=== PATIENT | male | born 1945 | race Caucasian/White ===

== ENCOUNTER 2020-06-29 12:19 | Outpatient (CLI) | payer MEDICARE, SELFPAY ==
--- NOTE | ~2020-06-29 | CT_ITS ---
EXAMINATION: CT abdomen pelvis w con DATE: 06/29/2020 14:04 INDICATION: Acute abdominal pain. TECHNIQUE: Computed tomography (CT) of the abdomen and pelvis was performed with 100 mL Omnipaque 350 intravenous contrast. Automated exposure control and iterative reconstruction technique were employe d. The dose-length product was 1526.87 mGy-cm. COMPARISON: CT abdomen and pelvis 09/14/2017 FINDINGS: The visualized portions of the lung bases demonstrate mild atelectasis. A calcified right l omar nodule and calcified right hilar lymph nodes are consistent with old granulomatous disease. No pl eural effusion. The heart size is normal. There are coronary artery calcifications. No pericardial ef fusion. There is a 7.9 cm mass in right hepatic lobe. The gallbladder is distended. There is a gallst one in the gallbladder neck. Gallbladder wall thickening and pericholecystic fat stranding are seen. These findings are consistent with acute cholecystitis. Calcifications in the spleen are consistent w ith old granulomatous disease. The pancreas, adrenal glands, and kidneys are normal. There is diverti culosis of the colon without evidence of diverticulitis. The appendix is normal. There are no patholo gically enlarged lymph nodes. There is trace ascites. There is a left inguinal hernia containing fat. There are chronic bilateral L5 pars defects. There is interbody fusion at L5-S1. There is severe lum bar spondylosis and moderate thoracic spondylosis. IMPRESSION: 1. Acute cholecystitis. 2. 7.9 cm liver mass suspicious for malignancy. Ultrasound guided core needle biopsy is recommended. Reviewed, dictated and finalized at location A. IMPRESSION: 1. Acute cholecystitis. 2. 7.9 cm liver mass suspicious for malignancy. Ultrasound guided core needle b iopsy is recommended.
[2020-06-29 13:57] LABS: Estimated Glomerular Filt Rate 54
== END 2020-06-29 12:20 | disposition home or self-care (01) ==
PROVIDERS: PCP Family Medicine Adolescent Medicine; Visit Provider Family Medicine Adolescent Medicine
DX: R10.84 Generalized abdominal pain (principal); K81.0 Acute cholecystitis; R16.0 Hepatomegaly, not elsewhere classified
CPT/HCPCS: 74177; Q9967

== ENCOUNTER 2020-07-15 01:24 | Outpatient (CLI) | payer MEDICARE, SELFPAY ==
[2020-07-15 18:17] LABS: SARS-CoV-2 RNA PCR Negative
== END 2020-07-15 01:25 | disposition home or self-care (01) ==
LOC: ANHCOVIDDT 01:25
PROVIDERS: PCP Family Medicine Adolescent Medicine; Visit Provider Surgery
DX: Z01.812 Encounter for preprocedural laboratory examination (principal); Z20.828 Contact with and (suspected) exposure to other viral communicable diseases
CPT/HCPCS: 87635; C9803; U0003

== ENCOUNTER 2020-07-16 18:10 | Emergency (ER) | payer MEDICARE, SELFPAY ==
[2020-07-16 19:08] VITALS: BP 155/74; PULSE 100; RESP 18; TEMP 37.4; O2SAT 96
--- NOTE | 2020-07-16 20:41 | PC.NURSE ---
Patient alert oriented here with c/o syncopal episodes at home and having gallbladder surgery at 0500 . Patient reports that he called prior to coming around 1800 and was told to come right in , upset about length of time that he has been here and has not been seen-other than to be triaged/taken to room. Triage policy explained several times. Patient given cab numbers at his request
--- NOTE | 2020-07-16 21:15 | PC.NURSE ---
Patient called cab and went home
== END 2020-07-16 21:15 | disposition left against medical advice (07) ==
LOC: ANHED 21:24
PROVIDERS: PCP Family Medicine Adolescent Medicine
DX: R55 Syncope and collapse (principal)
CPT/HCPCS: 99199

== ENCOUNTER → 2020-07-17 01:32 | Day surgery (SDC) | payer MEDICARE, SELFPAY ==
[2020-07-09 14:04] VITALS: BMI 39.6
--- NOTE | 2020-07-16 08:49 | WPDANESEPPF ---
Anes - Initial Pre Proc Eval Procedure: Operation Date: 07/17/20 07:30 Proposed Procedures p Laparoscopic Cholecystectomy, Biopsy Liver Mass - Aristides Mccarthy MD Date/Time: 07/16/20 08:49 Surgeon: Aristides Mccarthy MD Pre Op Diagnosis: Acute Cholicystitis With Stone/ Liver Mass Patient Data Age: 74 Gender: M Height: 1.73 m Weight: 118.18 kg Allergies Allergy/AdvReac Type Severity Reaction Status Date / Time No Known Allergies Allergy Verified 07/17/20 06:49 Home Medications Medication Instructions Recorded Confirmed Type allopurinol 300 mg tablet 300 mg PO DAILY 08/27/19 07/17/20 History amlodipine 5 mg-benazepril 20 mg 1 cap PO DAILY 08/27/19 07/17/20 History capsule apixaban 5 mg tablet 5 mg PO BID 08/27/19 07/17/20 History aspirin 81 mg tablet,delayed 81 mg PO DAILY 08/27/19 07/17/20 History release celecoxib 200 mg capsule 200 mg PO DAILY 08/27/19 07/17/20 History finasteride 5 mg tablet 5 mg PO DAILY 08/27/19 07/17/20 History omeprazole 20 mg capsule,delayed 20 mg PO DAILY 08/27/19 07/17/20 History release umeclidinium 62.5 mcg-vilanterol 1 inhalation INHALATION DAILY 08/27/19 07/17/20 History 25 mcg/actuation powdr for inhalation fenofibrate nanocrystallized 145 145 mg PO DAILY 02/27/20 07/17/20 History mg tablet fexofenadine 180 mg tablet 180 mg PO BID tablet 02/27/20 07/17/20 History furosemide 40 mg tablet 40 mg PO QAM tablet 02/27/20 07/17/20 History levothyroxine 25 mcg tablet 25 mcg PO QAM tablet 02/27/20 07/17/20 History metolazone 5 mg tablet 5 mg PO DAILY PRN 02/27/20 07/09/20 History metoprolol succinate 50 mg 100 mg PO DAILY tablet 02/27/20 07/17/20 History tablet,extended release 24 hr oxybutynin chloride 5 mg tablet 5 mg PO BID tablet 02/27/20 07/17/20 History simvastatin 20 mg tablet 20 mg PO QPM tablet 02/27/20 07/17/20 History bexarotene 75 mg capsule 150 mg PO DAILY cap 02/28/20 07/17/20 History blood sugar diagnostic #200 each 05/12/20 07/06/20 Rx blood-glucose meter #1 ea 07/06/20 07/06/20 Rx insulin lispro protamine-lispro 25 unit SUBCUT BID ml 07/06/20 07/09/20 History 100 unit/mL (75-25) subcutaneous pen metformin 1,000 mg tablet 1,000 mg PO BID 90 Days #180 tablet 07/06/20 07/17/20 Rx pen needle, diabetic 32 gauge x #10 each 07/06/20 07/06/20 History hydrocodone-acetaminophen 1 - 2 tablet PO Q6H PRN #12 tablet 07/17/20 Rx Patient hx anesthesia problems: none Family hx anesthesia problems: none PMFSH Past Medical History Medical History (Updated 07/16/20 @ 08:49 by Ortega Lomeli DO) CAD (coronary artery disease) DVT (deep venous thrombosis) Essential hypertension History of blood clots History of COPD asbestosis Hx of myocardial infarction Liver mass Lymphoma Pure hypercholesterolemia, unspecified Type 2 diabetes mellitus with hyperglycemia, with long-term current use of insulin Surgical History Surgical History (Updated 07/16/20 @ 08:49 by Ortega Lomeli DO) History of bilateral knee arthroplasty History of left knee replacement Stented coronary artery 1998 Family History Family History Father Family history of arthritis Family history of congestive heart failure Family history of heart disease in male family member before age 55 Family history of hearing loss Mother , age 46 Blood clot in vein Other Family history of glaucoma Social History Social History Smoking status: Never smoker Second hand tobacco smoke exposure: No Alcohol intake: current Alcohol use details: STATES VERY RARELY Substance use: never Living arrangements: alone Additional occupation/education comments: [employer] Gender identity (if verbalized by the patient): Male Spiritual care concerns: No Anes - Eval Final PreProcedure Day of Procedure 07/16/20 08:
--- NOTE | 2020-07-17 05:46 | ECG_ITS ---
Measurements Intervals [place] Rate: 87 P: 57 MS: 160 QRS: 7 QRSD: 90 T: -2 QT: 337 QTc: 407 Interpretive Statements SINUS RHYTHM ATRIAL PREMATURE COMPLEX INFERIOR INFARCT, AGE INDETERMINATE BASELINE WANDER- AVF ABNORMAL ECG Electronically Signed On 07-17-2020 7:22:59 CDT by Angel Gonzáles D.O.
[2020-07-17] MEDS: LACTATED RINGERS 1,000 ML 30 ML IV CONT (06:45)
[2020-07-17] MEDS: ACETAMINOPHEN 500 MG TABLET 1000 MG PO (06:48)
[2020-07-17] MEDS: KETOROLAC 15 MG/ML VIAL (*BKC) IV PUSH (06:48)
--- NOTE | 2020-07-17 06:53 | WPDHPUPDATE1 ---
History and Physical Update Update Date/Time: 07/17/20 06:53 History and Physical has been reviewed, including an updated exam of the patient. There are NO changes in the patient's condition. Risks, benefits, and alternatives have been discussed and questions answered. Patient agrees to proceed with procedure.
[2020-07-17 07:01] LABS: Glucose Point of Care 212 (65-105)
[2020-07-17 07:13] VITALS: BP 128/63; PULSE 93; RESP 16; TEMP 37.6; O2SAT 96
[2020-07-17 07:19] LABS: INR 1.3; Prothrombin Time 15.5 Seconds (11.1-14.7)
[2020-07-17 07:20] LABS: Partial Thromboplastin Time 33.7 SECONDS (22.3-36.8)
[2020-07-17 07:22] LABS: Alanine Aminotransferase 102 U/L (4-50); Albumin Level 4.1 g/dL (3.5-5.1); Alkaline Phosphatase 105 U/L (38-126); Amylase 39 U/L (30-110); Aspartate Amino Transferase 206 U/L (17-59); Bilirubin Direct 2.9 mg/dL (0-0.3); Bilirubin,Total 6.2 mg/dL (0.2-1.3); Lipase 43 U/L (23-300)
[2020-07-17 08:52] VITALS: BMI 38.7
--- NOTE | 2020-07-17 09:22 | SUR.PREOP ---
0715: DR. MOODY HERE TO SEE PT. PT RELATED HE HAS HAD NAUSEA AND VOMITING AND SYNCOPAL EPISODES 07/16/20 AND WENT TO THE ER BUT LEFT BEFORE BEING EVALUATED. ARRIVED THIS AM WITH N/V AND SYNCOPE AND SEVERE ABD TENDERNESS. DR. MOODY MADE AWARE AND DR. HENNING MADE AWARE. DUE TO PT'S CARDIAC HX AND RECENT STATUS CHANGES, DECISION MADE BY AND JESU TO CANCEL SURGERY AND SEND PT TO ER FOR EVALUATION. D/W PT. 0800: REPORT CALLED TO [facility] AND PT DC'D TO ER DEPT.
== END | disposition home or self-care (01) ==
PROVIDERS: Anesthesiology; PCP Family Medicine Adolescent Medicine; Visit Provider Surgery
PROC: 0FT44ZZ Resection of Gallbladder, Percutaneous Endoscopic Approach (ICD-10-PCS; CPT 47562; principal; 2020-07-17 07:30)
DX: K82.9 Disease of gallbladder, unspecified (principal); R11.2 Nausea with vomiting, unspecified; R55 Syncope and collapse; R10.9 Unspecified abdominal pain; Z53.09 Procedure and treatment not carried out because of other contraindication; I10 Essential (primary) hypertension; I25.10 Atherosclerotic heart disease of native coronary artery without angina pectoris; J44.9 Chronic obstructive pulmonary disease, unspecified; E78.00 Pure hypercholesterolemia, unspecified; E11.9 Type 2 diabetes mellitus without complications; Z79.4 Long term (current) use of insulin; Z86.718 Personal history of other venous thrombosis and embolism; Z79.01 Long term (current) use of anticoagulants; Z95.5 Presence of coronary angioplasty implant and graft; E66.9 Obesity, unspecified; Z68.38 Body mass index [BMI] 38.0-38.9, adult
CPT/HCPCS: 36415; 80076; 82150; 83690; 85610; 85730; 86850; 86900; 86901; 93005; 99215; A9270; G0463; J1170; J1885; J3010; J7030; J7120

== ENCOUNTER 2020-07-17 08:22 | Inpatient (IN) | payer MEDICARE, SELFPAY ==
[2020-07-17] VITALS (14 sets, daily range): BP systolic 131–154; BP diastolic 66–85; PULSE 71–105; RESP 16–20; TEMP 36.3–37.1; O2SAT 95–100; BMI 39.2
--- NOTE | ~2020-07-17 | NM_ITS ---
EXAMINATION: NM hepatobiliary wo pharm DATE: 07/23/2020 10:30 INDICATION: Rule out bile leak COMPARISON: CT dated 07/19/2020 TECHNIQUE: 5.5 mCi Tc-99m mebrofenin (Choletec) was administered intravenously. Scintigraphic images of the abdomen were obtained for one hour. FINDINGS: There is normal clearance of radiotracer from the blood pool. There is homogeneous tracer u ptake by the liver on the early images. On the later images there is increased uptake along the cauda l half of the left hepatic lobe suggesting decreased clearance. Excreted activity is first visualized within the common bile duct and duodenum at 20 minutes. At approximately 35 minutes a small amount o f activity can be seen in a linear pattern extending caudally from the right hepatic lobe likely rajani g a surgical drain and consistent with a small bile leak. A larger proportion of the activity appears to remain within the common bile duct and duodenum. IMPRESSION: 1. Bile leak which extends along a surgical drain. Dr. Sharma discussed these findings with Dr. Salmeron at 10:45 AM. 2. Retention of activity at the caudal aspect of the left hepatic lobe. This appears more likely pare nchymal activity rather than related to the bile leak and could be related to either hyperperfusion r esulting from inflammation or increased retention raising concern for a biliary obstruction. On revie w of the prior CT images there appears to be some localized biliary ductal dilation the left hepatic lobe and would recommend attention to this region on the planned ERCP study. Could also consider furt her evaluation with contrast-enhanced MRI/MRCP. Reviewed, dictated and finalized at location A. AGE LINER IMPRESSION: 1. Bile leak which extends along a surgical drain. Dr. Sharma discussed thes e findings with Dr. Mccarthy at 10:45 AM. 2. Retention of activity at the caudal aspect of the left hepatic lobe. This ap pears more likely parenchymal activity rather than related to the bile leak and could be related to either hyperperfusion resulting from inflammation or incre ased retention raising concern for a biliary obstruction. On review of the prio r CT images there appears to be some localized biliary ductal dilation the left hepatic lobe and would recommend attention to this region on the planned ERCP study. Could also consider further evaluation with contrast-enhanced MRI/MRCP.
--- NOTE | ~2020-07-17 | XR_ITS ---
EXAMINATION: XR ERCP DATE: 07/23/2020 13:34 INDICATION: All stones. TECHNIQUE: Multiple spot fluoroscopic images of the right upper quadrant were obtained during endosco pic retrograde cholangiopancreatography (ERCP) performed by Irwin. Radiologist was not pres ent for the imaging or procedure. The amount of fluoroscopy time used during this procedure was 12.1 minutes. COMPARISON: None. FINDINGS: Cholecystectomy clips in the surgical drain project over the region of the gallbladder fossa. Initial image demonstrates cannulation of the main pancreatic duct with small amount of contrast within the normal caliber duct. Subsequent images demonstrate cannulation of the common bile duct with contrast opacification demonstrating a stone at the distal aspect of the dome of caliber common bile duct. The re is extravasation of contrast at the gallbladder fossa which appears to arise from the cystic duct. The contrast opacified intrahepatic biliary tree appears unremarkable. Final images demonstrate plac ement of a biliary stent with proximal tip in the left hepatic duct and distal loop coiled in the duo denum. The final image demonstrates a likely balloon sweeping the common bile duct with no residual f illing defects suggesting interval extraction of the suspected stone. IMPRESSION: 1. Placement of a biliary stent spanning the region of a post cholecystectomy bile leak which appears to originate along from the cystic duct. Please refer to the ERCP procedure note for additional deta ils. 2. Likely gallstone in the distal common bile duct on the initial images which is no longer visualize d on the final images and has likely been extracted. Again correlate with procedure note for further detail. Reviewed, dictated and finalized at location A. ULATOR IMPRESSION: 1. Placement of a biliary stent spanning the region of a post cholecystectomy b ile leak which appears to originate along from the cystic duct. Please refer to the ERCP procedure note for additional details. 2. Likely gallstone in the distal common bile duct on the initial images which is no longer visualized on the final images and has likely been extracted. Agai n correlate with procedure note for further detail.
--- NOTE | ~2020-07-17 | CT_ITS ---
EXAMINATION: CT brain wo con DATE: 07/17/2020 09:34 INDICATION: Syncope. TECHNIQUE: Computed tomography (CT) of the head was performed without intravenous contrast. The mA wa s adjusted according to patient size. Iterative reconstruction technique was employed. The dose-lengt h product was 605.33 mGy-cm. COMPARISON: None FINDINGS: There is no intracranial hemorrhage, acute infarction, or abnormal intracranial mass lesion . The ventricles are normal in size. There are likely changes of ocular lens replacement surgeries. T here is mild mucosal thickening in the ethmoid sinuses. The mastoid air cells are normal. IMPRESSION: 1. Normal brain. Reviewed, dictated and finalized at location A. IMPRESSION: 1. Normal brain.
--- NOTE | ~2020-07-17 | US_ITS ---
EXAMINATION: US venous doppler [facility] DATE: 07/24/2020 13:04 INDICATION: Lower limb swelling and tenderness TECHNIQUE: [place] scale images without and with compression and Doppler images of the bilateral lower e xtremity veins were obtained. COMPARISON: 06/03/2019 FINDINGS: The right common femoral vein, profunda femoral vein, femoral vein, popliteal vein, peroneal trunk, p osterior tibial veins, and greater saphenous vein are patent. The left common femoral vein, profunda femoral vein, femoral vein, popliteal vein, peroneal trunk, po sterior tibial veins, and greater saphenous vein are patent. IMPRESSION: 1. Patent bilateral lower extremity veins. No evidence of deep venous thrombosis. Reviewed, dictated and finalized at location A. ING OFFICER IMPRESSION: 1. Patent bilateral lower extremity veins. No evidence of deep venous thrombosi s.
--- NOTE | ~2020-07-17 | CT_ITS ---
EXAMINATION: CTA chest PE abdomen pel DATE: 07/19/2020 14:48 FOOD TRADES ASSISTANTS INDICATION: Sudden increased oxygen requirements. TECHNIQUE: Computed tomographic angiography (CTA) of the chest, abdomen and pelvis was performed with 100 mL Omnipaque-350 intravenous contrast. The dose-length product was 2374.94 mGy-cm. Maximum inten sity projection 3D-reconstructions of the aorta and other arteries were constructed by the [employer] st on a separate workstation. COMPARISON: CT dated 06/29/2020. FINDINGS: Study is limited for evaluation of pulmonary embolism due to contrast bolus timing. No larg e central pulmonary embolism. No pulmonary nodules or masses. No pneumothorax. No thoracic lymphadenopathy. There is atherosclerosis of the aorta and coronary arteries. No signific ant pleural or pericardial effusion. There is bilateral lower lobe atelectasis. No endobronchial lesi ons. There is a large 8 cm hypovascular lesion of the right hepatic lobe, suspicious for malignancy until proven otherwise. There are new hypodensities of the left hepatic lobe, suspicious for metastases. Th ere are calcified granulomas of the spleen. There is gallbladder wall thickening with surrounding per icholecystic infiltration, consistent with acute cholecystitis. There there is a stone in the distal common duct at the sphincter of Oddi. Nonobstructive bowel gas pattern. Normal appendix. IMPRESSION: 1. No large central pulmonary embolism. Limited study due to contrast bolus timing. 2: Large 8 cm right hepatic lobe mass. New masses of the left hepatic lobe. Findings compatible with metastatic disease. 3: Choledocholithiasis with acute cholecystitis. Reviewed, dictated and finalized at location A. TRADES ASSISTANTS IMPRESSION: 1. No large central pulmonary embolism. Limited study due to contrast bolus [place] ing. 2: Large 8 cm right hepatic lobe mass. New masses of the left hepatic lobe. Fin dings compatible with metastatic disease. 3: Choledocholithiasis with acute cholecystitis.
--- NOTE | ~2020-07-17 | US_ITS ---
EXAMINATION: US biopsy liver DATE: 07/21/2020 12:23 INDICATION: Liver mass TECHNIQUE: The procedure including the risks and benefits was discussed with the patient. Risks discu ssed included bleeding and infection. The patient understood the risks and agreed to proceed. The sk in overlying the right hepatic lobe was prepped and draped in usual sterile fashion. Anesthetic was administered with 1% lidocaine subcutaneously. An 18 gauge core biopsy needle was advanced under con tinuous ultrasound observation to the lesion of interest. 4 core biopsy specimens were obtained. The needle was removed and the entry site was cleaned and dressed. Post procedure ultrasound demonstra cal no hemorrhage. FINDINGS: Ultrasound images demonstrate approximately 8.5 cm hyperechoic mass. Subsequent images demo nstrate biopsy needle advanced into the mass. IMPRESSION: 1. Successful Ultrasound-guided biopsy of an approximately 8.5 cm solid hyperechoic mass in the right hepatic lobe. Reviewed, dictated and finalized at location A. PLANNING ENGINEER IMPRESSION: 1. Successful Ultrasound-guided biopsy of an approximately 8.5 cm solid hyperec hoic mass in the right hepatic lobe.
--- NOTE | ~2020-07-17 | XR_ITS ---
EXAMINATION: XR chest 1V portable DATE: 07/17/2020 09:25 INDICATION: Syncope. TECHNIQUE: A single frontal view of the chest was obtained. COMPARISON: Chest 2 views 03/29/2018, CT abdomen and pelvis 06/29/2020 FINDINGS: Sensitivity is decreased by obesity. The chest demonstrates clear lungs without pneumonia, pleural effusion, or pneumothorax. The heart size is normal. IMPRESSION: 1. No acute cardiopulmonary disease. Reviewed, dictated and finalized at location A.
--- NOTE | 2020-07-17 08:44 | ECG_ITS ---
Measurements Intervals [place] Rate: 82 P: 46 HI: 157 QRS: -3 QRSD: 93 T: -7 QT: 355 QTc: 417 Interpretive Statements SINUS RHYTHM ATRIAL PREMATURE COMPLEX INFERIOR INFARCT, AGE INDETERMINATE BASELINE ARTIFACT- I, III, AVR, AVL, AVF ABNORMAL ECG Electronically Signed On 07-17-2020 8:55:01 CDT by Angel Gonzáles D.O.
--- NOTE | 2020-07-17 08:54 | ED.GENADULT ---
HPI - General Adult General Chief complaint: Unspecified Stated complaint: WEAKNESS Time Seen by Provider: 07/17/20 08:44 Source: patient Mode of arrival: ambulatory Limitations: no limitations History of Present Illness HPI narrative: 74 years old white male referred to the emergency room from the OR because of loss of balance and fall twice yesterday. Patient was a scheduled for liver biopsy and probably cholecystectomy this morning. Patient told the anesthesiologist that he lost his balance and fell twice yesterday, came to the emergency room, waited for 1 hour into triage pain got tired and left the home. Patient started stool softener yesterday for the surgery this morning, got up of the couch real quick to go to the bathroom and lost his balance and fell, did not blackout. Denies any injuries. Later on patient got off the toilet real quick and felt dizzy and lost his balance and fell on the floor. He denies any loss of consciousness or any injuries. Patient lives alone. Patient did not eat since last night, currently feeling hungry, and his main complaint is abdominal pain across which been going for a while that is why his getting the procedure done today. Related Data Home Medications Medication Instructions Recorded Confirmed allopurinol 300 mg tablet 300 mg PO DAILY 08/27/19 07/17/20 amlodipine 5 mg-benazepril 20 mg 1 cap PO DAILY 08/27/19 07/17/20 capsule apixaban 5 mg tablet 5 mg PO BID 08/27/19 07/17/20 aspirin 81 mg tablet,delayed 81 mg PO DAILY 08/27/19 07/17/20 release celecoxib 200 mg capsule 200 mg PO DAILY 08/27/19 07/17/20 finasteride 5 mg tablet 5 mg PO DAILY 08/27/19 07/17/20 omeprazole 20 mg capsule,delayed 20 mg PO DAILY 08/27/19 07/17/20 release umeclidinium 62.5 mcg-vilanterol 1 inhalation INHALATION DAILY 08/27/19 07/17/20 25 mcg/actuation powdr for inhalation fenofibrate nanocrystallized 145 145 mg PO DAILY 02/27/20 07/17/20 mg tablet fexofenadine 180 mg tablet 180 mg PO BID tablet 02/27/20 07/17/20 furosemide 40 mg tablet 40 mg PO QAM tablet 02/27/20 07/17/20 levothyroxine 25 mcg tablet 25 mcg PO QAM tablet 02/27/20 07/17/20 metolazone 5 mg tablet 5 mg PO DAILY PRN 02/27/20 07/09/20 metoprolol succinate 50 mg 100 mg PO DAILY tablet 02/27/20 07/17/20 tablet,extended release 24 hr oxybutynin chloride 5 mg tablet 5 mg PO BID tablet 02/27/20 07/17/20 simvastatin 20 mg tablet 20 mg PO QPM tablet 02/27/20 07/17/20 bexarotene 75 mg capsule 150 mg PO DAILY cap 02/28/20 07/17/20 insulin lispro protamine-lispro 25 unit SUBCUT BID ml 07/06/20 07/09/20 100 unit/mL (75-25) subcutaneous pen pen needle, diabetic 32 gauge x #10 each 07/06/20 07/06/20 Allergies Allergy/AdvReac Type Severity Reaction Status Date / Time No Known Allergies Allergy Verified 07/17/20 10:08 Review of Systems Review of Systems: Narrative: CONSTITUTIONAL: Denies fever, chills, or sweats. EYES: Denies visual changes, redness, or discharge. ENT: Denies rhinorrhea, congestion, sore throat, or otalgia. CARDIOVASCULAR: Denies chest pain, palpitations, or edema. RESPIRATORY: Denies cough or dyspnea. GASTROINTESTINAL: Denies abdominal pain, nausea, vomiting, or diarrhea. GENITOURINARY: Denies dysuria or hematuria. SKIN: Denies rash or itching. MUSCULOSKELETAL: Denies back pain, joint pain, or myalgia. NEUROLOGIC: Denies headache, numbness, or weakness. PSYCHIATRIC: Denies anxiety or depression. [facility] Past Medical History Medical History CAD (coronary artery disease) DVT (deep venous thrombosis) Essential hypertension History of blood clots History of COPD asbestosis Hx of myocardial infarction Liver mass Lymphoma Pure hypercholesterolemia, unspecified Type 2 diabetes mellitus with hyperglycemia, with long-term current use of insulin Surgical History Surgical History History of bilateral kne
--- NOTE | 2020-07-17 09:05 | PC.NURSE ---
Pt asking for something to eat, [facility] has been npo since midnight for surgery this am. Call to OR, [facility] will check if Dr. Mccarthy wants to do surgery after pt cleared. [facility] will check and call back.
[2020-07-17 09:11] LABS: Alveolar/Arterial O2 Gradient 33.6 mmHg; Base Excess ABG -2.8 mEq/l (+/-2.0); Fractional Inspired Oxygen 21 %; HCO3 ABG 20.4 mEq/l (22.0-26.0); Oxygen Saturation ABG 96.4 % (95.0-100.0); PCO2 ABG 30.3 mmHg (35.0-45.0); PO2 ABG 79.8 mmHg (80.0-100.0); Total Hemoglobin 11.9 g/dL (12.0-18.0); pH ABG 7.445 (7.350-7.450)
[2020-07-17 09:12] LABS: Device ROOM AIR; Modified Allen's Test Pass; Site Drawn LEFT RADIAL
[2020-07-17] MEDS: SODIUM CHLORIDE 0.9% IV 1,000 ML 999 ML IV CONT (09:15)
[2020-07-17 10:09] LABS: Basophils Percent Auto 0.2 % (0.2-1.2); Hematocrit 34.7 % (42.0-52.0); Hemoglobin 11.1 g/dL (14.0-18.0); Immature Granulocyte Absolute 0.05 K/mm3 (0.00-0.031); Immature Granulocyte Percent A 0.5 % (0-0.5); Lymphocytes Absolute Auto 0.58 K/mm3 (0.9-3.2); Lymphocytes Percent Auto 5.4 % (18.3-44.2); Mean Corpuscular Hemoglobin 24.6 pg (26-34); Mean Corpuscular Volume 76.9 fl (80-100); Monocytes Absolute Auto 0.9 K/mm3 (0.1-0.6); Monocytes Percent Auto 8.1 % (2.6-8.5); Neutrophils Absolute Auto 9.1 K/mm3 (1.3-6.7); Neutrophils Percent Auto 85.8 % (45.5-73.1); Platelet Count Result 277 k/mm3 (150-375); Red Blood Count 4.51 M/mm3 (4.6-6.20); Red Cell Distribution Width 15.7 % (11.5-14.5); White Blood Count 10.7 K/mm3 (4.5-10.0)
[2020-07-17 10:18] LABS: INR 1.4
[2020-07-17 10:19] LABS: Partial Thromboplastin Time 36.4 SECONDS (22.3-36.8)
[2020-07-17 10:21] LABS: Alanine Aminotransferase 86 U/L (4-50); Albumin Level 3.5 g/dL (3.5-5.1); Alkaline Phosphatase 83 U/L (38-126); Anion Gap 8 mmol/L (8-16); Aspartate Amino Transferase 187 U/L (17-59); Bilirubin,Total 5.7 mg/dL (0.2-1.3); Blood Urea Nitrogen 16 mg/dL (9-20); Calcium 9.1 mg/dL (8.4-10.2); Carbon Dioxide 23 mmol/L (22-30); Chloride 102 mmol/L (98-107); Estimated CRCL calculation 65 ml/min; Estimated Glomerular Filt Rate > 60; Glucose 206 mg/dL (75-110); Potassium 4.4 mmol/L (3.4-5.0); Sodium 133 mmol/L (137-145)
[2020-07-17 10:30] LABS: NT Pro B Type Natriuretic Pept 377 PG/ML (5-100)
[2020-07-17 10:33] LABS: Troponin I < 0.012 ng/mL (0.000-0.034)
[2020-07-17 13:19] LABS: Glucose Point of Care 201 (65-105)
--- NOTE | 2020-07-17 13:45 | PM.IMHP ---
H&P: HPI History of Present Illness Date/Time: 07/17/20 13:45. The patient was seen and evaluated in the emergency department. Chief complaint: Near syncope. Narrative: Bo Barragan is a 74-year-old male with multiple medical problems including coronary artery disease, history of DVT and pulmonary embolism on anticoagulation, type 2 diabetes mellitus, hypertension, dyslipidemia, and T-cell lymphoma who presented to the emergency department earlier today from preop for evaluation after near-syncope x2 yesterday. He was scheduled to have a cholecystectomy today with a 2 week history of right upper quadrant abdominal pain and bloating; is also noted that he has a 7.9 cm liver mass that is going to be biopsied at that time as well. Since that time he has not been eating and drinking as usual given continued abdominal pain. Over the past couple of days he has had episodes of lightheadedness/dizziness which he attributes to possible dehydration due to decreased oral intake in addition to passing a large amount of stool after taking laxatives. Yesterday he had 2 episodes where he felt as though he was close to passing out, to the point where he fell on 2 occasions not long after standing up and becoming extremely lightheaded. He denies loss of consciousness to me, reports no injuries, and denies head trauma. He spoke with his doctor regarding these episodes and was directed to the emergency department. He waited in the waiting room for approximately 2 hours but decided to go home as he did not wish to continue waiting. He has not had any recent change in medication. No vomiting. No chest pain or pleuritic pain. No palpitations or racing heart. No significant change in occasional lower extremity edema. Review of Systems Review of Systems: Narrative: Twelve systems were reviewed with pertinent positives and negatives as per HPI. He denies fever, chills, and sweats. He believes his diabetes is fairly well controlled but does not recall his last hemoglobin A1c level. Glucose seems to range between 110 and 140s and he does have occasional lows. He has chronic intermittent lower extremity edema which is unchanged. No calf pain or tenderness. He denies recent travel. Anticoagulation has been on hold since Monday in anticipation of surgery today. He is currently on oral chemotherapy for T-cell lymphoma and received phototherapy as well. Except as documented, all other systems were reviewed and are negative. [facility] Past Medical History Medical History (Updated 07/17/20 @ 21:15 by Marybeth Morgan PA-C) Asbestosis Chronic anticoagulation Chronic back pain Chronic obstructive pulmonary disease Coronary artery disease With history of IA and stent. Patient of Dr. Abisai Patton. Deep venous thrombosis Eczema Essential hypertension Gastroesophageal reflux disease History of peptic ulcer Hyperlipidemia Hypothyroidism Insulin dependent type 2 diabetes mellitus Kidney stones Liver mass Pulmonary embolism T-cell lymphoma Receiving oral chemotherapy as well as phototherapy. Surgical History Surgical History (Updated 07/17/20 @ 21:13 by Marybeth Morgan PA-C) History of bilateral inguinal hernia repair History of bilateral knee arthroplasty History of cystoscopy With stone extraction. History of facial surgery Repair of left orbital fracture. History of left knee replacement History of shoulder surgery Left shoulder ORIF. History of tonsillectomy History of umbilical hernia repair Stented coronary artery (~1998) Family History Family History Father Family history of arthritis Family history of congestive heart failure Family history of heart disease in male family member before age 55 Family history of hearing loss Mother , age 46 Blood clot in vein Other Family history of glaucoma Social History Social History (Updated 07/17/20 @ 21:11 by Marybeth
--- NOTE | 2020-07-17 15:35 | ADMGEN ---
Addendum entered by Lynn Macias RN 07/17/20 15:55: admitted at 1535 Original Note: This patient, Bo Barragan, was admitted to 2 Medical Room 252-01. Patient/family oriented to hospital policies and general routines including ID bracelet, bed and alarms, visiting hours, pain management, procedures, bathroom and other care routines, personal items, smoking policy, room service/diet, and visiting hours. Information on how to activate the Rapid Response Team has been discussed. Patient/Family are encouraged to report perceived risks to care and to ask questions if they do not understand what they are told or what they should do.
[2020-07-17] MEDS: MORPHINE SULFATE (*CRX) 2 MG/ML INJ IV PUSH ×2 (16:17→22:11)
[2020-07-17 17:56] LABS: Glucose Point of Care 198 (65-105)
[2020-07-17] MEDS: OXYBUTYNIN CHLORIDE 5 MG TABLET PO (22:32)
[2020-07-17 23:29] LABS: Glucose Point of Care 183 (65-105)
[2020-07-18] VITALS (15 sets, daily range): BP systolic 113–175; BP diastolic 48–83; PULSE 60–100; RESP 20–22; TEMP 36.8–38.3; O2SAT 94–100
--- NOTE | 2020-07-18 | ECHO_ITS ---
Patient Info Name: Bo Barragan Age: 74 years : 1945 Gender: Male Ht: 68 in Wt: 261 lbs BSA: 2.44 m2 HR: 86 bpm BP: 175 / 71 mmHg Heart Rhythm: Sinus Rhythm Technical Quality: Poor Exam Date: 07/18/2020 11:26 AM Exam Location: [facility] Patient Status: Inpatient Admit Date: 07/17/2020 Staff Ordering Physician: Phoenix Krishnamurthy MD Tattooer: Venecia Heredia RDCS Attending Provider: Slime Oquendo PA-C Referring Physician: Yessy DOZIER; Exam Type: CA echo dop color flow w con Study Info Complete two-dimensional, color flow and Doppler transthoracic echocardiogram is performed with contrast to opacify the left ventricle and to improve the deliniation of the left ventricle endocardial borders. Contrast/Agitated Saline Contrast/Ag. Saline: Definity Amount: 4.00 ml Summary 1. Left ventricular chamber dimension is normal. 2. Left ventricular systolic function is normal, estimated at 65-70%. 3. There is mildly increased left ventricular wall thickness. 4. Left ventricular septal wall motion is normal. 5. The left ventricular diastolic function is grade I diastolic dysfunction. 6. Left atrial chamber dimension is mildly enlarged. 7. There is mild mitral valve regurgitation. 8. There is mild tricuspid valve regurgitation. 9. There is mild pulmonic regurgitation. Left Ventricle Left ventricular chamber dimension is normal. Left ventricular systolic function is normal, estimated at 65-70%. There is mildly increased left ventricular wall thickness. Left ventricular septal wall motion is normal. The left ventricular diastolic function is grade I diastolic dysfunction. Right Ventricle Right ventricular chamber dimension is normal. Right ventricular systolic function is normal. Left Atria Left atrial chamber dimension is mildly enlarged. Right Atria Right atrial chamber dimension is normal. Atrial Septum Intact interatrial septum visualized by color flow imaging. Aortic Valve The aortic valve is trileaflet. There is mild aortic valve sclerosis. There is no aortic valve stenosis. There is trace aortic valve regurgitation. Pulmonic Valve The pulmonic valve is normal. There is no pulmonic valve stenosis. There is mild pulmonic regurgitation. Mitral Valve The mitral valve has thickened leaflets. There is no mitral valve stenosis. There is mild mitral valve regurgitation. Tricuspid Valve The tricuspid valve leaflets are normal. There is no significant tricuspid valve stenosis. There is mild tricuspid valve regurgitation. No pulmonary hypertension, estimated pulmonary arterial systolic pressure is 24 mmHg. Pericardium/Pleural The pericardium appears normal. There is trivial pericardial effusion. Inferior Vena Cava Normal inferior vena cava with >50% collapse upon inspiration consistent with normal right atrial pressure, 5 mmHg. Aorta The aortic root size at the sinus of Valsalva is normal. Left Ventricular Outflow Tract Name Value Normal LVOT 2D LVOT Diameter 2.40 cm LVOT Doppler LVOT Peak Gradient
--- NOTE | 2020-07-18 01:57 | PHAR ---
PHARMACY VERIFIED HOME MED Umeclidinium/Vilanterol 62.5-25 mcg/actuation blister with device INHALE 1 PUFF ONCE DAILY
[2020-07-18] MEDS: LEVOTHYROXINE SODIUM 50 MCG TABLET PO (05:39)
[2020-07-18] MEDS: MORPHINE SULFATE (*CRX) 2 MG/ML INJ IV PUSH (06:07)
[2020-07-18 07:02] LABS: Hematocrit 33.3 % (42.0-52.0); Hemoglobin 10.8 g/dL (14.0-18.0); Mean Corpuscular HGB Conc 32.4 g/dl (32-36); Mean Corpuscular Hemoglobin 24.6 pg (26-34); Mean Corpuscular Volume 75.9 fl (80-100); Mean Platelet Volume 11.1 fl (7.4-10.4); Platelet Count Result 244 k/mm3 (150-375); Red Blood Count 4.39 M/mm3 (4.6-6.20); Red Cell Distribution Width 15.4 % (11.5-14.5); White Blood Count 10.3 K/mm3 (4.5-10.0)
[2020-07-18 07:23] LABS: Alanine Aminotransferase 122 U/L (4-50); Albumin Level 3.5 g/dL (3.5-5.1); Alkaline Phosphatase 104 U/L (38-126); Anion Gap 10 mmol/L (8-16); Aspartate Amino Transferase 225 U/L (17-59); Bilirubin,Total 6.9 mg/dL (0.2-1.3); Blood Urea Nitrogen 15 mg/dL (9-20); Calcium 9.3 mg/dL (8.4-10.2); Carbon Dioxide 24 mmol/L (22-30); Chloride 99 mmol/L (98-107); Estimated CRCL calculation 65 ml/min; Estimated Glomerular Filt Rate > 60; Glucose 223 mg/dL (75-110); Hemoglobin A1C 6.3 % (<5.7); Magnesium 1.3 mg/dL (1.6-2.3); Potassium 4.6 mmol/L (3.4-5.0); Sodium 133 mmol/L (137-145)
[2020-07-18 07:33] LABS: Lactate Dehydrogenase 652 U/L (313-618)
[2020-07-18 07:45] LABS: Iron < 10 ug/dL (49-181)
[2020-07-18 08:04] LABS: Glucose Point of Care 202 (65-105)
[2020-07-18] MEDS: INSULIN ASPART (*BKC) 100 UNITS/ML SUB-Q ×2 (08:07→18:33)
[2020-07-18 08:08] LABS: Percent Iron Saturation < 3 % (20-50)
[2020-07-18] MEDS: allopurinoL 300 MG TABLET PO (08:15)
[2020-07-18] MEDS: LORATADINE 10 MG TABLET PO (08:15)
[2020-07-18] MEDS: PANTOPRAZOLE 40 MG TABLET PO (08:15)
[2020-07-18] MEDS: FINASTERIDE 5 MG TABLET PO (08:15)
[2020-07-18] MEDS: FENOFIBRATE NANOCRYSTALLIZED 145 MG TABLET PO (08:15)
[2020-07-18] MEDS: amLODIPine BESYLATE 5 MG TABLET PO (08:16)
[2020-07-18] MEDS: lisinopriL 20 MG TABLET PO (08:16)
[2020-07-18] MEDS: METOPROLOL SUCCINATE EXT REL 100 MG TABCR PO (08:16)
[2020-07-18] MEDS: OXYBUTYNIN CHLORIDE 5 MG TABLET PO ×2 (08:16→20:07)
[2020-07-18] MEDS: FUROSEMIDE 40 MG TABLET PO (08:16)
[2020-07-18 08:27] LABS: Folic Acid 10.2 ng/mL (2.76->20)
[2020-07-18] MEDS: MAGNESIUM SULFATE 3GM/D5W100ML 3 GM/100 ML BAG IVPB (09:40)
--- NOTE | 2020-07-18 10:50 | PM.IMPN ---
Progress Note: A&P Assessment and Plan (1) Near syncope: Code(s): R55 - Syncope and collapse Status: Acute Assessment and Plan: ----- could be due to hypovolemia/ dehydration/ diarrhea from abdominal pain. Patient states he has not been eating very much lately. He is not orthostatic but feels a little lightheaded when he stands up. It is much better today. he has had Bienvenido hose in the past, we will reorder these. No cardiac symptoms present, EKG reviewed (2) Cholecystitis: Code(s): K81.9 - Cholecystitis, unspecified Status: Acute Assessment and Plan: ----- distressing to the patient and likely causing some dehydration. I have changed him to a low-fat diet. consider cholecystectomy soon as his previous appointment I believe was canceled (3) Liver mass: Code(s): R16.0 - Hepatomegaly, not elsewhere classified Status: Acute Assessment and Plan: ----- plan to biopsy it during the procedure above. He has scleral icterus, worrisome for liver cancer. AST and ALT elevated today (4) Microcytic anemia: Code(s): D50.9 - Iron deficiency anemia, unspecified Status: Acute Assessment and Plan: ----- hemoglobin remained stable, monitor (5) Jaundice: Code(s): R17 - Unspecified jaundice Status: Acute Assessment and Plan: ----- likely due to gallbladder and liver issues as stated above. Bilirubin 6.9. Yesterday his direct bilirubin was 2.9. 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 Eliquis has been on hold. (8) IDDM (insulin dependent diabetes mellitus): Status: Acute Assessment and Plan: -----last glucose 202, A1c 6.3. He takes 60u of 75/25 humalog at home as well as metformin. Will continued decreased dose of humalog at this time and may increase it as needed but since pt isn't eating much and may have sx, will continued decreased dose at this time. Diabetic diet added. (9) Hypothyroidism: Code(s): E03.9 - Hypothyroidism, unspecified Status: Inactive Assessment and Plan: -----TSH WNL. continue levothyroxine. (10) Insulin dependent type 2 diabetes mellitus: Code(s): E11.9 - Type 2 diabetes mellitus without complications; Z79.4 - retirement (current) use of insulin Status: Inactive (11) Essential hypertension: Code(s): I10 - Essential (primary) hypertension Status: Acute Assessment and Plan: -----Last bp 175/71 before his home medications. Will monitor it throughout the day. Continue lisinopril, lasix, metoprolol, and amlodipine. Time Spent With Patient Time with patient: 25 - 35 minutes Subjective Date/time seen: 07/18/20 10:50 Interval history: Pt is a 74-year-old male here for lightheadedness, presyncope and abdominal pain. Patient was seen today and states he is still lightheaded when he stands up but it is much better. He states his been going on for at least a month and it was worse yesterday but better today. He has in the past wore compression hose but quit doing so. He states that on Monday he was feeling little constipated and took laxative and has had diarrhea since but overall feeling better. He denies chest pain or numbness and tingling anywhere. He states that he can't take big breaths because of his abdominal pain which makes him feel short of breath at times but this is only when he takes in deep breaths. He also was unable to eat much of his breakfast as he was feeling very nauseated and had significant abdominal pain with that. Review of Systems Review of Systems: All systems rev
--- NOTE | 2020-07-18 10:55 | PM.CNCAR ---
Assessment and Plan Assessment and plan (1) Preop cardiovascular exam: Code(s): Z01.810 - Encounter for preprocedural cardiovascular examination Status: Acute Assessment and Plan: patient does not need stress testing prior to his laparoscopic cholecystectomy. He is at low to moderate risk of perioperative cardiovascular complications. At home he is able to perform greater than 4 mets of activity without any anginal symptoms. (2) Near syncope: Code(s): R55 - Syncope and collapse Status: Acute Assessment and Plan: Likely secondary to dehydration. I will check a 2D echocardiogram with Doppler. Continue IV fluids x1 more L then discontinue. (3) CAD (coronary artery disease): Code(s): I25.10 - Atherosclerotic heart disease of [place] coronary artery without angina pectoris Status: Acute Assessment and Plan: Continue Metoprolol perioperatively. Resume anti-platelet agents and anticoagulant therapy as soon as possible after surgery (4) Hx of myocardial infarction: Code(s): I25.2 - Old myocardial infarction Status: Acute (5) Acute cholecystitis: Code(s): K81.0 - Acute cholecystitis Status: Acute (6) Hypertension associated with diabetes: Code(s): E11.59 - Type 2 diabetes mellitus with other circulatory complications; I10 - Essential (primary) hypertension Status: Acute Assessment and Plan: at reasonable goal . Continue amlodipine, benazepril, metoprolol. (7) Hypomagnesemia: Code(s): E83.42 - Hypomagnesemia Status: Acute Assessment and Plan: 4 g IV magnesium x1 History of Present Illness History of Present Illness Consult date/time: 07/18/20 10:55 Requesting physician: Marybeth Morgan PA-C Consult reason: pre-op evaluation and Other (Presyncope) Reason For Visit: Near syncope. Narrative: date of service 07/18/2020 Reason for consultation: Preop evaluation presyncope History: Patient is a 74-year-old male with history of coronary disease, history DVT, pulmonary embolism. On anticoagulation. Hypertension with diabetes hyperlipidemia with diabetes and T-cell lymphoma. He was scheduled to have a cholecystectomy yesterday as well as a liver biopsy but this was canceled because of some episodes of presyncope. Patient states over the past couple weeks he has been eating and drinking very little because of significant abdominal pain and bloating every time he eats. Recently got up from the couch to answer the telephone and shortly thereafter became dizzy. He then went to the bathroom and upon getting up he also became dizzy and it was significant enough that he called a friend to have him come to the hospital for further evaluation. He has only been drinking a couple of bottles of water per day and not eating very much. This is significantly less than he usually does. He denies any exertional chest pain. Prior to his abdominal issues, he was able to walk around his house without any significant chest pain or shortness of breath. He denies any exertional chest pain. He has been having significant abdominal discomfort and bloating. No syncope, unusual edema, palpitations, paroxysmal nocturnal dyspnea or orthopnea. Review of Systems Review of Systems: All systems reviewed & are unremarkable except as noted in HPI and below Constitutional: Constitutional: Reports weakness Eyes: Eyes: Denies blurry vision ENT: Reports Normal hearing present Cardiovascular: Cardiovascular: Denies chest pain and Reports pedal edema Respiratory: Respiratory: Reports dyspnea on exertion Gastrointestinal: Gastrointestinal: Reports abdominal pain and Reports bloating Genitourinary: Genitourinary: Denies urinary urgency Musculoskeletal: Musculoskeletal: Denies neck pain Integumentary/Breasts: Skin/Breast: Denies pruritus Neurologic: Denies headache(s) and Denies numbness Psychiatric: Psychiatric: Denies anx
[2020-07-18 12:32] LABS: Glucose Point of Care 200 (65-105)
[2020-07-18] MEDS: ACETAMINOPHEN 325 MG TABLET 650 MG PO ×2 (15:15→20:21)
[2020-07-18 17:19] LABS: Glucose Point of Care 186 (65-105)
[2020-07-18] MEDS: PERFLUTREN LIPID MICROSPHERES 1.5 ML VIAL DILUTED TO 10 ML TOTAL VOLUME (17:56)
--- NOTE | 2020-07-18 18:36 | PC.NURSE ---
The patient was originally declining dinner and his blood sugar was 186 so no sliding scale Novolog was administered. After discussing this with the patient he decided he wanted to eat dinner. After the dinner tray was delivered the patient's blood sugar was 202, so the patient received 2 units of sliding scale insulin and 25 units of 75/25 Lispro.
[2020-07-18 18:41] LABS: Glucose Point of Care 202 (65-105)
[2020-07-18 22:00] LABS: Glucose Point of Care 198 (65-105)
[2020-07-19] VITALS (26 sets, daily range): BP systolic 102–165; BP diastolic 50–102; PULSE 74–143; RESP 16–32; TEMP 36.1–37.8; O2SAT 79–100
[2020-07-19 00:30] LABS: Base Excess ABG -5.7 mEq/l (+/-2.0); Carboxyhemoglobin 0.6 % THb (0-2.0); Fractional Inspired Oxygen 90 %; HCO3 ABG 17.6 mEq/l (22.0-26.0); Methemoglobin ABG 0.2 %THb (0-1.5); Oxygen Content ABG 17.1 %vol (16.0-22.0); Oxygen Saturation ABG 98.7 % (95.0-100.0); Oxyhemoglobin 97.4 % THb (90.0-100.0); PCO2 ABG 28.4 mmHg (35.0-45.0); PO2 ABG 129.6 mmHg (80.0-100.0); PO2 FiO2 Ratio Arterial Blood 1.44 %; Reduced Hemoglobin 1.8 %THb (0-5.0); Site Drawn RIGHT RADIAL; Total Hemoglobin 12.3 g/dL (12.0-18.0); pH ABG 7.411 (7.350-7.450)
[2020-07-19 00:31] LABS: Device NON-REBREATHER MASK; Modified Allen's Test Pass
[2020-07-19] MEDS: MORPHINE SULFATE (*CRX) 2 MG/ML INJ IV PUSH (00:31)
--- NOTE | 2020-07-19 00:53 | PC.NURSE ---
Rapid response called at [phone]. Pt was shaking and having a hard time catching his breath. Dr. Pereira came to room.
--- NOTE | 2020-07-19 00:56 | P.RRN_ITS ---
Critical Care Event Note Summary Code activated: No Narrative: 07/19/2020 just after midnight nursing staff called a rapid response when the patient suddenly began having difficulty breathing. He reported severe increased epigastric abdominal pain accompanied by shortness of breath. Initially staff was having difficulty obtaining pulse oximetry. The patient's heart rate was also elevated to 140. The patient had peripheral cyanosis. A non-rebreather was placed. One on the non-rebreather 10 L patient's oxygen saturations increased to 100%. a stat ABG was performed which demonstrated mild hyperventilation and PO2 of 120. A stat EKG was performed which demonstrated normal sinus rhythm. Stat CBC CMP and lactic acid were obtained. The patient is having severe upper abdominal pain that did improve but had not resolved. He received his p.r.n. morphine dose with improvement in his pain. The patient was weaned down to 4 L nasal cannula with oxygen saturations remaining 96%. on physical exam the patient had a fever of a temperature of 100? was having active rigors. His upper abdomen was diffusely tender and distended but soft. He was quite anxious. At the time of my evaluation he had resolution cyanosis. Mucous membranes are tacky, patient is alert and oriented, speech is clear Assessment: 1. Hypoxia: Possibly due to peripheral vaso constriction the patient's hyperventilation however given the patient's history of prior pulmonary embolism and his anticoagulants are currently on hold A stat CTA of the chest was performed to rule out PE. The CTA was nondiagnostic due to an adequate contrast timing. 2.sepsis: Based on criteria fever, tachycardia stat CBC, CMP and lactic acid as well as blood cultures were obtained. A stat CT of the abdomen pelvis demonstrated acute cholecystitis with 5 mm stone at the neck of the bile duct and known liver mass. The patient had new leukopenia and left shift noted on CBC with diff. He also had elevated lactic acid level and with new hypoxia symptoms were consistent with severe sepsis. A 1 L normal saline bolus was ordered. Blood cultures are pending. Will initiate antibiotic therapy with Levaquin and Flagyl. given the presence of the possible obstructing stone, incre asing bilirubin and worsening the patient's symptoms will make the patient NPO. Will defer whether consult gastroenterology to surgical service. 3. Lactic acidosis: Could be due to liver mass however given the patient's leukopenia, left shift fever and acute cholecystitis severe sepsis more likely. Management as discussed above. 45 minutes spent in critical care activities This case had a high probability of a clinically significant, sudden, or life threatening deterioration of this patient's condition which required my full and direct attention, intervention and personal management. Critical care time: 30 - 74 mins
[2020-07-19 01:01] LABS: Basophils Percent Auto 0.4 % (0.2-1.2); Hematocrit 32.5 % (42.0-52.0); Hemoglobin 10.6 g/dL (14.0-18.0); Immature Granulocyte Absolute 0.01 K/mm3 (0.00-0.031); Immature Granulocyte Percent A 0.4 % (0-0.5); Lymphocytes Absolute Auto 0.25 K/mm3 (0.9-3.2); Lymphocytes Percent Auto 8.8 % (18.3-44.2); Mean Corpuscular HGB Conc 32.6 g/dl (32-36); Mean Corpuscular Hemoglobin 24.3 pg (26-34); Mean Corpuscular Volume 74.5 fl (80-100); Mean Platelet Volume 10.7 fl (7.4-10.4); Monocytes Absolute Auto 0.1 K/mm3 (0.1-0.6); Monocytes Percent Auto 1.8 % (2.6-8.5); Neutrophils Absolute Auto 2.5 K/mm3 (1.3-6.7); Neutrophils Percent Auto 88.6 % (45.5-73.1); Platelet Count Result 197 k/mm3 (150-375); Red Blood Count 4.36 M/mm3 (4.6-6.20); Red Cell Distribution Width 15.3 % (11.5-14.5); White Blood Count 2.8 K/mm3 (4.5-10.0)
[2020-07-19 01:08] LABS: Glucose Point of Care 152 (65-105)
[2020-07-19 01:14] LABS: Alanine Aminotransferase 119 U/L (4-50); Albumin Level 3.5 g/dL (3.5-5.1); Alkaline Phosphatase 132 U/L (38-126); Anion Gap 13 mmol/L (8-16); Aspartate Amino Transferase 244 U/L (17-59); Blood Urea Nitrogen 20 mg/dL (9-20); Carbon Dioxide 21 mmol/L (22-30); Chloride 100 mmol/L (98-107); Estimated CRCL calculation 60 ml/min; Estimated Glomerular Filt Rate 59; Glucose 164 mg/dL (75-110); Lactic Acid Reflex 3.7 mmol/L (0.7-2.1); Potassium 4.1 mmol/L (3.4-5.0); Sodium 134 mmol/L (137-145)
[2020-07-19] MEDS: metroNIDAZOLE 500 MG/ISO 100ML 500 MG/100 ML BAG 100 MG IVPB ×2 (01:26→06:27)
[2020-07-19] MEDS: SODIUM CHLORIDE 0.9% IV 1,000 ML 999 ML IV CONT (01:27)
--- NOTE | 2020-07-19 02:00 | PC.NURSE ---
Daylight Savings Time For Daylight Savings Time Ending in the Fall - Clocks are moved back. For Daylight Savings Time Beginning in the Spring - Clocks are moved ahead. For [facility], the time of change occurs at 0200 hrs. Time is taken from the granulator operator. This entry on the patient's chart recognizes the change in time reflected during documentation. Example: 2 entries for vital signs may be charted for 0200 hrs.
[2020-07-19 03:59] LABS: Reflex Lactic Acid Yes or No Add Lactic
[2020-07-19 04:21] LABS: Hematocrit 29.9 % (42.0-52.0); Hemoglobin 10.1 g/dL (14.0-18.0); Mean Corpuscular HGB Conc 33.8 g/dl (32-36); Mean Corpuscular Hemoglobin 24.8 pg (26-34); Mean Corpuscular Volume 73.3 fl (80-100); Mean Platelet Volume 11.2 fl (7.4-10.4); Platelet Count Result 193 k/mm3 (150-375); Red Blood Count 4.08 M/mm3 (4.6-6.20)
[2020-07-19 04:37] LABS: Lactic Acid 2.1 mmol/L (0.7-2.1)
[2020-07-19 04:39] LABS: Alanine Aminotransferase 117 U/L (4-50); Albumin Level 3.2 g/dL (3.5-5.1); Alkaline Phosphatase 129 U/L (38-126); Anion Gap 10 mmol/L (8-16); Aspartate Amino Transferase 223 U/L (17-59); Bilirubin Direct 3.9 mg/dL (0-0.3); Bilirubin,Total 7.7 mg/dL (0.2-1.3); Blood Urea Nitrogen 23 mg/dL (9-20); Calcium 8.7 mg/dL (8.4-10.2); Carbon Dioxide 22 mmol/L (22-30); Chloride 101 mmol/L (98-107); Estimated CRCL calculation 52 ml/min; Estimated Glomerular Filt Rate 50; Glucose 163 mg/dL (75-110); Magnesium 1.6 mg/dL (1.6-2.3); Potassium 3.6 mmol/L (3.4-5.0); Sodium 133 mmol/L (137-145)
[2020-07-19] MEDS: LEVOTHYROXINE SODIUM 50 MCG TABLET PO (06:20)
[2020-07-19] MEDS: CHLORHEXIDINE GLUCONATE 4% SOL 120 ML BTL 1 APPLIC TOPICAL (07:30)
[2020-07-19 08:06] LABS: Glucose Point of Care 177 (65-105)
--- NOTE | 2020-07-19 08:12 | PC.NURSE ---
Report called to OR. Pt being down to or.
--- NOTE | 2020-07-19 08:15 | PC.NURSE ---
To OR per bed, IV saline locked. Report given to OR nurse by Jacqueline Quintana RN.
--- NOTE | 2020-07-19 08:19 | PC.NURSE ---
Rapid response called at 0008. Pt diaphoretic, rapid pulse of 140. Stat labs, ekg, abg and Cat Scans were ordered. All results were called to Dr. Pereira. Consult called to Dr. Mccarthy. Ordered fluids, antibiotics, NPO were all initiated. Stat orders from Fabio were initiated and pt sent down to OR.
--- NOTE | 2020-07-19 08:23 | PM.PNCARD ---
Progress Note: A&P Assessment and Plan (1) Preop cardiovascular exam: Code(s): Z01.810 - Encounter for preprocedural cardiovascular examination Status: Acute Assessment and Plan: patient does not need stress testing prior to his laparoscopic cholecystectomy. He is at low to moderate risk of perioperative cardiovascular complications. At home he is able to perform greater than 4 mets of activity without any anginal symptoms. (2) Near syncope: Code(s): R55 - Syncope and collapse Status: Acute Assessment and Plan: Likely secondary to dehydration. Echocardiogram was Generally unremarkable. (3) CAD (coronary artery disease): Code(s): I25.10 - Atherosclerotic heart disease of [place] coronary artery without angina pectoris Status: Acute Assessment and Plan: Continue Metoprolol perioperatively. Resume anti-platelet agents and anticoagulant therapy as soon as possible after surgery (4) Hx of myocardial infarction: Code(s): I25.2 - Old myocardial infarction Status: Acute (5) Acute cholecystitis: Code(s): K81.0 - Acute cholecystitis Status: Acute Assessment and Plan: going for surgery today (6) Hypertension associated with diabetes: Code(s): E11.59 - Type 2 diabetes mellitus with other circulatory complications; I10 - Essential (primary) hypertension Status: Acute Assessment and Plan: at reasonable goal . Continue amlodipine, benazepril, metoprolol. (7) Hypomagnesemia: Code(s): E83.42 - Hypomagnesemia Status: Acute Assessment and Plan: replaced Subjective Date/time seen: 07/19/20 08:23 Interval history: 74-year-old with known CAD Admitted for acute cholecystitis and preoperative clearance Date of service 07/19/2020 Events of last night noted. Patient became very short of breath, chilled and shaky. Also became tachycardic but sinus rhythm. He did rule out for PE. Non-rebreather with started and the plan is for surgery this morning. Review of Systems Review of Systems: All systems reviewed & are unremarkable except as noted in HPI and below Constitutional: Constitutional: Denies excessive sweating, Denies headache(s) and Reports weakness Eyes: Eyes: Denies blurry vision ENT: Reports Normal hearing present, Denies headache(s), Denies lip swelling and Denies neck pain Cardiovascular: Cardiovascular: Denies chest pain, Reports pedal edema and Reports dyspnea on exertion Respiratory: Respiratory: Reports dyspnea on exertion Gastrointestinal: Gastrointestinal: Reports abdominal pain and Reports bloating Genitourinary: Genitourinary: Denies urinary urgency Musculoskeletal: Musculoskeletal: Denies neck pain and Denies numbness Integumentary/Breasts: Skin/Breast: Denies pruritus Neurologic: Reports Normal hearing present, Denies confusion, Denies headache(s), Denies numbness and Reports weakness Psychiatric: Psychiatric: Denies anxiety and Denies confusion Endocrine: Endocrine: Denies excessive sweating Hematologic/Lymphatic: Hematologic/Lymphatic: Denies easy bleeding and Denies easy bruising Allergic/Immunologic: Allergic/Immunologic: Denies lip swelling Exam Narrative: Exam Narrative: Patient is awake alert and oriented and appears to be in no acute distress Const: General: no acute distress; No confusion Orientation/consciousness: No confusion HENMT: General nose exam: Normal nares present Eyes: Sclera: scleral abnormality ( jaundiced, icteric) Neck: Neck: no JVD Chest: Other: no reproducible chest wall pain to palpation Resp: Auscultation: clear to auscultation bilaterally Cardio: Rate: regular rate Rhythm: regular rhythm Skin: General skin exam: no rashes or lesions noted Neuro: General: No confusion Cranial nerves: Yes Normal hearing present Cognition (Neuro): normal cognition Speech: normal speech Extrem: General: pedal edema ( trivial lowe
--- NOTE | 2020-07-19 08:32 | WPDANESEFPP ---
Anes - Eval Final PreProcedure Day of Procedure 07/19/20 08:32 Patient weight: obese Heart: regular rate and rhythm Lungs: clear to auscultation and normal air movement Airway: Mallampati scale class III Neurological: alert and oriented Last oral intake: >/= 8 hours ASA classification: IV Emergent: yes Anesthetic plan: proceed Anesthesia type and monitoring: general ETT and standard monitoring Informed Consent: The patient's anesthetic plan and its attendant risks and benefits were discussed with the patient/family/POA. Questions were solicited and answers provided to the satisfaction of the patient/family/POA.
--- NOTE | 2020-07-19 08:48 | PC.NURSE ---
The patient was down in the preop area when Dr. Mccarthy changed the orders for the consent to a laproscopic cholecystectomy with intraoperative cholangiogram. The preop nurse obtained the new consent while the patient was in the preop area.
--- NOTE | 2020-07-19 08:56 | PM.CNGS ---
Assessment and Plan Assessment and plan (1) Choledocholithiasis with acute cholecystitis with obstruction: Code(s): K80.43 - Calculus of bile duct with acute cholecystitis with obstruction Status: Acute Assessment and Plan: Patient has had worsening of his cholecystitis and may now have stone in the distal common bile duct. Will proceed today with laparoscopic cholecystectomy and intraoperative cholangiogram. The procedure the risks the benefits have been discussed. He agrees to go ahead. His bilirubin is up to 7.7 and he does have jaundiced appearance so I suspect he does have an obstructing distal bile duct stone as well as acute cholecystitis. (2) Severe sepsis with acute organ dysfunction: Code(s): A41.9 - Sepsis, unspecified organism; R65.20 - Severe sepsis without septic shock Status: Acute Assessment and Plan: Rigors chills neutropenia lactic acidosis all consistent with sepsis and source is either cholecystitis or acute cholangitis. Proceed with surgery as outlined above. (3) Jaundice: Code(s): R17 - Unspecified jaundice Status: Acute Assessment and Plan: Bilirubin 7.7 no acute pancreatitis on CT (4) Liver mass: Code(s): R16.0 - Hepatomegaly, not elsewhere classified Status: Chronic Assessment and Plan: Will try to do a needle biopsy at surgery if feasible. (5) Microcytic anemia: Code(s): D50.9 - Iron deficiency anemia, unspecified Status: Acute (6) Chronic anticoagulation: Code(s): Z79.01 - nursing home (current) use of anticoagulants Status: Chronic Assessment and Plan: Remains on hold (7) IDDM (insulin dependent diabetes mellitus): Status: Chronic Assessment and Plan: Good control while in the hospital (8) Type 2 diabetes mellitus with hyperglycemia, with long-term current use of insulin: Code(s): E11.65 - Type 2 diabetes mellitus with hyperglycemia; Z79.4 - nursing home (current) use of insulin Status: Chronic (9) Morbid obesity: Code(s): E66.01 - Morbid (severe) obesity due to excess calories Status: Chronic History of Present Illness Consult details Consult date: 07/19/20 Reason for consult: other (Sepsis, acute cholecystitis with common bile duct stone) Narrative: Patient is a 74-year-old gentleman who was scheduled for laparoscopic cholecystectomy on Friday July 17, 2020. The patient had had a couple of syncopal episodes the day before as well as concerns regarding his cardiac status. His surgery was canceled and he went to the emergency room. Initial evaluation there showed some orthostatic blood pressure changes. He was admitted for observation. He had a cardiac echo and cardiac evaluation. They felt he was satisfactory for surgery. Early this morning he developed severe epigastric pain, tachycardia and respiratory distress. A rapid response was called. The patient improved with treatment but CT of the abdomen and pelvis now showed cholecystitis and possibly a stone in the distal common bile duct. The patient also has been known to have an 8 cm mass in the right lobe of the liver. This was planned to be biopsied at the time of the cholecystectomy. I was asked to see the patient in consultation as he has sepsis and it appears the source is either cholecystitis or cholangitis. He is seen now for that purpose. Review of Systems Review of Systems: All systems reviewed & are unremarkable except as noted in HPI and below Constitutional: Constitutional: Reports as per HPI, Reports chills (Rigors) and Reports fever(s) Gastrointestinal: Gastrointestinal: Reports as per HPI, Reports abdominal pain (Feels better now than it did last night), Reports bloating, Denies nausea and Denies vomiting PMFSH Past Medical History Medical History Asbestosis Chronic anticoagulation Chronic back pain Chronic obstructive pulmonary dis
--- NOTE | 2020-07-19 09:13 | WPDHPUPDATE1 ---
History and Physical Update Update Date/Time: 07/19/20 09:13 History and Physical has been reviewed, including an updated exam of the patient. There are NO changes in the patient's condition. Risks, benefits, and alternatives have been discussed and questions answered. Patient agrees to proceed with procedure.
[2020-07-19] MEDS: BUPIVACAINE/EPINEPHRINE 0.5% 10 ML VIAL 20 ML INFILTRATE (10:02)
[2020-07-19] MEDS: HEMOSTATIC MATRIX (SURGIFLO with THROMBIN) KIT 1 KIT XX (11:12)
[2020-07-19] MEDS: LACTATED RINGERS 1,000 ML 30 ML IV CONT ×2 (11:43)
[2020-07-19] MEDS: fentaNYL CITRATE INJ (*CRX) 100 MCG/2 ML VIAL 25 MCG IV PUSH ×7 (11:53→12:40)
[2020-07-19] MEDS: HYDROmorphone HCL INJ (*CRX) 1 MG/ML SYR 0.25 MG IV PUSH (12:50)
[2020-07-19 12:57] LABS: Glucose Point of Care 182 (65-105)
--- NOTE | 2020-07-19 13:45 | PC.NURSE ---
Returned from OR per bed. Report received from NÉSTOR Cuadra.
[2020-07-19] MEDS: LACTATED RINGERS 1,000 ML 100 ML IV CONT (14:12)
[2020-07-19] MEDS: LORATADINE 10 MG TABLET PO (14:39)
[2020-07-19] MEDS: OXYBUTYNIN CHLORIDE 5 MG TABLET PO ×2 (14:39→21:35)
[2020-07-19] MEDS: FENOFIBRATE NANOCRYSTALLIZED 145 MG TABLET PO (14:39)
[2020-07-19] MEDS: PANTOPRAZOLE 40 MG TABLET PO (14:39)
[2020-07-19] MEDS: FINASTERIDE 5 MG TABLET PO (14:39)
[2020-07-19] MEDS: allopurinoL 300 MG TABLET PO (14:39)
--- NOTE | 2020-07-19 14:53 | PM.PROC ---
Procedure Note - Detailed Date of procedure: 07/19/20 Pre-op diagnosis: Choledocholithiasis with acute cholecystitis choledocholithiasis with acute cholecystitis and obstruction, sepsis; right hepatic mass Post-op diagnosis: other ( gangrenous acute cholecystitis with purulent bile, sepsis; no right hepatic mass seen) Procedure performed: laparoscopic cholecystectomy Description of procedure: the patient was taken to surgery and induced into general anesthesia. The abdomen was prepped and draped. Trocars were placed in the usual fashion using 0.5% Marcaine with epinephrine and applied Medical optical trocars. After the trocars were placed insufflation was adequate, it was immediately obvious that we were dealing with severe cholecystitis. There were dense adhesions to the gallbladder primarily of omentum. These were difficult to take down even though they were inflammatory in nature. The gallbladder had a lot of tissue associated with it consistent with gangrenous cholecystitis. After taking down the adhesions to the fundus of the gallbladder, I proceeded with a laparoscopic aspirated ir to decompress the gallbladder. Purulent bile was noted. The gallbladder partially decompressed. This helped to grasp the gallbladder and elevated. The patient had significant fatty liver and retraction of the gallbladder towards the shoulder was not able to be performed adequately. This made the procedure more difficult due to lack of exposure and the dense, intense inflammation. A 5th trocar had to be placed in the left mid abdomen to assist in retracting both liver and duodenum at various points in the dissection. We continued dissection of the adhesions off the gallbladder but when we approached the infundibular area, the adhesions became even more dense and tenacious. Retracting the gallbladder resulted in some holes. Purulent bile came forth. This was suctioned away quickly. No real stones came out of the gallbladder. Slow meticulous and difficult dissection in the area of the cholecysto hepatic triangle was carried out. This was primarily done with suction or fine tipped laparoscopic dissecting instruments. There was thickened peritoneum around the gallbladder which was yellow and fibrotic. Dividing through this we were able to see a more compliant, soft gallbladder wall. Dissection in the area of the cystic duct was particularly difficult. I dissected higher up on the gallbladder on both the medial and lateral sides trying to get as much exposure to this area before actually delineating the biliary anatomy. Eventually, a very diminutive cystic duct was found. It was short and, even though a cholangiogram was planned, too small to pass a cholangiogram catheter. Cholangiogram was therefore not done. Extensive dissection of the gallbladder off the liver was performed. The cystic artery may have already been thrombosed as it was really never seen. I dissected about half the gallbladder off the liver before deciding that the structure dissected earlier was in fact the cystic duct. I securely clipped the cystic duct and divided it. From there we dissected the gallbladder off the liver. Some gangrenous tissue allowed us to separate the gallbladder from the liver with very little bleeding and no entry into the liver substance. There had been entry into the liver substance in the area of the cystic duct. This had some venous oozing but not severe. Eventually, I completely removed the gallbladder from the liver. It was placed in an Endo-Catch bag and retrieved through the 10 11 epigastric trocar. I then replaced the epigastric trocar and began suctioning and irrigating the right upper quadrant. While no stones were noted having escape the gallbladder, there had been abundant purulent fluid and blood in the right upper quadrant. I used nearly a complete 3 L bag of irrigation. Irrigation and suctioning were carried out cleaning the area thoroughly. Surgiflo
--- NOTE | 2020-07-19 14:53 | PM.IMPN ---
Progress Note: A&P Assessment and Plan (1) Choledocholithiasis with acute cholecystitis with obstruction: Code(s): K80.43 - Calculus of bile duct with acute cholecystitis with obstruction Status: Acute Assessment and Plan: ----- Op note pending at this time but patient states they found a stone in his common bile duct. Will await recommendations from Dr. pena, continue Zosyn at this time. White blood cell count normal today but patient had rigors and acute respiratory distress overnight likely due to sepsis. Blood cultures were drawn and are pending at this time. Lactic acid has returned to normal (2) Near syncope: Code(s): R55 - Syncope and collapse Status: Acute Assessment and Plan: ----- could be due to hypovolemia/ dehydration/ diarrhea from abdominal pain. Patient states he has not been eating very much lately. He is not orthostatic but feels a little lightheaded when he stands up. continue Bienvenido hose. No cardiac symptoms present, EKG reviewed (3) Cholecystitis: Code(s): K81.9 - Cholecystitis, unspecified Status: Acute Assessment and Plan: ----- distressing to the patient and likely causing some dehydration. see above (4) Liver mass: Code(s): R16.0 - Hepatomegaly, not elsewhere classified Status: Chronic Assessment and Plan: ----- plan was to biopsy this but I am unsure if this was done as the op note is pending. he definitely needs a biopsy at some point if not already done because it is concerning for primary cancer.. He has scleral icterus, worrisome for liver cancer. AST and ALT elevated today (5) Microcytic anemia: Code(s): D50.9 - Iron deficiency anemia, unspecified Status: Acute Assessment and Plan: ----- hemoglobin remained stable, monitor (6) Jaundice: Code(s): R17 - Unspecified jaundice Status: Acute Assessment and Plan: ----- likely due to gallbladder and liver issues as stated above. 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 (8) Chronic anticoagulation: Code(s): Z79.01 - [facility] (current) use of anticoagulants Status: Chronic Assessment and Plan: -----d/t hx of PE and DVT. Eliquis has been on hold. will continue to hold this until surgery has additional recommendations. We may see if we can get IR to biopsy the liver while he is off anticoagulation here. (9) IDDM (insulin dependent diabetes mellitus): Status: Chronic Assessment and Plan: -----last glucose 182, A1c 6.3. He takes 60u of 75/25 humalog at home as well as metformin. Will continued decreased dose of humalog at this time and may increase it as needed but since pt isn't eating much. continue diabetic diet (10) Hypothyroidism: Code(s): E03.9 - Hypothyroidism, unspecified Status: Inactive Assessment and Plan: -----TSH WNL. continue levothyroxine. (11) Insulin dependent type 2 diabetes mellitus: Code(s): E11.9 - Type 2 diabetes mellitus without complications; Z79.4 - retirement (current) use of insulin Status: Inactive (12) Essential hypertension: Code(s): I10 - Essential (primary) hypertension Status: Acute Assessment and Plan: -----Last bp 175/71 118/78. I have held his blood pressure medications after surgery but plan to continue lisinopril, lasix, metoprolol, and amlodipine in the morning. Subjective Date/time seen: 07/19/20 14:53 Interval history: Pt is a 74-year-old male here for lightheadedness, presyncope and acute cholecystitis. Patient was seen today after surgery and states he has abdominal pain that he thinks is an 8/10 but has been receiving pain medications and thinks it is getting better. He is unable to alicia
[2020-07-19] MEDS: IBUPROFEN IV 800 MG/200 ML 800 MG/200 ML BAG 400 MG IVPB ×2 (15:57→22:50)
[2020-07-19] MEDS: HYDROcodone/acetaminophen (*CRX) 10-325 MG TABLET 1 TAB PO (16:13)
[2020-07-19 16:45] LABS: Glucose Point of Care 143 (65-105)
--- NOTE | 2020-07-19 16:48 | PC.NURSE ---
I left a message for LAWANDA Nguyen at 1640. I was informed that [facility] was gone for the day so I notified Dr. Webb of these results. He stated that Zosyn covers Gram negative bacili.
[2020-07-19] MEDS: ENOXAPARIN 30 MG/0.3 ML SYRINGE SUB-Q (21:35)
[2020-07-20] VITALS (15 sets, daily range): BP systolic 99–139; BP diastolic 57–98; PULSE 76–102; RESP 18–22; TEMP 36.4–36.9; O2SAT 90–98
[2020-07-20 01:14] LABS: Glucose Point of Care 220 (65-105)
[2020-07-20] MEDS: LACTATED RINGERS 1,000 ML 100 ML IV CONT (02:59)
[2020-07-20] MEDS: IBUPROFEN IV 800 MG/200 ML 800 MG/200 ML BAG 300 MG IVPB (03:44)
[2020-07-20] MEDS: LEVOTHYROXINE SODIUM 50 MCG TABLET PO (05:35)
[2020-07-20 05:46] LABS: Hemoglobin 9.4 g/dL (14.0-18.0); Mean Corpuscular HGB Conc 33.6 g/dl (32-36); Mean Corpuscular Hemoglobin 24.2 pg (26-34); Mean Platelet Volume 11.4 fl (7.4-10.4); Platelet Count Result 188 k/mm3 (150-375); Red Blood Count 3.89 M/mm3 (4.6-6.20); Red Cell Distribution Width 15.1 % (11.5-14.5); White Blood Count 7.3 K/mm3 (4.5-10.0)
[2020-07-20 05:54] LABS: INR 1.6; Prothrombin Time 18.9 Seconds (11.1-14.7)
[2020-07-20 05:55] LABS: Partial Thromboplastin Time 41.1 SECONDS (22.3-36.8)
[2020-07-20 06:08] LABS: Alanine Aminotransferase 176 U/L (4-50); Alkaline Phosphatase 101 U/L (38-126); Anion Gap 10 mmol/L (8-16); Aspartate Amino Transferase 415 U/L (17-59); Bilirubin,Total 4.5 mg/dL (0.2-1.3); Blood Urea Nitrogen 41 mg/dL (9-20); Calcium 8.5 mg/dL (8.4-10.2); Carbon Dioxide 22 mmol/L (22-30); Chloride 101 mmol/L (98-107); Estimated CRCL calculation 37 ml/min; Estimated Glomerular Filt Rate 33; Glucose 169 mg/dL (75-110); Magnesium 1.7 mg/dL (1.6-2.3); Potassium 3.9 mmol/L (3.4-5.0); Sodium 133 mmol/L (137-145)
--- NOTE | 2020-07-20 08:02 | PM.PNGS ---
Progress Note: A&P Assessment and Plan (1) Acute suppurative cholecystitis: Code(s): K81.0 - Acute cholecystitis Status: Acute Assessment and Plan: continue IV antibiotics. Advance diet. Much improved from yesterday. Watch ASHU drain output for signs of bile leak. Monitor LFTs and clinical course for possible common bile duct stone as noted on CT 2 days ago. Looks very good this morning. (2) Severe sepsis with acute organ dysfunction: Code(s): A41.9 - Sepsis, unspecified organism; R65.20 - Severe sepsis without septic shock Status: Acute Assessment and Plan: Nearly resolved as septic source removed yesterday. (3) Liver mass: Code(s): R16.0 - Hepatomegaly, not elsewhere classified Status: Chronic Assessment and Plan: Will need image guided biopsy before discharge (4) Type 2 diabetes mellitus with hyperglycemia, with long-term current use of insulin: Code(s): E11.65 - Type 2 diabetes mellitus with hyperglycemia; Z79.4 - [facility] (current) use of insulin Status: Chronic (5) Essential hypertension: Code(s): I10 - Essential (primary) hypertension Status: Acute (6) Chronic anticoagulation: Code(s): Z79.01 - [facility] (current) use of anticoagulants Status: Chronic Assessment and Plan: continue to hold for now. (7) Morbid obesity: Code(s): E66.01 - Morbid (severe) obesity due to excess calories Status: Chronic Subjective Subjective Date/Time Seen: 07/20/20 08:02 Post Op day: 1 Patient reports: no new complaints, feels better and pain is less Review of Systems Review of Systems: All systems reviewed & are unremarkable except as noted in HPI and below Constitutional: Constitutional: Denies chills, Reports fatigue, Denies fever(s) and Denies headache(s) Cardiovascular: Cardiovascular: Denies chest pain and Denies dyspnea Respiratory: Respiratory: Denies cough and Denies dyspnea Gastrointestinal: Gastrointestinal: Reports as per HPI, Denies nausea and Denies vomiting Neurologic: Denies confusion and Denies headache(s) Exam Const: General: comfortable and no acute distress; No confusion Orientation/consciousness: patient oriented x3 and No confusion GI: Inspection: incision (All incisions healing well, serous fluid in ASHU drains), obesity and other ( slight yellow tinge to ASHU output.) GI Palp: Yes Soft to palpation, Yes Tenderness to palpation present (GI), No Guarding due to palpation present (GI) and No Rebound tenderness present Auscultation: Hypoactive bowel sounds present Neuro: General: patient oriented x3, no focal motor deficits and No confusion Extrem: General: no calf tenderness and no edema Psych: Affect: normal affect Insight: Good insight present (Psych) Judgement: Good judgement present (Psych) Objective Data Vital Signs Vital Signs: Vital Signs - 24 hr 07/19/20 08:13 07/19/20 11:43 07/19/20 11:55 Temperature 36.7 C 36.1 C L Pulse Rate 84 90 82 Respiratory Rate 20 26 H 23 H Blood Pressure 123/59 L 150/71 H 140/62 Pulse Oximetry 99 96 99 07/19/20 12:10 07/19/20 12:25 07/19/20 12:40 Temperature Pulse Rate 80 83 84 Respiratory Rate 26 H 23 H 17 Blood Pressure 127/70 124/65 120/71 Pulse Oximetry 100 100 100 07/19/20 12:55 07/19/20 13:10 07/19/20 13:25 Temperature Pulse Rate 81 79 83 Respiratory Rate 23 H 16 21 H Blood Pressure 109/60 103/59 L 118/78 Pulse Oximetry 99 95 96 07/19/20 13:50 07/19/20 14:05 07/19/20 14:30 Temperature 36.2 C L 36.7 C 36.8 C Pulse Rate 81 84 74 Respiratory Rate 20 20 20 Blood Pressure 112/58 L 106/50 L 102/56 L Pulse Oximetry 100 100 95 07/19/20 14:50 07/19/20 14:53 07/19/20 14:59 Temperature 36.7 C Pulse Rate 84 Respiratory Rate 18 Blood Pressure 107/68 Pulse Oximetry 96 94 94 07/19/20 15:05 07/19/20 15:25 07/19/20 16:00 Temperature Pulse Rate 91 Respiratory Rate Blood Pressure Pu
--- NOTE | 2020-07-20 08:10 | WPDANESPN ---
Anes - Prog Note Post-Op Date/Time: 07/20/20 08:10 Cardiovascular status: normal Respiratory status: normal Airway patency: baseline Mental status: baseline Post-Op hydration status: normal Vital Signs: Last Vital Signs Temp 36.9 C 07/20/20 02:00 Pulse 76 07/20/20 04:00 Resp 18 07/20/20 02:00 BP 133/93 H 07/20/20 02:54 Pulse Ox 98 07/20/20 02:54 Pain Score (VAS): 09/27 I/O: Intake & Output 07/19/20 07/20/20 07/20/20 23:59 07:59 15:59 Intake Total 1210 1465 Output Total 250 115 Balance 960 1350 Laboratory Tests 07/20/20 05:16 07/20/20 05:16 07/19/20 07/19/20 07/20/20 11:57 16:42 01:11 WBC RBC Hgb Hct MCV MCH MCHC RDW Plt Count MPV PT INR APTT Sodium Potassium Chloride Carbon Dioxide Anion Gap BUN Creatinine Estim Creat Clear Calc Estimated GFR Glucose POC Capillary Glucose 182 H 143 H 220 H Calcium Magnesium Total Bilirubin AST ALT Alkaline Phosphatase Total Protein Albumin 07/20/20 07/20/20 07/20/20 05:16 05:16 05:16 WBC 7.3 RBC 3.89 L Hgb 9.4 L Hct 28.0 L MCV 72.0 L MCH 24.2 L MCHC 33.6 RDW 15.1 H Plt Count 188 MPV 11.4 H PT 18.9 H INR 1.6 APTT 41.1 H Sodium 133 L Potassium 3.9 Chloride 101 Carbon Dioxide 22 Anion Gap 10 BUN 41 H D Creatinine 2.00 H Estim Creat Clear Calc 37 Estimated GFR 33 L Glucose 169 H POC Capillary Glucose Calcium 8.5 Magnesium 1.7 Total Bilirubin 4.5 H AST 415 H ALT 176 H Alkaline Phosphatase 101 Total Protein 6.0 L Albumin 3.0 L Microbiology 07/19/20 00:52 Blood Blood Culture - Preliminary 07/19/20 00:52 Blood Blood Culture - Preliminary Post-procedural complaints: none Patient Feedback: Patient satisfied with anesthetic care.
[2020-07-20 08:22] LABS: Glucose Point of Care 139 (65-105)
--- NOTE | 2020-07-20 08:31 | PM.IMPN ---
Progress Note: A&P Assessment and Plan (1) Choledocholithiasis with acute cholecystitis with obstruction: Code(s): K80.43 - Calculus of bile duct with acute cholecystitis with obstruction Status: Acute Assessment and Plan: -----S/P cholecystectomy 07/19/20. No intraoperative cholangiogram due to small duct. Liver enzymes are elevated today could be due to manipulation/ surgery but bilirubin is a lot better today. Will redraw labs tomorrow morning. Patient has a drain intact and will continue Zosyn. He now has positive blood cultures and we will wait for those to be identified. he was septic earlier in the stay and his lactic acid has normalized (2) Bacteremia: Code(s): R78.81 - Bacteremia Status: Acute Assessment and Plan: ----- secondary to above, continue Zosyn and await identification and sensitivities. Adjust medications as needed (3) ÁNGEL (acute kidney injury): Code(s): N17.9 - Acute kidney failure, unspecified Status: Acute Assessment and Plan: ----- creatinine elevated today 2.2, continue IV fluids and antibiotics. Monitor (4) Near syncope: Code(s): R55 - Syncope and collapse Status: Acute Assessment and Plan: ----- could be due to hypovolemia/ dehydration/ diarrhea from abdominal pain. Patient states he had not been eating very much prior to surgery. continue Bienvenido hose. No cardiac symptoms present, EKG reviewed (5) Cholecystitis: Code(s): K81.9 - Cholecystitis, unspecified Status: Acute Assessment and Plan: ----- see above (6) Liver mass: Code(s): R16.0 - Hepatomegaly, not elsewhere classified Status: Chronic Assessment and Plan: ----- unable to biopsy during surgery, spoke to Radiology and surgery who are okay with ultrasound-guided biopsy tomorrow. Will place NPO and hold Lovenox. He has scleral icterus, worrisome for liver cancer. AST and ALT elevated today (7) Microcytic anemia: Code(s): D50.9 - Iron deficiency anemia, unspecified Status: Acute Assessment and Plan: ----- hemoglobin remained stable, monitor (8) Jaundice: Code(s): R17 - Unspecified jaundice Status: Acute Assessment and Plan: ----- Improved, bilirubin down to 4.5 today. 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 (10) Chronic anticoagulation: Code(s): Z79.01 - [facility] (current) use of anticoagulants Status: Chronic Assessment and Plan: -----d/t hx of PE and DVT. Eliquis has been on hold. will continue to hold this until surgery has additional recommendations. (11) IDDM (insulin dependent diabetes mellitus): Status: Chronic Assessment and Plan: -----last glucose 139 A1c 6.3. He takes 60u of 75/25 humalog at home as well as metformin. Will continued decreased dose of humalog at this time and may increase it as needed if the patient's appetite increases and his glucose starts to increase. continue diabetic diet (12) Hypothyroidism: Code(s): E03.9 - Hypothyroidism, unspecified Status: Inactive Assessment and Plan: -----TSH WNL. continue levothyroxine. (13) Insulin dependent type 2 diabetes mellitus: Code(s): E11.9 - Type 2 diabetes mellitus without complications; Z79.4 - [facility] (current) use of insulin Status: Inactive (14) Essential hypertension: Code(s): I10 - Essential (primary) hypertension Status: Acute Assessment and Plan: -----Last bp 133/93. continue lisinopril, lasix, metoprolol, and amlodipine Subjective Date/time seen: 07/20/20 08:32 Interval history: Pt is a 74-year-old male here for lightheadedness, presyncope and acute cholecystitis. Patient was see
[2020-07-20] MEDS: polyethylene glycoL 3350 17 GM POWD.PACK PO (08:32)
[2020-07-20] MEDS: OXYBUTYNIN CHLORIDE 5 MG TABLET PO ×2 (08:33→20:03)
[2020-07-20] MEDS: PANTOPRAZOLE 40 MG TABLET PO (08:33)
[2020-07-20] MEDS: lisinopriL 20 MG TABLET PO (08:34)
[2020-07-20] MEDS: LORATADINE 10 MG TABLET PO (08:34)
[2020-07-20] MEDS: allopurinoL 300 MG TABLET PO (08:34)
[2020-07-20] MEDS: amLODIPine BESYLATE 5 MG TABLET PO (08:34)
[2020-07-20] MEDS: FENOFIBRATE NANOCRYSTALLIZED 145 MG TABLET PO (08:34)
[2020-07-20] MEDS: FINASTERIDE 5 MG TABLET PO (08:34)
[2020-07-20] MEDS: METOPROLOL SUCCINATE EXT REL 100 MG TABCR PO (08:35)
[2020-07-20] MEDS: ENOXAPARIN 40 MG/0.4 ML SYRINGE SUB-Q (08:42)
[2020-07-20] MEDS: BISACODYL 5 MG TABLET EC PO (08:49)
[2020-07-20] MEDS: FUROSEMIDE 40 MG TABLET PO (11:31)
[2020-07-20 11:39] LABS: Glucose Point of Care 162 (65-105)
--- NOTE | 2020-07-20 16:08 | PM.PNCARD ---
Progress Note: A&P Additional Plan cardiovascular status stable no apparent cardiovascular events on postop day 1. Following cholecystectomy for gangrenous cholecystitis. Abisai Patton MD [facility] Subjective Date/time seen: 07/20/20 16:08 Interval history: Follow-up visit in this 74-year-old gentleman with coronary disease and acute gangrenous cholecystitis. Postop day 1. Following cholecystectomy yesterday. Patient sitting in his room feels remarkably well considering the events of yesterday offers no cardiovascular complaints Exam Const: Other: morbidly obese white male seated in the chair comfortable offers no complaints Eyes: Sclera: sclerae normal Pupils: Equal, round and reactive pupils present Neck: Neck: normal visual inspection and no JVD Resp: Effort & Inspection: normal respiratory effort Auscultation: clear to auscultation bilaterally Cardio: Heart sounds: S1 normal heart sound present and S2 normal heart sound present Other: PMI not palpable no cardiac murmur GI: GI Palp: Yes Soft to palpation Auscultation: Hypoactive bowel sounds present Objective Data Vital Signs Vital Signs: Vital Signs - 24 hr 07/19/20 20:00 07/19/20 22:00 07/20/20 00:00 Temperature 36.4 C L Pulse Rate 93 91 81 Respiratory Rate 21 H Blood Pressure 108/90 Pulse Oximetry 100 07/20/20 02:00 07/20/20 02:54 07/20/20 04:00 Temperature 36.9 C Pulse Rate 81 80 76 Respiratory Rate 18 Blood Pressure 120/57 L 133/93 H Pulse Oximetry 96 98 07/20/20 08:00 07/20/20 08:35 07/20/20 08:37 Temperature Pulse Rate 86 91 Respiratory Rate 20 Blood Pressure Pulse Oximetry 94 90 07/20/20 09:15 07/20/20 12:00 07/20/20 13:30 Temperature 36.4 C L 36.6 C Pulse Rate 102 H 85 87 Respiratory Rate 22 H 20 Blood Pressure 99/79 L 122/67 Pulse Oximetry 95 94 Intake/Output Intake/Output: Intake & Output 07/18/20 07/19/20 07/19/20 07/20/20 00:59 00:59 23:59 23:59 Intake Total 3045 Output Total 815 Balance 2230 Meds/Results Medications: Active Medications Generic Name Dose Route Start Last Admin Trade Name Freq PRN Reason Stop Dose Admin Acetaminophen 500 mg 07/19/20 13:53 Acetaminophen 500 Mg Tablet PO Q6H PRN Mild Pain (1-3) or Fever Hydrocodone Bitart/Acetaminophen 1 tab 07/19/20 13:53 Hydrocodone/Acetaminophen (*Crx) 5-325 Mg Tablet PO Q4H PRN Pain Rated 4-6 Hydrocodone Bitart/Acetaminophen 1 tab 07/19/20 13:53 07/19/20 16:13 Hydrocodone/Acetaminophen (*Crx) 10-325 Mg Tablet PO 1 tab Q6H PRN Administration Pain Rated 7-10 Allopurinol 300 mg 07/18/20 09:00 07/20/20 08:34 Allopurinol 300 Mg Tablet PO 300 mg DAILY DANIKA Administration Amlodipine Besylate 5 mg 07/18/20 09:00 07/20/20 08:34 Amlodipine Besylate 5 Mg Tablet PO 08/17/20 09:01 5 mg DAILY DANIKA Administration Artificial Tears 1 drop 07/19/20 15:04 Artificial Tears Op Soln 15 Ml Bottle EACH EYE QID PRN Dry Eye(s) Bisacodyl 5 mg 07/20/20 09:00 07/20/20 08:49 Bisacodyl 5 Mg Tablet Ec PO 5 mg QAM DANIKA Administration Dextrose 12.5 gm 07/17/20 19:37 Dextrose 50% 25 Gm/50 Ml Syringe IV PUSH PRN PRN Hypoglycemia Protocol Diphenhydramine HCl 25 mg 07/19/20 13:53 Diphenhydramine Hcl Inj 50 Mg/Ml Vial IV PUSH Q6H PRN Itching Enoxaparin Sodium 40 mg 07/20/20 09:00 07/20/20 08:42 Enoxaparin 40 Mg/0.4 Ml Syringe SUB-Q 40 mg DAILY DANIKA Administration Fenofibrate 145 mg 07/18/20 09:00 07/20/20 08:34 Fenofibrate Nanocrystallized 145 Mg Tablet PO 145 mg DAILY DANIKA Administration Finasteride 5 mg 07/18/20 09:00 07/20/20 08:34 Finasteride 5 Mg Tablet PO 5 mg DAILY DANIKA Administration Furosemide 40 mg 07/18/20 09:00 07/20/20 11:31 Furosemide 40 Mg Tablet PO 40 mg QAM DANIKA Administration Glucagon 1 mg 07/17/20 19:37 Glucagon For Inj 1 Mg Vial
[2020-07-20 16:45] LABS: Glucose Point of Care 131 (65-105)
[2020-07-20] MEDS: LACTATED RINGERS 1,000 ML 60 ML IV CONT (17:12)
[2020-07-20 17:21] LABS: Glucose Point of Care 159 (65-105)
[2020-07-20] MEDS: ACETAMINOPHEN 500 MG TABLET PO (19:44)
[2020-07-20] MEDS: diphenhydrAMINE HCl INJ 50 MG/ML VIAL 25 MG IV PUSH (23:50)
[2020-07-21] VITALS (18 sets, daily range): BP systolic 102–150; BP diastolic 62–85; PULSE 66–85; RESP 16–26; TEMP 36.7–38.3; O2SAT 90–100
[2020-07-21 01:22] LABS: Glucose Point of Care 154 (65-105)
[2020-07-21 05:52] LABS: Hematocrit 29.1 % (42.0-52.0); Hemoglobin 9.8 g/dL (14.0-18.0); Mean Corpuscular HGB Conc 33.7 g/dl (32-36); Mean Corpuscular Hemoglobin 24.5 pg (26-34); Mean Corpuscular Volume 72.8 fl (80-100); Mean Platelet Volume 11.2 fl (7.4-10.4); Platelet Count Result 208 k/mm3 (150-375); Red Cell Distribution Width 15.4 % (11.5-14.5); White Blood Count 6.9 K/mm3 (4.5-10.0)
[2020-07-21 06:06] LABS: INR 1.4; Prothrombin Time 17.8 Seconds (11.1-14.7)
[2020-07-21 06:17] LABS: Alanine Aminotransferase 215 U/L (4-50); Alkaline Phosphatase 99 U/L (38-126); Anion Gap 6 mmol/L (8-16); Aspartate Amino Transferase 436 U/L (17-59); Bilirubin,Total 3.3 mg/dL (0.2-1.3); Blood Urea Nitrogen 29 mg/dL (9-20); CRP 25.6 mg/dL (<1.0); Carbon Dioxide 29 mmol/L (22-30); Chloride 102 mmol/L (98-107); Estimated CRCL calculation 50 ml/min; Estimated Glomerular Filt Rate 46; Glucose 110 mg/dL (75-110); Magnesium 1.8 mg/dL (1.6-2.3); Potassium 3.9 mmol/L (3.4-5.0); Sodium 137 mmol/L (137-145)
[2020-07-21] MEDS: LEVOTHYROXINE SODIUM 50 MCG TABLET PO (06:33)
[2020-07-21 06:34] LABS: Glucose Point of Care 108 (65-105)
--- NOTE | 2020-07-21 07:01 | PM.PNGS ---
Progress Note: A&P Assessment and Plan (1) Acute suppurative cholecystitis: Code(s): K81.0 - Acute cholecystitis Status: Acute Assessment and Plan: continues to improve. No evidence of bile leak to this point. Patient will likely need to go home with at least 1 if not both of his ASHU drains. Continue IV antibiotics. He will have image guided biopsy of liver mass today. Resume diabetic diet after. Doing well so far. (2) Bacteremia: Code(s): R78.81 - Bacteremia Status: Acute Assessment and Plan: Continue IV antibiotics. (3) Severe sepsis with acute organ dysfunction: Code(s): A41.9 - Sepsis, unspecified organism; R65.20 - Severe sepsis without septic shock Status: Acute Assessment and Plan: Patient reports he has been confused up till today. Probably some aspect of delirium associated with his sepsis that is now clearing as well. (4) Type 2 diabetes mellitus with hyperglycemia, with long-term current use of insulin: Code(s): E11.65 - Type 2 diabetes mellitus with hyperglycemia; Z79.4 - snf (current) use of insulin Status: Chronic (5) Essential hypertension: Code(s): I10 - Essential (primary) hypertension Status: Acute Subjective Subjective Date/Time Seen: 07/21/20 07:01 Post Op day: 2 Patient reports: no new complaints, feels better, tolerating liquids well and afebrile Review of Systems Review of Systems: All systems reviewed & are unremarkable except as noted in HPI and below Constitutional: Constitutional: Denies headache(s) Cardiovascular: Cardiovascular: Denies chest pain and Denies dyspnea Respiratory: Respiratory: Denies cough and Denies dyspnea Gastrointestinal: Gastrointestinal: Reports as per HPI, Denies nausea and Denies vomiting Neurologic: Denies confusion and Denies headache(s) Exam Const: General: comfortable and no acute distress; No confusion Orientation/consciousness: patient oriented x3 and No confusion GI: Inspection: incision (Incisions healing well, no bile in ASHU drains) and obesity GI Palp: Yes Soft to palpation, Yes Tenderness to palpation present (GI), No Guarding due to palpation present (GI) and No Rebound tenderness present Neuro: General: patient oriented x3, no focal motor deficits and No confusion Extrem: General: no calf tenderness and no edema Psych: Affect: normal affect Insight: Good insight present (Psych) Judgement: Good judgement present (Psych) Objective Data Vital Signs Vital Signs: Vital Signs - 24 hr 07/20/20 08:00 07/20/20 08:35 07/20/20 08:37 Temperature Pulse Rate 86 91 Respiratory Rate 20 Blood Pressure Pulse Oximetry 94 90 07/20/20 09:15 07/20/20 12:00 07/20/20 13:30 Temperature 36.4 C L 36.6 C Pulse Rate 102 H 85 87 Respiratory Rate 22 H 20 Blood Pressure 99/79 L 122/67 Pulse Oximetry 95 94 07/20/20 16:00 07/20/20 17:35 07/20/20 20:00 Temperature 36.9 C 36.6 C Pulse Rate 86 83 86 Respiratory Rate 20 22 H Blood Pressure 132/70 139/98 H Pulse Oximetry 94 95 07/20/20 20:12 07/20/20 20:13 07/21/20 00:00 Temperature 36.6 C 37.0 C Pulse Rate 85 78 Respiratory Rate 22 H 24 H Blood Pressure 139/98 H 143/82 H Pulse Oximetry 95 92 95 07/21/20 04:00 Temperature 36.7 C Pulse Rate 79 Respiratory Rate 26 H Blood Pressure 115/73 Pulse Oximetry 91 Intake/Output Intake/Output: Intake & Output 07/19/20 07/19/20 07/20/20 07/21/20 00:59 23:59 23:59 23:59 Intake Total 4600 50 Output Total 2165 1010 Balance 2435 -960 Meds/Results Medications: Active Medications Generic Name Dose Route Start Last Admin Trade Name Freq PRN Reason Stop Dose Admin Acetaminophen 500 mg 07/19/20 13:53 07/20/20 19:44 Acetaminophen 500 Mg Tablet PO 500 mg Q6H PRN Administration Mild Pain (1-3) or Fever Hydrocodone Bitart/Acetaminophen 1 tab 07/19/20 13:53 Hydrocodone/Acetaminophen (*Crx) 5-325 Mg
[2020-07-21 08:23] LABS: Glucose Point of Care 112 (65-105)
[2020-07-21] MEDS: HYDROcodone/acetaminophen (*CRX) 5-325 MG TABLET 1 TAB PO (08:58)
[2020-07-21] MEDS: amLODIPine BESYLATE 5 MG TABLET PO (08:59)
[2020-07-21] MEDS: allopurinoL 300 MG TABLET PO (08:59)
[2020-07-21] MEDS: FENOFIBRATE NANOCRYSTALLIZED 145 MG TABLET PO (09:00)
[2020-07-21] MEDS: FINASTERIDE 5 MG TABLET PO (09:00)
[2020-07-21] MEDS: METOPROLOL SUCCINATE EXT REL 100 MG TABCR PO (09:01)
[2020-07-21] MEDS: lisinopriL 20 MG TABLET PO (09:01)
[2020-07-21] MEDS: OXYBUTYNIN CHLORIDE 5 MG TABLET PO ×2 (09:01→20:46)
[2020-07-21] MEDS: LACTATED RINGERS 1,000 ML 60 ML IV CONT (10:34)
--- NOTE | 2020-07-21 11:06 | PM.IMPN ---
Progress Note: A&P Assessment and Plan (1) Choledocholithiasis with acute cholecystitis with obstruction: Code(s): K80.43 - Calculus of bile duct with acute cholecystitis with obstruction Status: Acute Assessment and Plan: POD#2 s/p cholecystectomy 07/[address] Mccarthy. Improving. 2 ASHU drains intact today. Continue IV Zosyn and appreciate ID recommendations. (2) Septicemia: Code(s): A41.9 - Sepsis, unspecified organism Status: Acute Assessment and Plan: Sepsis on arrival evident by leukocytosis, tachycardia which are now resolved. Suspected source above. 2/2 blood cultures growing Citrobacter. Appreciate Dr Donato's recommendations. For now he remains on IV Zosyn (day 3). (3) Liver mass: Code(s): R16.0 - Hepatomegaly, not elsewhere classified Status: Acute Assessment and Plan: CT 07/19 demonstrated a large 8cm right hepatic lobe mass. Undergoing ultrasound-guided liver biopsy today. History of lymphoma. Transaminitis and hyperbilirubinemia noted. Bili is trending down, AST and ALT persistent elevated could be related to this mass or in part due to stress reaction after surgery. Monitor CMP and follow pathology results. (4) ÁGNEL (acute kidney injury): Code(s): N17.9 - Acute kidney failure, unspecified Status: Acute Assessment and Plan: Cr improved today. May have been related to CT contrast vs. poor oral intake. Continue light IV hydration and monitor renal function. (5) Near syncope: Code(s): R55 - Syncope and collapse Status: Resolved Assessment and Plan: No further issues. May have been related to hypovolemia/dehydration with poor oral intake. Continue SAJAN long. (6) Microcytic anemia: Code(s): D50.9 - Iron deficiency anemia, unspecified Status: Acute Assessment and Plan: Of unknown chronicity. H&H low but stable. Labs consistent with iron deficiency anemia. Plan to start oral iron supplementation at discharge once tolerating a diet better. Monitor CBC. (7) Jaundice: Code(s): R17 - Unspecified jaundice Status: Acute Assessment and Plan: Improved. Bili improved to 3.3 today from 8.0. 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 Liver mass is concerning for metastatic disease - biopsy today. Follows with oncology at [facility]. (9) IDDM (insulin dependent diabetes mellitus): Status: Chronic Assessment and Plan: A1c 6.3. Insulin held this morning being NPO for biopsy. Continue a decreased dose of his humalog and SSI coverage. Monitor with accu-cheks and adjust treatment as needed. (10) Essential hypertension: Code(s): I10 - Essential (primary) hypertension Status: Chronic Assessment and Plan: Stable, last BP 114/65. Maintained on home regimen lisinopril, lasix, metoprolol, and amlodipine. (11) Hypothyroidism: Qualifiers: Hypothyroidism type: unspecified Qualified Code(s): E03.9 - Hypothyroidism, unspecified Code(s): E03.9 - Hypothyroidism, unspecified Status: Inactive Assessment and Plan: Maintained on home levothyroxine. (12) Chronic anticoagulation: Code(s): Z79.01 - detention (current) use of anticoagulants Status: Chronic Assessment and Plan: On Eliquis for history of PE and DVT. Eliquis held for surgery. Nav
[2020-07-21] MEDS: POTASSIUM CHLORIDE 20 MEQ TABLET.ER PO ×2 (11:27→17:43)
[2020-07-21 11:48] LABS: Glucose Point of Care 117 (65-105)
--- NOTE | 2020-07-21 13:09 | WPDINFPN2 ---
Progress Note: A&P Assessment and Plan (1) Bacteremia: Code(s): R78.81 - Bacteremia Status: Acute Assessment and Plan: Citrobacter bacteremia with infection, biliary/hepatic source REC PipTazo # 3. POD # 2. Subjective Date/time seen: 07/21/20 13:09 Objective Data Vital Signs Vital Signs: Vital Signs - 24 hr 07/20/20 13:30 07/20/20 16:00 07/20/20 17:35 Temperature 36.6 C 36.9 C Pulse Rate 87 86 83 Respiratory Rate 20 20 Blood Pressure 122/67 132/70 Pulse Oximetry 94 94 07/20/20 20:00 07/20/20 20:12 07/20/20 20:13 Temperature 36.6 C 36.6 C Pulse Rate 86 85 Respiratory Rate 22 H 22 H Blood Pressure 139/98 H 139/98 H Pulse Oximetry 95 95 92 07/21/20 00:00 07/21/20 04:00 07/21/20 08:00 Temperature 37.0 C 36.7 C Pulse Rate 78 79 82 Respiratory Rate 24 H 26 H Blood Pressure 143/82 H 115/73 Pulse Oximetry 95 91 07/21/20 08:58 07/21/20 09:01 07/21/20 10:00 Temperature 36.8 C Pulse Rate 72 78 Respiratory Rate 20 Blood Pressure 150/68 H 102/84 Pulse Oximetry 100 07/21/20 12:26 07/21/20 12:27 Temperature Pulse Rate 66 71 Respiratory Rate 24 H 24 H Blood Pressure 126/63 114/65 Pulse Oximetry 90 90 Intake/Output Intake/Output: Intake & Output 07/19/20 07/19/20 07/20/20 07/21/20 00:59 23:59 23:59 23:59 Intake Total 4600 1100 Output Total 2165 1010 Balance 2435 90 Meds/Results Medications: Active Medications Generic Name Dose Route Start Last Admin Trade Name Freq PRN Reason Stop Dose Admin Acetaminophen 500 mg 07/19/20 13:53 07/20/20 19:44 Acetaminophen 500 Mg Tablet PO 500 mg Q6H PRN Administration Mild Pain (1-3) or Fever Hydrocodone Bitart/Acetaminophen 1 tab 07/19/20 13:53 07/21/20 08:58 Hydrocodone/Acetaminophen (*Crx) 5-325 Mg Tablet PO 1 tab Q4H PRN Administration Pain Rated 4-6 Hydrocodone Bitart/Acetaminophen 1 tab 07/19/20 13:53 07/19/20 16:13 Hydrocodone/Acetaminophen (*Crx) 10-325 Mg Tablet PO 1 tab Q6H PRN Administration Pain Rated 7-10 Allopurinol 300 mg 07/18/20 09:00 07/21/20 08:59 Allopurinol 300 Mg Tablet PO 300 mg DAILY DANIKA Administration Amlodipine Besylate 5 mg 07/18/20 09:00 07/21/20 08:59 Amlodipine Besylate 5 Mg Tablet PO 08/17/20 09:01 5 mg DAILY DANIKA Administration Artificial Tears 1 drop 07/19/20 15:04 Artificial Tears Op Soln 15 Ml Bottle EACH EYE QID PRN Dry Eye(s) Bisacodyl 5 mg 07/20/20 09:00 07/20/20 08:49 Bisacodyl 5 Mg Tablet Ec PO 5 mg QAM DANIKA Administration Dextrose 12.5 gm 07/17/20 19:37 Dextrose 50% 25 Gm/50 Ml Syringe IV PUSH PRN PRN Hypoglycemia Protocol Diphenhydramine HCl 25 mg 07/19/20 13:53 07/20/20 23:50 Diphenhydramine Hcl Inj 50 Mg/Ml Vial IV PUSH 25 mg Q6H PRN Administration Itching Enoxaparin Sodium 40 mg 07/20/20 09:00 07/20/20 08:42 Enoxaparin 40 Mg/0.4 Ml Syringe SUB-Q 40 mg DAILY DANIKA Administration Fenofibrate 145 mg 07/18/20 09:00 07/21/20 09:00 Fenofibrate Nanocrystallized 145 Mg Tablet PO 145 mg DAILY DANIKA Administration Finasteride 5 mg 07/18/20 09:00 07/21/20 09:00 Finasteride 5 Mg Tablet PO 5 mg DAILY DANIKA Administration Furosemide 40 mg 07/18/20 09:00 07/20/20 11:31 Furosemide 40 Mg Tablet PO 40 mg QAM DANIKA Administration Glucagon 1 mg 07/17/20 19:37 Glucagon For Inj 1 Mg Vial IM PRN PRN Hypoglycemia Protocol Glucose 15 gm 07/17/20 19:37 Glucose Oral Gel 15 Gm Of Glucse In 37.5 Gm Tube PO PRN PRN Hypoglycemia Protocol Dextrose 1,000 mls @ 100 mls/hr 07/17/20 19:37 Dextrose 5% 1,000 Ml IVPB PRN PRN Hypoglycemia Protocol Lactated Ringer's 1,000 mls @ 60 mls/hr 07/19/20 13:53 07/21/20 10:34 Lr - Lactated Ringers Iv IV CONT 60 mls/hr .[id number] DANIKA Administration Piperacillin/Tazobactam/Dextrose 3.375 gm in 50 mls @ 100
--- NOTE | 2020-07-21 14:23 | PM.PNCARD ---
Progress Note: A&P Assessment and Plan (1) Preop cardiovascular exam: Code(s): Z01.810 - Encounter for preprocedural cardiovascular examination Status: Acute Assessment and Plan: Cholecystectomy 07/19/2020. (2) Near syncope: Code(s): R55 - Syncope and collapse Status: Resolved Assessment and Plan: Likely secondary to dehydration. Echocardiogram was generally unremarkable. Is now 5 L positive since admission. Will stop IV fluids. Continue to monitor volume status. He is now eating and drinking. Furosemide was continued at a admission. Continue for now and monitor volume status as well as renal function and electrolytes. (3) CAD (coronary artery disease): Qualifiers: Coronary Disease-Associated Artery/Lesion type: [place] artery [place] vs. transplanted heart: [place] heart Associated angina: without angina Qualified Code(s): I25.10 - Atherosclerotic heart disease of [place] coronary artery without angina pectoris Code(s): I25.10 - Atherosclerotic heart disease of [place] coronary artery without angina pectoris Status: Acute Assessment and Plan: Continue Metoprolol Succinate 50 mg daily. Continue medications for blood pressure control. Continue simvastatin. Resume anti-platelet agents and anticoagulant when safe to do so from a surgical standpoint. (4) Hx of myocardial infarction: Code(s): I25.2 - Old myocardial infarction Status: Acute Assessment and Plan: Continue medications for coronary artery disease as above. (5) Acute cholecystitis: Code(s): K81.0 - Acute cholecystitis Status: Acute Assessment and Plan: Cholecystectomy 07/19/2020. Management per . (6) Hypertension associated with diabetes: Code(s): E11.59 - Type 2 diabetes mellitus with other circulatory complications; I10 - Essential (primary) hypertension Status: Acute Assessment and Plan: At reasonable goal . Continue amlodipine, lisinopril, metoprolol. (7) Hypomagnesemia: Code(s): E83.42 - Hypomagnesemia Status: Acute Assessment and Plan: Replaced Additional Plan Post liver biopsy today 07/21/2020. Plan discussed with Dr. Krishnamurthy 1440 07/21/2020 Subjective Date/time seen: 07/21/20 14:23 Interval history: Follow-up for: History of coronary disease and acute gangrenous cholecystitis Date of service: . 07/21/2020 Subjective: Denied chest discomfort. Does have shortness of breath with exertional activities. No lightheadedness or palpitations. Lower extremity edema improved. Had liver biopsy today. Review of Systems Constitutional: Constitutional: Denies excessive sweating, Denies headache(s) and Reports weakness Eyes: Eyes: Denies blurry vision ENT: Reports Normal hearing present, Denies headache(s), Denies lip swelling and Denies neck pain Cardiovascular: Cardiovascular: Denies chest pain, Reports pedal edema and Reports dyspnea on exertion Respiratory: Respiratory: Reports dyspnea on exertion Gastrointestinal: Gastrointestinal: Reports abdominal pain and Reports bloating Genitourinary: Genitourinary: Denies urinary urgency Musculoskeletal: Musculoskeletal: Denies neck pain and Denies numbness Integumentary/Breasts: Skin/Breast: Denies pruritus Neurologic: Reports Normal hearing present, Denies confusion, Denies headache(s), Denies numbness and Reports weakness Psychiatric: Psychiatric: Denies anxiety and Denies confusion Endocrine: Endocrine: Denies excessive sweating Hematologic/Lymphatic: Hematologic/Lymphatic: Denies easy bleeding and Denies easy bruising Allergic/Immunologic: Allergic/Immunologic: Denies lip swelling Exam Const: General: no acute distress Orien
[2020-07-21] MEDS: FUROSEMIDE 40 MG TABLET PO (14:24)
[2020-07-21] MEDS: LORATADINE 10 MG TABLET PO (14:24)
[2020-07-21] MEDS: polyethylene glycoL 3350 17 GM POWD.PACK PO (14:24)
[2020-07-21] MEDS: PANTOPRAZOLE 40 MG TABLET PO (14:24)
[2020-07-21] MEDS: BISACODYL 5 MG TABLET EC PO (14:24)
--- NOTE | 2020-07-21 17:12 | CONS_ITS ---
DATE OF CONSULTATION: 07/21/2020 REASON FOR CONSULTATION: Bacteremia. 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 He had a recent PET scan, which showed no disease by his description. At home, he is on insulin. No systemic immunosuppressants. He presented to the hospital late on or on July 19 with abdominal pain. He had been seen in the office about 2 weeks before admission and was set up for laparoscopic cholecystectomy. This was accomplished without incident on July 19. He is on piperacillin tazobactam now after initially receiving levofloxacin and metronidazole. He also had a liver biopsy today for a liver density which was not biopsied at the time of his operation. His operation on the was notable for cholecystitis without stones. There was some biliary spillage, which was irrigated out. Drains remain in place. He is feeling hungry. No fever, chills, or sweats. No antibiotics prior to admission. He has a left total knee arthroplasty some 3 years old, which has not worsened in terms of symptoms. He reports that there is a fracture at some part of the prosthesis or interface with his bone. ALLERGIES: NONE KNOWN. HABITS: Never smoked. Social drinker. PRESENT MEDICATIONS: No immunosuppressants. PAST MEDICAL HISTORY: In addition to the above, coronary stents, umbilical hernia repair, shoulder surgery, bilateral hernia repairs, cystoscopy, pulmonary embolism, nephrolithiasis, type 2 diabetes mellitus - on insulin, hypothyroidism, hypertension, eczema, COPD, chronic back pain, asbestosis. 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 Lives locally. No children. FAMILY HISTORY: Not pertinent to his present illness. REVIEW OF SYSTEMS: 14-point review otherwise negative. PHYSICAL EXAMINATION: GENERAL: This is an elderly male who appears his actual age. No acute distress, afebrile currently. VITAL SIGNS: Temperature on arrival 38.3, 114/65, 71, 24, 90%. SKIN: Scattered ecchymoses. No generalized rash. Warm and dry. EENT: The conjunctivae are normal. The oropharynx, oral mucosa normal. NECK: No adenopathy. No masses. No meningismus. LUNGS: Clear to auscultation and percussion. CARDIAC: Regular rate and rhythm. No murmur or gallop. ABDOMEN: Tender right upper quadrant. Two drains in place, 1 with bile, the other with serosanguineous blood. Dressings in place. Hypoactive bowel sounds. Nontender elsewhere. EXTREMITIES: No clubbing, cyanosis, edema. LABORATORY DATA: Blood cultures early on the , 2/2 sets, Citrobacter freundii. I reviewed the susceptibilities. His white count 6.9, hemoglobin 9.8, platelets are 208. No differential done today; earlier showed a left shift. Prothrombin time 17.8. Blood gases 7.41, 28, 130, 18, 99% on non-rebreather. Hyponatremia has resolved. BUN 29, creatinine 1.5 down from 2, estimated GFR 46. Glucose normal. His elevated liver function tests slightly worse since yesterday. CRP is 26, albumin 3. RADIOLOGY: Initial chest x-ray, no active disease. CT of the chest, abdomen, pelvis performed preop, no definite pulmonary embolism or atelectasis, 8 cm right hepatic lobe lesion, 2 hypodensities in the left hepatic lobe as well, OGD in the spleen. Gallbladder wall thickening with infiltration surrounding, stone in the distal common duct. ASSESSMENT: 1. Citrobacter bacteremia, suspect biliary or hepatic source, less likely urine, lower GI, pulmonary, skin, soft tissue or other sources and now doing well. 2. Acute cholecystitis, postop day #2. 3. Liver lesions, could be due to early hepatic abscesses. He reports his PET scan recently was normal, arguing
[2020-07-21 17:49] LABS: Glucose Point of Care 200 (65-105)
[2020-07-21] MEDS: ACETAMINOPHEN 500 MG TABLET PO (21:20)
[2020-07-21 21:23] LABS: Glucose Point of Care 79 (65-105)
[2020-07-22] VITALS (13 sets, daily range): BP systolic 94–140; BP diastolic 48–68; PULSE 64–80; RESP 16–22; TEMP 36.5–37.2; O2SAT 92–97
[2020-07-22] MEDS: HYDROcodone/acetaminophen (*CRX) 5-325 MG TABLET 1 TAB PO ×2 (02:43→18:49)
[2020-07-22 05:47] LABS: Hematocrit 27.1 % (42.0-52.0); Hemoglobin 9.2 g/dL (14.0-18.0); Mean Corpuscular HGB Conc 33.9 g/dl (32-36); Mean Corpuscular Hemoglobin 24.9 pg (26-34); Mean Corpuscular Volume 73.4 fl (80-100); Mean Platelet Volume 11.4 fl (7.4-10.4); Platelet Count Result 209 k/mm3 (150-375); Red Blood Count 3.69 M/mm3 (4.6-6.20); Red Cell Distribution Width 15.6 % (11.5-14.5); White Blood Count 6.2 K/mm3 (4.5-10.0)
[2020-07-22 05:58] LABS: Alanine Aminotransferase 159 U/L (4-50); Albumin Level 2.8 g/dL (3.5-5.1); Alkaline Phosphatase 109 U/L (38-126); Anion Gap 8 mmol/L (8-16); Aspartate Amino Transferase 192 U/L (17-59); Bilirubin,Total 2.3 mg/dL (0.2-1.3); Blood Urea Nitrogen 21 mg/dL (9-20); Calcium 8.7 mg/dL (8.4-10.2); Carbon Dioxide 26 mmol/L (22-30); Chloride 106 mmol/L (98-107); Estimated CRCL calculation 61 ml/min; Estimated Glomerular Filt Rate 59; Glucose 179 mg/dL (75-110); Potassium 4.5 mmol/L (3.4-5.0); Sodium 140 mmol/L (137-145)
[2020-07-22] MEDS: LEVOTHYROXINE SODIUM 50 MCG TABLET PO (07:16)
--- NOTE | 2020-07-22 09:43 | PCPTNOTE ---
Addendum entered by Alexandra Pittman, MANAGER [employer]ROID 07/22/20 09:44: Patient refused treatment this session due to going down for a procedure this morning. Pt stated he is no longer healed and is bleeding again. Reminded Pt of the importance of therapy which he agreed it was important however did not feel well enough to participate in therapy this date. Original Note: Patient refused treatment this session due to [ ]
[2020-07-22 09:46] LABS: Glucose Point of Care 194 (65-105)
--- NOTE | 2020-07-22 09:59 | PM.IMPN ---
Progress Note: A&P Assessment and Plan (1) Choledocholithiasis with acute cholecystitis with obstruction: Code(s): K80.43 - Calculus of bile duct with acute cholecystitis with obstruction Status: Acute Assessment and Plan: POD#3 s/p cholecystectomy [address] Mccarthy. 2 ASHU drains intact today. Concern for bile leak Dr Mccarthy has consulted Dr Pacheco. He is NPO until GI consultation. Continue IV Zosyn and appreciate ID recommendations. (2) Septicemia: Code(s): A41.9 - Sepsis, unspecified organism Status: Acute Assessment and Plan: Sepsis on arrival evident by leukocytosis, tachycardia. Febrile last evening. Suspected source above. 2/2 blood cultures growing Citrobacter. Appreciate Dr Donato's recommendations. For now he remains on IV Zosyn (day 4). (3) Liver mass: Code(s): R16.0 - Hepatomegaly, not elsewhere classified Status: Acute Assessment and Plan: CT abdomen 07/19 demonstrated a large 8cm right hepatic lobe mass. Underwent ultrasound-guided liver biopsy 07/21. Etiology unclear. Pathology pending. 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 Transaminitis and hyperbilirubinemia noted and are improving, could be related to this mass or in part due to stress reaction after surgery. Monitor CMP and follow pathology results. (4) ÁNGEL (acute kidney injury): Code(s): N17.9 - Acute kidney failure, unspecified Status: Resolved Assessment and Plan: Resolved - Cr improving. May have been related to CT contrast vs. poor oral intake. (5) Near syncope: Code(s): R55 - Syncope and collapse Status: Resolved Assessment and Plan: No further issues. May have been related to hypovolemia/dehydration with poor oral intake. Continue SAJAN hose. (6) Microcytic anemia: Code(s): D50.9 - Iron deficiency anemia, unspecified Status: Acute Assessment and Plan: Of unknown chronicity. H&H low but stable. Labs consistent with iron deficiency anemia. Plan to start oral iron supplementation at discharge once tolerating a diet better. Monitor CBC. 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 Liver mass is concerning for metastatic disease - biopsy 07/21. Follows with oncology at [facility]. (8) IDDM (insulin dependent diabetes mellitus): Status: Chronic Assessment and Plan: A1c 6.3. Insulin held this morning being NPO until GI consultation. Continue a decreased dose of his humalog and SSI coverage once diet resumes. Monitor with accu-cheks and adjust treatment as needed. (9) Essential hypertension: Code(s): I10 - Essential (primary) hypertension Status: Chronic Assessment and Plan: Stable, last BP 124/64. Maintained on home regimen lisinopril, lasix, metoprolol, and amlodipine. (10) Hypothyroidism: Qualifiers: Hypothyroidism type: unspecified Qualified Code(s): E03.9 - Hypothyroidism, unspecified Code(s): E03.9 - Hypothyroidism, unspecified Status: Chronic Assessment and Plan: Maintained on home levothyroxine. 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 Eliquis held for surgery. Resume anticoagulation when OK with
[2020-07-22] MEDS: amLODIPine BESYLATE 5 MG TABLET PO (11:11)
[2020-07-22] MEDS: METOPROLOL SUCCINATE EXT REL 100 MG TABCR PO (11:11)
[2020-07-22] MEDS: POTASSIUM CHLORIDE 20 MEQ TABLET.ER PO ×2 (11:11→18:08)
[2020-07-22] MEDS: lisinopriL 20 MG TABLET PO (11:12)
[2020-07-22] MEDS: FINASTERIDE 5 MG TABLET PO (11:12)
[2020-07-22] MEDS: FUROSEMIDE 40 MG TABLET PO (11:12)
[2020-07-22] MEDS: PANTOPRAZOLE 40 MG TABLET PO (11:12)
[2020-07-22] MEDS: FENOFIBRATE NANOCRYSTALLIZED 145 MG TABLET PO (11:12)
[2020-07-22] MEDS: OXYBUTYNIN CHLORIDE 5 MG TABLET PO ×2 (11:13→20:58)
[2020-07-22] MEDS: allopurinoL 300 MG TABLET PO (11:13)
[2020-07-22] MEDS: LORATADINE 10 MG TABLET PO (11:13)
[2020-07-22 11:41] LABS: Glucose Point of Care 160 (65-105)
--- NOTE | 2020-07-22 14:53 | PC.NURSE ---
On 07/22/20, the student, Marycarmen Zayas, provided care and completed [facility] documentation on this patient. I have reviewed the student's documentation and agree with the findings.
--- NOTE | 2020-07-22 15:12 | PCPTNOTE ---
Patient refused treatment this session due to still not feeling well and Pt stated Im waiting to eat due to my procedure being postponed until tomorrow. Will continue treatment per plan of care.
--- NOTE | 2020-07-22 15:26 | WPDGICN ---
Assessment and Plan Assessment and plan (1) Bacteremia: Code(s): R78.81 - Bacteremia Status: Acute Assessment and Plan: most likely source hepatobiliary source, had gangrenous cholecystitis and possible choledocholithiasis liver enzymes trending down but now also possible bile leak (noted possible bile in one of ASHU drain) get hida scan to confirm bile leak but still will need ercp tomorrow, possible sphincterotomy and bile stent- blood thinner is on hold (2) Acute suppurative cholecystitis: Code(s): K81.0 - Acute cholecystitis Status: Acute Assessment and Plan: treated surgically on iv antibiotics id on board (3) Severe sepsis with acute organ dysfunction: Code(s): A41.9 - Sepsis, unspecified organism; R65.20 - Severe sepsis without septic shock Status: Acute (4) Choledocholithiasis with acute cholecystitis with obstruction: Code(s): K80.43 - Calculus of bile duct with acute cholecystitis with obstruction Status: Acute Assessment and Plan: ercp tomorrow (5) Chronic anticoagulation: Code(s): Z79.01 - longterm (current) use of anticoagulants Status: Chronic (6) Jaundice: Code(s): R17 - Unspecified jaundice Status: Acute (7) Liver mass: Code(s): R16.0 - Hepatomegaly, not elsewhere classified Status: Acute Assessment and Plan: biopsy was done yesterday by radiology, pending result (8) CAD (coronary artery disease): Qualifiers: Coronary Disease-Associated Artery/Lesion type: belk[place]ski artery [place] vs. transplanted heart: belkofski heart Associated angina: without angina Qualified Code(s): I25.10 - Atherosclerotic heart disease of belkofski coronary artery without angina pectoris Code(s): I25.10 - Atherosclerotic heart disease of belkofski coronary artery without angina pectoris Status: Acute GI Consult Note Consult date/time: 07/22/20 15:26 Reason for consult: sepsis, choledocholithiasis with cholecystitis, possible bile leak HPI: Bo Barragan is a 74 year old male with history of coronary artery disease, DVT and pulmonary embolism on anticoagulation (now on hold), type 2 diabetes mellitus, hypertension, dyslipidemia, last colonoscopy ~ 2 years ago per patient and T-cell lymphoma who came to the emergency department on 07/17 with near-syncope x2, actually he was scheduled to have a cholecystectomy because of 2 week history of right upper quadrant abdominal pain and bloating; also found to have a 7.9 cm liver mass. He was admitted with sepsis, bacteremia, jaundice with bili 7. CT scan showed 8 cm right hepatic lobe mass. New masses of the left hepatic lobe. Findings compatible with metastatic disease and choledocholithiasis with acute cholecystitis. Dr Mccarthy performed lap lulu that showed gangrenous acute cholecystitis with purulent bile, sepsis and no right hepatic mass seen. It was a difficult procedure and left two ASHU-drain. bili trending down to 2.3 now, also yesterday underwent biopsy of liver lesion and pending pathology. Transaminases 120-150. Surgery team noted more drainage of bile from one of ASHU drain and concerned of possible bile leak. He is doing better, no much of abdominal pain and is hungry (now npo) Review of Systems Constitutional: Constitutional: Reports fatigue and Denies headache(s) Eyes: Eyes: Denies blurry vision ENT: Reports Normal hearing present, Denies headache(s) and Denies neck pain Cardiovascular: Cardiovascular: Denies chest pain and Denies dyspnea Respiratory: Respiratory: Denies dyspnea Gastrointestinal: Gastrointestinal: Reports no additional gastrointestinal complaints Genitourinary: Genitourinary: Denies dysuria Musculoskeletal: Musculoskeletal: Denies neck pain Integumentary/Breasts: Skin/Breast: Denies dry skin Neurologic: Reports Normal hearing present, Denies headache(s) and Denies weakness Psychiatric: Psychiatric: Denies anxiety Endocrine: Endocr
[2020-07-22 16:25] LABS: Glucose Point of Care 174 (65-105)
--- NOTE | 2020-07-22 16:57 | PM.PNGS ---
Progress Note: A&P Assessment and Plan (1) Acute suppurative cholecystitis: Code(s): K81.0 - Acute cholecystitis Status: Acute Assessment and Plan: Bile leak noted. Will consult Dr. Pacheco. May need HIDA scan and/or ERCP. (2) Bacteremia: Code(s): R78.81 - Bacteremia Status: Acute Assessment and Plan: On antibiotics (3) Severe sepsis with acute organ dysfunction: Code(s): A41.9 - Sepsis, unspecified organism; R65.20 - Severe sepsis without septic shock Status: Acute Assessment and Plan: Improved (4) Liver mass: Code(s): R16.0 - Hepatomegaly, not elsewhere classified Status: Acute Assessment and Plan: Pathology pending (5) IDDM (insulin dependent diabetes mellitus): Status: Chronic (6) COPD (chronic obstructive pulmonary disease): Code(s): J44.9 - Chronic obstructive pulmonary disease, unspecified Status: Acute Subjective Subjective Date/Time Seen: 07/22/20 06:37 Post Op day: 3 Patient reports: still having pain (Having more abdominal pain.) and afebrile Interval history: Patient had multiple biopsies of the liver mass in x-ray yesterday. Has been having abdominal pain since then. Had no appetite yesterday afternoon but says he is hungry this morning. Review of Systems Review of Systems: All systems reviewed & are unremarkable except as noted in HPI and below Constitutional: Constitutional: Reports anorexia, Denies chills, Denies fever(s), Denies headache(s) and Reports poor appetite (Improved this morning) Cardiovascular: Cardiovascular: Denies chest pain and Denies dyspnea Respiratory: Respiratory: Denies cough and Denies dyspnea Gastrointestinal: Gastrointestinal: Reports as per HPI, Reports abdominal pain (Right upper quadrant), Denies nausea and Denies vomiting Neurologic: Denies confusion and Denies headache(s) Exam Const: General: comfortable and no acute distress; No confusion Orientation/consciousness: patient oriented x3 and No confusion GI: Inspection: non-distended, incision (Incisions healing well, bile in the lateral ASHU drain) and obesity GI Palp: Yes Soft to palpation, Yes Tenderness to palpation present (GI), No Guarding due to palpation present (GI) and No Rebound tenderness present Auscultation: normal bowel sounds Neuro: General: patient oriented x3, no focal motor deficits and No confusion Extrem: General: no calf tenderness and no edema Psych: Affect: normal affect Insight: Good insight present (Psych) Judgement: Good judgement present (Psych) Objective Data Vital Signs Vital Signs: Vital Signs - 24 hr 07/21/20 17:53 07/21/20 20:00 07/21/20 21:09 Temperature 37.2 C 38.3 C H Pulse Rate 80 74 74 Respiratory Rate 16 18 18 Blood Pressure 104/71 135/62 Pulse Oximetry 92 96 96 07/21/20 21:20 07/21/20 21:22 07/21/20 22:20 Temperature 38.3 C H 38.3 C H 37.2 C Pulse Rate Respiratory Rate Blood Pressure Pulse Oximetry 07/21/20 22:42 07/22/20 00:00 07/22/20 02:00 Temperature 37.5 C 36.5 C Pulse Rate 64 70 Respiratory Rate 16 Blood Pressure 124/62 Pulse Oximetry 92 07/22/20 04:00 07/22/20 06:00 07/22/20 08:30 Temperature 36.6 C Pulse Rate 70 69 66 Respiratory Rate 16 Blood Pressure 131/62 Pulse Oximetry 95 07/22/20 10:00 07/22/20 11:11 07/22/20 12:00 Temperature 36.8 C Pulse Rate 72 80 70 Respiratory Rate 16 Blood Pressure 124/64 Pulse Oximetry 96 07/22/20 14:19 Temperature 36.8 C Pulse Rate 68 Respiratory Rate 20 Blood Pressure 119/60 Pulse Oximetry 95 Intake/Output Intake/Output: Intake & Output 07/19/20 07/20/20 07/21/20 07/22/20 23:59 23:59 23:59 23:59 Intake Total 4600 1615 450 Output Total 2165 1135 670 Balance 2435 480 -220 increased output from right lateral drain Meds/Results Medications: Active Medications Generic Name Dose Route Start Last Admin Trade Name Freq PRN Reason
[2020-07-22] MEDS: ONDANSETRON INJ 4 MG/2 ML VIAL IV PUSH (18:50)
[2020-07-22 21:58] LABS: Glucose Point of Care 209 (65-105)
[2020-07-23] VITALS (15 sets, daily range): BP systolic 95–135; BP diastolic 49–72; PULSE 61–82; RESP 15–24; TEMP 36.1–36.6; O2SAT 92–98; BMI 40.4
[2020-07-23] MEDS: HYDROcodone/acetaminophen (*CRX) 5-325 MG TABLET 1 TAB PO (00:26)
[2020-07-23 06:01] LABS: Hematocrit 28.7 % (42.0-52.0); Hemoglobin 9.3 g/dL (14.0-18.0); Mean Corpuscular HGB Conc 32.4 g/dl (32-36); Mean Corpuscular Hemoglobin 23.5 pg (26-34); Mean Corpuscular Volume 72.7 fl (80-100); Mean Platelet Volume 10.9 fl (7.4-10.4); Platelet Count Result 238 k/mm3 (150-375); Red Blood Count 3.95 M/mm3 (4.6-6.20); Red Cell Distribution Width 15.5 % (11.5-14.5); White Blood Count 6.9 K/mm3 (4.5-10.0)
[2020-07-23 06:11] LABS: Alanine Aminotransferase 122 U/L (4-50); Albumin Level 3.1 g/dL (3.5-5.1); Alkaline Phosphatase 148 U/L (38-126); Anion Gap 6 mmol/L (8-16); Aspartate Amino Transferase 88 U/L (17-59); Blood Urea Nitrogen 16 mg/dL (9-20); Calcium 9.1 mg/dL (8.4-10.2); Carbon Dioxide 31 mmol/L (22-30); Chloride 102 mmol/L (98-107); Estimated CRCL calculation 61 ml/min; Estimated Glomerular Filt Rate 59; Glucose 154 mg/dL (75-110); Magnesium 1.7 mg/dL (1.6-2.3); Potassium 4.4 mmol/L (3.4-5.0); Sodium 139 mmol/L (137-145)
[2020-07-23 07:36] LABS: Glucose Point of Care 151 (65-105)
--- NOTE | 2020-07-23 08:23 | PCOTNOTE ---
Attempted to see patient this am, however patient declined. Pt reported, I don't feel like doing any exercises or anything today. I just got some back news about 15 minutes ago. I'm still having problems with my gal bladder, and my cancer has spread. I'm just not in a good mood, I'm sorry.
[2020-07-23] MEDS: OXYBUTYNIN CHLORIDE 5 MG TABLET PO ×2 (08:35→21:00)
[2020-07-23] MEDS: amLODIPine BESYLATE 5 MG TABLET PO (08:35)
[2020-07-23] MEDS: METOPROLOL SUCCINATE EXT REL 100 MG TABCR PO (08:35)
[2020-07-23] MEDS: POTASSIUM CHLORIDE 20 MEQ TABLET.ER PO ×2 (08:36→17:25)
[2020-07-23] MEDS: PANTOPRAZOLE 40 MG TABLET PO (08:36)
[2020-07-23] MEDS: FINASTERIDE 5 MG TABLET PO (08:36)
[2020-07-23] MEDS: FUROSEMIDE 40 MG TABLET PO (08:36)
[2020-07-23] MEDS: LEVOTHYROXINE SODIUM 50 MCG TABLET PO (08:36)
[2020-07-23] MEDS: lisinopriL 20 MG TABLET PO (08:36)
[2020-07-23] MEDS: LORATADINE 10 MG TABLET PO (08:36)
[2020-07-23] MEDS: MAGNESIUM SULF 2 GM/WATER 50ML 2 GM/50 ML BAG IVPB (08:39)
--- NOTE | 2020-07-23 08:48 | PM.PNGS ---
Progress Note: A&P Assessment and Plan (1) Bile leak, postoperative: Code(s): K91.89 - Other postprocedural complications and disorders of digestive system; K83.8 - Other specified diseases of biliary tract Status: Acute Assessment and Plan: appreciate Dr. Pacheco evaluation. Will see what HIDA scan an ERCP show today. Continue ASHU drain. (2) Acute suppurative cholecystitis: Code(s): K81.0 - Acute cholecystitis Status: Acute Assessment and Plan: Continue IV antibiotics. Bile leak as above. (3) Bacteremia: Code(s): R78.81 - Bacteremia Status: Acute Assessment and Plan: Continue IV antibiotics. (4) Hepatocellular carcinoma determined by biopsy of liver: Code(s): C22.0 - Liver cell carcinoma Status: Chronic Assessment and Plan: Discussed this with patient and brief discussion regarding treatment. Emphasized that the focus now is to recover him from his gallbladder surgery with bile leak and bacteremia. Evaluation and treatment of hepatocellular carcinoma would be done once he is recovering well. (5) Type 2 diabetes mellitus with hyperglycemia, with long-term current use of insulin: Code(s): E11.65 - Type 2 diabetes mellitus with hyperglycemia; Z79.4 - [facility] (current) use of insulin Status: Chronic (6) Essential hypertension: Code(s): I10 - Essential (primary) hypertension Status: Chronic (7) Morbid obesity: Code(s): E66.01 - Morbid (severe) obesity due to excess calories Status: Chronic (8) Chronic anticoagulation: Code(s): Z79.01 - [facility] (current) use of anticoagulants Status: Chronic Assessment and Plan: Continues on hold. Subjective Subjective Date/Time Seen: 07/23/20 08:48 Patient reports: still having pain ( right mid abdomen extending laterally. Below ASHU drains.), tolerating a regular diet and afebrile Interval history: Dr. Pacheco saw the patient yesterday afternoon. HIDA scan and ERCP are planned for today. Review of Systems Review of Systems: All systems reviewed & are unremarkable except as noted in HPI and below Constitutional: Constitutional: Denies headache(s) Cardiovascular: Cardiovascular: Denies chest pain and Denies dyspnea Respiratory: Respiratory: Denies cough and Denies dyspnea Gastrointestinal: Gastrointestinal: Reports as per HPI Neurologic: Denies confusion and Denies headache(s) Exam Const: General: comfortable and no acute distress; No confusion Orientation/consciousness: patient oriented x3 and No confusion GI: Inspection: non-distended, incision ( Dry and healing well. Straight bile coming from right lateral ASHU drain. ), obesity and other ( other ASHU drain is serosanguineous) GI Palp: Yes Soft to palpation, Yes Tenderness to palpation present (GI) ( right side of abdomen mostly), No Guarding due to palpation present (GI) and No Rebound tenderness present Auscultation: normal bowel sounds Neuro: General: patient oriented x3, no focal motor deficits and No confusion Extrem: General: no calf tenderness and no edema Psych: Affect: normal affect Insight: Good insight present (Psych) Judgement: Good judgement present (Psych) Objective Data Vital Signs Vital Signs: Vital Signs - 24 hr 07/22/20 10:00 07/22/20 11:11 07/22/20 12:00 Temperature 36.8 C Pulse Rate 72 80 70 Respiratory Rate 16 Blood Pressure 124/64 Pulse Oximetry 96 07/22/20 14:19 07/22/20 16:00 07/22/20 17:55 Temperature 36.8 C 37.2 C Pulse Rate 68 74 77 Respiratory Rate 20 18 Blood Pressure 119/60 94/48 L Pulse Oximetry 95 97 07/22/20 18:57 07/22/20 20:00 07/23/20 00:00 Temperature 36.6 C 36.6 C Pulse Rate 66 74 Respiratory Rate 22 H 22 H Blood Pressure 140/68 110/48 L 135/55 L Pulse Oximetry 96 96 07/23/20 04:00 07/23/20 08:35 Temperature 36.3 C L Pulse Rate 63 72 Respiratory Rate 22 H Blood Pressure 124/72 Pu
--- NOTE | 2020-07-23 09:21 | WPDANESEPPF ---
Anes - Initial Pre Proc Eval Procedure: Operation Date: 07/19/20 09:30 Proposed Procedures p Laparoscopic Cholecystectomy - Aristides Mccarthy MD Operation Date: 07/23/20 12:00 Proposed Procedures p Endoscopic Retro Cholangiopancreatogram - Wade Gayle MD Date/Time: 07/23/20 09:21 Surgeon: TRACY Zelaya Pre Op Diagnosis: Choledocholithiasis with acute cholecystitis Patient Data Age: 74 Gender: M Height: 1.73 m Weight: 120.8 kg Last Vital Signs Temp 36.3 C L 07/23/20 04:00 Pulse 72 07/23/20 08:35 Resp 22 H 07/23/20 04:00 BP 124/72 07/23/20 04:00 Pulse Ox 95 07/23/20 04:00 Allergies Allergy/AdvReac Type Severity Reaction Status Date / Time No Known Allergies Allergy Verified 07/23/20 10:53 Home Medications Medication Instructions Recorded Confirmed Type allopurinol 300 mg tablet 300 mg PO DAILY 08/27/19 07/17/20 History amlodipine 5 mg-benazepril 20 mg 1 cap PO DAILY 08/27/19 07/17/20 History capsule apixaban 5 mg tablet 5 mg PO BID 08/27/19 07/17/20 History aspirin 81 mg tablet,delayed 81 mg PO DAILY 08/27/19 07/17/20 History release celecoxib 200 mg capsule 200 mg PO DAILY 08/27/19 07/17/20 History finasteride 5 mg tablet 5 mg PO DAILY 08/27/19 07/17/20 History omeprazole 20 mg capsule,delayed 20 mg PO DAILY 08/27/19 07/17/20 History release umeclidinium 62.5 mcg-vilanterol 1 inhalation INHALATION DAILY 08/27/19 07/17/20 History 25 mcg/actuation powdr for inhalation fenofibrate nanocrystallized 145 145 mg PO DAILY 02/27/20 07/17/20 History mg tablet fexofenadine 180 mg tablet 180 mg PO DAILY tablet 02/27/20 07/17/20 History furosemide 40 mg tablet 40 mg PO QAM tablet 02/27/20 07/17/20 History levothyroxine 25 mcg tablet 50 mcg PO QAM tablet 02/27/20 07/17/20 History metolazone 5 mg tablet 5 mg PO PRN PRN 02/27/20 07/17/20 History metoprolol succinate 50 mg 100 mg PO DAILY tablet 02/27/20 07/17/20 History tablet,extended release 24 hr oxybutynin chloride 5 mg tablet 5 mg PO BID tablet 02/27/20 07/17/20 History simvastatin 20 mg tablet 20 mg PO QPM tablet 02/27/20 07/17/20 History bexarotene 75 mg capsule 150 mg PO DAILY cap 02/28/20 07/17/20 History blood sugar diagnostic #200 each 05/12/20 07/17/20 Rx blood-glucose meter #1 ea 07/06/20 07/17/20 Rx insulin lispro protamine-lispro 60 unit SUBCUT QAM ml 07/06/20 07/17/20 History 100 unit/mL (75-25) subcutaneous pen pen needle, diabetic 32 gauge x #10 each 07/06/20 07/17/20 History cyclosporine [Restasis] 1 drp OPHTHALMIC (EYE) Q12H 07/17/20 07/17/20 History insulin lispro protamin-lispro 70 unit SUBCUT QPM 07/20/20 07/20/20 History metformin 1,000 mg tablet 1,000 mg PO BID 90 Days #180 tablet 07/24/20 Rx Laboratory Tests 07/22/20 07/22/20 07/22/20 09:21 11:35 16:12 WBC RBC Hgb Hct MCV MCH MCHC RDW Plt Count MPV Sodium Potassium Chloride Carbon Dioxide Anion Gap BUN Creatinine Estim Creat Clear Calc Estimated GFR Glucose POC Capillary Glucose 194 mg/dl H mg/dl 160 mg/dl H mg/dl 174 mg/dl H mg/dl (65-105) (65-105) (65-105) Calcium Magnesium Total Bilirubin AST ALT Alkaline Phosphatase Total Protein Albumin Alpha Fetoprotein 07/22/20 07/23/20 07/23/20 20:29 05:28 05:28 WBC 6.9 K/mm3 K/mm3 (4.5-10.0) RBC 3.95 M/mm3 L M/mm3 (4.6-6.20) Hgb 9.3 g/dL L g/dL (14.0-18.0) Hct 28.7 % L % (42.0-52.0) MCV 72.7 fl L fl (80-100) MCH 23.5 pg L D pg (26-34) MCHC 32.4 g/dl g/dl (32-36) RDW 15.5 % H % (11.5
--- NOTE | 2020-07-23 10:55 | PCPTNOTE ---
Attempted to see patient for PT, however was unable due to patient out of room for procedure.
[2020-07-23] MEDS: LACTATED RINGERS 1,000 ML 150 ML IV CONT (11:02)
[2020-07-23 11:14] LABS: Glucose Point of Care 171 (65-105)
--- NOTE | 2020-07-23 11:45 | PC.NURSE ---
To GI Lab per neha, IV saline locked. Report given to Maddy.
--- NOTE | 2020-07-23 14:15 | PCPTNOTE ---
The patient treatment was not able to be completed today due to patient out of room for testing. Will plan to continue treatment per plan of care.
--- NOTE | 2020-07-23 14:40 | PC.NURSE ---
Returned from GI Lab. Report received from Kaelyn.
[2020-07-23] MEDS: FENOFIBRATE NANOCRYSTALLIZED 145 MG TABLET PO (15:12)
[2020-07-23] MEDS: allopurinoL 300 MG TABLET PO (15:12)
--- NOTE | 2020-07-23 15:30 | P.PNIM_ITS ---
Progress Note: A&P Assessment and Plan (1) Choledocholithiasis with acute cholecystitis with obstruction: Code(s): K80.43 - Calculus of bile duct with acute cholecystitis with obstruction Status: Acute Assessment and Plan: * POD#4 s/p cholecystectomy 07/[address] Mccarthy with 2 ASHU drains. 11 bile was noted in lateral most ASHU drain and GI was consulted for suspected bile leak. * Patient underwent HIDA this morning which confirmed bile leak and then ERCP by Dr Pacheco this afternoon. Biliary and pancreatic stents were placed. * Continue IV Zosyn and appreciate ID recommendations. (2) Septicemia: Code(s): A41.9 - Sepsis, unspecified organism Status: Acute Assessment and Plan: * Sepsis on arrival evident by leukocytosis, tachycardia. Febrile last evening. Suspected source above. * 2/2 blood cultures growing Citrobacter. Appreciate Dr Donato's recommendations. For now he remains on IV Zosyn (day 5). (3) Liver mass: Code(s): R16.0 - Hepatomegaly, not elsewhere classified Status: Acute Assessment and Plan: * CT abdomen 07/19 demonstrated a large 8cm right hepatic lobe mass. Underwent ultrasound-guided liver biopsy 07/21. * Pathology demonstrates hepatocellular carcinoma. 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 * Transaminitis and hyperbilirubinemia noted and are improving, monitor CMP. * We've discussed these results and I encouraged him to follow up with his established oncologist at [facility] for further evaluation and management of HCC. (4) Microcytic anemia: Code(s): D50.9 - Iron deficiency anemia, unspecified Status: Acute Assessment and Plan: * Of unknown chronicity. H&H low but stable. Labs consistent with iron deficiency anemia. Plan to start oral iron supplementation at discharge once tolerating a diet better. Monitor CBC. 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 * Follows with oncology at [facility]. (6) IDDM (insulin dependent diabetes mellitus): Status: Chronic Assessment and Plan: * A1c 6.3. Insulin held again this morning being NPO until GI consultation. Continue a decreased dose of his humalog and SSI coverage once tolerating a diet better. Monitor with accu-cheks and adjust treatment as needed. (7) Essential hypertension: Code(s): I10 - Essential (primary) hypertension Status: Chronic Assessment and Plan: * Stable, last BP 117/61. Maintained on home regimen lisinopril, lasix, m etoprolol, and amlodipine. (8) Hypothyroidism: Qualifiers: Hypothyroidism type: unspecified Qualified Code(s): E03.9 - Hypothyroidism, unspecified Code(s): E03.9 - Hypothyroidism, unspecified Status: Chronic Assessment and Plan: * Maintained on home levothyroxine. (9) Chronic anticoagulation: Code(s): Z79.01 - [facility] (current) use of anticoagulants Status: Chronic Assessment and Plan: * On Eliquis for history of PE and DVT. Eliquis held for surgery. Resume anticoagulation when OK with surgery.
--- NOTE | 2020-07-23 15:30 | PM.IMPN ---
Progress Note: A&P Assessment and Plan (1) Choledocholithiasis with acute cholecystitis with obstruction: Code(s): K80.43 - Calculus of bile duct with acute cholecystitis with obstruction Status: Acute Assessment and Plan: POD#4 s/p cholecystectomy 07/[address] Mccarthy with 2 ASHU drains. 11 bile was noted in lateral most ASHU drain and GI was consulted for suspected bile leak. Patient underwent HIDA this morning which confirmed bile leak and then ERCP by Dr Pacheco this afternoon. Biliary and pancreatic stents were placed. Continue IV Zosyn and appreciate ID recommendations. (2) Septicemia: Code(s): A41.9 - Sepsis, unspecified organism Status: Acute Assessment and Plan: Sepsis on arrival evident by leukocytosis, tachycardia. Febrile last evening. Suspected source above. 2/2 blood cultures growing Citrobacter. Appreciate Dr Donato's recommendations. For now he remains on IV Zosyn (day 5). (3) Liver mass: Code(s): R16.0 - Hepatomegaly, not elsewhere classified Status: Acute Assessment and Plan: CT abdomen 07/19 demonstrated a large 8cm right hepatic lobe mass. Underwent ultrasound-guided liver biopsy 07/21. Pathology demonstrates hepatocellular carcinoma. 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 Transaminitis and hyperbilirubinemia noted and are improving, monitor CMP. We've discussed these results and I encouraged him to follow up with his established oncologist at [facility] for further evaluation and management of HCC. (4) Microcytic anemia: Code(s): D50.9 - Iron deficiency anemia, unspecified Status: Acute Assessment and Plan: Of unknown chronicity. H&H low but stable. Labs consistent with iron deficiency anemia. Plan to start oral iron supplementation at discharge once tolerating a diet better. Monitor CBC. 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 Follows with oncology at [facility]. (6) IDDM (insulin dependent diabetes mellitus): Status: Chronic Assessment and Plan: A1c 6.3. Insulin held again this morning being NPO until GI consultation. Continue a decreased dose of his humalog and SSI coverage once tolerating a diet better. Monitor with accu-cheks and adjust treatment as needed. (7) Essential hypertension: Code(s): I10 - Essential (primary) hypertension Status: Chronic Assessment and Plan: Stable, last BP 117/61. Maintained on home regimen lisinopril, lasix, metoprolol, and amlodipine. (8) Hypothyroidism: Qualifiers: Hypothyroidism type: unspecified Qualified Code(s): E03.9 - Hypothyroidism, unspecified Code(s): E03.9 - Hypothyroidism, unspecified Status: Chronic Assessment and Plan: Maintained on home levothyroxine. 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 Eliquis held for surgery. Resume anticoagulation when OK with surgery. Subjective Date/time seen: 07/23/20 15:30 Interval history: Mr. Barragan is a 74yo M admitted for cholecystitis now POD #4 s/p lap cholecystectomy and seen in follow up late this afternoon following his ERCP. He is having more abdominal pain this afternoon. He is very hungry and denies nausea or vomiting. He denies chest pain or s
[2020-07-23 17:09] LABS: Glucose Point of Care 232 (65-105)
[2020-07-23] MEDS: INSULIN ASPART (*BKC) 100 UNITS/ML SUB-Q (17:25)
[2020-07-23 20:07] LABS: Glucose Point of Care 278 (65-105)
[2020-07-24] VITALS (13 sets, daily range): BP systolic 111–163; BP diastolic 50–84; PULSE 54–84; RESP 17–18; TEMP 36.3–37; O2SAT 93–98
[2020-07-24] MEDS: LEVOTHYROXINE SODIUM 50 MCG TABLET PO (05:16)
[2020-07-24] MEDS: PHARMACIST COMMUNICATION ORDER 1 EACH XX ×2 (05:18)
[2020-07-24 05:59] LABS: Alanine Aminotransferase 92 U/L (4-50); Albumin Level 3.2 g/dL (3.5-5.1); Alkaline Phosphatase 175 U/L (38-126); Anion Gap 8 mmol/L (8-16); Aspartate Amino Transferase 57 U/L (17-59); Bilirubin,Total 1.7 mg/dL (0.2-1.3); Blood Urea Nitrogen 15 mg/dL (9-20); Calcium 8.9 mg/dL (8.4-10.2); Carbon Dioxide 28 mmol/L (22-30); Chloride 101 mmol/L (98-107); Estimated CRCL calculation 66 ml/min; Estimated Glomerular Filt Rate > 60; Glucose 170 mg/dL (75-110); Magnesium 1.9 mg/dL (1.6-2.3); Potassium 4.4 mmol/L (3.4-5.0); Sodium 137 mmol/L (137-145)
[2020-07-24 06:43] LABS: Hepatitis B Surface Antigen Negative (Negative)
[2020-07-24 06:49] LABS: HAV RESULT Negative (Negative); Hepatitis B Core IgM Result Negative (Negative)
[2020-07-24 07:01] LABS: Hepatitis C Virus Antibody Negative (Negative)
--- NOTE | 2020-07-24 08:14 | WPDANESPN ---
Anes - Prog Note Post-Op Date/Time: 07/24/20 08:14 Cardiovascular status: normal Respiratory status: normal Airway patency: baseline Mental status: baseline Post-Op hydration status: normal Vital Signs: Last Vital Signs Temp 36.6 C 07/24/20 06:00 Pulse 63 07/24/20 06:00 Resp 18 07/24/20 06:00 BP 122/50 L 07/24/20 06:00 Pulse Ox 96 07/24/20 06:00 Pain Score (VAS): 11/25 I/O: Intake & Output 07/23/20 07/24/20 07/24/20 23:59 07:59 15:59 Intake Total 530 590 Output Total 1050 16 Balance -520 574 Laboratory Tests 07/24/20 05:32 07/23/20 07/23/20 07/23/20 11:12 17:04 20:04 WBC RBC Hgb Hct MCV MCH MCHC RDW Plt Count MPV Immature Gran % (Auto) Neut % (Auto) Lymph % (Auto) [place] % (Auto) Eos % (Auto) Baso % (Auto) Lymph # (Auto) [place] # (Auto) Eos # (Auto) Baso # (Auto) Abs Immat Gran (auto) Absolute Neuts (auto) Absolute Nucleated RBC Nucleated RBC % Sodium Potassium Chloride Carbon Dioxide Anion Gap BUN Creatinine Estim Creat Clear Calc Estimated GFR Glucose POC Capillary Glucose 171 H 232 H 278 H Calcium Magnesium Total Bilirubin AST ALT Alkaline Phosphatase Total Protein Albumin Hepatitis A IgM Ab Hep Bs Antigen Hep B Core IgM Ab Hepatitis C Ab Screen 07/24/20 07/24/20 07/24/20 05:32 05:32 05:32 WBC Pending RBC Pending Hgb Pending Hct Pending MCV Pending MCH Pending MCHC Pending RDW Pending Plt Count Pending MPV Pending Immature Gran % (Auto) Pending Neut % (Auto) Pending Lymph % (Auto) Pending [place] % (Auto) Pending Eos % (Auto) Pending Baso % (Auto) Pending Lymph # (Auto) Pending [place] # (Auto) Pending Eos # (Auto) Pending Baso # (Auto) Pending Abs Immat Gran (auto) Pending Absolute Neuts (auto) Pending Absolute Nucleated RBC Pending Nucleated RBC % Pending Sodium 137 Potassium 4.4 Chloride 101 Carbon Dioxide 28 Anion Gap 8 BUN 15 Creatinine 1.10 Estim Creat Clear Calc 66 Estimated GFR > 60 Glucose 170 H POC Capillary Glucose Calcium 8.9 Magnesium 1.9 Total Bilirubin 1.7 H AST 57 ALT 92 H Alkaline Phosphatase 175 H Total Protein 7.0 Albumin 3.2 L Hepatitis A IgM Ab Negative Hep Bs Antigen Negative Hep B Core IgM Ab Negative Hepatitis C Ab Screen Negative Post-procedural complaints: none Patient Feedback: Patient satisfied with anesthetic care.
[2020-07-24] MEDS: FINASTERIDE 5 MG TABLET PO (08:23)
[2020-07-24] MEDS: FUROSEMIDE 40 MG TABLET PO (08:23)
[2020-07-24] MEDS: lisinopriL 20 MG TABLET PO (08:23)
[2020-07-24] MEDS: FENOFIBRATE NANOCRYSTALLIZED 145 MG TABLET PO (08:23)
[2020-07-24] MEDS: PANTOPRAZOLE 40 MG TABLET PO (08:23)
[2020-07-24] MEDS: LORATADINE 10 MG TABLET PO (08:23)
[2020-07-24] MEDS: amLODIPine BESYLATE 5 MG TABLET PO (08:23)
[2020-07-24] MEDS: allopurinoL 300 MG TABLET PO (08:24)
[2020-07-24] MEDS: METOPROLOL SUCCINATE EXT REL 100 MG TABCR PO (08:24)
[2020-07-24] MEDS: OXYBUTYNIN CHLORIDE 5 MG TABLET PO ×2 (08:24→21:31)
[2020-07-24] MEDS: POTASSIUM CHLORIDE 20 MEQ TABLET.ER PO (08:28)
[2020-07-24 08:46] LABS: Glucose Point of Care 141 (65-105)
[2020-07-24 09:19] LABS: Basophils Percent Auto 0.1 % (0.2-1.2); Eosinophils Percent Auto 0.5 % (0-4.4); Hematocrit 29.4 % (42.0-52.0); Hemoglobin 9.6 g/dL (14.0-18.0); Immature Granulocyte Absolute 0.18 K/mm3 (0.00-0.031); Immature Granulocyte Percent A 2.3 % (0-0.5); Lymphocytes Absolute Auto 1.22 K/mm3 (0.9-3.2); Lymphocytes Percent Auto 15.9 % (18.3-44.2); Mean Corpuscular HGB Conc 32.7 g/dl (32-36); Mean Corpuscular Hemoglobin 24.4 pg (26-34); Mean Corpuscular Volume 74.8 fl (80-100); Mean Platelet Volume 11.4 fl (7.4-10.4); Monocytes Absolute Auto 0.7 K/mm3 (0.1-0.6); Monocytes Percent Auto 9.1 % (2.6-8.5); Neutrophils Absolute Auto 5.5 K/mm3 (1.3-6.7); Neutrophils Percent Auto 72.1 % (45.5-73.1); Platelet Count Result 260 k/mm3 (150-375); Red Blood Count 3.93 M/mm3 (4.6-6.20); Red Cell Distribution Width 15.9 % (11.5-14.5); White Blood Count 7.7 K/mm3 (4.5-10.0)
--- NOTE | 2020-07-24 11:28 | PCOTNOTE ---
Patient declined to participate in any ADLs, mobility, or exercises this morning with OT. Patient requested this AHUMADA come back tomorrow to continue plan of care. Will see patient tomorrow for OT.
[2020-07-24 11:38] LABS: Glucose Point of Care 157 (65-105)
--- NOTE | 2020-07-24 13:09 | P.PNIM_ITS ---
Progress Note: A&P Assessment and Plan (1) Choledocholithiasis with acute cholecystitis with obstruction: Code(s): K80.43 - Calculus of bile duct with acute cholecystitis with obstruction Status: Acute Assessment and Plan: * POD#5 s/p cholecystectomy 07/[address] Mccarthy with 2 ASHU drains. 07/22 bile was noted in lateral most ASHU drain and GI was consulted for suspected bile leak. * Patient underwent HIDA 07/23 which confirmed bile leak and followed by ERCP by Dr Pacheco 07/23. Biliary and pancreatic stents were placed. * Continue IV Zosyn (day 6) and appreciate ID recommendations. (2) Septicemia: Code(s): A41.9 - Sepsis, unspecified organism Status: Acute Assessment and Plan: * Sepsis on arrival evident by leukocytosis, tachycardia, fever. Afebrile overnight. Suspected source above. * 2/2 blood cultures growing Citrobacter. Appreciate Dr Donato's recommendations. For now he remains on IV Zosyn (day 6). (3) Liver mass: Code(s): R16.0 - Hepatomegaly, not elsewhere classified Status: Acute Assessment and Plan: * CT abdomen 07/19 demonstrated a large 8cm right hepatic lobe mass. Underwent ultrasound-guided liver biopsy 07/21. * Pathology demonstrates hepatocellular carcinoma. 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 * Transaminitis and hyperbilirubinemia noted and are improving, monitor CMP. * We've discussed these results and I encouraged him to follow up with his established oncologist at [facility] for further evaluation and management of newly diagnosed HCC. (4) Microcytic anemia: Code(s): D50.9 - Iron deficiency anemia, unspecified Status: Acute Assessment and Plan: * Of unknown chronicity. H&H low but stable. Labs consistent with iron deficiency anemia. Plan to start oral iron supplementation at discharge once tolerating a diet better. Monitor CBC. 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 * Follows with oncology at [facility]. (6) IDDM (insulin dependent diabetes mellitus): Status: Chronic Assessment and Plan: * A1c 6.3. Continue his home 75/25 insulin regimen and SSI coverage. Monitor with accu-cheks and adjust treatment as needed. (7) Essential hypertension: Code(s): I10 - Essential (primary) hypertension Status: Chronic Assessment and Plan: * Stable, last BP 128/74. Maintained on home regimen lisinopril, lasix, metoprolol, and amlodipine. (8) Hypothyroidism: Qualifiers: Hypothyroidism type: unspecified Qualified Code(s): E03.9 - Hypothyroidism, unspecified Code(s): E03.9 - Hypothyroidism, unspecified Status: Chronic Assessment and Plan: * Maintained on home levothyroxine. 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 Eliquis held for surgery. Resume anticoagulation when OK with surgery. Subjective
--- NOTE | 2020-07-24 13:09 | PM.IMPN ---
Progress Note: A&P Assessment and Plan (1) Choledocholithiasis with acute cholecystitis with obstruction: Code(s): K80.43 - Calculus of bile duct with acute cholecystitis with obstruction Status: Acute Assessment and Plan: POD#5 s/p cholecystectomy 07/[address] Mccarthy with 2 ASHU drains. 07/22 bile was noted in lateral most ASHU drain and GI was consulted for suspected bile leak. Patient underwent HIDA 07/23 which confirmed bile leak and followed by ERCP by Dr Pacheco 07/23. Biliary and pancreatic stents were placed. Continue IV Zosyn (day 6) and appreciate ID recommendations. (2) Septicemia: Code(s): A41.9 - Sepsis, unspecified organism Status: Acute Assessment and Plan: Sepsis on arrival evident by leukocytosis, tachycardia, fever. Afebrile overnight. Suspected source above. /2 blood cultures growing Citrobacter. Appreciate Dr Donato's recommendations. For now he remains on IV Zosyn (day 6). (3) Liver mass: Code(s): R16.0 - Hepatomegaly, not elsewhere classified Status: Acute Assessment and Plan: CT abdomen 07/19 demonstrated a large 8cm right hepatic lobe mass. Underwent ultrasound-guided liver biopsy 07/21. Pathology demonstrates hepatocellular carcinoma. 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 Transaminitis and hyperbilirubinemia noted and are improving, monitor CMP. We've discussed these results and I encouraged him to follow up with his established oncologist at [facility] for further evaluation and management of newly diagnosed HCC. (4) Microcytic anemia: Code(s): D50.9 - Iron deficiency anemia, unspecified Status: Acute Assessment and Plan: Of unknown chronicity. H&H low but stable. Labs consistent with iron deficiency anemia. Plan to start oral iron supplementation at discharge once tolerating a diet better. Monitor CBC. 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 Follows with oncology at [facility]. (6) IDDM (insulin dependent diabetes mellitus): Status: Chronic Assessment and Plan: A1c 6.3. Continue his home 75/25 insulin regimen and SSI coverage. Monitor with accu-cheks and adjust treatment as needed. (7) Essential hypertension: Code(s): I10 - Essential (primary) hypertension Status: Chronic Assessment and Plan: Stable, last BP 128/74. Maintained on home regimen lisinopril, lasix, metoprolol, and amlodipine. (8) Hypothyroidism: Qualifiers: Hypothyroidism type: unspecified Qualified Code(s): E03.9 - Hypothyroidism, unspecified Code(s): E03.9 - Hypothyroidism, unspecified Status: Chronic Assessment and Plan: Maintained on home levothyroxine. 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 Eliquis held for surgery. Resume anticoagulation when OK with surgery. Subjective Date/time seen: 07/24/20 1030 Interval history: Mr. Barragan is a 74yo M admitted for cholecystitis now POD #5 s/p lap cholecystectomy and s/p ERCP yesterday with stent placement to treat a bile leak. He reports abdominal pain with no improvement today and he is a having a lot of diarrhea. He denies any chest pain or shortness of breath. His appetite is good and he has not had any nausea o
--- NOTE | 2020-07-24 13:24 | PM.PNGS ---
Progress Note: A&P Assessment and Plan (1) Diarrhea: Qualifiers: Diarrhea type: unspecified type Qualified Code(s): R19.7 - Diarrhea, unspecified Code(s): R19.7 - Diarrhea, unspecified Status: Acute Assessment and Plan: Complaining of diarrhea and incontinence of stool this morning. This is a new complaint. He is getting do collects suppositories and MiraLax. I will stop both of these. Will add p.r.n. Imodium. If no better, may need Questran. (2) Acute suppurative cholecystitis: Code(s): K81.0 - Acute cholecystitis Status: Acute Assessment and Plan: Both ASHU drains in place. Continues on Zosyn. Now has had 6 days. (3) Choledocholithiasis with acute cholecystitis with obstruction: Code(s): K80.43 - Calculus of bile duct with acute cholecystitis with obstruction Status: Acute Assessment and Plan: Stones noted on ERCP and removed from common bile duct. Sphincterotomy performed as well. (4) Bile leak, postoperative: Code(s): K91.89 - Other postprocedural complications and disorders of digestive system; K83.8 - Other specified diseases of biliary tract Status: Acute Assessment and Plan: Dr. Pacheco care and management appreciated. ERCP yesterday found leak at cystic duct stump. Stents of common bile duct and pancreatic duct were placed. Still some bile in lateral ASHU drain. Well drained and on antibiotics. (5) Bacteremia: Code(s): R78.81 - Bacteremia Status: Acute Assessment and Plan: Citrobacter bacteremia in 2 sets. On day 6 of IV Zosyn. (6) Hepatocellular carcinoma determined by biopsy of liver: Code(s): C22.0 - Liver cell carcinoma Status: Chronic Assessment and Plan: Further care to be administered once healed from his complicated gallbladder disease. (7) Chronic anticoagulation: Code(s): Z79.01 - alf (current) use of anticoagulants Status: Chronic Assessment and Plan: Still on hold. Can resume from surgical standpoint if okay with Dr. Pacheco. Subjective Subjective Date/Time Seen: 07/24/20 13:24 Post Op day: 5 Patient reports: pain is less, diarrhea (Also incontinence) and afebrile Review of Systems Review of Systems: All systems reviewed & are unremarkable except as noted in HPI and below Constitutional: Constitutional: Denies headache(s) Gastrointestinal: Gastrointestinal: Reports as per HPI, Reports fecal incontinence and Reports diarrhea Neurologic: Denies confusion and Denies headache(s) Psychiatric: Psychiatric: Denies confusion Exam Const: General: comfortable and no acute distress; No confusion Orientation/consciousness: patient oriented x3 and No confusion GI: Inspection: non-distended and incision (Still some bile in lateral ASHU drain, incisions healing well) GI Palp: Yes Soft to palpation, Yes Tenderness to palpation present (GI), No Guarding due to palpation present (GI) and No Rebound tenderness present Auscultation: normal bowel sounds Neuro: General: patient oriented x3, no focal motor deficits and No confusion Extrem: General: no calf tenderness and no edema Psych: Affect: normal affect Insight: Good insight present (Psych) Judgement: Good judgement present (Psych) Objective Data Vital Signs Vital Signs: Vital Signs - 24 hr 07/23/20 13:30 07/23/20 13:40 07/23/20 13:50 Temperature 36.6 C Pulse Rate 61 64 69 Respiratory Rate 24 H 22 H 21 H Blood Pressure 108/62 113/59 L 116/58 L Pulse Oximetry 94 95 92 07/23/20 14:00 07/23/20 14:10 07/23/20 14:20 Temperature Pulse Rate 68 73 68 Respiratory Rate 19 18 21 H Blood Pressure 103/52 L 114/53 L 113/61 Pulse Oximetry 92 94 93 07/23/20 14:30 07/23/20 16:00 07/23/20 20:00 Temperature 36.1 C L Pulse Rate 68 72 82 Respiratory Rate 22 H 18 Blood Pressure 117/61 95/68 L Pulse Oximetry 94 98 07/23/20 22:00 07/24/20 00:00 07/24/20 02:00 Temperature
--- NOTE | 2020-07-24 14:45 | PM.PNCARD ---
Progress Note: A&P Additional Plan 74-year-old man with stable coronary artery disease. Doing reasonably well following surgery for acute gangrenous cholecystitis unfortunate diagnosis of hepatocellular carcinoma as noted in the chart discussed with the patient in some detail. Cardiology will sign off follow-up at this time in the hospital. Follow-up of his coronary disease is already arranged in my office. Abisai Patton MD [facility] Subjective Date/time seen: date of service:07/24/20 14:45 Interval history: Follow-up for: History of coronary disease and acute gangrenous cholecystitis Date of service: . 07/24/2020: patient is offering no cardiovascular symptoms. Unfortunately pathology findings of liver biopsy last evening came back showing evidence of hepatocellular carcinoma. Exam Narrative: Exam Narrative: Patient is awake alert and oriented and appears to be in no acute distress Const: General: no acute distress; No confusion Orientation/consciousness: No confusion Other: Morbidly obese white male resting comfortable in bed. No distress. Wants to go home. HENMT: General nose exam: Normal nares present Eyes: Sclera: sclerae normal and scleral abnormality ( jaundiced, icteric) Pupils: Equal, round and reactive pupils present Neck: Neck: normal visual inspection Chest: Other: no reproducible chest wall pain to palpation Resp: Effort & Inspection: normal respiratory effort Auscultation: clear to auscultation bilaterally Cardio: Rate: regular rate Rhythm: regular rhythm Heart sounds: S1 normal heart sound present and S2 normal heart sound present Other: PMI not palpable no cardiac murmur GI: Auscultation: Hypoactive bowel sounds present Skin: General skin exam: no rashes or lesions noted Neuro: General: No confusion Cranial nerves: Yes Equal, round and reactive pupils present and Yes Normal hearing present Cognition (Neuro): normal cognition Speech: normal speech Extrem: General: pedal edema ( trivial lower extremity edema bilaterally) Psych: Mental Status: mental status grossly normal Objective Data Vital Signs Vital Signs: Vital Signs - 24 hr 07/23/20 16:00 07/23/20 20:00 07/23/20 22:00 Temperature 36.1 C L 36.3 C L Pulse Rate 72 82 65 Respiratory Rate 18 18 Blood Pressure 95/68 L 101/55 L Pulse Oximetry 98 96 07/24/20 00:00 07/24/20 02:00 07/24/20 04:00 Temperature 36.3 C L Pulse Rate 57 L 54 L 65 Respiratory Rate 18 Blood Pressure 163/84 H Pulse Oximetry 96 07/24/20 06:00 07/24/20 08:00 07/24/20 08:24 Temperature 36.6 C Pulse Rate 63 66 84 Respiratory Rate 18 Blood Pressure 122/50 L Pulse Oximetry 96 07/24/20 10:00 07/24/20 12:00 Temperature 36.4 C Pulse Rate 69 78 Respiratory Rate 17 Blood Pressure 128/74 Pulse Oximetry 98 Intake/Output Intake/Output: Intake & Output 07/21/20 07/22/20 07/23/20 07/24/20 23:59 23:59 23:59 23:59 Intake Total 1615 1340 780 900 Output Total 1135 1205 2355 16 Balance 480 135 1575 884 Meds/Results Medications: Active Medications Generic Name Dose Route Start Last Admin Trade Name Freq PRN Reason Stop Dose Admin Acetaminophen 500 mg 07/19/20 13:53 07/21/20 21:20 Acetaminophen 500 Mg Tablet PO 500 mg Q6H PRN Administration Mild Pain (1-3) or Fever Hydrocodone Bitart/Acetaminophen 1 tab 07/19/20 13:53 07/23/20 00:26 Hydrocodone/Acetaminophen (*Crx) 5-325 Mg Tablet PO 1 tab Q4H PRN Administration Pain Rated 4-6 Hydrocodone Bitart/Acetaminophen 1 tab 07/19/20 13:53 07/19/20 16:13 Hydrocodone/Acetaminophen (*Crx) 10-325 Mg Tablet PO 1 tab Q6H PRN Administration Pain Rated 7-10 Allopurinol 300 mg 07/18/20 09:00 07/24/20 08:24 Allopurinol 300 Mg Tablet PO 300 mg DAILY DANIKA Administration Amlodipine Besylate 5 mg 07/18/20 09:00 07/24/20 08:23 Amlodipine Besylate 5 Mg Tablet PO 08/17/20 09:01 5 mg DAILY DANIKA
[2020-07-24] MEDS: LOPERAMIDE HCL 2 MG CAPSULE 4 MG PO (15:32)
[2020-07-24] MEDS: ONDANSETRON INJ 4 MG/2 ML VIAL IV PUSH (15:32)
--- NOTE | 2020-07-24 15:47 | WPDGIPROGNO ---
Progress Note: A&P Assessment and Plan (1) Bile leak, postoperative: Code(s): K91.89 - Other postprocedural complications and disorders of digestive system; K83.8 - Other specified diseases of biliary tract Status: Acute Assessment and Plan: treated yesterday with ERCP, sphincterotomy and stent placement bili trending down will need to repeat another ERCP in 3 months to reassess and remove stent (2) Acute suppurative cholecystitis: Code(s): K81.0 - Acute cholecystitis Status: Acute Assessment and Plan: s/p lap lulu, he is on iv antibiotics because bacteremia improved and much better (3) Bacteremia: Code(s): R78.81 - Bacteremia Status: Acute (4) Choledocholithiasis with acute cholecystitis with obstruction: Code(s): K80.43 - Calculus of bile duct with acute cholecystitis with obstruction Status: Acute Assessment and Plan: s/p lap lulu, also ercp yesterday (5) Hepatocellular carcinoma determined by biopsy of liver: Code(s): C22.0 - Liver cell carcinoma Status: Chronic Assessment and Plan: new diagnosis with 8cm liver mass AFP level pending will need to follow up with his oncologist to discuss treatment ( ? 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 transplanted heart: [place] heart Associated angina: without angina Qualified Code(s): I25.10 - Atherosclerotic heart disease of [place] coronary artery without angina pectoris Code(s): I25.10 - Atherosclerotic heart disease of [place] coronary artery without angina pectoris Status: Acute Assessment and Plan: ok to resume eliquis 07/28 (recent ercp with sphincterotomy) but can use lovenox for dvt prophylaxis Subjective Date/time seen: 07/24/20 15:47 Interval history: he is eating, no nausea or vomiting. ERCP yesterday with PD and biliary stent because bile leak, also removed slugde/small stone he is having loose stools Review of Systems Review of Systems: All systems reviewed & are unremarkable except as noted in HPI and below Exam Const: General: comfortable and no acute distress; No confusion Orientation/consciousness: patient oriented x3 and No confusion HENMT: Ears: TM's normal bilaterally Eyes: General: appearance normal, both eyes and all related structures Neck: Neck: no JVD Resp: Auscultation: clear to auscultation bilaterally Cardio: Rate: regular rate GI: Inspection: non-distended and incision (Still some bile in lateral ASHU drain, incisions healing well) GI Palp: Yes Soft to palpation, Yes Tenderness to palpation present (GI), No Guarding due to palpation present (GI) and No Rebound tenderness present Auscultation: normal bowel sounds Skin: General skin exam: normal color Neuro: General: patient oriented x3, no focal motor deficits and No confusion Speech: normal speech Motor exam (neuro): Normal motor muscle tone present throughout Extrem: General: no calf tenderness and no edema Psych: Affect: normal affect Insight: Good insight present (Psych) Judgement: Good judgement present (Psych) Objective Data Vital Signs Vital Signs: Vital Signs - 24 hr 07/23/20 16:00 07/23/20 20:00 07/23/20 22:00 Tempera
--- NOTE | 2020-07-24 16:25 | WPDINFPN2 ---
Progress Note: A&P Assessment and Plan (1) Bacteremia: Code(s): R78.81 - Bacteremia Status: Acute Assessment and Plan: 1. Citrobacter bacteremia with infection, biliary/hepatic source, doing well 2. Hepatocellular carcinoma, hepatitis panel indicates that this is not caused by chronic Hep B nor Hep C. 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 Ok discharge planning. POD # 5. Oral therapy x 5 full days. See orders. Subjective Date/time seen: 07/24/20 16:25 Interval history: hungry, on clear liquids. Drains less, one serosang. and on bile Exam Narrative: Exam Narrative: afebrile Const: General: no acute distress Eyes: General: appearance normal, both eyes and all related structures Sclera: sclerae normal Resp: Effort & Inspection: normal respiratory effort Auscultation: clear to auscultation bilaterally Cardio: Rate: regular rate Rhythm: regular rhythm Heart sounds: no murmurs GI: Inspection: non-distended GI Palp: Yes Soft to palpation, No Tenderness to palpation present (GI) and No Guarding due to palpation present (GI) Objective Data Vital Signs Vital Signs: Vital Signs - 24 hr 07/23/20 20:00 07/23/20 22:00 07/24/20 00:00 Temperature 36.3 C L Pulse Rate 82 65 57 L Respiratory Rate 18 Blood Pressure 101/55 L Pulse Oximetry 96 07/24/20 02:00 07/24/20 04:00 07/24/20 06:00 Temperature 36.3 C L 36.6 C Pulse Rate 54 L 65 63 Respiratory Rate 18 18 Blood Pressure 163/84 H 122/50 L Pulse Oximetry 96 96 07/24/20 08:00 07/24/20 08:24 07/24/20 10:00 Temperature 36.4 C Pulse Rate 66 84 69 Respiratory Rate 17 Blood Pressure 128/74 Pulse Oximetry 98 07/24/20 12:00 07/24/20 14:00 Temperature 36.6 C Pulse Rate 78 67 Respiratory Rate 18 Blood Pressure 111/50 L Pulse Oximetry 97 Intake/Output Intake/Output: Intake & Output 07/21/20 07/22/20 07/23/20 07/24/20 23:59 23:59 23:59 23:59 Intake Total 1615 7556 193 7277 Output Total 113 1202 2355 16 Balance 480 135 -3529 1364 Meds/Results Medications: Active Medications Generic Name Dose Route Start Last Admin Trade Name Freq PRN Reason Stop Dose Admin Acetaminophen 500 mg 07/19/20 13:53 07/21/20 21:20 Acetaminophen 500 Mg Tablet PO 500 mg Q6H PRN Administration Mild Pain (1-3) or Fever Hydrocodone Bitart/Acetaminophen 1 tab 07/19/20 13:53 07/23/20 00:26 Hydrocodone/Acetaminophen (*Crx) 5-325 Mg Tablet PO 1 tab Q4H PRN Administration Pain Rated 4-6 Hydrocodone Bitart/Acetaminophen 1 tab 07/19/20 13:53 07/19/20 16:13 Hydrocodone/Acetaminophen (*Crx) 10-325 Mg Tablet PO 1 tab Q6H PRN Administration Pain Rated 7-10 Allopurinol 300 mg 07/18/20 09:00 07/24/20 08:24 Allopurinol 300 Mg Tablet PO 300 mg DAILY DANIKA Administration Amlodipine Besylate 5 mg 07/18/20 09:00 07/24/20 08:23 Amlodipine Besylate 5 Mg Tablet PO 08/17/20 09:01 5 mg DAILY DANIKA Administration Artificial Tears 1 drop 07/19/20 15:04 07/23/20 08:39 Artificial Tears Op Soln 15 Ml Bottle EACH EYE 1 drop QID PRN Administration Dry Eye(s) Ciprofloxacin 500 mg 07/24/20 21:00 Ciprofloxacin 500 Mg Tab PO 07/29/20 21:01 Q12HR DANIKA Dextrose 12.5 gm 07/17/20 19:37 Dextrose 50% 25 Gm/50 Ml Syringe IV PUSH PRN PRN Hypoglycemia Protocol Diphenhydramine HCl 25 mg 07/19/20 13:53 07/20/20 23:50 Diphenhydramine Hcl Inj 50 Mg/Ml Vial IV PUSH 25 mg Q6H PRN Administration Itching Enoxaparin Sodium 40 mg 07/20/20 09:00 07/20/20 08:42 Enoxaparin 40 Mg/0.4 Ml Syringe SUB-Q 40 mg DAILY DANIKA Administration Fenofibrate 145 mg 07/18/20 09:00 07/24/20 08:23 Fenofibrate Nanocrystallized 145 Mg Tablet PO 145 mg DAILY DANIKA Administration Finasteride 5 mg 07/18/20 09:00 07/24/20 08:23 Finasteride 5 Mg Tablet PO
[2020-07-24 16:55] LABS: Glucose Point of Care 133 (65-105)
[2020-07-24] MEDS: CIPROFLOXACIN 500 MG TAB PO (20:00)
[2020-07-24] MEDS: metroNIDAZOLE 250 MG TABLET 500 MG PO (21:31)
[2020-07-25] VITALS (13 sets, daily range): BP systolic 103–125; BP diastolic 55–87; PULSE 60–82; RESP 16–18; TEMP 36.3–37.3; O2SAT 95–97
[2020-07-25 01:27] LABS: Glucose Point of Care 122 (65-105)
[2020-07-25] MEDS: LEVOTHYROXINE SODIUM 50 MCG TABLET PO (06:11)
[2020-07-25] MEDS: metroNIDAZOLE 250 MG TABLET 500 MG PO ×3 (06:11→21:23)
[2020-07-25 06:51] LABS: Basophils Percent Auto 0.4 % (0.2-1.2); Eosinophils Absolute Auto 0.2 K/mm3 (0-0.3); Eosinophils Percent Auto 2.6 % (0-4.4); Hematocrit 31.3 % (42.0-52.0); Immature Granulocyte Absolute 0.36 K/mm3 (0.00-0.031); Immature Granulocyte Percent A 4.8 % (0-0.5); Lymphocytes Absolute Auto 1.57 K/mm3 (0.9-3.2); Lymphocytes Percent Auto 21.1 % (18.3-44.2); Mean Corpuscular HGB Conc 31.9 g/dl (32-36); Mean Corpuscular Volume 75.2 fl (80-100); Mean Platelet Volume 10.5 fl (7.4-10.4); Monocytes Absolute Auto 0.7 K/mm3 (0.1-0.6); Monocytes Percent Auto 9.4 % (2.6-8.5); Neutrophils Absolute Auto 4.6 K/mm3 (1.3-6.7); Neutrophils Percent Auto 61.7 % (45.5-73.1); Platelet Count Result 278 k/mm3 (150-375); Red Blood Count 4.16 M/mm3 (4.6-6.20); Red Cell Distribution Width 16.5 % (11.5-14.5); White Blood Count 7.5 K/mm3 (4.5-10.0)
[2020-07-25 07:14] LABS: Alanine Aminotransferase 74 U/L (4-50); Albumin Level 3.1 g/dL (3.5-5.1); Alkaline Phosphatase 193 U/L (38-126); Anion Gap 6 mmol/L (8-16); Aspartate Amino Transferase 53 U/L (17-59); Bilirubin,Total 1.7 mg/dL (0.2-1.3); Blood Urea Nitrogen 14 mg/dL (9-20); Calcium 9.3 mg/dL (8.4-10.2); Carbon Dioxide 29 mmol/L (22-30); Chloride 102 mmol/L (98-107); Estimated CRCL calculation 56 ml/min; Estimated Glomerular Filt Rate 54; Glucose 109 mg/dL (75-110); Magnesium 1.8 mg/dL (1.6-2.3); Potassium 4.3 mmol/L (3.4-5.0); Sodium 137 mmol/L (137-145)
[2020-07-25] MEDS: allopurinoL 300 MG TABLET PO (08:38)
[2020-07-25] MEDS: amLODIPine BESYLATE 5 MG TABLET PO (08:38)
[2020-07-25] MEDS: CIPROFLOXACIN 500 MG TAB PO ×2 (08:39→21:23)
[2020-07-25] MEDS: FENOFIBRATE NANOCRYSTALLIZED 145 MG TABLET PO (08:40)
[2020-07-25] MEDS: FINASTERIDE 5 MG TABLET PO (08:40)
[2020-07-25] MEDS: LORATADINE 10 MG TABLET PO (08:40)
[2020-07-25] MEDS: lisinopriL 20 MG TABLET PO (08:40)
[2020-07-25] MEDS: FUROSEMIDE 40 MG TABLET PO (08:40)
[2020-07-25] MEDS: METOPROLOL SUCCINATE EXT REL 100 MG TABCR PO (08:41)
[2020-07-25] MEDS: OXYBUTYNIN CHLORIDE 5 MG TABLET PO ×2 (08:42→21:23)
[2020-07-25] MEDS: PANTOPRAZOLE 40 MG TABLET PO (08:42)
[2020-07-25 08:47] LABS: Glucose Point of Care 117 (65-105)
[2020-07-25 08:47] LABS: Glucose Point of Care 107 (65-105)
[2020-07-25] MEDS: ENOXAPARIN 40 MG/0.4 ML SYRINGE SUB-Q (09:16)
--- NOTE | 2020-07-25 09:34 | WPDPN ---
Progress Note: A&P Assessment and Plan (1) Acute suppurative cholecystitis: Code(s): K81.0 - Acute cholecystitis Status: Acute Assessment and Plan: much improved, exam benign, michael diet (2) Choledocholithiasis with acute cholecystitis with obstruction: Code(s): K80.43 - Calculus of bile duct with acute cholecystitis with obstruction Status: Acute Assessment and Plan: s/p ERCP c stents (3) Diarrhea: Qualifiers: Diarrhea type: unspecified type Qualified Code(s): R19.7 - Diarrhea, unspecified Code(s): R19.7 - Diarrhea, unspecified Status: Acute Assessment and Plan: much improved, cont immodium Review of Systems Review of Systems: All systems reviewed & are unremarkable except as noted in HPI and below Exam Const: General: cooperative, comfortable and no acute distress Resp: Effort & Inspection: normal respiratory effort Auscultation: clear to auscultation bilaterally Cardio: Rate: regular rate Rhythm: regular rhythm GI: Inspection: normal to inspection GI Palp: Yes abdominal tenderness, Yes Soft to palpation, Yes Tenderness to palpation present (GI), No Guarding due to palpation present (GI) and No Rigid due to palpation Other: s, sl dist, noe TTP, incisions C/D/I, lateral drain c scant bilious drainage Objective Data Vital Signs Vital Signs: Vital Signs - 24 hr 07/24/20 10:00 07/24/20 12:00 07/24/20 14:00 Temperature 36.4 C 36.6 C Pulse Rate 69 78 67 Respiratory Rate 17 18 Blood Pressure 128/74 111/50 L Pulse Oximetry 98 97 07/24/20 16:00 07/24/20 18:00 07/24/20 20:00 Temperature 36.8 C Pulse Rate 78 73 67 Respiratory Rate 18 Blood Pressure 120/55 L Pulse Oximetry 93 07/24/20 22:14 07/25/20 00:00 07/25/20 02:40 Temperature 37.0 C 37.3 C Pulse Rate 72 60 64 Respiratory Rate 18 16 Blood Pressure 113/54 L 120/55 L Pulse Oximetry 97 95 07/25/20 04:00 07/25/20 06:24 07/25/20 08:41 Temperature 36.3 C L Pulse Rate 72 69 82 Respiratory Rate 18 Blood Pressure 125/87 Pulse Oximetry 97 Intake/Output Intake/Output: Intake & Output 07/22/20 07/23/20 07/24/20 07/25/20 23:59 23:59 23:59 23:59 Intake Total 3581 573 3389 150 Output Total 1205 2355 31 815 Balance 135 -1575 1749 -755 Meds/Results Medications: Active Medications Generic Name Dose Route Start Last Admin Trade Name Freq PRN Reason Stop Dose Admin Acetaminophen 500 mg 07/19/20 13:53 07/21/20 21:20 Acetaminophen 500 Mg Tablet PO 500 mg Q6H PRN Administration Mild Pain (1-3) or Fever Hydrocodone Bitart/Acetaminophen 1 tab 07/19/20 13:53 07/23/20 00:26 Hydrocodone/Acetaminophen (*Crx) 5-325 Mg Tablet PO 1 tab Q4H PRN Administration Pain Rated 4-6 Hydrocodone Bitart/Acetaminophen 1 tab 07/19/20 13:53 07/19/20 16:13 Hydrocodone/Acetaminophen (*Crx) 10-325 Mg Tablet PO 1 tab Q6H PRN Administration Pain Rated 7-10 Allopurinol 300 mg 07/18/20 09:00 07/25/20 08:38 Allopurinol 300 Mg Tablet PO 300 mg DAILY DANIKA Administration Amlodipine Besylate 5 mg 07/18/20 09:00 07/25/20 08:38 Amlodipine Besylate 5 Mg Tablet PO 08/17/20 09:01 5 mg DAILY DANIKA Administration Artificial Tears 1 drop 07/19/20 15:04 07/23/20 08:39 Artificial Tears Op Soln 15 Ml Bottle EACH EYE 1 drop QID PRN Administration Dry Eye(s) Ciprofloxacin 500 mg 07/24/20 21:00 07/25/20 08:39 Ciprofloxacin 500 Mg Tab PO 07/29/20 21:01 500 mg Q12HR DANIKA Administration Dextrose 12.5 gm 07/17/20 19:37 Dextrose 50% 25 Gm/50 Ml Syringe IV PUSH PRN PRN Hypoglycemia Protocol Diphenhydramine HCl 25 mg 07/19/20 13:53 07/20/20 23:50 Diphenhydramine Hcl Inj 50 Mg/Ml Vial IV PUSH 25 mg Q6H PRN Administration Itching Enoxaparin Sodium 40 mg 07/20/20 09:00 07/25/20 09:16 Enoxaparin 40 Mg/0.4 Ml Syringe SUB-Q 40 mg DAILY DANIKA Administration Fenofib
--- NOTE | 2020-07-25 10:04 | PM.IMPN ---
Progress Note: A&P Assessment and Plan (1) Choledocholithiasis with acute cholecystitis with obstruction: Code(s): K80.43 - Calculus of bile duct with acute cholecystitis with obstruction Status: Acute Assessment and Plan: POD#6 s/p cholecystectomy 07/[address] Mccarthy with 2 ASHU drains. He tolerated the procedure well. On 07/22/20, bile was noted in lateral most ASHU drain and GI was consulted for suspected bile leak. Patient underwent HIDA 07/23 which confirmed bile leak and followed by ERCP by Dr Pacheco 07/23. Biliary and pancreatic stents were placed. He received 6 days of IV Zosyn. He is tolerating regular diet. Total bili is 1.7, overall improved. General surgery and GI following. Appreciate recommendations from both specialties. He will need outpatient ERCP in 3 months to reassess and remove stent. (2) Septicemia: Code(s): A41.9 - Sepsis, unspecified organism Status: Acute Assessment and Plan: Sepsis on arrival evident by leukocytosis, tachycardia, fever with Tmax 101.0? Suspected biliary source of infection. 2/2 blood cultures growing Citrobacter. He has been afebrile >72 hours Infectious disease is following. Appreciate Dr Donato's recommendations. He completed 6 days of IV Zosyn Continue with p.o. ciprofloxacin and metronidazole for 5 full days per ID recommendations (started 07/24/20) (3) Hepatocellular carcinoma determined by biopsy of liver: Code(s): C22.0 - Liver cell carcinoma Status: Chronic Assessment and Plan: CT abdomen 07/19 demonstrated a large 8cm right hepatic lobe mass. Underwent ultrasound-guided liver biopsy 07/21. Pathology demonstrates hepatocellular carcinoma. 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 Negative hepatitis panel. No known history of cirrhosis. Transaminitis and hyperbilirubinemia noted and are improving Monitor CMP. He will need to follow up with his oncologist at [facility] for further evaluation and management. He is aware of these findings. (4) Microcytic anemia: Code(s): D50.9 - Iron deficiency anemia, unspecified Status: Acute Assessment and Plan: Of unknown chronicity. H&H low but stable. Labs consistent with iron deficiency anemia. Plan to start oral iron supplementation at discharge once tolerating a diet better. Monitor H&H closely and transfuse as needed with Hgb threshold <7.0. 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 He is on oral chemo as well as phototherapy. Outpatient follow up recommended with oncologist as noted above. (6) IDDM (insulin dependent diabetes mellitus): Status: Chronic Assessment and Plan: A1c 6.3 (07/18/20). Blood sugars evaluated and stable. Last blood sugar was 109. Continue his home 75/25 insulin regimen and SSI coverage. Monitor with accu-cheks and adjust treatment as needed. (7) Essential hypertension: Code(s): I10 - Essential (primary) hypertension Status: Chronic Assessment and Plan: Stable. BP reviewed today and stable at 125/87. Continue home regimen of lisinopril, lasix, metoprolol, and amlodipine. (8) Hypothyroidism: Qualifiers: Hypothyroidism type: unspecified Qualified Code(s): E03.9 - Hypothyroidism, unspecified Code(s): E03.9 - Hypothyroidism, unspecified Status: Chronic Assessment and Plan: TSH is within normal limits. Maintained on home levothyroxine. 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 Eliquis held for surgery. Resume Eliquis on 07/28/2020 per GI recommendations following sphinc
[2020-07-25 11:51] LABS: Glucose Point of Care 212 (65-105)
--- NOTE | 2020-07-25 13:11 | PCPTNOTE ---
Patient refused treatment this session due to not feeling too well. Pt stated to have been up walking back and forth to the restroom quite a bit with [employer] due to having loose stool. Will continue per POC.
--- NOTE | 2020-07-25 13:20 | WPDGIPROGNO ---
Progress Note: A&P Assessment and Plan (1) Bile leak, postoperative: Code(s): K91.89 - Other postprocedural complications and disorders of digestive system; K83.8 - Other specified diseases of biliary tract Status: Acute Assessment and Plan: treated with ERCP, sphincterotomy and stent placement bili trending down and stable now will need to repeat another ERCP in 3 months as outpatient to reassess and remove stent (2) Acute suppurative cholecystitis: Code(s): K81.0 - Acute cholecystitis Status: Acute Assessment and Plan: s/p lap lulu, he is on antibiotics because bacteremia, ID switched to oral route improved and much better (3) Choledocholithiasis with acute cholecystitis with obstruction: Code(s): K80.43 - Calculus of bile duct with acute cholecystitis with obstruction Status: Acute Assessment and Plan: s/p lap lulu, also ercp with bile duct swept (4) Hepatocellular carcinoma determined by biopsy of liver: Code(s): C22.0 - Liver cell carcinoma Status: Chronic Assessment and Plan: new diagnosis with 8cm liver mass AFP level still pending will need to follow up with his oncologist to discuss treatment ( ? nexavar, TACE), etc- he is already establish with oncology given history of T-cell lymphoma and encourage to make appt yogi after he leaves the hospital hepatitis panel was negative, no known history of cirrhosis with normal platelets (also albumin before getting septic) (5) Bacteremia: Code(s): R78.81 - Bacteremia Status: Acute Assessment and Plan: oral antibiotics now (6) Diarrhea: Qualifiers: Diarrhea type: unspecified type Qualified Code(s): R19.7 - Diarrhea, unspecified Code(s): R19.7 - Diarrhea, unspecified Status: Acute Assessment and Plan: discontinued dulcolax and miralax also recent cholecystectomy and using antibiotics continue to monitor but improved (7) 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 transplanted heart: [place] heart Associated angina: without angina Qualified Code(s): I25.10 - Atherosclerotic heart disease of [place] coronary artery without angina pectoris Code(s): I25.10 - Atherosclerotic heart disease of [place] coronary artery without angina pectoris Status: Acute Assessment and Plan: ok to resume eliquis 07/28 (recent ercp with sphincterotomy) but can use lovenox for dvt prophylaxis Subjective Date/time seen: 07/25/20 13:20 Interval history: tolerated diet, less diarrhea, overall feeling better. Also noted less bile in ASHU drain Review of Systems Review of Systems: All systems reviewed & are unremarkable except as noted in HPI and below Exam Const: General: cooperative, comfortable and no acute distress HENMT: Ears: TM's normal bilaterally Eyes: General: appearance normal, both eyes and all related structures Neck: Neck: no JVD Resp: Effort & Inspection: normal respiratory effort Auscultation: clear to auscultation bilaterally Cardio: Rate: regular rate Rhythm: regular rhythm GI: Inspection: normal to inspection GI Palp: Yes abdominal tenderness, Yes Soft to palpation, Yes Tenderness to palpation present (GI), No Guarding due to palpation present (GI) and No Rigid due to palpation Auscultation: normal bowel sounds Other: incisions C/D/I, lateral drain c scant bilious drainage Skin: General skin exam: normal color Neuro: Speech: normal speech Motor exam (neuro): Normal motor muscle tone present throughout Extrem: General: normal to inspection Psych: Mental Status: mental status grossly normal Objective Data Vital Signs Vital Signs: Vital Signs - 24 hr 07/24/20 14:00 07/24/20 16:00 07/24/20 18:00 Temperature 97
[2020-07-25] MEDS: INSULIN ASPART (*BKC) 100 UNITS/ML SUB-Q (13:34)
[2020-07-25 16:51] LABS: Glucose Point of Care 144 (65-105)
[2020-07-25 21:31] LABS: Glucose Point of Care 104 (65-105)
[2020-07-26] VITALS (7 sets, daily range): BP systolic 108–119; BP diastolic 58–63; PULSE 62–85; RESP 16–18; TEMP 36.1–36.4; O2SAT 96–98
[2020-07-26 06:17] LABS: Hematocrit 31.9 % (42.0-52.0); Hemoglobin 10.4 g/dL (14.0-18.0); Mean Corpuscular HGB Conc 32.6 g/dl (32-36); Mean Corpuscular Hemoglobin 24.2 pg (26-34); Mean Corpuscular Volume 74.4 fl (80-100); Mean Platelet Volume 11.1 fl (7.4-10.4); Platelet Count Result 315 k/mm3 (150-375); Red Blood Count 4.29 M/mm3 (4.6-6.20); Red Cell Distribution Width 16.6 % (11.5-14.5); White Blood Count 7.6 K/mm3 (4.5-10.0)
[2020-07-26 06:28] LABS: Alanine Aminotransferase 59 U/L (4-50); Albumin Level 3.1 g/dL (3.5-5.1); Alkaline Phosphatase 183 U/L (38-126); Anion Gap 8 mmol/L (8-16); Aspartate Amino Transferase 41 U/L (17-59); Bilirubin,Total 1.5 mg/dL (0.2-1.3); Blood Urea Nitrogen 16 mg/dL (9-20); Calcium 9.3 mg/dL (8.4-10.2); Carbon Dioxide 28 mmol/L (22-30); Chloride 100 mmol/L (98-107); Estimated CRCL calculation 60 ml/min; Estimated Glomerular Filt Rate 59; Glucose 163 mg/dL (75-110); Potassium 4.1 mmol/L (3.4-5.0); Sodium 136 mmol/L (137-145)
[2020-07-26] MEDS: metroNIDAZOLE 250 MG TABLET 500 MG PO (06:53)
[2020-07-26] MEDS: LEVOTHYROXINE SODIUM 50 MCG TABLET PO (06:54)
[2020-07-26] MEDS: CIPROFLOXACIN 500 MG TAB PO (08:38)
[2020-07-26] MEDS: amLODIPine BESYLATE 5 MG TABLET PO (08:38)
[2020-07-26] MEDS: FENOFIBRATE NANOCRYSTALLIZED 145 MG TABLET PO (08:38)
[2020-07-26] MEDS: FINASTERIDE 5 MG TABLET PO (08:39)
[2020-07-26] MEDS: OXYBUTYNIN CHLORIDE 5 MG TABLET PO (08:39)
[2020-07-26] MEDS: FUROSEMIDE 40 MG TABLET PO (08:39)
[2020-07-26] MEDS: lisinopriL 20 MG TABLET PO (08:39)
[2020-07-26] MEDS: METOPROLOL SUCCINATE EXT REL 100 MG TABCR PO (08:39)
[2020-07-26] MEDS: LORATADINE 10 MG TABLET PO (08:39)
[2020-07-26] MEDS: ENOXAPARIN 40 MG/0.4 ML SYRINGE SUB-Q (08:41)
[2020-07-26] MEDS: PANTOPRAZOLE 40 MG TABLET PO (08:41)
[2020-07-26] MEDS: allopurinoL 300 MG TABLET PO (09:24)
--- NOTE | 2020-07-26 11:40 | PM.PNGS ---
Progress Note: A&P Assessment and Plan (1) Acute suppurative cholecystitis: Code(s): K81.0 - Acute cholecystitis Status: Acute Assessment and Plan: doing well, will remove 1 drain, leave bilious drain although only scant drainage, home c abx per ID, f/u c Dr. Mccarthy in 1 wk (2) Bile leak, postoperative: Code(s): K91.89 - Other postprocedural complications and disorders of digestive system; K83.8 - Other specified diseases of biliary tract Status: Acute Assessment and Plan: resolved s/p ERCP, will need repeat ERCP in 3 mos Subjective Subjective Date/Time Seen: 07/26/20 11:40 feels good, michael diet, wants to go home Review of Systems Review of Systems: All systems reviewed & are unremarkable except as noted in HPI and below Exam Const: General: cooperative, comfortable and no acute distress Resp: Effort & Inspection: normal respiratory effort Auscultation: clear to auscultation bilaterally Cardio: Rate: regular rate Rhythm: regular rhythm GI: Inspection: normal to inspection, non-distended and incision GI Palp: Yes Soft to palpation, Yes Tenderness to palpation present (GI), No Guarding due to palpation present (GI) and No Rigid due to palpation Other: soft, ND, NT, incisions C/D/I Objective Data Vital Signs Vital Signs: Vital Signs - 24 hr 07/25/20 12:00 07/25/20 14:00 07/25/20 16:00 Temperature 36.7 C Pulse Rate 63 70 63 Respiratory Rate 18 Blood Pressure 111/59 L Pulse Oximetry 97 07/25/20 18:00 07/25/20 20:00 07/25/20 22:02 Temperature 36.7 C 36.4 C L Pulse Rate 71 65 67 Respiratory Rate 18 16 Blood Pressure 123/64 125/58 L Pulse Oximetry 97 95 07/26/20 00:00 07/26/20 02:32 07/26/20 04:00 Temperature 36.4 C Pulse Rate 68 62 69 Respiratory Rate 16 Blood Pressure 119/63 Pulse Oximetry 96 07/26/20 08:39 07/26/20 10:00 Temperature 36.1 C L Pulse Rate 80 81 Respiratory Rate 18 Blood Pressure 108/58 L Pulse Oximetry 98 Intake/Output Intake/Output: Intake & Output 11/05/20 07/24/20 07/25/20 07/26/20 23:59 23:59 23:59 23:59 Intake Total 780 1780 1980 830 Output Total 5625 31 844 665 Balance -1575 1749 1136 165 Meds/Results Medications: Active Medications Generic Name Dose Route Start Last Admin Trade Name Freq PRN Reason Stop Dose Admin Acetaminophen 500 mg 07/19/20 13:53 07/21/20 21:20 Acetaminophen 500 Mg Tablet PO 500 mg Q6H PRN Administration Mild Pain (1-3) or Fever Hydrocodone Bitart/Acetaminophen 1 tab 07/19/20 13:53 07/23/20 00:26 Hydrocodone/Acetaminophen (*Crx) 5-325 Mg Tablet PO 1 tab Q4H PRN Administration Pain Rated 4-6 Hydrocodone Bitart/Acetaminophen 1 tab 07/19/20 13:53 07/19/20 16:13 Hydrocodone/Acetaminophen (*Crx) 10-325 Mg Tablet PO 1 tab Q6H PRN Administration Pain Rated 7-10 Allopurinol 300 mg 07/18/20 09:00 07/26/20 09:24 Allopurinol 300 Mg Tablet PO 300 mg DAILY DANIKA Administration Amlodipine Besylate 5 mg 07/18/20 09:00 07/26/20 08:38 Amlodipine Besylate 5 Mg Tablet PO 08/17/20 09:01 5 mg DAILY DANIKA Administration Artificial Tears 1 drop 07/19/20 15:04 07/23/20 08:39 Artificial Tears Op Soln 15 Ml Bottle EACH EYE 1 drop QID PRN Administration Dry Eye(s) Ciprofloxacin 500 mg 07/24/20 21:00 07/26/20 08:38 Ciprofloxacin 500 Mg Tab PO 07/29/20 21:01 500 mg Q12HR DANIKA Administration Dextrose 12.5 gm 07/17/20 19:37 Dextrose 50% 25 Gm/50 Ml Syringe IV PUSH PRN PRN Hypoglycemia Protocol Diphenhydramine HCl 25 mg 07/19/20 13:53 07/20/20 23:50 Diphenhydramine Hcl Inj 50 Mg/Ml Vial IV PUSH 25 mg Q6H PRN Administration Itching Enoxaparin Sodium 40 mg 07/20/20 09:00 07/26/20 08:41 Enoxaparin 40 Mg/0.4 Ml Syringe SUB-Q 40 mg DAILY DANIKA Administration Fenofibrate 145 mg 07/18/20 09:00 07/26/20 08:38 Fenofibrate Nanocrystallized 145 Mg Tablet PO 145
--- NOTE | 2020-07-26 11:43 | WPDGIPROGNO ---
Progress Note: A&P Assessment and Plan (1) Bile leak, postoperative: Code(s): K91.89 - Other postprocedural complications and disorders of digestive system; K83.8 - Other specified diseases of biliary tract Status: Acute Assessment and Plan: treated with ERCP, sphincterotomy and stent placement bili trending down and stable now, only scant bile in ASHU drain no contraindications to go home by GI standpoint, will need follow-up with surgery in 1 week (2) Acute suppurative cholecystitis: Code(s): K81.0 - Acute cholecystitis Status: Acute Assessment and Plan: s/p lap lulu, he is on antibiotics because bacteremia, ID switched to oral route (3) Choledocholithiasis with acute cholecystitis with obstruction: Code(s): K80.43 - Calculus of bile duct with acute cholecystitis with obstruction Status: Acute Assessment and Plan: s/p lap lulu, also ercp with bile duct swept liver enzymes improved (4) Hepatocellular carcinoma determined by biopsy of liver: Code(s): C22.0 - Liver cell carcinoma Status: Chronic Assessment and Plan: new diagnosis with 8cm liver mass AFP level still pending will need to follow up with his oncologist to discuss treatment ( ? nexavar, TACE), etc- he is already establish with oncology given history of T-cell lymphoma and encourage to make appt yogi after he leaves the hospital hepatitis panel was negative, no known history of cirrhosis with normal platelets (5) Bacteremia: Code(s): R78.81 - Bacteremia Status: Acute Assessment and Plan: will need to complete oral antibiotics per ID recommendation (6) Diarrhea: Qualifiers: Diarrhea type: unspecified type Qualified Code(s): R19.7 - Diarrhea, unspecified Code(s): R19.7 - Diarrhea, unspecified Status: Acute Assessment and Plan: discontinued dulcolax and miralax also recent cholecystectomy and using antibiotics continue to monitor but improved (7) 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 transplanted heart: [place] heart Associated angina: without angina Qualified Code(s): I25.10 - Atherosclerotic heart disease of [place] coronary artery without angina pectoris Code(s): I25.10 - Atherosclerotic heart disease of [place] coronary artery without angina pectoris Status: Acute Assessment and Plan: ok to resume aspirin now, monik 07/28 (recent ercp with sphincterotomy) Subjective Date/time seen: 07/26/20 11:43 Interval history: tolerating diet, less diarrhea and no much of pain. Also minimal bile in ASHU drain Review of Systems Review of Systems: All systems reviewed & are unremarkable except as noted in HPI and below Exam Const: General: cooperative, comfortable and no acute distress HENMT: Ears: TM's normal bilaterally Eyes: General: appearance normal, both eyes and all related structures Neck: Neck: no JVD Resp: Effort & Inspection: normal respiratory effort Auscultation: clear to auscultation bilaterally Cardio: Rate: regular rate Rhythm: regular rhythm GI: Inspection: normal to inspection GI Palp: Yes abdominal tenderness, Yes Soft to palpation, Yes Tenderness to palpation present (GI) (minimal, improved), No Guarding due to palpation present (GI) and No Rigid due to palpation Auscultation: normal bowel sounds Other: incisions C/D/I, lateral drain c scant bilious drainage Neuro: Speech: normal speech Motor exam (neuro): Normal motor muscle tone present throughout Extrem: General: normal to inspection Psych: Mental Status: mental status grossly normal Objective Data Vital Signs Vital Signs: Vital Signs - 24 hr 07/25/20 12:00 07/25/20 14:00 07/25/20 16:00 Temperature 98.0 F Pulse Rate
[2020-07-26 12:06] LABS: Glucose Point of Care 157 (65-105)
[2020-07-26 12:06] LABS: Glucose Point of Care 160 (65-105)
--- NOTE | 2020-07-26 13:00 | PCPTNOTE ---
Patient stated he is going home in a couple hours and declined to participate in Physical Therapy.
--- NOTE | 2020-07-26 13:04 | PM.DS ---
DS: Admitting Diagnosis Admitting Diagnosis Admitting Diagnosis: Choledocholithiasis with acute cholecystitis DS: Discharge Diagnosis Discharge Diagnosis (1) Choledocholithiasis with acute cholecystitis with obstruction: Code(s): K80.43 - Calculus of bile duct with acute cholecystitis with obstruction Status: Acute Assessment and Plan: Underwent cholecystectomy on 07/[address] Mccarthy with 2 ASHU drains. He tolerated the procedure well. On 07/22/20, bile was noted in lateral most ASHU drain and GI was consulted for suspected bile leak. Patient underwent HIDA 07/23 which confirmed bile leak and followed by ERCP by Dr Pacheco 07/23. Biliary and pancreatic stents were placed. He received 6 days of IV Zosyn. He had significant hyperbilirubinemia upon presentation that improved and total bilirubin was 1.5 at time of discharge. He was able to tolerate a low fat diet which he will continue. He will need to follow up with Dr. Mccarthy in 1 week for drain removal. He will need outpatient ERCP in 3 months to reassess and remove stent. (2) Septicemia: Code(s): A41.9 - Sepsis, unspecified organism Status: Acute Assessment and Plan: Sepsis on arrival evident by leukocytosis, tachycardia, fever with Tmax 101.0? Suspected biliary source of infection. 2/ blood cultures grew Citrobacter freundii. He completed 6 days of IV Zosyn and was transitioned to PO ciprofloxacin and metronidazole which he will continue as an outpatient to complete 5 full days of antibiotic therapy per ID recommendations. (3) Hepatocellular carcinoma determined by biopsy of liver: Code(s): C22.0 - Liver cell carcinoma Status: Chronic Assessment and Plan: CT abdomen 07/19 demonstrated a large 8cm right hepatic lobe mass. Underwent ultrasound-guided liver biopsy 07/21. Pathology demonstrated hepatocellular carcinoma. 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 Negative hepatitis panel. No known history of cirrhosis. Transaminitis and hyperbilirubinemia improved. He will need to follow up with his oncologist at [facility] as soon as possible. He is aware of these results. (4) Microcytic anemia: Code(s): D50.9 - Iron deficiency anemia, unspecified Status: Acute Assessment and Plan: Of unknown chronicity. H&H mildly low but stable. Labs consistent with iron deficiency anemia. He was started on oral iron supplementation. 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 He is on oral chemo as well as phototherapy. Outpatient follow up recommended with oncologist as noted above. (6) IDDM (insulin dependent diabetes mellitus): Status: Chronic Assessment and Plan: A1c 6.3 (07/18/20). Blood sugars monitored closely throughout admission and remained stable. Continue his home 75/25 insulin regimen. (7) Essential hypertension: Code(s): I10 - Essential (primary) hypertension Status: Chronic Assessment and Plan: Stable. BP monitored daily throughout admission and remained well controlled. Continue home regimen of metoprolol and amlodipine-benazapril. (8) Hypothyroidism: Qualifiers: Hypothyroidism type: unspecified Qualified Code(s): E03.9 - Hypothyroidism, unspecified Code(s): E03.9 - Hypothyroidism, unspecified Status: Chronic Assessment and Plan: TSH is within normal limits. Maintained on home levothyroxine. (9) Chronic anticoagulation: Code(s): Z79.01 - detention (current) use of anticoagulants Status: Chronic Assessment and Plan: On Eliquis for history of PE and DVT. Eliquis held for surgery and he received lovenox for DVT prophylaxis. Resume Eliquis on 07/28/2020 per GI recommendations following s
[2020-07-26 14:17] LABS: Glucose Point of Care 138 (65-105)
--- NOTE | 2020-07-28 06:49 | PM.DS ---
DS: Admitting Diagnosis Admitting Diagnosis Admitting Diagnosis: Othostatic hypotension DS: Discharge Diagnosis Discharge Diagnosis (1) Acute suppurative cholecystitis: Code(s): K81.0 - Acute cholecystitis Status: Acute (2) Severe sepsis with acute organ dysfunction: Code(s): A41.9 - Sepsis, unspecified organism; R65.20 - Severe sepsis without septic shock Status: Acute (3) Choledocholithiasis with acute cholecystitis with obstruction: Code(s): K80.43 - Calculus of bile duct with acute cholecystitis with obstruction Status: Acute (4) Hepatocellular carcinoma determined by biopsy of liver: Code(s): C22.0 - Liver cell carcinoma Status: Chronic (5) Bacteremia: Code(s): R78.81 - Bacteremia Status: Acute (6) Bile leak, postoperative: Code(s): K91.89 - Other postprocedural complications and disorders of digestive system; K83.8 - Other specified diseases of biliary tract Status: Acute (7) Type 2 diabetes mellitus with hyperglycemia, with long-term current use of insulin: Code(s): E11.65 - Type 2 diabetes mellitus with hyperglycemia; Z79.4 - correction (current) use of insulin Status: Chronic (8) CAD (coronary artery disease): Qualifiers: Coronary Disease-Associated Artery/Lesion type: [place] artery [place] vs. transplanted heart: [place] heart Associated angina: without angina Qualified Code(s): I25.10 - Atherosclerotic heart disease of [place] coronary artery without angina pectoris Code(s): I25.10 - Atherosclerotic heart disease of [place] coronary artery without angina pectoris Status: Acute (9) Hypertension associated with diabetes: Code(s): E11.59 - Type 2 diabetes mellitus with other circulatory complications; I10 - Essential (primary) hypertension Status: Acute (10) Syncope: Qualifiers: Syncope type: unspecified Qualified Code(s): R55 - Syncope and collapse Code(s): R55 - Syncope and collapse Status: Acute (11) Morbid obesity: Code(s): E66.01 - Morbid (severe) obesity due to excess calories Status: Chronic DS: Summary Time Spent with Patient Time attestation: Total time spent providing and/or coordinating discharge services: DS: Data Data Completed and Pending Completed studies during hospitalization: Pending at discharge 07/19/20 11:15 Surgical [PTH] Routine Discharge Plan Discharge Attending physician on discharge: Denis Webb Consulting providers: Abisai Patton ; Aristides Mccarthy ; Paul Donato ; Wade Gayle ; Phoenix Krishnamurthy ; Kia Pereira Discharging Clinician: Cee Sullivan Patient Disposition: Home, Self-Care Activity: as tolerated Diet: low fat Discharge Instructions: CARDIOLOGY FOLLOW-UP: [facility] at [facility] [address] Patton as previously scheduled on December 29, 2020 at 10:30 a.m. Please arrive by 10:15 a.m. for your appointment. Bring photo ID, insurance card(s) and current medication list. Sign up for [employer] Party. The activation code is on your appointment confirmation. Hospitalist discharge instructions: You have been hospitalized for inflammation of your gallbladder. You had surgery to remove your gallbladder. You also had a scope to place stents in your bile ducts. You have 2 drains that will need to be removed by your surgeon. Follow the instructions from your surgeon regarding caring for these drains and keeping the area clean. Call Dr. Mccarthy if you have any problems that arise with the drains. You should maintain a low fat diet until you are seen by Dr. Mccarthy. You were also found to have an infection in your bloodstream that was caused by your gallbladder. You were treated with IV antibiotics and your infection has improve
[2020-07-29 18:38] LABS: Alpha Fetoprotein Tumor Marker 1.8 ng/mL (<6.1)
== END 2020-07-26 14:00 | disposition home or self-care (01) | DRG 854 ==
LOC: ANHED 12:33 → ANH2MED 14:27
PROVIDERS: Internal Medicine; Internal Medicine Gastroenterology; Physician Assistant; Surgery; Admitting Provider Internal Medicine; Emergency Provider Emergency Medicine; PCP Family Medicine Adolescent Medicine; Visit Provider Physician Assistant
PROC: 0FT44ZZ Resection of Gallbladder, Percutaneous Endoscopic Approach (ICD-10-PCS; CPT 47562; principal; 2020-07-19 09:30)
PROC: 0FC98ZZ Extirpation of Matter from Common Bile Duct, Via Natural or Artificial Opening Endoscopic (ICD-10-PCS; CPT 43260; principal; 2020-07-23 12:00)
DX: A41.89 Other specified sepsis (principal); K80.43 Calculus of bile duct with acute cholecystitis with obstruction; C85.80 Other specified types of non-Hodgkin lymphoma, unspecified site; E87.2 Acidosis; N17.9 Acute kidney failure, unspecified; C22.0 Liver cell carcinoma; K91.89 Other postprocedural complications and disorders of digestive system; R65.20 Severe sepsis without septic shock; Z91.81 History of falling; K82.A1 Gangrene of gallbladder in cholecystitis; K83.8 Other specified diseases of biliary tract; Y92.230 Patient room in hospital as the place of occurrence of the external cause; Y83.8 Other surgical procedures as the cause of abnormal reaction of the patient, or of later complication, without mention of misadventure at the time of the procedure; I25.10 Atherosclerotic heart disease of native coronary artery without angina pectoris; Z95.5 Presence of coronary angioplasty implant and graft; Z82.49 Family history of ischemic heart disease and other diseases of the circulatory system; Z86.718 Personal history of other venous thrombosis and embolism; Z79.01 Long term (current) use of anticoagulants; I10 Essential (primary) hypertension; J44.9 Chronic obstructive pulmonary disease, unspecified; I25.2 Old myocardial infarction; E78.00 Pure hypercholesterolemia, unspecified; E11.9 Type 2 diabetes mellitus without complications; Z79.4 Long term (current) use of insulin; E78.5 Hyperlipidemia, unspecified; G89.29 Other chronic pain; M54.9 Dorsalgia, unspecified; L30.9 Dermatitis, unspecified; Z87.11 Personal history of peptic ulcer disease; E03.9 Hypothyroidism, unspecified; D50.9 Iron deficiency anemia, unspecified; D72.819 Decreased white blood cell count, unspecified
CPT/HCPCS: 36415; 36600; 47000; 70450; 71045; 71275; 74177; 74329; 76942; 78226; 80048; 80053; 80074; 80076; 82105; 82150; 82375; 82607; 82728; 82746; 82805; 83036; 83050; 83540; 83550; 83605; 83615; 83690; 83735; 83880; 84443; 84484; 85025; 85027; 85610; 85730; 86140; 86850; 86900; 86901; 87040; 87077; 87186; 87635; 88304; 88307; 88312; 88342; 93005; 93970; 94640; 96361; 96365; 96366; 96367; 96375; 96376; 97110; 97116; 97161; 97165; 97530; 97535; 99215; 99285; A9270; A9537; C1713; C1876; C2625; C8929; C9803; G0378; G0463; J0131; J0330; J1100; J1170; J1200; J1650; J1741; J1815; J1885; J1956; J2270; J2370; J2405; J2543; J2704; J3010; J3475; J7030; J7120; Q9957; Q9966; Q9967; U0003

== ENCOUNTER 2020-07-30 14:11 | Emergency (ER) | payer MEDICARE, SELFPAY ==
--- NOTE | ~2020-07-30 | XR_ITS ---
EXAMINATION: XR chest 1V portable DATE: 07/30/2020 15:56 INDICATION: Shortness of breath TECHNIQUE: frontal view of the chest was obtained. COMPARISON: Chest radiograph dated 07/17/2020 FINDINGS: The lungs remain clear with no focal airspace opacities, pulmonary edema, pleural effusion or pneumot horax. Heart size is normal accounting for AP technique. IMPRESSION: 1. No acute cardiopulmonary disease. Reviewed, dictated and finalized at location A. SPLANT RN
--- NOTE | ~2020-07-30 | CT_ITS ---
EXAMINATION: CTA chest PE protocol DATE: 07/30/2020 15:50 INDICATION: Shortness of breath. TECHNIQUE: Computed tomography angiography (CTA) of the chest was performed with 100 mL Omnipaque-350 intravenous contrast timed to evaluate the pulmonary arteries. Coronal maximum intensity projection 3D-reconstructions were created by the technologist. Automated exposure control and iterative reconst ruction technique were employed. The dose-length product was 757.10 mGy-cm. COMPARISON: Chest CT 07/19/2020, 06/29/20, 09/14/17 FINDINGS: The lungs demonstrate mild atelectasis. A calcified right lung nodule and calcified mediast inal lymph node are consistent with old granulomatous disease. No pleural effusion. The heart size is normal. There are coronary artery calcifications. No pericardial effusion. There are linear filling defects in some right lower lobe pulmonary arteries are present on the prior exam, consistent with ch ronic emboli. There are a 8.4 cm and 2.7 cm masses in the liver. Pneumobilia is noted, likely seconda ry to sphincterotomy. Calcifications in the liver consistent with old granulomatous disease. There ar e changes of cholecystectomy. There is severe thoracic spondylosis. There are bridging endplate osteo phytes at multiple levels in the spine, consistent with diffuse idiopathic skeletal hyperostosis (DIS H). IMPRESSION: 1. 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 No acute pulmonary embolus. 2. 8.4 cm liver mass, consistent with biopsy-proven hepatocellular carcinoma. 3. 2.7 cm mass in left hepatic lobe, new from 06/29/20, most likely an abscess. Reviewed, dictated and finalized at location B. ON SEQUESTRATION PLANT OPERATOR
[2020-07-30 14:29] VITALS: BP 115/74; PULSE 112; RESP 22; TEMP 36.6; O2SAT 99
--- NOTE | 2020-07-30 14:29 | PC.NURSE ---
EKG 0419 [facility]
--- NOTE | 2020-07-30 15:02 | ECG_ITS ---
Measurements Intervals [place] Rate: 107 P: 49 MT: 152 QRS: -7 QRSD: 87 T: 7 QT: 325 QTc: 435 Interpretive Statements SINUS TACHYCARDIA DELAYED PRECORDIAL R/S TRANSITION INFERIOR INFARCT, AGE INDETERMINATE ABNORMAL ECG Electronically Signed On 07-30-2020 16:19:20 DINING ROOM ATTENDANT by Angel Gonzáles D.O.
--- NOTE | 2020-07-30 15:13 | ED.SOB ---
HPI - SOB/Dyspnea General Chief Complaint: Shortness of Breath/Dyspnea Stated Complaint: sob/post op 2 weeks Time Seen by Provider: 07/30/20 14:52 Source: patient and family History of Present Illness HPI Narrative: 74-year-old white male presents to the ED with shortness of breath started 3 days ago. Patient denies any fever, chills, nausea, vomiting, chest pain, headache, sore throat.. Patient status post laparoscopic cholecystectomy on July 29. Got discharged home 5 days ago. History of deep vein thrombosis, used to be on Eliquis which he stopped 4 days prior to the surgery. Never restarted on it again. Related Data Home Medications Medication Instructions Recorded Confirmed allopurinol 300 mg tablet 300 mg PO DAILY 08/27/19 07/17/20 amlodipine 5 mg-benazepril 20 mg 1 cap PO DAILY 08/27/19 07/17/20 capsule apixaban 5 mg tablet 5 mg PO BID 08/27/19 07/17/20 aspirin 81 mg tablet,delayed 81 mg PO DAILY 08/27/19 07/17/20 release finasteride 5 mg tablet 5 mg PO DAILY 08/27/19 07/17/20 omeprazole 20 mg capsule,delayed 20 mg PO DAILY 08/27/19 07/17/20 release umeclidinium 62.5 mcg-vilanterol 1 inhalation INHALATION DAILY 08/27/19 07/17/20 25 mcg/actuation powdr for inhalation fenofibrate nanocrystallized 145 145 mg PO DAILY 02/27/20 07/17/20 mg tablet fexofenadine 180 mg tablet 180 mg PO DAILY tablet 02/27/20 07/17/20 furosemide 40 mg tablet 40 mg PO QAM tablet 02/27/20 07/17/20 levothyroxine 25 mcg tablet 50 mcg PO QAM tablet 02/27/20 07/17/20 metolazone 5 mg tablet 5 mg PO PRN PRN 02/27/20 07/17/20 metoprolol succinate 50 mg 100 mg PO DAILY tablet 02/27/20 07/17/20 tablet,extended release 24 hr oxybutynin chloride 5 mg tablet 5 mg PO BID tablet 02/27/20 07/17/20 simvastatin 20 mg tablet 20 mg PO QPM tablet 02/27/20 07/17/20 bexarotene 75 mg capsule 150 mg PO DAILY cap 02/28/20 07/17/20 pen needle, diabetic 32 gauge x #10 each 07/06/20 07/17/20 Restasis 1 drp OPHTHALMIC (EYE) Q12H 07/17/20 07/17/20 insulin lispro protamine-lispro 25 unit SUBCUT BID ml 07/27/20 100 unit/mL (75-25) subcutaneous pen Allergies Allergy/AdvReac Type Severity Reaction Status Date / Time No Known Allergies Allergy Verified 07/23/20 10:53 Review of Systems Review of Systems: Narrative: CONSTITUTIONAL: Denies fever, chills, or sweats. EYES: Denies visual changes, redness, or discharge. ENT: Denies rhinorrhea, congestion, sore throat, or otalgia. CARDIOVASCULAR: Denies chest pain, palpitations, or edema. RESPIRATORY: Shortness of breath GASTROINTESTINAL: Denies abdominal pain, nausea, vomiting, or diarrhea. GENITOURINARY: Denies dysuria or hematuria. SKIN: Denies rash or itching. MUSCULOSKELETAL: Denies back pain, joint pain, or myalgia. NEUROLOGIC: Denies headache, numbness, or weakness. PSYCHIATRIC: Denies anxiety or depression. [facility] Past Medical History Medical History ÁNGEL (acute kidney injury) Asbestosis CAD (coronary artery disease) Chronic anticoagulation Chronic back pain Chronic obstructive pulmonary disease COPD (chronic obstructive pulmonary disease) Coronary artery disease With history of PR and stent. Patient of Dr. Abisai Patton. 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 Type 2 diabetes mellitus with hyperglycemia, with long-term current use of insulin Surgical History Surgical History H
[2020-07-30 15:20] LABS: Alveolar/Arterial O2 Gradient 33.4 mmHg; Base Excess ABG -1.2 mEq/l (+/-2.0); Device ROOM AIR; Fractional Inspired Oxygen 21 %; HCO3 ABG 21.3 mEq/l (22.0-26.0); Modified Allen's Test Pass; Oxygen Saturation ABG 96.8 % (95.0-100.0); Oxyhemoglobin 95.4 % THb (90.0-100.0); PCO2 ABG 29.2 mmHg (35.0-45.0); PO2 ABG 81.4 mmHg (80.0-100.0); PO2 FiO2 Ratio Arterial Blood 3.88 %; Site Drawn RIGHT RADIAL; Total Hemoglobin 12.6 g/dL (12.0-18.0)
[2020-07-30 15:22] LABS: Basophils Percent Auto 0.3 % (0.2-1.2); Eosinophils Absolute Auto 0.1 K/mm3 (0-0.3); Eosinophils Percent Auto 0.7 % (0-4.4); Hematocrit 36.1 % (42.0-52.0); Hemoglobin 11.8 g/dL (14.0-18.0); Immature Granulocyte Absolute 0.12 K/mm3 (0.00-0.031); Lymphocytes Absolute Auto 1.57 K/mm3 (0.9-3.2); Lymphocytes Percent Auto 12.7 % (18.3-44.2); Mean Corpuscular HGB Conc 32.7 g/dl (32-36); Mean Corpuscular Hemoglobin 24.9 pg (26-34); Mean Corpuscular Volume 76.2 fl (80-100); Mean Platelet Volume 11.2 fl (7.4-10.4); Monocytes Percent Auto 8.1 % (2.6-8.5); Neutrophils Absolute Auto 9.6 K/mm3 (1.3-6.7); Neutrophils Percent Auto 77.2 % (45.5-73.1); Platelet Count Result 494 k/mm3 (150-375); Red Blood Count 4.74 M/mm3 (4.6-6.20); Red Cell Distribution Width 17.1 % (11.5-14.5); White Blood Count 12.4 K/mm3 (4.5-10.0)
[2020-07-30 15:32] LABS: INR 1.2; Prothrombin Time 15.5 Seconds (11.1-14.7)
[2020-07-30 15:33] LABS: Partial Thromboplastin Time 37.6 SECONDS (22.3-36.8)
[2020-07-30 15:34] LABS: Alanine Aminotransferase 29 U/L (4-50); Albumin Level 3.8 g/dL (3.5-5.1); Alkaline Phosphatase 138 U/L (38-126); Anion Gap 12 mmol/L (8-16); Aspartate Amino Transferase 30 U/L (17-59); Bilirubin,Total 1.4 mg/dL (0.2-1.3); Blood Urea Nitrogen 19 mg/dL (9-20); Calcium 9.8 mg/dL (8.4-10.2); Carbon Dioxide 26 mmol/L (22-30); Chloride 96 mmol/L (98-107); Estimated CRCL calculation 55 ml/min; Estimated Glomerular Filt Rate 54; Glucose 175 mg/dL (75-110); Magnesium 1.4 mg/dL (1.6-2.3); Potassium 3.9 mmol/L (3.4-5.0); Sodium 134 mmol/L (137-145)
[2020-07-30] MEDS: ENOXAPARIN 120 MG/0.8 ML SYRINGE SUB-Q (15:36)
[2020-07-30 15:46] LABS: NT Pro B Type Natriuretic Pept 97 PG/ML (5-100); Troponin I < 0.012 ng/mL (0.000-0.034)
[2020-07-31 14:52] LABS: SARS-CoV-2 RNA PCR Negative
== END 2020-07-30 17:34 | disposition home or self-care (01) ==
PROVIDERS: Emergency Provider Emergency Medicine; PCP Family Medicine Adolescent Medicine
DX: R06.00 Dyspnea, unspecified (principal); F41.9 Anxiety disorder, unspecified; C22.0 Liver cell carcinoma; I27.82 Chronic pulmonary embolism; J61 Pneumoconiosis due to asbestos and other mineral fibers; I25.10 Atherosclerotic heart disease of native coronary artery without angina pectoris; J44.9 Chronic obstructive pulmonary disease, unspecified; I10 Essential (primary) hypertension; C84.A0 Cutaneous T-cell lymphoma, unspecified, unspecified site; E78.5 Hyperlipidemia, unspecified; I25.2 Old myocardial infarction; Z79.01 Long term (current) use of anticoagulants; R16.0 Hepatomegaly, not elsewhere classified; Z95.5 Presence of coronary angioplasty implant and graft; Z86.718 Personal history of other venous thrombosis and embolism; Z87.442 Personal history of urinary calculi; E66.01 Morbid (severe) obesity due to excess calories; Z68.38 Body mass index [BMI] 38.0-38.9, adult; Z96.652 Presence of left artificial knee joint; Z20.828 Contact with and (suspected) exposure to other viral communicable diseases
CPT/HCPCS: 36415; 36600; 71045; 71275; 80053; 82805; 83735; 83880; 84484; 85025; 85610; 85730; 87635; 93005; 96372; 99284; C9803; J1650; Q9967; U0003

== ENCOUNTER → 2020-10-28 11:43 | Outpatient (CLI) | payer MEDICARE, SELFPAY ==
--- NOTE | ~2020-10-28 | US_ITS ---
US soft tissue abdomen 10/28/2020 12:05 Indication: Right-sided abdominal pain and palpable abnormality Procedure: High-resolution ultrasound of the right abdomen and the areas of palpable concern Comparison: No prior studies for comparison. Findings: In the area of scar site 1 is, there area of shadowing, consistent with fibrosis. No discre te mass. In the second area of scarring/palpable abnormality there is an irregular partially cystic s tructure measuring approximately 8 mm greatest dimension, most likely combination of scarring/seroma, although infection cannot be excluded. No other discrete areas of abnormality are identified. Impression: 1: Irregular hypoechoic structure measuring up to 8 mm in the area of surgical scarring which likely represents a combination of scarring/seroma. Infection is less likely, although not excluded. Reviewed, dictated and finalized at location B. NOGRAPHIC METEOROLOGIST Impression: 1: Irregular hypoechoic structure measuring up to 8 mm in the area of surgical scarring which likely represents a combination of scarring/seroma. Infection is less likely, although not excluded.
== END ==
PROVIDERS: Visit Provider Surgery
DX: R10.9 Unspecified abdominal pain (principal); R19.00 Intra-abdominal and pelvic swelling, mass and lump, unspecified site
CPT/HCPCS: 76705

== ENCOUNTER 2020-11-05 07:54 | Outpatient (CLI) | payer MEDICARE, SELFPAY ==
--- NOTE | 2020-11-05 08:01 | ECG_ITS ---
Measurements Intervals [place] Rate: 64 P: 52 WA: 177 QRS: 12 QRSD: 88 T: -1 QT: 375 QTc: 389 Interpretive Statements SINUS RHYTHM DELAYED PRECORDIAL R/S TRANSITION INFERIOR INFARCT, AGE INDETERMINATE BASELINE ARTIFACT- I, II, III, AVR, AVL, AVF ABNORMAL ECG Electronically Signed On 11-05-2020 9:10:59 TECHNICAL SALES REPRESENTATIVE by Angel Gonzáles D.O.
[2020-11-05 08:27] LABS: Basophils Percent Auto 0.6 % (0.2-1.2); Eosinophils Absolute Auto 0.2 K/mm3 (0-0.3); Eosinophils Percent Auto 4.1 % (0-4.4); Hematocrit 35.1 % (42.0-52.0); Hemoglobin 11.4 g/dL (14.0-18.0); Immature Granulocyte Absolute 0.02 K/mm3 (0.00-0.031); Immature Granulocyte Percent A 0.4 % (0-0.5); Lymphocytes Absolute Auto 0.86 K/mm3 (0.9-3.2); Lymphocytes Percent Auto 18.6 % (18.3-44.2); Mean Corpuscular HGB Conc 32.5 g/dl (32-36); Mean Corpuscular Hemoglobin 25.9 pg (26-34); Mean Corpuscular Volume 79.6 fl (80-100); Mean Platelet Volume 10.3 fl (7.4-10.4); Monocytes Absolute Auto 0.4 K/mm3 (0.1-0.6); Monocytes Percent Auto 8.4 % (2.6-8.5); Neutrophils Absolute Auto 3.1 K/mm3 (1.3-6.7); Neutrophils Percent Auto 67.9 % (45.5-73.1); Platelet Count Result 181 k/mm3 (150-375); Red Blood Count 4.41 M/mm3 (4.6-6.20); Red Cell Distribution Width 16.8 % (11.5-14.5); White Blood Count 4.6 K/mm3 (4.5-10.0)
[2020-11-05 08:38] LABS: Anion Gap 8 mmol/L (8-16); Blood Urea Nitrogen 20 mg/dL (9-20); Calcium 9.6 mg/dL (8.4-10.2); Carbon Dioxide 24 mmol/L (22-30); Chloride 107 mmol/L (98-107); Estimated Glomerular Filt Rate 59; Glucose 142 mg/dL (75-110); Potassium 3.8 mmol/L (3.4-5.0); Sodium 139 mmol/L (137-145)
== END 2020-11-05 07:55 | disposition home or self-care (01) ==
LOC: ANHSURGERY 08:01
PROVIDERS: Anesthesiology; Surgery; PCP Family Medicine Adolescent Medicine; Visit Provider Internal Medicine Gastroenterology
DX: E11.59 Type 2 diabetes mellitus with other circulatory complications (principal); E78.00 Pure hypercholesterolemia, unspecified; I10 Essential (primary) hypertension; I25.10 Atherosclerotic heart disease of native coronary artery without angina pectoris; I25.2 Old myocardial infarction; Z95.5 Presence of coronary angioplasty implant and graft; T50.1X5A Adverse effect of loop [high-ceiling] diuretics, initial encounter; D50.9 Iron deficiency anemia, unspecified; Z01.818 Encounter for other preprocedural examination
CPT/HCPCS: 36415; 80048; 85025; 93005

== ENCOUNTER → 2020-11-07 06:35 | Outpatient (CLI) | payer MEDICARE, SELFPAY ==
[2020-11-07 19:10] LABS: SARS-CoV-2 RNA PCR Negative
== END ==
PROVIDERS: PCP Family Medicine Adolescent Medicine; Visit Provider Internal Medicine Gastroenterology
DX: Z01.812 Encounter for preprocedural laboratory examination (principal); Z20.822 Contact with and (suspected) exposure to COVID-19
CPT/HCPCS: C9803; U0003; U0005

== ENCOUNTER 2020-11-10 01:12 | Day surgery (SDC) | payer MEDICARE, SELFPAY ==
[2020-11-03 11:28] VITALS: BMI 43.0
[2020-11-10] VITALS (8 sets, daily range): BP systolic 119–150; BP diastolic 58–71; PULSE 51–63; RESP 12–24; TEMP 36.1–36.7; O2SAT 96–100; BMI 39.2
--- NOTE | ~2020-11-10 | XR_ITS ---
EXAMINATION: XR ERCP DATE: 11/10/2020 12:59 INDICATION: Bile leak after cholecystectomy. TECHNIQUE: 4 spot fluoroscopic images of the right upper quadrant were obtained during endoscopic ret rograde cholangiopancreatography (ERCP). Fluoroscopy exposure time was 265 seconds. COMPARISON: ERCP 07/23/2020 FINDINGS: The endoscope is in the second portion the duodenum. There is opacification of the biliary tree. There are surgical clips from cholecystectomy. There is no bile leak. IMPRESSION: 1. No bile leak. Please refer to the ERCP procedure note for additional details. Reviewed, dictated and finalized at location A. TATION LABORER IMPRESSION: 1. No bile leak. Please refer to the ERCP procedure note for additional details .
--- NOTE | 2020-11-10 11:07 | WPDANESEPPF ---
Anes - Initial Pre Proc Eval Procedure: Operation Date: 11/10/20 12:45 Proposed Procedures p Endoscopic Retro Cholangiopancreatogram - Wade Gayle MD Date/Time: 11/10/20 11:07 Surgeon: Wade Gayle MD Pre Op Diagnosis: bile leak Patient Data Age: 75 Gender: M Height: 5 ft 6 in Weight: 110.3 kg Last Vital Signs Temp 36.7 C 11/10/20 11:01 Pulse 61 11/10/20 11:01 Resp 20 11/10/20 11:01 BP 150/70 H 11/10/20 11:01 Pulse Ox 96 11/10/20 11:01 Allergies Allergy/AdvReac Type Severity Reaction Status Date / Time No Known Allergies Allergy Verified 11/10/20 10:58 Home Medications Medication Instructions Recorded Confirmed Type allopurinol 300 mg tablet 300 mg PO DAILY 08/27/19 11/05/20 History amlodipine 5 mg-benazepril 20 mg 1 cap PO DAILY 08/27/19 11/05/20 History capsule apixaban 5 mg tablet 5 mg PO BID 08/27/19 11/05/20 History aspirin 81 mg tablet,delayed 81 mg PO DAILY 08/27/19 11/05/20 History release finasteride 5 mg tablet 5 mg PO DAILY 08/27/19 11/05/20 History omeprazole 20 mg capsule,delayed 20 mg PO DAILY 08/27/19 11/05/20 History release umeclidinium 62.5 mcg-vilanterol 1 inhalation INHALATION DAILY 08/27/19 11/05/20 History 25 mcg/actuation powdr for inhalation fenofibrate nanocrystallized 145 145 mg PO DAILY 02/27/20 11/05/20 History mg tablet fexofenadine 180 mg tablet 180 mg PO DAILY tablet 02/27/20 11/05/20 History furosemide 40 mg tablet 40 mg PO QAM tablet 02/27/20 11/05/20 History levothyroxine 25 mcg tablet 50 mcg PO QAM tablet 02/27/20 11/05/20 History metolazone 5 mg tablet 5 mg PO PRN PRN 02/27/20 11/05/20 History metoprolol succinate 50 mg 100 mg PO DAILY tablet 02/27/20 11/05/20 History tablet,extended release 24 hr oxybutynin chloride 5 mg tablet 5 mg PO BID tablet 02/27/20 11/05/20 History simvastatin 20 mg tablet 20 mg PO QPM tablet 02/27/20 11/05/20 History bexarotene 75 mg capsule 150 mg PO DAILY cap 02/28/20 11/05/20 History blood sugar diagnostic #200 each 05/12/20 11/05/20 Rx blood-glucose meter #1 ea 07/06/20 11/05/20 Rx pen needle, diabetic 32 gauge x #10 each 07/06/20 11/05/20 History Restasis 1 drp OPHTHALMIC (EYE) Q12H 07/17/20 11/05/20 History ferrous gluconate 324 mg PO DAILY #30 tablet 07/26/20 11/05/20 Rx metronidazole 500 mg PO Q8HR #9 tablet 07/26/20 11/05/20 Rx cholestyramine (with sugar) 4 gram 4 g PO BID #378 g 08/24/20 11/05/20 Rx oral powder Patient hx anesthesia problems: none Family hx anesthesia problems: none PMFSH Past Medical History Medical History ÁNGEL (acute kidney injury) Asbestosis CAD (coronary artery disease) Chronic anticoagulation Chronic back pain Chronic obstructive pulmonary disease COPD (chronic obstructive pulmonary disease) Coronary artery disease With history of [place] and stent. Patient of Dr. Abisai Patton. 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 Type 2 diabetes mellitus with hyperglycemia, with long-term current use of insulin Surgical History Surgical History History of bilateral inguinal hernia repair History of bilateral knee arthroplasty History of cystoscopy With stone extraction. History of facial surgery Repair of left orbital fracture. History of left knee replacement History of liver biopsy 07/19/2020 History of shoulde
[2020-11-10 11:10] LABS: Glucose Point of Care 126 (65-105)
[2020-11-10] MEDS: LACTATED RINGERS 1,000 ML 150 ML IV CONT (11:19)
--- NOTE | 2020-11-10 12:03 | PM.HPGS ---
History of Present Illness History of Present Illness Consent: Risks, benefits, and alternatives have been discussed and questions answered. Patient agrees to proceed with procedure. Chief complaint: bile leak Narrative: Bo Barragan is a 75 year old male with bile leak s/p biliary stent 07/2020, here to remove stent and reassess bile duct. No pain or nausea. He also is been treated for HCC Review of Systems Constitutional: Constitutional: Denies headache(s) and Denies weakness Eyes: Eyes: Denies blurry vision ENT: Reports Normal hearing present, Denies headache(s) and Denies neck pain Cardiovascular: Cardiovascular: Denies chest pain and Denies dyspnea Respiratory: Respiratory: Denies dyspnea Gastrointestinal: Gastrointestinal: Reports no additional gastrointestinal complaints Genitourinary: Genitourinary: Denies dysuria Musculoskeletal: Musculoskeletal: Denies neck pain Integumentary/Breasts: Skin/Breast: Denies dry skin Neurologic: Reports Normal hearing present, Denies headache(s) and Denies weakness Psychiatric: Psychiatric: Denies anxiety Endocrine: Endocrine: Denies change in body appearance Hematologic/Lymphatic: Hematologic/Lymphatic: Denies easy bleeding Allergic/Immunologic: Allergic/Immunologic: Denies urticaria PMFSH Past Medical History Medical History ÁNGEL (acute kidney injury) Asbestosis CAD (coronary artery disease) Chronic anticoagulation Chronic back pain Chronic obstructive pulmonary disease COPD (chronic obstructive pulmonary disease) Coronary artery disease With history of [place] and stent. Patient of Dr. Abisai Patton. 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 Type 2 diabetes mellitus with hyperglycemia, with long-term current use of insulin Surgical History Surgical History History of bilateral inguinal hernia repair History of bilateral knee arthroplasty History of cystoscopy With stone extraction. History of facial surgery Repair of left orbital fracture. History of left knee replacement History of liver biopsy 07/19/2020 History of shoulder surgery Left shoulder ORIF. History of tonsillectomy History of umbilical hernia repair Hx laparoscopic cholecystectomy 07/19/2020 Stented coronary artery (~1998) Family History Family History Father Family history of arthritis Family history of congestive heart failure Family history of heart disease in male family member before age 55 Family history of hearing loss Mother , age 46 Blood clot in vein Other Family history of glaucoma Social History Social History Social History: Surrogate decision maker: Ankush Dennis, friend. Code status: Full code. Smoking status: Never smoker Second hand tobacco smoke exposure: No Alcohol intake: current Drinks per week: 2 Substance use: never Substance use type: does not use Living arrangements: alone Additional living arrangements comments: Lives in his own home in [place]. No children. 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 Gender identity (if verbalized by the patient): Male Spiritual care concerns: No Meds Home Medications and Allergies Home Medications Medication Instructions Record
[2020-11-10 13:36] LABS: Glucose Point of Care 110 (65-105)
== END 2020-11-10 14:10 | disposition home or self-care (01) ==
PROVIDERS: PCP Family Medicine Adolescent Medicine; Visit Provider Internal Medicine Gastroenterology
PROC: (CPT 43260; principal; 2020-11-10 12:45)
DX: Z46.59 Encounter for fitting and adjustment of other gastrointestinal appliance and device (principal); K80.50 Calculus of bile duct without cholangitis or cholecystitis without obstruction; Z90.49 Acquired absence of other specified parts of digestive tract; I10 Essential (primary) hypertension; I25.10 Atherosclerotic heart disease of native coronary artery without angina pectoris; J44.9 Chronic obstructive pulmonary disease, unspecified; I25.2 Old myocardial infarction; K21.9 Gastro-esophageal reflux disease without esophagitis; E78.5 Hyperlipidemia, unspecified; E11.9 Type 2 diabetes mellitus without complications; C85.90 Non-Hodgkin lymphoma, unspecified, unspecified site; J61 Pneumoconiosis due to asbestos and other mineral fibers; E66.01 Morbid (severe) obesity due to excess calories; Z68.39 Body mass index [BMI] 39.0-39.9, adult; Z95.5 Presence of coronary angioplasty implant and graft; Z85.05 Personal history of malignant neoplasm of liver; Z86.711 Personal history of pulmonary embolism; Z86.718 Personal history of other venous thrombosis and embolism; Z87.11 Personal history of peptic ulcer disease; Z79.82 Long term (current) use of aspirin; Z79.01 Long term (current) use of anticoagulants
CPT/HCPCS: 43264; 43275; 36415; 74329; 80048; 82948; 85025; 93005; C9803; J0330; J2704; J7120; U0003; U0005

== ENCOUNTER 2021-06-04 10:37 | Outpatient (CLI) | payer MEDICARE, SELFPAY ==
--- NOTE | ~2021-06-04 | US_ITS ---
EXAMINATION: US venous doppler [facility] DATE: 06/04/2021 11:35 INDICATION: Left lower limb pain TECHNIQUE: Grayscale ultrasound images without and with compression and Doppler ultrasound images of the left lower extremity veins were obtained. COMPARISON: None. FINDINGS: The visualized portions of left common femoral vein, profunda (deep) femoral vein, femoral vein, popl iteal vein, posterior tibial veins, gastrocnemius vein and greater saphenous vein outflow are patent. IMPRESSION: 1. No deep venous thrombosis in the left lower limb. Reviewed, dictated and finalized at location A.
== END 2021-06-04 10:38 | disposition home or self-care (01) ==
PROVIDERS: PCP Family Medicine Adolescent Medicine; Visit Provider Podiatrist Foot & Ankle Surgery
DX: M79.662 Pain in left lower leg (principal)
CPT/HCPCS: 93971

== ENCOUNTER 2021-10-06 13:32 | Emergency (ER) | payer MEDICARE, SELFPAY ==
--- NOTE | ~2021-10-06 | XR_ITS ---
EXAMINATION: XR chest 1V portable DATE: 10/06/2021 14:16 INDICATION: Shortness of breath TECHNIQUE: frontal view of the chest was obtained. COMPARISON: Chest radiograph dated 07/30/2020 FINDINGS: The lungs remain clear with no focal airspace opacities, pulmonary edema, pleural effusion or pneumot horax. The cardiomediastinal silhouette is normal. There are bridging osteophytes at multiple levels in the spine, consistent with diffuse idiopathic skeletal hyperostosis (DISH). Costochondral calcific ations. IMPRESSION: 1. No acute cardiopulmonary disease. Reviewed, dictated and finalized at location A. T [employer]
[2021-10-06 13:39] VITALS: BP 121/71; PULSE 98; RESP 22; TEMP 36.8; O2SAT 100
[2021-10-06 14:01] VITALS: BP 113/62; PULSE 90; PULSE 91; PULSE 92; RESP 17; O2SAT 100; O2SAT 98
--- NOTE | 2021-10-06 14:15 | ED.GENADULT ---
HPI - General Adult General Chief complaint: Shortness of Breath/Dyspnea Stated complaint: SOB Time Seen by Provider: 10/06/21 14:02 Source: patient and RN notes reviewed Limitations: no limitations History of Present Illness HPI narrative: 76-year-old male presents to the emergency department for evaluation of 3 days of cold sweats. Patient states that over the last few nights he has had increased sweats. Patient states prior to arrival he felt that he was having some tremor. Patient did contact his primary care physician and was instructed to present to the emergency department for evaluation. Upon arrival to the emergency department patient states he does feel improved. Patient has no tremor. Patient denies any chest pain or shortness of breath. Patient denies any nausea vomiting or diarrhea. Patient denies any abdominal pain or pain with urination. Patient denies any falls or injuries. Related Data Home Medications Medication Instructions Recorded Confirmed allopurinol 300 mg tablet 300 mg PO DAILY 08/27/19 02/24/21 amlodipine 5 mg-benazepril 20 mg 1 cap PO DAILY 08/27/19 02/24/21 capsule apixaban 5 mg tablet 5 mg PO BID 08/27/19 02/24/21 aspirin 81 mg tablet,delayed 81 mg PO DAILY 08/27/19 02/24/21 release finasteride 5 mg tablet 5 mg PO DAILY 08/27/19 02/24/21 omeprazole 20 mg capsule,delayed 20 mg PO DAILY 08/27/19 02/24/21 release fenofibrate nanocrystallized 145 145 mg PO DAILY 02/27/20 02/24/21 mg tablet fexofenadine 180 mg tablet 180 mg PO DAILY tablet 02/27/20 02/24/21 furosemide 40 mg tablet 40 mg PO QAM tablet 02/27/20 02/24/21 levothyroxine 25 mcg tablet 50 mcg PO QAM tablet 02/27/20 02/24/21 metolazone 5 mg tablet 5 mg PO PRN PRN 02/27/20 02/24/21 metoprolol succinate 50 mg 100 mg PO DAILY tablet 02/27/20 02/24/21 tablet,extended release 24 hr oxybutynin chloride 5 mg tablet 5 mg PO BID tablet 02/27/20 02/24/21 simvastatin 20 mg tablet 20 mg PO QPM tablet 02/27/20 02/24/21 bexarotene 75 mg capsule 150 mg PO DAILY cap 02/28/20 02/24/21 pen needle, diabetic 32 gauge x #10 each 07/06/20 02/24/21 triamcinolone acetonide 0.1 % 1 applic TOPICAL BID 02/24/21 02/24/21 topical cream umeclidinium 62.5 mcg-vilanterol 1 inh INHALATION DAILY 02/24/21 02/24/21 25 mcg/actuation powdr for inhalation cholecalciferol (vitamin D3) 25 mcg PO DAILY 10/06/21 diclofenac sodium 1 applic TOPICAL BID 10/06/21 omega-3 acid ethyl esters PO 10/06/21 10/06/21 Allergies Allergy/AdvReac Type Severity Reaction Status Date / Time No Known Allergies Allergy Verified 10/06/21 13:53 Review of Systems Review of Systems: CONSTITUTIONAL: Chills and night sweats. EYES: Denies visual changes, redness, or discharge. ENT: Denies rhinorrhea, congestion, sore throat, or otalgia. CARDIOVASCULAR: Denies chest pain, palpitations, or edema. RESPIRATORY: Denies cough or dyspnea. GASTROINTESTINAL: Denies abdominal pain, nausea, vomiting, or diarrhea. GENITOURINARY: Denies dysuria or hematuria. SKIN: Denies rash or itching. MUSCULOSKELETAL: Denies back pain, joint pain, or myalgia. NEUROLOGIC: Denies headache, numbness, or weakness. [facility] Past Medical History Medical History ÁNGEL (acute kidney injury) Asbestosis CAD (coronary artery disease) Chronic anticoagulation Chronic back pain Chronic obstructive pulmonary disease COPD (chronic obstructive pulmonary disease) Coronary artery disease With history of [place] and stent. Patient of Dr. Abisai Patton. Deep venous thrombosis Eczema Essential hypertension Gastroesophageal reflux disease Hepatocellular carcinoma determined by biopsy of liver History of peptic ulcer Hx of myocardial infarction Hyperlipidemia Hypertension associated with diabetes Hypothyroidism IDDM (insulin dependent diabetes mellitus) Insulin dependent type 2 diabetes mellitus Kidney stones Liver mass Morbid obesity Pulmonary em
[2021-10-06 14:31] VITALS: BP 102/60; PULSE 79; RESP 21; O2SAT 95
[2021-10-06 14:40] LABS: Eosinophils Absolute Auto 0.1 K/mm3 (0-0.3); Eosinophils Percent Auto 1.5 % (0-4.4); Hematocrit 30.4 % (42.0-52.0); Hemoglobin 9.5 g/dL (14.0-18.0); Immature Granulocyte Absolute 0.01 K/mm3 (0.00-0.031); Immature Granulocyte Percent A 0.2 % (0-0.5); Lymphocytes Absolute Auto 0.68 K/mm3 (0.9-3.2); Lymphocytes Percent Auto 16.7 % (18.3-44.2); Mean Corpuscular HGB Conc 31.3 g/dl (32-36); Mean Corpuscular Hemoglobin 25.1 pg (26-34); Mean Corpuscular Volume 80.4 fl (80-100); Mean Platelet Volume 10.4 fl (7.4-10.4); Monocytes Absolute Auto 0.4 K/mm3 (0.1-0.6); Neutrophils Absolute Auto 2.9 K/mm3 (1.3-6.7); Neutrophils Percent Auto 70.6 % (45.5-73.1); Platelet Count Result 308 k/mm3 (150-375); Red Blood Count 3.78 M/mm3 (4.6-6.20); Red Cell Distribution Width 14.7 % (11.5-14.5); White Blood Count 4.1 K/mm3 (4.5-10.0)
[2021-10-06 14:46] LABS: Add Urine Microscopic? YES; Appearance Urine Clear (Clear); Bilirubin Urine Negative (Negative); Blood Urine Negative (Negative); Color Urine Yellow (Yellow); Glucose Urine UA Negative (Negative); Ketones Urine Negative (Negative); Leukocyte Esterase Ur Negative LEU/UL (Negative); Mucus Urine Rare /lpf; Nitrate Urine Negative (Negative); Protein Urine Negative (Negative); RBC Urine 0-2 /hpf (0-2); Specific Grav Ur 1.017 (1.001-1.035); Squamous Epithelial Cell Urine Occasional /hpf (Few); WBC Urine 0-3 /hpf
--- NOTE | 2021-10-06 14:47 | PC.NURSE ---
Pt called out and states I just started having cold chills and my head started to pound rating headache 02/25. Pt states that this it what happens at home and states that sometimes when he gets the headache he gets blurry vision and gets dizzy. Pt denies any vision changes at this time
[2021-10-06 14:51] LABS: Alanine Aminotransferase 19 U/L (4-50); Albumin Level 3.7 g/dL (3.5-5.1); Alkaline Phosphatase 73 U/L (38-126); Anion Gap 12 mmol/L (8-16); Aspartate Amino Transferase 48 U/L (17-59); Bilirubin,Total 0.4 mg/dL (0.2-1.3); Blood Urea Nitrogen 11 mg/dL (9-20); Calcium 9.5 mg/dL (8.4-10.2); Carbon Dioxide 23 mmol/L (22-30); Chloride 101 mmol/L (98-107); Estimated CRCL calculation 58 ml/min; Estimated Glomerular Filt Rate > 60; Glucose 175 mg/dL (65-110); Potassium 4.1 mmol/L (3.4-5.0); Sodium 136 mmol/L (137-145)
--- NOTE | 2021-10-06 14:51 | ECG_ITS ---
Measurements Intervals [place] Rate: 72 P: 114 MA: 154 QRS: -5 QRSD: 88 T: -6 QT: 361 QTc: 395 Interpretive Statements SINUS RHYTHM BORDERLINE T WAVE ABNORMALITY- INFERIOR LEADS BASELINE ARTIFACT- I, II, III, AVR, AVL, AVF BORDERLINE ECG Electronically Signed On 10-06-2021 15:21:24 COOK APPRENTICE by Angel Gonzáles D.O.
[2021-10-06 15:01] VITALS: BP 108/59; PULSE 75; RESP 26; O2SAT 98
--- NOTE | 2021-10-06 16:47 | PC.NURSE ---
Pt ambulated down the valdes with no assistance with a steady gait
[2021-10-06 17:16] VITALS: BP 105/60; PULSE 78; RESP 20; O2SAT 99
[2021-10-07 21:11] LABS: SARS-CoV-2 RNA PCR Negative
== END 2021-10-06 17:17 | disposition home or self-care (01) ==
PROVIDERS: Emergency Provider Emergency Medicine; PCP Family Medicine Adolescent Medicine
DX: R68.83 Chills (without fever) (principal); R61 Generalized hyperhidrosis; Z20.822 Contact with and (suspected) exposure to COVID-19; I25.10 Atherosclerotic heart disease of native coronary artery without angina pectoris; J44.9 Chronic obstructive pulmonary disease, unspecified; I10 Essential (primary) hypertension; E11.9 Type 2 diabetes mellitus without complications; Z79.4 Long term (current) use of insulin; E03.9 Hypothyroidism, unspecified; I25.2 Old myocardial infarction; K21.9 Gastro-esophageal reflux disease without esophagitis
CPT/HCPCS: 36415; 71045; 80053; 81001; 85025; 93005; 99283; C9803; U0003; U0005

== ENCOUNTER 2022-03-03 18:53 | Inpatient (IN) | payer MEDICARE, SELFPAY ==
--- NOTE | ~2022-03-03 | US_ITS ---
US renal BI DATE: 03/06/2022 09:24 INDICATION: Acute renal insufficiency TECHNIQUE: Real-time imaging of kidneys and urinary bladder COMPARISON: 03/03/2022 CTA chest abdomen pelvis FINDINGS: Right kidney measures 13.1 cm length, left kidney 12.5 cm. No renal mass lesion or hydronep hrosis is detected. The urinary bladder is unremarkable. IMPRESSION: No significant abnormality Reviewed, dictated and finalized at Location A. Reviewed, dictated and finalized at location A. IMPRESSION: No significant abnormality
--- NOTE | ~2022-03-03 | US_ITS ---
US venous doppler [facility] DATE: 03/06/2022 09:24 INDICATION: Positive d-dimer TECHNIQUE: Real-time and color flow imaging and Doppler analysis of the veins of the lower extremitie s COMPARISON: 06/04/2021 venous duplex examination of the left leg, reported negative 07/24/2020 bilateral lower extremity venous duplex examination, reported negative FINDINGS: There is spontaneous and phasic flow and normal augmentation and color flow signal and norm al compression of the veins of both were submitted. The greater saphenous veins are patent. IMPRESSION: Negative examination Reviewed, dictated and finalized at Location A. Reviewed, dictated and finalized at location A. IMPRESSION: Negative examination
--- NOTE | ~2022-03-03 | CT_ITS ---
EXAMINATION: CTA chest PE abdomen pel DATE: 03/03/2022 21:40 INDICATION: Dyspnea. Elevated d-dimer. Sudden onset of nausea and vomiting, abdominal pain and disten tion. TECHNIQUE: Computed tomography (CT) of the chest abdomen and pelvis was performed with 100 CC Omnipaq ue 350 intravenous contrast. Automated exposure control and iterative reconstruction technique were e mployed. Exam dose: 2438.45 mGy-cm total exam DLP. COMPARISON: 03/03/2022 portable AP chest 07/30/2020 CT pulmonary scan 06/29/2020 CT abdomen pelvis there is a very large irregular hypoattenuating mass of the right hepati c lobe extending from the dome almost in the inferior tip of the right hepatic lobe. This is increase d in size since 06/29/2020. FINDINGS: There is diagnostic contrast enhancement of the pulmonary arteries. There is a small chroni c web in the right lower lobe pulmonary artery, stable since 07/30/2020, from prior pulmonary embolis m. No recent pulmonary embolus is detected. No thoracic aortic aneurysm or dissection. No hilar or mediastinal mass lesion or lymphadenopathy. Cardiomegaly. Coronary artery calcifications. No pericardial effusion. Small right pleural effusion. No left pleural effusion. Patchy right lower lobe infiltrate and/or atelectasis. There is a very large mass in the lateral right hepatic lobe extending from the dome almost to the i nferior tip, increased in size since 06/29/2020, consistent with hepatocellular carcinoma. Status post cholecystectomy. No bile duct or pancreatic duct dilatation. No pancreatic mass lesion or calcification. Numerous splenic calcified granulomas. No splenomegaly. Normal morphology of the adrenal glands. The kidneys are unremarkable except for an approximately 1 cm left renal cyst Prostate enlargement. There is moderate thickening of the urinary bladder, likely due to prostate enl argement. There is atherosclerotic calcification of the abdominal aorta but no aneurysm. No intraperitoneal or retroperitoneal or pelvic mass lesion or adenopathy or ascites.. Normal appendix. Diverticulosis of the left and right colon; no evidence of diverticulitis. No alicia l obstruction or free air. Bilateral L5 pars interarticularis defects with grade 2 anterolisthesis and fusion at L5-S1. There is slight severe degenerative disc disease at L4-5, moderately severe degenerative disc disease at L3-4 and moderate degenerative disc disease at the remainder of the lumbar spine. There is degene rative spurring of the thoracic spine. No suspicious osteolytic or osteoblastic lesions are noted. IMPRESSION: No recent pulmonary embolism. 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 Reviewed, dictated and finalized at location A.
--- NOTE | ~2022-03-03 | XR_ITS ---
XR chest 1V portable DATE: 03/03/2022 20:06 INDICATION: Dyspnea, fever. TECHNIQUE: Portable upright AP chest on 03/03/2022 at 2002 hours COMPARISON: 10/06/2021 portable upright AP chest FINDINGS: Cardiomegaly. Aortic arch calcification. There is patchy infiltrate in both mid and lower lungs, right greater than left. No pleural effusion or pneumothorax. Diffuse osteopenia. IMPRESSION: Bilateral mid and lower lung infiltrates, right greater than left, suggesting bilateral p neumonia. Aspiration pneumonitis is another consideration. Reviewed, dictated and finalized at location A. IMPRESSION: Bilateral mid and lower lung infiltrates, right greater than left, suggesting bilateral pneumonia. Aspiration pneumonitis is another consideration .
[2022-03-03 18:55] VITALS: BP 117/48; PULSE 88; RESP 16; TEMP 38.4; O2SAT 97
--- NOTE | 2022-03-03 19:25 | ECG_ITS ---
Measurements Intervals [place] Rate: 81 P: MA: 0 QRS: 4 QRSD: 86 T: 4 QT: 340 QTc: 395 Interpretive Statements SINUS RHYTHM PREMATURE ATRIAL CONTRACTIONS BASELINE ARTIFACT CANNOT RULE OUT INFERIOR INFARCTION, AGE INDETERMINATE ABNORMAL ECG COMPARED TO ECG 10/06/2021 15:12:46 PREMATURE ATRIAL CONTRACTIONS NOW PRESENT Electronically Signed On 03-08-2022 15:02:08 CDT by Tonio Rosa M.D.
--- NOTE | 2022-03-03 19:28 | ED.NAVMDI ---
HPI - Nausea/Vomiting/Diarrhea General Chief complaint: Nausea/Vomiting/Diarrhea Stated complaint: N/V, FEVER, CANCER PT Time Seen by Provider: 03/03/22 19:25 History of Present Illness HPI Narrative: The patient is a 76-year-old male with history of COPD, type 2 diabetes, hypertension, hepatocellular carcinoma, T-cell lymphoma, recent scalp melanoma with excision approximately 1 month previously at [facility], presenting to the emergency department for evaluation of fever, vomiting. Patient reports acute onset nausea, vomiting, abdominal distention today. Patient had large volume emesis, was noted to have fever at the time of assessment. Patient has rigors, reports he has had chills throughout the day today. He reports mild abdominal distention and diffuse pain. He denies diarrhea, constipation, dysuria or hematuria. Patient states he did take 1 tablet of Tylenol prior to arrival but states that he believes he probably vomited this. He reports he has been compliant with his other medications. Abdominal pain is aching in nature, mild, no radiation to the back. He denies chest pain or shortness of breath. Related Data Home Medications Medication Instructions Recorded Confirmed apixaban 5 mg tablet (Eliquis) 5 mg PO BID 08/27/19 10/12/21 aspirin 81 mg tablet,delayed 81 mg PO DAILY 08/27/19 10/12/21 release (Adult Low Dose Aspirin) finasteride 5 mg tablet (Proscar) 5 mg PO DAILY 08/27/19 10/12/21 fenofibrate nanocrystallized 145 145 mg PO DAILY 02/27/20 10/12/21 mg tablet (Tricor) fexofenadine 180 mg tablet 180 mg PO DAILY 02/27/20 10/12/21 ([place] Allergy) levothyroxine 25 mcg tablet 50 mcg PO QAM 02/27/20 10/12/21 metolazone 5 mg tablet 5 mg PO PRN PRN SWELLING 02/27/20 10/12/21 simvastatin 20 mg tablet 20 mg PO QPM 02/27/20 10/12/21 bexarotene 75 mg capsule 150 mg PO DAILY 02/28/20 10/12/21 (Targretin) pen needle, diabetic 32 gauge x #10 ea 07/06/20 10/12/21 (BD Ultra-Fine Xochilt Pen Needle) triamcinolone acetonide 0.1 % 1 applic topical BID 02/24/21 10/12/21 topical cream umeclidinium 62.5 mcg-vilanterol 1 inh inhalation DAILY 02/24/21 10/12/21 25 mcg/actuation powdr for inhalation (Anoro Ellipta) cholecalciferol (vitamin D3) 25 25 mcg PO DAILY 10/06/21 10/12/21 mcg (1,000 unit) tablet diclofenac sodium 3 % topical gel 1 applic topical BID 10/06/21 10/12/21 omega-3 acid ethyl esters 1 gram PO 10/06/21 10/12/21 capsule cholestyramine-aspartame 4 gram 4 ea PO 10/12/21 10/12/21 oral powder for susp in a packet (Cholestyramine Light) Allergies Allergy/AdvReac Type Severity Reaction Status Date / Time No Known Allergies Allergy Verified 03/03/22 19:09 Review of Systems Review of Systems: CONSTITUTIONAL: Reports fever and chills EYES: Denies visual changes, redness, or discharge. ENT: Denies rhinorrhea, congestion, sore throat, or otalgia. CARDIOVASCULAR: Denies chest pain, palpitations, or edema. RESPIRATORY: Denies cough or dyspnea. GASTROINTESTINAL: Reports abdominal pain, nausea and vomiting GENITOURINARY: Denies dysuria or hematuria. SKIN: Denies rash or itching. MUSCULOSKELETAL: Denies back pain, joint pain, or myalgia. NEUROLOGIC: Denies headache, numbness, or weakness. [facility] Past Medical History Medical History ÁNGEL (acute kidney injury) Asbestosis CAD (coronary artery disease) Chronic anticoagulation Chronic back pain Chronic obstructive pulmonary disease COPD (chronic obstructive pulmonary disease) Coronary artery disease With history of [place] and stent. Patient of Dr. Abisai Patton. Deep venous thrombosis Eczema Essential hypertension Gastroesophageal reflux disease Hepatocellular carcinoma determined by biopsy of liver History of peptic ulcer Hx of myocardial infarction Hyperlipidemia Hypertension associated with diabetes Hypothyroidism IDDM (insulin dependent diabetes mellitus) I
[2022-03-03] MEDS: METOCLOPRAMIDE HCL INJ 10 MG/2 ML VIAL IV PUSH (20:17)
[2022-03-03 20:24] LABS: Basophils Percent Auto 0.5 % (0.2-1.2); Eosinophils Percent Auto 0.2 % (0-4.4); Hematocrit 34.8 % (42.0-52.0); Hemoglobin 10.8 g/dL (14.0-18.0); Immature Granulocyte Absolute 0.02 K/mm3 (0.00-0.031); Immature Granulocyte Percent A 0.5 % (0-0.5); Lymphocytes Absolute Auto 0.24 K/mm3 (0.9-3.2); Lymphocytes Percent Auto 5.5 % (18.3-44.2); Mean Corpuscular Hemoglobin 23.7 pg (26-34); Mean Corpuscular Volume 76.3 fl (80-100); Mean Platelet Volume 10.9 fl (7.4-10.4); Monocytes Percent Auto 0.7 % (2.6-8.5); Neutrophils Percent Auto 92.6 % (45.5-73.1); Platelet Count Result 250 k/mm3 (150-375); Red Blood Count 4.56 M/mm3 (4.6-6.20); Red Cell Distribution Width 17.1 % (11.5-14.5); White Blood Count 4.3 K/mm3 (4.5-10.0)
[2022-03-03 20:35] LABS: Alanine Aminotransferase 15 U/L (6-50); Albumin Level 3.9 g/dL (3.5-5.1); Alkaline Phosphatase 98 U/L (38-126); Anion Gap 11 mmol/L (8-16); Aspartate Amino Transferase 30 U/L (17-59); Blood Urea Nitrogen 19 mg/dL (9-20); Carbon Dioxide 20 mmol/L (22-30); Chloride 107 mmol/L (98-107); Estimated CRCL calculation 49 ml/min; Estimated Glomerular Filt Rate 49; Glucose 147 mg/dL (65-110); INR 1.6; Lipase 54 U/L (23-300); Partial Thromboplastin Time 37.5 SECONDS (22.3-36.8); Potassium 4.3 mmol/L (3.4-5.0); Prothrombin Time 18.3 Seconds (11.1-14.7); Sodium 138 mmol/L (137-145)
[2022-03-03 20:36] LABS: Lactic Acid Reflex 3.2 mmol/L (0.7-2.0)
[2022-03-03 20:48] LABS: NT Pro B Type Natriuretic Pept 1950 pg/mL (5-100)
[2022-03-03 21:00] LABS: Influenza A QL RT-PCR Negative (Negative); Influenza B QL RT-PCR Negative (Negative); SARS-CoV-2 RNA PCR Negative
[2022-03-03 21:01] LABS: Appearance Urine Clear (Clear); Bilirubin Urine 1+ (Negative); Blood Urine Negative (Negative); Color Urine Yellow (Yellow); Glucose Urine UA Negative (Negative); Ketones Urine Trace mg/dL (Negative); Leukocyte Esterase Ur Negative LEU/UL (Negative); Nitrate Urine Negative (Negative); Protein Urine 2+ mg/dL (Negative); Specific Grav Ur >= 1.030 (1.001-1.035)
[2022-03-03 21:06] LABS: Bacteria Urine Trace /hpf; Hyaline Casts Urine 15-19 /lpf; Mucus Urine Rare /lpf; Squamous Epithelial Cell Urine Occasional /hpf (Few)
[2022-03-03 21:07] LABS: Add Urine Microscopic? YES
[2022-03-03 21:07] LABS: D Dimer 4.05 ug/mL (<0.48)
--- NOTE | 2022-03-03 22:27 | PM.IMHP ---
H&P: HPI History of Present Illness Date/Time: 03/03/22 22:27 Chief Complaint: Nausea, vomiting, Narrative: This is a 76-year-old male with past medical history significant for T-cell lymphoma of the skin, hepatocellular carcinoma, melanoma status post resection, coronary artery disease, COPD/emphysema, type 2 diabetes mellitus, hypertension, gout. Patient presents to the emergency room after he had an episode of nausea, vomiting, abdominal pain and distension, fever, patient denies any cough, sputum production, shortness of breath, chest pain, dizziness, lightheadedness, near-syncope, or syncope, no leg swelling, no PND, no orthopnea, no calves pain. 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 Patient is been admitted for further evaluation management and treatment. Review of Systems Review of Systems: Nausea, vomiting, chills. Constitutional: Constitutional: Reports chills, Reports fever(s) and Denies night sweats Eyes: Eyes: Denies change in vision ENT: Denies dysphagia, Denies vertigo, Denies nasal congestion, Denies nasal discharge, Denies nasal obstruction, Denies odynophagia and Denies disequilibrium Cardiovascular: Cardiovascular: Denies chest pain, Denies pedal edema, Denies edema, Denies irregular heart rhythm, Denies claudication, Denies lightheadedness, Denies radiating jaw, neck or arm pain, Denies palpitations, Denies dyspnea on exertion and Denies paroxysmal nocturnal dyspnea Respiratory: Respiratory: Denies chest congestion, Denies cough, Denies excessive phlegm production and Denies dyspnea Gastrointestinal: Gastrointestinal: Reports abdominal pain, Denies dyspepsia, Denies heartburn, Reports diarrhea, Reports nausea and Reports vomiting Genitourinary: Genitourinary: Denies dysuria Musculoskeletal: Musculoskeletal: Denies arthralgias and Denies joint swelling Integumentary/Breasts: Skin/Breast: Reports rash and Reports other (T-cell lymphoma of the skin) Neurologic: Denies vertigo, Denies dizziness, Denies focal weakness and Denies Sensory deficit (Neuro) Psychiatric: Psychiatric: Reports no additional psychiatric complaints and Reports as per HPI Endocrine: Endocrine: Denies cold intolerance, Denies fatigue, Denies flushing, Denies heat intolerance, Denies polyphagia, Denies polydipsia and Denies palpitations Hematologic/Lymphatic: Hematologic/Lymphatic: Reports no additional hematologic/lymphatic complaints and Reports as per HPI Allergic/Immunologic: Allergic/Immunologic: Reports no additional allergic/immunologic complaints and Reports as per HPI [facility] Past Medical History Medical History (Updated 03/05/22 @ 03:14 by Segundo Mcnamara MD) ÁNGEL (acute kidney injury) Asbestosis CAD (coronary artery disease) Chronic anticoagulation Chronic back pain Chronic obstructive pulmonary disease COPD (chronic obstructive pulmonary disease) Coronary artery disease With history of [place] and stent. Patient of Dr. Abisai Patton. 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 Type 2 diabetes mellitus with hyperglycemia, with long-term current use of insulin Surgical History Surgical History History of bilateral inguinal hernia repair History of bilateral knee arthroplasty History of cystoscopy With stone extraction. History of facial
[2022-03-03 23:21] LABS: Reflex Lactic Acid Yes or No Add Lactic
[2022-03-03 23:43] VITALS: BP 105/58; PULSE 75; RESP 27; O2SAT 96
[2022-03-04] VITALS (15 sets, daily range): BP systolic 92–119; BP diastolic 46–65; PULSE 54–86; RESP 16–27; TEMP 36.6–38.2; O2SAT 95–100; BMI 34.0
--- NOTE | 2022-03-04 00:38 | ADMGEN ---
This patient, Bo Barragan, was admitted to IMU Room 210-01 at 0035. Patient/family oriented to hospital policies and general routines including ID bracelet, bed and alarms, visiting hours, pain management, procedures, bathroom and other care routines, personal items, smoking policy, room service/diet, and visiting hours. Information on how to activate the Rapid Response Team has been discussed. Patient/Family are encouraged to report perceived risks to care and to ask questions if they do not understand what they are told or what they should do.
[2022-03-04 03:51] LABS: Lactic Acid 1.5 mmol/L (0.7-2.0)
[2022-03-04 08:59] LABS: Glucose Point of Care 156 mg/dl (65-105)
[2022-03-04] MEDS: LEVOTHYROXINE SODIUM 50 MCG TABLET PO (08:59)
[2022-03-04] MEDS: PANTOPRAZOLE 40 MG TABLET PO ×2 (08:59→20:25)
[2022-03-04] MEDS: LORATADINE 10 MG TABLET PO (08:59)
[2022-03-04] MEDS: allopurinoL 300 MG TABLET PO (09:00)
[2022-03-04] MEDS: metFORMIN HCL 500 MG TABLET PO ×2 (09:00→16:56)
[2022-03-04] MEDS: FUROSEMIDE 40 MG TABLET PO (09:00)
[2022-03-04] MEDS: lisinopriL 20 MG TABLET PO (09:00)
[2022-03-04] MEDS: ASPIRIN 81 MG ENTERIC TABLET PO (09:00)
[2022-03-04] MEDS: FENOFIBRATE NANOCRYSTALLIZED 145 MG TABLET PO (09:00)
[2022-03-04] MEDS: FINASTERIDE 5 MG TABLET PO (09:00)
[2022-03-04] MEDS: OXYBUTYNIN CHLORIDE 5 MG TABLET PO ×2 (09:00→16:56)
[2022-03-04] MEDS: APIXABAN 5 MG TABLET PO ×2 (09:01→16:56)
[2022-03-04] MEDS: CHOLECALCIFEROL 1,000 UNITS TABLET 1000 UNITS PO (09:01)
[2022-03-04 11:11] LABS: Lactic Acid Reflex 2.2 mmol/L (0.7-2.0)
--- NOTE | 2022-03-04 11:23 | PM.IMPN ---
Progress Note: A&P Assessment and Plan (1) Pneumonia: Code(s): J18.9 - Pneumonia, unspecified organism Status: Acute Assessment and Plan: Continue IV antibiotics. Deescalate at some point. Christopher status is much improved. (2) Severe sepsis: Code(s): A41.9 - Sepsis, unspecified organism; R65.20 - Severe sepsis without septic shock Status: Acute Assessment and Plan: Present on admission, now resolved. (3) Type 2 diabetes mellitus with hyperglycemia, with long-term current use of insulin: Code(s): E11.65 - Type 2 diabetes mellitus with hyperglycemia; Z79.4 - critical care cns (current) use of insulin Status: Chronic Assessment and Plan: Continue sliding scale insulin as needed. (4) T-cell lymphoma: Code(s): C85.90 - Non-Hodgkin lymphoma, unspecified, unspecified site Status: Chronic Assessment and Plan: Follows with his oncologist in [place]. No acute issues. (5) COPD (chronic obstructive pulmonary disease): Code(s): J44.9 - Chronic obstructive pulmonary disease, unspecified Status: Acute Assessment and Plan: No exacerbation. (6) CAD (coronary artery disease): Qualifiers: Coronary Disease-Associated Artery/Lesion type: tribal artery [place] vs. transplanted heart: tribal heart Associated angina: without angina Qualified Code(s): I25.10 - Atherosclerotic heart disease of tribal coronary artery without angina pectoris Code(s): I25.10 - Atherosclerotic heart disease of tribal coronary artery without angina pectoris Status: Acute Assessment and Plan: Chronic stable (7) Hypothyroidism: Qualifiers: Hypothyroidism type: unspecified Qualified Code(s): E03.9 - Hypothyroidism, unspecified Code(s): E03.9 - Hypothyroidism, unspecified Status: Chronic Assessment and Plan: Continue home meds (8) Hypertension associated with diabetes: Code(s): E11.59 - Type 2 diabetes mellitus with other circulatory complications; I10 - Essential (primary) hypertension Status: Acute Assessment and Plan: Monitor blood sugar (9) Liver mass: Code(s): R16.0 - Hepatomegaly, not elsewhere classified Status: Acute Assessment and Plan: Hepatocellular carcinoma history. Follows with his oncologist in [place] Subjective Date/time seen: 03/04/22 11:23 Reports breathing is much improved. Feels much better overall. He reports he feels like his baseline. Review of Systems Review of Systems: 10 point ROS negative except as stated in HPI / Subjective Exam Narrative: General: alert and oriented Psych: appropriate mood nad affect Eyes: PERRLA Neck: Trachea midline, no new lesions Skin: no changes Lungs: Minimal wheeze Cardiac: Normal S1,S2, no MGR ABD: soft, nd, nt, nbs Ext: Edema noted Vasc: Pulses intact Objective Data Vital Signs Vital Signs: Vital Signs - 24 hr 03/03/22 18:55 03/03/22 23:43 03/04/22 00:35 Temperature 101.2 F H 98.1 F Pulse Rate 88 75 71 Respiratory Rate 16 27 H 20 Blood Pressure 117/48 L 105/58 L 110/52 L Pulse Oximetry 97 96 95 Oxygen Delivery 03/04/22 04:45 03/04/22 04:00 03/04/22 02:00 Temperature 97.8 F Pulse Rate 75 64 65 Respiratory Rate 27 H 16 Blood Pressure 105/58 L 95/47 L Pulse Oximetry 96 99 Oxygen Delivery 03/04/22 04:00 03/04/22 04:00 03/04/22 06:00 Temperature Pulse Rate 58 L 64 Respiratory Rate Blood Pressure Pulse Oximetry Oxygen Delivery Room Air 03/04/22 08:00 03/04/22 09:03 Temperature 98.1 F Pulse Rate 58 L 54 L Respiratory Rate 20 Blood Pressure 100/65 Pulse Oximetry 99 Oxygen Delivery Intake/Output Intake/Output: Intake & Output 03/01/22 03/02/22 03/03/22 03/04/22 23:59 23:59 23:59 23:59 Intake Total 215 1380 Balance 215 1380 Meds/Results Medications: Active Medications Generic Name Dose Route Start [place]
--- NOTE | 2022-03-04 11:50 | PM.CNCAR ---
Assessment and Plan Assessment and plan (1) Stented coronary artery: Onset Date: ~1998 Code(s): Z95.5 - Presence of coronary angioplasty implant and graft Status: Acute Plan This is a 76-year-old man with coronary disease who sustained an inferior wall infarction in 1998 and has done well since stenting of his RCA as I described above. He unfortunately has several malignancies also as I attempted to detail above which are being treated at [facility]. He comes into the hospital with vomiting and fever and for reasons that are not clear troponins were sampled. There are no symptoms to suggest an acute coronary event and no electrocardiogram has been recorded. This is not a situation where he needs or would be approved to conduct an ischemic workup. Obviously his principal health problems are his multitude of malignancies. Presumably his current symptoms are related to his recent percutaneous ablate of procedure in his liver. I do not have any cardiac recommendations to make at this time I do not plan on following him during the hospital I will follow him in my office as I have been for many years regarding his coronary artery disease. Abisai Patton MD [facility] History of Present Illness History of Present Illness Consult date/time: 03/04/22 11:50 Reason For Visit: Sepsis, hospital acquired pneumonia Narrative: This is a 76-year-old man who is well known to me with a history of coronary artery disease with previous inferior wall infarction who was hospitalized yesterday after being seen in the emergency room with symptoms of emesis and fever. He says that he developed the symptoms I yesterday he had vomiting and some abdominal discomfort and vomiting yellow bilious looking fluid. There was no hematemesis or coffee-ground emesis. He then had some shaking chills and he states he took his temperature at home and it was over 102?. He came to the emergency room for evaluation. In the course of the evaluation for some reason troponin levels were sampled they are mildly elevated in that prompted the consulting me to see him today. An electrocardiogram has not been recorded in the hospital. He has not had any chest pain or ischemic type symptomatology in many years. He has been treated with antibiotics and is having evaluation done with a CT scan of his abdomen. He feels better than he did yesterday following receiving some antibiotics. The patient has history of coronary artery disease dates back to 1998 when I took care of him in the setting of an acute inferior wall infarction. He underwent emergency PCI with stenting of the right coronary artery at that time and since then has done well. He has had a number of ischemia evaluations with nuclear stress tests since then which demonstrated expected a fixed inferior wall defect but no ischemic abnormalities have been seen and his ejection fraction has been preserved. There was significant concern about his cardiac status a couple of years ago when he presented with severe shortness of breath and was hospitalized. 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 This was treated with anticoagulation which he remains on to this day. He did not require any interventional procedures at that time. In addition to all of this Mr. Gino dunbar unfortunately has had several malignancies. He has a history of a cutaneous T-cell lymphoma which is being treated at [facility] with some sort of he to treatment that he describes that really the cause is ease lesions to slough and he undergoes this treatment regularly. He he was also found within the last couple of years to have hepatocellular carcinoma. He is undergoing treatments also at [facility] where he has some sort of percutaneous ablate of treatment of these lesions. The most recent 1 at was last week. He also has a history of a malignant melanoma and had a large area of his scalp excised wit
[2022-03-04 13:57] LABS: Reflex Lactic Acid Yes or No Add Lactic
[2022-03-04 14:21] LABS: Lactic Acid 1.5 mmol/L (0.7-2.0)
[2022-03-04 16:56] LABS: Glucose Point of Care 173 mg/dl (65-105)
[2022-03-04] MEDS: SIMVASTATIN 20 MG TABLET PO (16:57)
[2022-03-04] MEDS: ACETAMINOPHEN 325 MG TABLET 650 MG PO (21:36)
--- NOTE | 2022-03-04 23:18 | PC.NURSE ---
This patient, Bo Barragan, was transferred to [254 bed 1 ] on 03/04/22 at 2306. Personal belongings sent with patient. Report given to [NÉSTOR Muller]. Appropriate documentation sent with patient.
--- NOTE | 2022-03-04 23:20 | ADMGEN ---
This patient, Bo Barragan, was admitted to Medical Room 254-01. Patient/family oriented to hospital policies and general routines including ID bracelet, bed and alarms, visiting hours, pain management, procedures, bathroom and other care routines, personal items, smoking policy, room service/diet, and visiting hours. Information on how to activate the Rapid Response Team has been discussed. Patient/Family are encouraged to report perceived risks to care and to ask questions if they do not understand what they are told or what they should do.
[2022-03-05] VITALS (7 sets, daily range): BP systolic 105–122; BP diastolic 54–64; PULSE 78–91; RESP 16–20; TEMP 36.5–36.8; O2SAT 98
--- NOTE | 2022-03-05 | ECHO_ITS ---
Patient Info Name: Bo Barragan Age: 76 years : 1945 Gender: Male Ht: 68 in Wt: 203 lbs BSA: 2.13 m2 HR: 82 bpm BP: 122 / 64 mmHg Heart Rhythm: Sinus Rhythm Technical Quality: Poor Exam Date: 03/05/2022 10:41 AM Exam Location: [facility] Room: 254 Patient Status: Inpatient Admit Date: 03/03/2022 Staff Ordering Physician: Keith Recinos MD Sand System Operator: Roselyn Rodriguez RDCS Attending Provider: Segundo Mcnamara MD Exam Type: CA echo dop color flow w con Study Info Indications - ELEVATED TROPS LIVER CA Complete two-dimensional, color flow and Doppler transthoracic echocardiogram is performed with contrast to opacify the left ventricle and to improve the deliniation of the left ventricle endocardial borders. Contrast/Agitated Saline Contrast/Ag. Saline: Definity Amount: 2.00 ml Administered By: Roselyn Rodriguez [facility] Existing IV Access: Yes IV Access Condition: patent with no signs of infiltration Reason for Poor Study: patient body habitus Summary 1. Technically difficult study with limited views. Regional wall motion assessment limited due to poor endomyocardial border definition despite definity contrast enhancement. 2. Left ventricular systolic function is probably normal, estimated at 55%. 3. Left ventricular chamber dimension is normal. 4. The left ventricular diastolic function is grade I diastolic dysfunction. 5. There is mildly increased left ventricular wall thickness. 6. There is trace tricuspid valve regurgitation. 7. Mild pulmonary hypertension, estimated pulmonary arterial systolic pressure is 44 mmHg. Left Ventricle Left ventricular chamber dimension is normal. Left ventricular systolic function is probably normal, estimated at 55%. There is mildly increased left ventricular wall thickness. The left ventricular diastolic function is grade I diastolic dysfunction. Technically difficult study with limited views. Regional wall motion assessment limited due to poor endomyocardial border definition despite definity contrast enhancement. Right Ventricle Right ventricular chamber dimension is normal. Right ventricular systolic function is normal. Left Atria Left atrial chamber dimension is not well visualized. Right Atria Right atrial chamber dimension is not well visualized. Aortic Valve The aortic valve is probable trileaflet. There is mild aortic valve sclerosis. There is no aortic valve stenosis. There is no aortic valve regurgitation. Pulmonic Valve The pulmonic valve is not well visualized. Mitral Valve The mitral valve has thickened leaflets. There is trace mitral valve regurgitation. The mitral valve annulus is mildly calcified. Tricuspid Valve The tricuspid valve leaflets are normal. There is trace tricuspid valve regurgitation. Mild pulmonary hypertension, estimated pulmonary arterial systolic pressure is 44 mmHg. Pericardium/Pleural The pericardium appears epicardial fat pad. There is no pericardial effusion. Inferior Vena Cava Normal inferior vena cava with >50% collapse upon inspiration consistent with normal right atrial pressure, 5 mmHg. Aorta The aortic root size at the sinus of Valsalva is normal. There is mild aortic atherosclerosis. Left Ventricular Outflow Tract Name Value Normal
[2022-03-05 04:50] LABS: Hematocrit 32.1 % (42.0-52.0); Hemoglobin 9.7 g/dL (14.0-18.0); Mean Corpuscular HGB Conc 30.2 g/dl (32-36); Mean Corpuscular Hemoglobin 23.4 pg (26-34); Mean Corpuscular Volume 77.5 fl (80-100); Mean Platelet Volume 10.6 fl (7.4-10.4); Platelet Count Result 228 k/mm3 (150-375); Red Blood Count 4.14 M/mm3 (4.6-6.20); Red Cell Distribution Width 16.9 % (11.5-14.5); White Blood Count 8.5 K/mm3 (4.5-10.0)
[2022-03-05] MEDS: LEVOTHYROXINE SODIUM 50 MCG TABLET PO (06:05)
[2022-03-05 06:25] LABS: Anion Gap 8 mmol/L (8-16); Blood Urea Nitrogen 34 mg/dL (9-20); Calcium 8.4 mg/dL (8.4-10.2); Carbon Dioxide 23 mmol/L (22-30); Chloride 105 mmol/L (98-107); Estimated CRCL calculation 37 ml/min; Estimated Glomerular Filt Rate 37; Glucose 138 mg/dL (65-110); Potassium 4.3 mmol/L (3.4-5.0); Sodium 136 mmol/L (137-145)
[2022-03-05 07:39] LABS: Glucose Point of Care 153 mg/dl (65-105)
--- NOTE | 2022-03-05 08:50 | PM.IMPN ---
Progress Note: A&P Assessment and Plan (1) Severe sepsis: Code(s): A41.9 - Sepsis, unspecified organism; R65.20 - Severe sepsis without septic shock Status: Acute Assessment and Plan: Present on admission with acute kidney injury, fever and elevated lactic acid. D-dimer elevated at 4.0 and INR elevated at 1.6 felt related to the sepsis. He is on Eliquis chronically. Suspect related to bacterial infection such as bacterial pneumonia. Cultures pending. Follow-up on culture results. Continue IV antibiotics. Repeat INR. Check Dopplers. (2) Pneumonia: Code(s): J18.9 - Pneumonia, unspecified organism Status: Acute Assessment and Plan: Patient presents with fever, elevated lactic acid, nausea/vomiting abdominal pain. He denies any significant respiratory symptoms but his CT chest showing RLL airspace disease. Influenza and COVID negative. Cultures obtained and he was started on IV abx. WBC was low a 4300 but better today. Fever curve improved. Contnue vancomycin, cefepime and Zithromax. Follow-up on cultures. Narrow abx when able. (3) Elevated troponin: Code(s): R77.8 - Other specified abnormalities of plasma proteins Status: Acute Assessment and Plan: Troponin was elevated on admission and climbed to 1.61 before trending down. No EKG in the chart but EKG by EMS showing NSR with PACs and QS in inferior leads but no acute findings. No chest pain. Cardiology consulted and appreciate their input. Will repeat EKG and check Echo. Continue ASA, statin, metoprolol. (4) ÁNGEL (acute kidney injury): Code(s): N17.9 - Acute kidney failure, unspecified Status: Acute Assessment and Plan: Baseline Cr 1.1-1.3 but Cr 1.4 on admission and has climbed to 1.8. Likely either pre renal azotemia or ATN from the infection. Continue to monitor BUN creatinine. Will check urine studies. Check renal ultrasound. Hold Lasix and lisnopril. 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 Continue AccuCheks covering with sliding scale. Hypoglycemia protocol available as needed. Continue current medications. (6) COPD (chronic obstructive pulmonary disease): Code(s): J44.9 - Chronic obstructive pulmonary disease, unspecified Status: Acute Assessment and Plan: Stable. No wheezing. Patient has Anoro Ellipta written for p.r.n.. (7) CAD (coronary artery disease): Qualifiers: Associated angina: without angina Coronary Disease-Associated Artery/Lesion type: [place] artery [place] vs. transplanted heart: [place] heart Qualified Code(s): I25.10 - Atherosclerotic heart disease of [place] coronary artery without angina pectoris Code(s): I25.10 - Atherosclerotic heart disease of [place] coronary artery without angina pectoris Status: Acute Assessment and Plan: As above. Continue aspirin, metoprolol, and Zocor. (8) T-cell lymphoma: Code(s): C85.90 - Non-Hodgkin lymphoma, unspecified, unspecified site Status: Chronic Assessment and Plan: Follows at [facility]. (9) Hepatocellular carcinoma determined by biopsy of liver: Code(s): C22.0 - Liver cell carcinoma Status: Chronic Assessment and Plan: Status post ablation about 2 weeks ago. Will try to obtain records. (10) Deep venous thrombosis: Code(s): I82.409 - Acute embolism and thrombosis of unspecified deep veins of unspecified lower extremity Status: Acute Assessment and Plan: On chronic anticoagulation with Eliquis (11) Anemia: Code(s): D64.9 - Anemia, unspecified Status: Acute Assessment and Plan: Patient with ane
[2022-03-05] MEDS: lisinopriL 20 MG TABLET PO (09:11)
[2022-03-05] MEDS: metFORMIN HCL 500 MG TABLET PO ×2 (09:11→16:41)
[2022-03-05] MEDS: FENOFIBRATE NANOCRYSTALLIZED 145 MG TABLET PO (09:11)
[2022-03-05] MEDS: FUROSEMIDE 40 MG TABLET PO (09:11)
[2022-03-05] MEDS: allopurinoL 300 MG TABLET PO (09:11)
[2022-03-05] MEDS: CHOLECALCIFEROL 1,000 UNITS TABLET 1000 UNITS PO (09:11)
[2022-03-05] MEDS: METOPROLOL SUCCINATE EXT REL 100 MG TABCR PO (09:11)
[2022-03-05] MEDS: PANTOPRAZOLE 40 MG TABLET PO ×2 (09:12→20:24)
[2022-03-05] MEDS: APIXABAN 5 MG TABLET PO ×2 (09:12→16:41)
[2022-03-05] MEDS: LORATADINE 10 MG TABLET PO (09:12)
[2022-03-05] MEDS: amLODIPine BESYLATE 5 MG TABLET PO (09:12)
[2022-03-05] MEDS: FINASTERIDE 5 MG TABLET PO (09:12)
[2022-03-05] MEDS: OXYBUTYNIN CHLORIDE 5 MG TABLET PO ×2 (09:12→16:42)
[2022-03-05] MEDS: OMEGA 3 POLYUNSAT FATTY ACIDS 1 GM CAP PO (09:12)
[2022-03-05] MEDS: ASPIRIN 81 MG ENTERIC TABLET PO (09:12)
--- NOTE | 2022-03-05 09:18 | ECG_ITS ---
Measurements Intervals [place] Rate: 83 P: 49 MI: 161 QRS: -4 QRSD: 89 T: 16 QT: 379 QTc: 446 Interpretive Statements SINUS RHYTHM WITH OCCASIONAL SUPRAVENTRICULAR PREMATURE COMPLEXES INFERIOR MYOCARDIAL INFARCTION , PROBABLY OLD [40+ ms Q WAVE AND/OR ST/T ABNORMALITY IN II/aVF] ABNORMAL ECG COMPARED TO ECG 03/03/2022 19:25:35 NO SIGNIFICANT CHANGES ALTHOUGH SINUS RHYTHM PRESENT CONTRARY TO PREVIOUSLY REPORTED ATRIAL FIBRILLATION Electronically Signed On 03-05-2022 11:27:29 CDT by Tonio Rosa M.D.
[2022-03-05] MEDS: PERFLUTREN LIPID MICROSPHERES 1.5 ML VIAL DILUTED TO 10 ML TOTAL VOLUME IV PUSH (11:00)
--- NOTE | 2022-03-05 11:00 | IVDEFINITY ---
Prior to administration of IV Definity the patient was educated on the risks and benefits of the imaging enhancing agent including potential adverse side effects. The patient verbalized understanding. Allergies were verified. No exclusion criteria were identified and at least one of the following inclusion criteria were met: 1) physician request, 2) patient technically difficult to image (per the [place] [employer] guidelines of two or more segments not discernable within the apical view), or 3) questionable left ventricular function. ?
[2022-03-05 11:50] LABS: Glucose Point of Care 166 mg/dl (65-105)
[2022-03-05 16:36] LABS: Glucose Point of Care 172 mg/dl (65-105)
[2022-03-05] MEDS: SIMVASTATIN 20 MG TABLET PO (16:42)
[2022-03-05] MEDS: ONDANSETRON INJ 4 MG/2 ML VIAL IV PUSH (18:41)
[2022-03-05 19:34] LABS: Creatinine Urine 42.6 mg/dL
[2022-03-05 19:40] LABS: Sodium Urine Random 101 meq/L
[2022-03-05 19:54] LABS: Eosinophil Urine None Seen % (None Seen)
[2022-03-06] VITALS (11 sets, daily range): BP systolic 103–141; BP diastolic 57–73; PULSE 65–86; RESP 16–20; TEMP 36.7–37.1; O2SAT 95–100
[2022-03-06 05:20] LABS: INR 1.5; Prothrombin Time 17.2 Seconds (11.1-14.7)
[2022-03-06 05:22] LABS: Basophils Percent Auto 0.5 % (0.2-1.2); Eosinophils Absolute Auto 0.2 K/mm3 (0-0.3); Eosinophils Percent Auto 2.5 % (0-4.4); Hematocrit 31.6 % (42.0-52.0); Hemoglobin 9.9 g/dL (14.0-18.0); Immature Granulocyte Absolute 0.03 K/mm3 (0.00-0.031); Immature Granulocyte Percent A 0.5 % (0-0.5); Lymphocytes Absolute Auto 0.81 K/mm3 (0.9-3.2); Lymphocytes Percent Auto 12.6 % (18.3-44.2); Mean Corpuscular HGB Conc 31.3 g/dl (32-36); Mean Corpuscular Hemoglobin 23.5 pg (26-34); Mean Corpuscular Volume 74.9 fl (80-100); Mean Platelet Volume 11.2 fl (7.4-10.4); Monocytes Absolute Auto 0.7 K/mm3 (0.1-0.6); Monocytes Percent Auto 10.5 % (2.6-8.5); Neutrophils Absolute Auto 4.7 K/mm3 (1.3-6.7); Neutrophils Percent Auto 73.4 % (45.5-73.1); Platelet Count Result 237 k/mm3 (150-375); Red Blood Count 4.22 M/mm3 (4.6-6.20); Red Cell Distribution Width 16.6 % (11.5-14.5); White Blood Count 6.4 K/mm3 (4.5-10.0)
[2022-03-06 05:23] LABS: Alanine Aminotransferase 15 U/L (6-50); Albumin Level 3.4 g/dL (3.5-5.1); Alkaline Phosphatase 69 U/L (38-126); Anion Gap 6 mmol/L (8-16); Aspartate Amino Transferase 34 U/L (17-59); Bilirubin,Total 0.3 mg/dL (0.2-1.3); Blood Urea Nitrogen 26 mg/dL (9-20); Calcium 8.6 mg/dL (8.4-10.2); Carbon Dioxide 26 mmol/L (22-30); Chloride 105 mmol/L (98-107); Creatine Kinase 182 U/L (55-170); Estimated CRCL calculation 42 ml/min; Estimated Glomerular Filt Rate 46; Glucose 158 mg/dL (65-110); Magnesium 1.3 mg/dL (1.6-2.3); Phosphorus 2.7 mg/dL (2.5-4.5); Potassium 4.5 mmol/L (3.4-5.0); Sodium 137 mmol/L (137-145)
[2022-03-06] MEDS: LEVOTHYROXINE SODIUM 50 MCG TABLET PO (05:50)
[2022-03-06 06:16] LABS: Iron 25 ug/dL (49-181)
[2022-03-06 06:25] LABS: Percent Iron Saturation 6 % (20-50)
[2022-03-06] MEDS: MAGNESIUM SULF 2 GM/WATER 50ML 2 GM/50 ML BAG IVPB (07:19)
[2022-03-06 07:39] LABS: Free T4 Free Thyroxine Reflex 1.09 ng/dL (0.78-2.19)
[2022-03-06 07:43] LABS: Glucose Point of Care 142 mg/dl (65-105)
[2022-03-06] MEDS: OMEGA 3 POLYUNSAT FATTY ACIDS 1 GM CAP PO (08:24)
[2022-03-06] MEDS: cefTRIAXone 2 GM in SODIUM CHLORIDE 0.9% IV 100 ML 200 ML IVPB (08:24)
[2022-03-06] MEDS: FINASTERIDE 5 MG TABLET PO (08:24)
[2022-03-06] MEDS: APIXABAN 5 MG TABLET PO ×2 (08:25→16:53)
[2022-03-06] MEDS: LORATADINE 10 MG TABLET PO (08:25)
[2022-03-06] MEDS: ASPIRIN 81 MG ENTERIC TABLET PO (08:25)
[2022-03-06] MEDS: metFORMIN HCL 500 MG TABLET PO ×2 (08:25→16:53)
[2022-03-06] MEDS: allopurinoL 300 MG TABLET PO (08:25)
[2022-03-06] MEDS: CHOLECALCIFEROL 1,000 UNITS TABLET 1000 UNITS PO (08:25)
[2022-03-06] MEDS: METOPROLOL SUCCINATE EXT REL 100 MG TABCR PO (08:25)
[2022-03-06] MEDS: PANTOPRAZOLE 40 MG TABLET PO ×2 (08:25→20:18)
[2022-03-06] MEDS: OXYBUTYNIN CHLORIDE 5 MG TABLET PO ×2 (08:25→16:53)
[2022-03-06] MEDS: amLODIPine BESYLATE 5 MG TABLET PO (08:25)
[2022-03-06] MEDS: FENOFIBRATE NANOCRYSTALLIZED 145 MG TABLET PO (08:25)
[2022-03-06 11:18] LABS: Glucose Point of Care 233 mg/dl (65-105)
--- NOTE | 2022-03-06 11:28 | PM.IMPN ---
Progress Note: A&P Assessment and Plan (1) Severe sepsis: Code(s): A41.9 - Sepsis, unspecified organism; R65.20 - Severe sepsis without septic shock Status: Acute Assessment and Plan: Severe sepsis with septicemia now with positive BCx. Present on admission with acute kidney injury, elevated Trop, fever and elevated lactic acid. D-dimer elevated at 4.0 and INR elevated at 1.6 felt related to the sepsis. He is on Eliquis chronically. BCx positive for Klebsiella. UA noted and that did not prompt a UCx. Source unclear. Consider related to recent instrumentation of the liver. Abx narrowed to Rocephin 2gm daily. Continue IV antibiotics. Check MRCP tomorrow if renal function continues to improve. (2) Pneumonia: Code(s): J18.9 - Pneumonia, unspecified organism Status: Acute Assessment and Plan: Patient presents with fever, elevated lactic acid, nausea/vomiting abdominal pain. He denies any significant respiratory symptoms but his CT chest showing RLL airspace disease. Influenza and COVID negative. Cultures obtained and he was started on IV abx. WBC was low a 4300 but now normal. Fever curve improved. Abx as above. (3) Elevated troponin: Code(s): R77.8 - Other specified abnormalities of plasma proteins Status: Acute Assessment and Plan: Troponin was elevated on admission and climbed to 1.61 before trending down. EKG by EMS showing NSR with PACs and QS in inferior leads but no acute findings. Repeat EKG showing no changes. No complaints of chest pain. Cardiology consulted and appreciate their input. Echo shwong EF 55% with Grade I diastolic dysfunction. Suspect elevated Trop related to sepsis. Continue ASA, statin, metoprolol. (4) ÁNGEL (acute kidney injury): Code(s): N17.9 - Acute kidney failure, unspecified Status: Acute Assessment and Plan: Baseline Cr 1.1-1.3 but Cr 1.4 on admission and climbed to 1.8. Sun 101. Likely ATN from the infection. Lasix and lisinopril held. Cr better today at 1.5. Renal US pending. Continue to monitor BUN creatinine. (5) Hepatocellular carcinoma determined by biopsy of liver: Code(s): C22.0 - Liver cell carcinoma Status: Chronic Assessment and Plan: Status post ablation about 2 weeks ago. Old records requested. As above. (6) Anemia: Code(s): D64.9 - Anemia, unspecified Status: Acute Assessment and Plan: Patient with anemia which appears to be chronic. Anemia is microcytic. Iron studies are consistent with iron deficiency anemia. Related to his liver disease? Continue to follow H&H. Add oral iron. (7) Deep venous thrombosis: Code(s): I82.409 - Acute embolism and thrombosis of unspecified deep veins of unspecified lower extremity Status: Acute Assessment and Plan: On chronic anticoagulation with Eliquis. Doppler pending. 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 Continue AccuCheks covering with sliding scale. Hypoglycemia protocol available as needed. Continue current medications. Check A1c (9) COPD (chronic obstructive pulmonary disease): Code(s): J44.9 - Chronic obstructive pulmonary disease, unspecified Status: Acute Assessment and Plan: Stable. No wheezing. Patient has home Anoro Ellipta written for p.r.n.. Will continue the same. (10) CAD (coronary artery disease): Qualifiers: Associated angina: without angina Coronary Disease-Associated Artery/Lesion type: [place] artery [place] vs. transplanted heart: [place] heart Qualified Code(s): I25.10 - Atherosclerotic heart disease of [place] coronary artery without angina
[2022-03-06 11:44] LABS: Total Triiodothyronine (T3) 0.93 NG/ML (0.97-1.69)
[2022-03-06 16:31] LABS: Glucose Point of Care 138 mg/dl (65-105)
[2022-03-06] MEDS: FERROUS SULFATE 324 MG TABLET PO (16:53)
[2022-03-06] MEDS: SIMVASTATIN 20 MG TABLET PO (16:53)
--- NOTE | 2022-03-06 17:16 | PC.NURSE ---
Pt provided home medication list printed from [facility] dated 08/16/2022 with updated medication list. List and prescription from external medication list indicates patient takes 100 mcg levothyroxine daily. He also takes Bexarotene 300 mg daily together with fenofibrate (Tricor) 145 mg daily. Our pharmacy does not stock this medication. Patient states his friend can bring his bottle from home.
--- NOTE | 2022-03-06 18:29 | PC.NURSE ---
Spoke with Dr Recinos regarding home medication baroxatene & tricor. Dr Recinos says chemo medication should be held while patient has an infection. Pt instructed to hold the medication for now & he says he will tell his friend not to bring the medication here now.
[2022-03-06] MEDS: ACETAMINOPHEN 325 MG TABLET 650 MG PO (20:19)
[2022-03-07] VITALS (8 sets, daily range): BP systolic 128–135; BP diastolic 60–74; PULSE 57–73; RESP 16–20; TEMP 36.6; O2SAT 97–100
[2022-03-07 05:14] LABS: Basophils Percent Auto 0.6 % (0.2-1.2); Eosinophils Absolute Auto 0.2 K/mm3 (0-0.3); Eosinophils Percent Auto 2.5 % (0-4.4); Hematocrit 30.9 % (42.0-52.0); Hemoglobin 9.7 g/dL (14.0-18.0); Immature Granulocyte Absolute 0.04 K/mm3 (0.00-0.031); Immature Granulocyte Percent A 0.6 % (0-0.5); Lymphocytes Absolute Auto 1.08 K/mm3 (0.9-3.2); Lymphocytes Percent Auto 16.8 % (18.3-44.2); Mean Corpuscular HGB Conc 31.4 g/dl (32-36); Mean Corpuscular Hemoglobin 23.7 pg (26-34); Mean Corpuscular Volume 75.4 fl (80-100); Mean Platelet Volume 11.6 fl (7.4-10.4); Monocytes Absolute Auto 0.7 K/mm3 (0.1-0.6); Monocytes Percent Auto 10.3 % (2.6-8.5); Neutrophils Absolute Auto 4.4 K/mm3 (1.3-6.7); Neutrophils Percent Auto 69.2 % (45.5-73.1); Platelet Count Result 267 k/mm3 (150-375); Red Cell Distribution Width 16.5 % (11.5-14.5); White Blood Count 6.4 K/mm3 (4.5-10.0)
[2022-03-07 05:20] LABS: Hemoglobin A1C 6.7 % (<5.7)
[2022-03-07 05:26] LABS: Albumin Level 3.4 g/dL (3.5-5.1); Anion Gap 3 mmol/L (8-16); Blood Urea Nitrogen 24 mg/dL (9-20); Calcium 8.9 mg/dL (8.4-10.2); Carbon Dioxide 28 mmol/L (22-30); Chloride 103 mmol/L (98-107); Estimated CRCL calculation 45 ml/min; Estimated Glomerular Filt Rate 49; Glucose 146 mg/dL (65-110); Magnesium 1.6 mg/dL (1.6-2.3); Phosphorus 3.1 mg/dL (2.5-4.5); Potassium 4.5 mmol/L (3.4-5.0); Sodium 134 mmol/L (137-145)
[2022-03-07] MEDS: LEVOTHYROXINE SODIUM 100 MCG TABLET PO (06:20)
[2022-03-07 07:29] LABS: Glucose Point of Care 136 mg/dl (65-105)
--- NOTE | 2022-03-07 07:41 | PM.IMPN ---
Progress Note: A&P Assessment and Plan (1) Severe sepsis: Code(s): A41.9 - Sepsis, unspecified organism; R65.20 - Severe sepsis without septic shock Status: Acute Assessment and Plan: Severe sepsis with septicemia now with positive BCx. Present on admission with acute kidney injury, elevated Trop, fever and elevated lactic acid. D-dimer elevated at 4.0 and INR elevated at 1.6 felt related to the sepsis. He is on Eliquis chronically. BCx positive for Klebsiella. UA noted and that did not prompt a UCx. Source unclear. Consider related to recent instrumentation of the liver. Abx narrowed to Rocephin 2gm daily. Continue IV antibiotics. Per record review MRI 01/25/22 showed 2.5 cm x 2.2 cm area of increased enhancement in hepatic segment 7 and 3.8 mm arterial anteriorly enhancing observation without washout. CT chest/abdomen/pelvis showed no evidence of liver abscess. Patient is s/p cholecystectomy w/ no evidence of biliary duct or pancreatic duct dilatation on CT. Patient has been afebrile and overall appears clinically improved. -Will defer MRCP for now -Repeat blood cultures sent this morning. Will follow up in am. -Continue ceftriaxone 2g IV daily (2) Pneumonia: Code(s): J18.9 - Pneumonia, unspecified organism Status: Acute Assessment and Plan: Patient presents with fever, elevated lactic acid, nausea/vomiting abdominal pain. He denies any significant respiratory symptoms but his CT chest showing RLL airspace disease. Influenza and COVID negative. Cultures obtained and he was started on IV abx. WBC was low a 4300 but now normal. Fever curve improved. -Azithromycin given from 03/04-03/07. Will discontinue -Continue ceftriaxone for now for treatment of bacteremia -Will likely need at least 7 days of IV antibiotics from 03/06 (3) Elevated troponin: Code(s): R77.8 - Other specified abnormalities of plasma proteins Status: Acute Assessment and Plan: Troponin was elevated on admission and climbed to 1.61 before trending down. EKG by EMS showing NSR with PACs and QS in inferior leads but no acute findings. Repeat EKG showing no changes. No complaints of chest pain. Cardiology consulted and appreciate their input. Echo shwong EF 55% with Grade I diastolic dysfunction. Suspect elevated Trop related to sepsis. Continue ASA, statin, metoprolol. (4) ÁNGEL (acute kidney injury): Code(s): N17.9 - Acute kidney failure, unspecified Status: Acute Assessment and Plan: Baseline Cr 1.1-1.3 but Cr 1.4 on admission and climbed to 1.8. Sun 101. Likely ATN from the infection. Lasix and lisinopril held. R?Renal ultrasound unremarkable. Creatinine improved to 1.4 today. Will continue to monitor. -Continue holding furosemide and lisinopril -Avoid nephrotoxic agents -Renally dose medications (5) Hepatocellular carcinoma determined by biopsy of liver: Code(s): C22.0 - Liver cell carcinoma Status: Chronic Assessment and Plan: 8.1 cm mass noted in hepatic segments 6 & 7 initially. Had Y90 mapping on 09/14/2020 w/ subsequent R. hepatic artery Y90 sirspheres radio embolization on 09/16/2020. TACE of segment 6 lesion on 08/16/21 followed by thermal ablation on 09/02/21. 01/25/22 mri showed 2.5 cm x 2.2 cm area of increased enhancement in hepatic segment 7 adjacent to both treatment cavities and 3.8 mm faintly arterial anteriorly enhancing observation without washout in hepatic segment 7 adjacent to the first treatment cavity. Underwent image guided microwave ablation on 02/17/22. -Has outpatient follow up with [facility] (6) Anemia: Code(s): D64.9 - Anemia, unspecified Status: Acute Assessment and Plan: Patient with anemia which appears to be chronic. Anemia is microcytic. Iron studies are consistent with iron deficiency anemia. Stable. -Continue iron supplement (7) Deep venous thrombosis: Code(s): I82.409 - Acute embolism and thro
[2022-03-07] MEDS: FERROUS SULFATE 324 MG TABLET PO ×2 (08:08→16:54)
[2022-03-07] MEDS: metFORMIN HCL 500 MG TABLET PO ×2 (08:08→16:54)
[2022-03-07] MEDS: allopurinoL 300 MG TABLET PO (08:08)
[2022-03-07] MEDS: amLODIPine BESYLATE 5 MG TABLET PO (08:09)
[2022-03-07] MEDS: FENOFIBRATE NANOCRYSTALLIZED 145 MG TABLET PO (08:10)
[2022-03-07] MEDS: METOPROLOL SUCCINATE EXT REL 100 MG TABCR PO (08:10)
[2022-03-07] MEDS: LORATADINE 10 MG TABLET PO (08:10)
[2022-03-07] MEDS: CHOLECALCIFEROL 1,000 UNITS TABLET 1000 UNITS PO (08:10)
[2022-03-07] MEDS: APIXABAN 5 MG TABLET PO ×2 (08:10→16:54)
[2022-03-07] MEDS: FINASTERIDE 5 MG TABLET PO (08:10)
[2022-03-07] MEDS: ASPIRIN 81 MG ENTERIC TABLET PO (08:10)
[2022-03-07] MEDS: OXYBUTYNIN CHLORIDE 5 MG TABLET PO ×2 (08:11→16:54)
[2022-03-07] MEDS: PANTOPRAZOLE 40 MG TABLET PO ×2 (08:11→20:15)
[2022-03-07] MEDS: OMEGA 3 POLYUNSAT FATTY ACIDS 1 GM CAP PO (08:11)
[2022-03-07] MEDS: cefTRIAXone 2 GM in SODIUM CHLORIDE 0.9% IV 100 ML 200 ML IVPB (08:19)
[2022-03-07] MEDS: EUCERIN CREAM 120 GM JAR 1 APPLIC TOPICAL (08:19)
[2022-03-07] MEDS: polyethylene glycoL 3350 17 GM POWD.PACK PO (09:53)
[2022-03-07 16:25] LABS: Glucose Point of Care 137 mg/dl (65-105)
[2022-03-07] MEDS: SIMVASTATIN 20 MG TABLET PO (17:26)
[2022-03-07] MEDS: ACETAMINOPHEN 325 MG TABLET 650 MG PO (22:10)
[2022-03-08] VITALS (9 sets, daily range): BP systolic 120–149; BP diastolic 64–76; PULSE 52–77; RESP 16–17; TEMP 36.4–36.7; O2SAT 97–100
[2022-03-08 05:08] LABS: Basophils Absolute Auto 0.1 K/mm3 (0.0-0.1); Basophils Percent Auto 0.7 % (0.2-1.2); Eosinophils Absolute Auto 0.2 K/mm3 (0-0.3); Eosinophils Percent Auto 3.2 % (0-4.4); Hematocrit 31.9 % (42.0-52.0); Hemoglobin 9.6 g/dL (14.0-18.0); Immature Granulocyte Absolute 0.06 K/mm3 (0.00-0.031); Immature Granulocyte Percent A 0.9 % (0-0.5); Lymphocytes Absolute Auto 1.16 K/mm3 (0.9-3.2); Lymphocytes Percent Auto 17.1 % (18.3-44.2); Mean Corpuscular HGB Conc 30.1 g/dl (32-36); Mean Corpuscular Hemoglobin 23.2 pg (26-34); Mean Corpuscular Volume 77.1 fl (80-100); Mean Platelet Volume 11.6 fl (7.4-10.4); Monocytes Absolute Auto 0.8 K/mm3 (0.1-0.6); Monocytes Percent Auto 11.5 % (2.6-8.5); Neutrophils Absolute Auto 4.5 K/mm3 (1.3-6.7); Neutrophils Percent Auto 66.6 % (45.5-73.1); Platelet Count Result 265 k/mm3 (150-375); Red Blood Count 4.14 M/mm3 (4.6-6.20); Red Cell Distribution Width 16.8 % (11.5-14.5); White Blood Count 6.8 K/mm3 (4.5-10.0)
[2022-03-08 05:19] LABS: Anion Gap 4 mmol/L (8-16); Blood Urea Nitrogen 23 mg/dL (9-20); Calcium 9.1 mg/dL (8.4-10.2); Carbon Dioxide 26 mmol/L (22-30); Chloride 105 mmol/L (98-107); Estimated CRCL calculation 48 ml/min; Estimated Glomerular Filt Rate 54; Glucose 133 mg/dL (65-110); Potassium 4.9 mmol/L (3.4-5.0); Sodium 135 mmol/L (137-145)
[2022-03-08] MEDS: LEVOTHYROXINE SODIUM 100 MCG TABLET PO (05:59)
[2022-03-08 07:36] LABS: Glucose Point of Care 155 mg/dl (65-105)
[2022-03-08] MEDS: FERROUS SULFATE 324 MG TABLET PO ×2 (08:38→16:58)
[2022-03-08] MEDS: metFORMIN HCL 500 MG TABLET PO ×2 (08:38→16:58)
[2022-03-08] MEDS: allopurinoL 300 MG TABLET PO (08:39)
[2022-03-08] MEDS: ASPIRIN 81 MG ENTERIC TABLET PO (08:40)
[2022-03-08] MEDS: APIXABAN 5 MG TABLET PO ×2 (08:40→16:58)
[2022-03-08] MEDS: amLODIPine BESYLATE 5 MG TABLET PO (08:40)
[2022-03-08] MEDS: LORATADINE 10 MG TABLET PO (08:41)
[2022-03-08] MEDS: CHOLECALCIFEROL 1,000 UNITS TABLET 1000 UNITS PO (08:41)
[2022-03-08] MEDS: FINASTERIDE 5 MG TABLET PO (08:41)
[2022-03-08] MEDS: FENOFIBRATE NANOCRYSTALLIZED 145 MG TABLET PO (08:41)
[2022-03-08] MEDS: PANTOPRAZOLE 40 MG TABLET PO ×2 (08:42→20:42)
[2022-03-08] MEDS: OXYBUTYNIN CHLORIDE 5 MG TABLET PO ×2 (08:42→16:59)
[2022-03-08] MEDS: OMEGA 3 POLYUNSAT FATTY ACIDS 1 GM CAP PO (08:42)
[2022-03-08] MEDS: METOPROLOL SUCCINATE EXT REL 100 MG TABCR PO (08:42)
[2022-03-08] MEDS: cefTRIAXone 2 GM in SODIUM CHLORIDE 0.9% IV 100 ML 200 ML IVPB (08:44)
[2022-03-08] MEDS: EUCERIN CREAM 120 GM JAR 1 APPLIC TOPICAL (08:49)
[2022-03-08] MEDS: polyethylene glycoL 3350 17 GM POWD.PACK PO (09:52)
[2022-03-08] MEDS: LIDOCAINE HCL 1% LOCAL INJ 2 ML AMPUL 5 ML INFILTRATE (14:00)
[2022-03-08 16:26] LABS: Glucose Point of Care 114 mg/dl (65-105)
[2022-03-08] MEDS: SIMVASTATIN 20 MG TABLET PO (17:01)
--- NOTE | 2022-03-08 17:27 | PM.IMPN ---
Progress Note: A&P Assessment and Plan (1) Severe sepsis: Code(s): A41.9 - Sepsis, unspecified organism; R65.20 - Severe sepsis without septic shock Status: Acute Assessment and Plan: Severe sepsis with septicemia now with positive BCx. Present on admission with acute kidney injury, elevated Trop, fever and elevated lactic acid. D-dimer elevated at 4.0 and INR elevated at 1.6 felt related to the sepsis. He is on Eliquis chronically. BCx positive for Klebsiella. UA noted and that did not prompt a UCx. Source unclear. Consider related to recent instrumentation of the liver. Abx narrowed to Rocephin 2gm daily. Continue IV antibiotics. Per record review MRI 01/25/22 showed 2.5 cm x 2.2 cm area of increased enhancement in hepatic segment 7 and 3.8 mm arterial anteriorly enhancing observation without washout. CT chest/abdomen/pelvis showed no evidence of liver abscess. Patient is s/p cholecystectomy w/ no evidence of biliary duct or pancreatic duct dilatation on CT. Patient has been afebrile and overall appears clinically improved. -Will defer MRCP for now -Repeat blood cultures sent this morning. Will follow up in am. -Continue ceftriaxone 2g IV daily -03/08 blood cultures remain with no growth from 03/07/22. Patient discussed with care coordination who has approval to set up outpatient ceftriaxone to begin on 03/10. Patient will be discharged on 03/09 after receiving ceftriaxone. (2) Pneumonia: Code(s): J18.9 - Pneumonia, unspecified organism Status: Acute Assessment and Plan: Patient presents with fever, elevated lactic acid, nausea/vomiting abdominal pain. He denies any significant respiratory symptoms but his CT chest showing RLL airspace disease. Influenza and COVID negative. Cultures obtained and he was started on IV abx. WBC was low a 4300 but now normal. Fever curve improved. -Azithromycin given from 03/04-03/07. -Continue ceftriaxone for now for treatment of bacteremia -Will likely need at least 7 days of IV antibiotics from 03/06 (3) Elevated troponin: Code(s): R77.8 - Other specified abnormalities of plasma proteins Status: Acute Assessment and Plan: Troponin was elevated on admission and climbed to 1.61 before trending down. EKG by EMS showing NSR with PACs and QS in inferior leads but no acute findings. Repeat EKG showing no changes. No complaints of chest pain. Cardiology consulted and appreciate their input. Echo shwong EF 55% with Grade I diastolic dysfunction. Suspect elevated Trop related to sepsis. Continue ASA, statin, metoprolol. (4) ÁNGEL (acute kidney injury): Code(s): N17.9 - Acute kidney failure, unspecified Status: Acute Assessment and Plan: Baseline Cr 1.1-1.3 but Cr 1.4 on admission and climbed to 1.8. Sun 101. Likely ATN from the infection. Lasix and lisinopril held. R?Renal ultrasound unremarkable. Creatinine improved to 1.3 today. Will continue to monitor. -Continue holding furosemide and will restart lisinopril on 03/09 -Avoid nephrotoxic agents -Renally dose medications (5) Hepatocellular carcinoma determined by biopsy of liver: Code(s): C22.0 - Liver cell carcinoma Status: Chronic Assessment and Plan: 8.1 cm mass noted in hepatic segments 6 & 7 initially. Had Y90 mapping on 09/14/2020 w/ subsequent R. hepatic artery Y90 sirspheres radio embolization on 09/16/2020. TACE of segment 6 lesion on 08/16/21 followed by thermal ablation on 09/02/21. 01/25/22 mri showed 2.5 cm x 2.2 cm area of increased enhancement in hepatic segment 7 adjacent to both treatment cavities and 3.8 mm faintly arterial anteriorly enhancing observation without washout in hepatic segment 7 adjacent to the first treatment cavity. Underwent image guided microwave ablation on 02/17/22. -Has outpatient follow up with [facility] (6) Anemia: Code(s): D64.9 - Anemia, unspecified Status: Acute Assessment and Plan: Patient with an
[2022-03-08] MEDS: SALINE LOCK FLUSH 10 ML IV PUSH (20:42)
[2022-03-09] VITALS: PULSE 61
[2022-03-09 04:00] VITALS: PULSE 72
[2022-03-09 04:12] VITALS: BP 126/53; PULSE 67; RESP 18; TEMP 36.4; O2SAT 98
[2022-03-09 04:45] LABS: Alanine Aminotransferase 11 U/L (6-50); Albumin Level 3.2 g/dL (3.5-5.1); Alkaline Phosphatase 70 U/L (38-126); Anion Gap 3 mmol/L (8-16); Aspartate Amino Transferase 22 U/L (17-59); Bilirubin,Total 0.2 mg/dL (0.2-1.3); Blood Urea Nitrogen 20 mg/dL (9-20); Calcium 8.9 mg/dL (8.4-10.2); Carbon Dioxide 26 mmol/L (22-30); Chloride 106 mmol/L (98-107); Estimated CRCL calculation 53 ml/min; Estimated Glomerular Filt Rate 59; Glucose 111 mg/dL (65-110); Potassium 4.6 mmol/L (3.4-5.0); Sodium 135 mmol/L (137-145)
[2022-03-09] MEDS: LEVOTHYROXINE SODIUM 100 MCG TABLET PO (05:48)
[2022-03-09] MEDS: SALINE LOCK FLUSH 10 ML IV PUSH (05:48)
--- NOTE | 2022-03-09 07:34 | PM.DS ---
DS: Admitting Diagnosis Discharge Date 03/09/22 Admitting Diagnosis Sepsis, pneumonia DS: Discharge Diagnosis Discharge Diagnosis (1) Severe sepsis: Code(s): A41.9 - Sepsis, unspecified organism; R65.20 - Severe sepsis without septic shock Status: Acute Assessment and Plan: Severe sepsis with septicemia now with positive BCx. Present on admission with acute kidney injury, elevated Trop, fever and elevated lactic acid. D-dimer elevated at 4.0 and INR elevated at 1.6 felt related to the sepsis. He is on Eliquis chronically. BCx positive for Klebsiella. UA noted and that did not prompt a UCx. Source unclear. Consider related to recent instrumentation of the liver. Abx narrowed to Rocephin 2gm daily. Continue IV antibiotics. Per record review MRI 01/25/22 showed 2.5 cm x 2.2 cm area of increased enhancement in hepatic segment 7 and 3.8 mm arterial anteriorly enhancing observation without washout.? CT chest/abdomen/pelvis showed no evidence of liver abscess.? Patient is s/p cholecystectomy w/ no evidence of biliary duct or pancreatic duct dilatation on CT. Patient has been afebrile and overall appears clinically improved.? -Will defer MRCP for now -Repeat blood cultures sent this morning.? Will follow up in am. -Continue ceftriaxone 2g IV daily? -03/08 blood cultures remain with no growth from 03/07/22. Patient discussed with care coordination who has approval to set up outpatient ceftriaxone to begin on 03/10.? Patient will be discharged on 03/09 after receiving ceftriaxone.? -03/09 Antibiotics to be completed on 03/12 (2) Pneumonia: Code(s): J18.9 - Pneumonia, unspecified organism Status: Acute Assessment and Plan: Patient presents with fever, elevated lactic acid, nausea/vomiting abdominal pain.? He denies any significant respiratory symptoms but his CT chest showing RLL airspace disease. Influenza and COVID negative. Cultures obtained and he was started on IV abx. WBC was low a 4300 but now normal. Fever curve improved. -Azithromycin given from 03/04-03/07.? -Continue ceftriaxone for now for treatment of bacteremia -Will likely need at least 7 days of IV antibiotics from 03/04 (3) Elevated troponin: Code(s): R77.8 - Other specified abnormalities of plasma proteins Status: Acute Assessment and Plan: Troponin was elevated on admission and climbed to 1.61 before trending down. EKG by EMS showing NSR with PACs and QS in inferior leads but no acute findings. Repeat EKG showing no changes. No complaints of chest pain. Cardiology consulted and appreciate their input. Echo shwong EF 55% with Grade I diastolic dysfunction. Suspect elevated Trop related to sepsis. Continue ASA, statin, metoprolol. (4) ÁNGEL (acute kidney injury): Code(s): N17.9 - Acute kidney failure, unspecified Status: Acute Assessment and Plan: Baseline Cr 1.1-1.3 but Cr 1.4 on admission and climbed to 1.8. Sun 101. Likely ATN from the infection. Lasix and lisinopril held. R?Renal ultrasound unremarkable.? Creatinine improved to 1.3 today.? Will continue to monitor.? -Continue holding furosemide and will restart lisinopril on 03/09 -Avoid nephrotoxic agents -Renally dose medications (5) Hepatocellular carcinoma determined by biopsy of liver: Code(s): C22.0 - Liver cell carcinoma Status: Chronic Assessment and Plan: 8.1 cm mass noted in hepatic segments 6 & 7 initially.? Had Y90 mapping on 09/14/2020 w/ subsequent R. hepatic artery Y90 sirspheres radio embolization on 09/16/2020.? TACE of segment 6 lesion on 08/16/21 followed by thermal ablation on 09/02/21.? 01/25/22 mri showed 2.5 cm x 2.2 cm area of increased enhancement in hepatic segment 7 adjacent to both treatment cavities and 3.8 mm faintly arterial anteriorly enhancing observation without washout in hepatic segment 7 adjacent to the first treatment cavity.? Underwent image guided microwave ablation on 02/17/22.? -Has outpatient follow up with [facility] (6) Anemia:
[2022-03-09 07:38] LABS: Glucose Point of Care 120 mg/dl (65-105)
[2022-03-09 08:00] VITALS: BP 128/62; PULSE 67; PULSE 74; RESP 18; TEMP 36.4; O2SAT 98
[2022-03-09] MEDS: metFORMIN HCL 500 MG TABLET PO (08:41)
[2022-03-09] MEDS: FERROUS SULFATE 324 MG TABLET PO (08:41)
[2022-03-09] MEDS: allopurinoL 300 MG TABLET PO (08:42)
[2022-03-09] MEDS: APIXABAN 5 MG TABLET PO (08:42)
[2022-03-09] MEDS: amLODIPine BESYLATE 5 MG TABLET PO (08:42)
[2022-03-09] MEDS: ASPIRIN 81 MG ENTERIC TABLET PO (08:43)
[2022-03-09] MEDS: FENOFIBRATE NANOCRYSTALLIZED 145 MG TABLET PO (08:43)
[2022-03-09] MEDS: FINASTERIDE 5 MG TABLET PO (08:43)
[2022-03-09] MEDS: CHOLECALCIFEROL 1,000 UNITS TABLET 1000 UNITS PO (08:43)
[2022-03-09 08:44] VITALS: PULSE 78
[2022-03-09] MEDS: LORATADINE 10 MG TABLET PO (08:44)
[2022-03-09] MEDS: METOPROLOL SUCCINATE EXT REL 100 MG TABCR PO (08:44)
[2022-03-09] MEDS: OMEGA 3 POLYUNSAT FATTY ACIDS 1 GM CAP PO (08:44)
[2022-03-09] MEDS: PANTOPRAZOLE 40 MG TABLET PO (08:45)
[2022-03-09] MEDS: OXYBUTYNIN CHLORIDE 5 MG TABLET PO (08:45)
[2022-03-09] MEDS: cefTRIAXone 2 GM in SODIUM CHLORIDE 0.9% IV 100 ML 200 ML IVPB (08:46)
[2022-03-09] MEDS: EUCERIN CREAM 120 GM JAR 1 APPLIC TOPICAL (08:52)
[2022-03-09 12:00] VITALS: PULSE 64
== END 2022-03-09 12:59 | disposition home or self-care (01) | DRG 194 ==
LOC: ANHED 23:35 → ANHIMU 03-04 11:35 → ANH2MED 03-04 23:17
PROVIDERS: Chiropractor; General Practice; Internal Medicine; Admitting Provider Internal Medicine; Emergency Provider Emergency Medicine; PCP Family Medicine Adolescent Medicine; Visit Provider Family Medicine
DX: J18.9 Pneumonia, unspecified organism (principal); C22.0 Liver cell carcinoma; C84.A0 Cutaneous T-cell lymphoma, unspecified, unspecified site; I27.82 Chronic pulmonary embolism; N17.9 Acute kidney failure, unspecified; Z20.822 Contact with and (suspected) exposure to COVID-19; D50.9 Iron deficiency anemia, unspecified; E11.65 Type 2 diabetes mellitus with hyperglycemia; E11.69 Type 2 diabetes mellitus with other specified complication; E78.5 Hyperlipidemia, unspecified; E66.01 Morbid (severe) obesity due to excess calories; E03.9 Hypothyroidism, unspecified; I25.2 Old myocardial infarction; I11.9 Hypertensive heart disease without heart failure; I25.10 Atherosclerotic heart disease of native coronary artery without angina pectoris; I27.20 Pulmonary hypertension, unspecified; G89.29 Other chronic pain; J43.9 Emphysema, unspecified; K59.00 Constipation, unspecified; K21.9 Gastro-esophageal reflux disease without esophagitis; M10.9 Gout, unspecified; M54.9 Dorsalgia, unspecified; R77.8 Other specified abnormalities of plasma proteins; Z79.4 Long term (current) use of insulin; Z77.090 Contact with and (suspected) exposure to asbestos; Z79.01 Long term (current) use of anticoagulants; Z85.820 Personal history of malignant melanoma of skin; Z95.5 Presence of coronary angioplasty implant and graft; Z86.718 Personal history of other venous thrombosis and embolism; Z68.34 Body mass index [BMI] 34.0-34.9, adult; Z96.653 Presence of artificial knee joint, bilateral; Z90.49 Acquired absence of other specified parts of digestive tract; Z79.82 Long term (current) use of aspirin; Z79.84 Long term (current) use of oral hypoglycemic drugs
CPT/HCPCS: 36415; 36569; 71045; 71275; 74177; 76775; 80048; 80053; 80069; 81001; 82550; 82570; 82728; 82948; 83036; 83540; 83550; 83605; 83690; 83735; 83880; 84100; 84300; 84439; 84443; 84480; 84484; 85025; 85027; 85380; 85610; 85730; 85999; 87040; 87077; 87186; 87502; 93005; 93970; 96361; 96365; 96366; 96367; 96368; 97161; 99285; A9270; C1751; C8929; C9803; G0378; J0131; J0456; J0692; J0696; J1815; J1956; J2405; J2765; J3370; J3475; Q9957; Q9967; U0003; U0005

== ENCOUNTER 2022-03-12 21:24 | Inpatient (IN) | payer MEDICARE, SELFPAY ==
[2022-03-12] VITALS (20 sets, daily range): BP systolic 133–159; BP diastolic 69–86; PULSE 95–102; RESP 18–30; TEMP 37.6–38.2; O2SAT 97–100
--- NOTE | ~2022-03-12 | XR_ITS ---
EXAMINATION: XR chest 1V portable INDICATION: Weakness TECHNIQUE: Portable AP chest at 0943 hours COMPARISON: 03/03/2022 FINDINGS: There are persistent but improved airspace opacities of the lung bases. No pleural effusion or pneumothorax. The cardiomediastinal silhouette is stable. IMPRESSION: 1. Persistent but improving bibasilar airspace opacities, consistent with atelectasis versus pneumoni a. Reviewed, dictated and finalized at location A. IMPRESSION: 1. Persistent but improving bibasilar airspace opacities, consistent with atele ctasis versus pneumonia.
--- NOTE | 2022-03-12 21:33 | ECG_ITS ---
Measurements Intervals [facility] Rate: 100 P: 112 WV: 149 QRS: 5 QRSD: 87 T: 18 QT: 327 QTc: 422 Interpretive Statements SINUS TACHYCARDIA WITH OCCASIONAL VENTRICULAR PREMATURE COMPLEXES WITH OCCASIONAL SUPRAVENTRICULAR PREMATURE COMPLEXES INFERIOR MYOCARDIAL INFARCTION , OLD [40+ ms Q WAVE AND/OR ST/T ABNORMALITY IN II/aVF] ABNORMAL ECG COMPARED WITH 03/05/2022 1 PVC IS SEEN Electronically Signed On 03-13-2022 7:14:29 CDT by Abisai Patton M.D.
--- NOTE | 2022-03-12 21:36 | ED.GENADULT ---
HPI - General Adult General Chief complaint: Weakness Stated complaint: weakness and chills Time Seen by Provider: 03/12/22 21:26 History of Present Illness HPI narrative: Patient is a 76-year-old gentleman who presents to the emergency department with chief complaint of fever. Patient reports he was just in the hospital and was discharged home with a PICC line and IV antibiotics completed his dose of IV antibiotics yesterday and the visiting nurse noticed that he was having chills today and a possible fever. Patient states that otherwise he feels okay denies chest pain denies cough. Visiting nurse was concerned that he may have sepsis or bacteremia secondary to having a PICC line Related Data Home Medications Medication Instructions Recorded Confirmed apixaban 5 mg tablet (Eliquis) 5 mg PO BID 08/27/19 03/04/22 aspirin 81 mg tablet,delayed 81 mg PO DAILY 08/27/19 03/04/22 release (Adult Low Dose Aspirin) finasteride 5 mg tablet (Proscar) 5 mg PO DAILY 08/27/19 03/04/22 fenofibrate nanocrystallized 145 145 mg PO DAILY 02/27/20 03/06/22 mg tablet (Tricor) fexofenadine 180 mg tablet 180 mg PO DAILY 02/27/20 03/04/22 ([place] Allergy) levothyroxine 25 mcg tablet 100 mcg PO QAM 02/27/20 03/06/22 simvastatin 20 mg tablet 40 mg PO QPM 02/27/20 03/06/22 bexarotene 75 mg capsule 300 mg PO DAILY 02/28/20 03/06/22 (Targretin) pen needle, diabetic 32 gauge x #10 ea 07/06/20 03/04/22 5/32 (BD Ultra-Fine Xochilt Pen Needle) umeclidinium 62.5 mcg-vilanterol 1 inh inhalation DAILY PRN 02/24/21 03/04/22 25 mcg/actuation powdr for Adequate Ventilation inhalation (Anoro Ellipta) cholecalciferol (vitamin D3) 25 25 mcg PO DAILY 10/06/21 03/04/22 mcg (1,000 unit) tablet Adults Multivitamin 1 tablet PO DAILY 03/06/22 03/06/22 loperamide 2 mg capsule (Imodium 2 mg PO TID PRN Diarrhea 03/06/22 03/06/22 A-D) metolazone 5 mg tablet 5 mg PO DAILY 03/06/22 03/06/22 omega-3 acid ethyl esters 1 gram 1 cap PO BID 03/06/22 03/06/22 capsule polyethylene glycol 3350 17 gram 17 g PO DAILY 03/06/22 03/06/22 oral powder packet Allergies Allergy/AdvReac Type Severity Reaction Status Date / Time No Known Allergies Allergy Verified 03/03/22 19:09 Review of Systems Review of Systems: A 10 system review of systems was completed on the patient and is negative except for what is stated in the HPI. Nursing and ancillary documentation was reviewed. [facility] Past Medical History Medical History ÁNGEL (acute kidney injury) Asbestosis CAD (coronary artery disease) Chronic anticoagulation Chronic back pain Chronic obstructive pulmonary disease COPD (chronic obstructive pulmonary disease) Coronary artery disease With history of PR and stent. Patient of Dr. Abisai Patton. 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 Type 2 diabetes mellitus with hyperglycemia, with long-term current use of insulin Surgical History Surgical History History of bilateral inguinal hernia repair History of bilateral knee arthroplasty History of cystoscopy With stone extraction. History of facial surgery Repair of left orbital fracture. History of left knee replacement History of liver biopsy 07/19/2020 History of shoulder surgery Left shoulder ORIF. History of tonsillectomy History of umbilical hernia repair Hx laparoscopic cholecyst
[2022-03-12 22:16] LABS: Basophils Absolute Auto 0.1 K/mm3 (0.0-0.1); Basophils Percent Auto 0.3 % (0.2-1.2); Eosinophils Percent Auto 0.1 % (0-4.4); Hematocrit 31.6 % (42.0-52.0); Hemoglobin 9.9 g/dL (14.0-18.0); Immature Granulocyte Percent A 0.7 % (0-0.5); Lymphocytes Absolute Auto 0.35 K/mm3 (0.9-3.2); Lymphocytes Percent Auto 2.3 % (18.3-44.2); Mean Corpuscular HGB Conc 31.3 g/dl (32-36); Mean Corpuscular Hemoglobin 23.6 pg (26-34); Mean Corpuscular Volume 75.4 fl (80-100); Mean Platelet Volume 10.4 fl (7.4-10.4); Monocytes Absolute Auto 0.2 K/mm3 (0.1-0.6); Monocytes Percent Auto 1.6 % (2.6-8.5); Neutrophils Absolute Auto 14.4 K/mm3 (1.3-6.7); Platelet Count Result 294 k/mm3 (150-375); Red Blood Count 4.19 M/mm3 (4.6-6.20); White Blood Count 15.2 K/mm3 (4.5-10.0)
[2022-03-12 22:25] LABS: Lactic Acid Reflex 1.4 mmol/L (0.7-2.0)
[2022-03-12 22:26] LABS: Alanine Aminotransferase 11 U/L (6-50); Albumin Level 3.7 g/dL (3.5-5.1); Alkaline Phosphatase 85 U/L (38-126); Anion Gap 7 mmol/L (8-16); Aspartate Amino Transferase 21 U/L (17-59); Bilirubin,Total 0.3 mg/dL (0.2-1.3); Blood Urea Nitrogen 17 mg/dL (9-20); Calcium 9.1 mg/dL (8.4-10.2); Carbon Dioxide 24 mmol/L (22-30); Chloride 105 mmol/L (98-107); Estimated CRCL calculation 46 ml/min; Estimated Glomerular Filt Rate 49; Glucose 155 mg/dL (65-110); Potassium 4.3 mmol/L (3.4-5.0); Sodium 136 mmol/L (137-145)
[2022-03-12 22:45] LABS: NT Pro B Type Natriuretic Pept 326 pg/mL (5-100)
[2022-03-12 22:50] LABS: Appearance Urine Clear (Clear); Blood Urine Negative (Negative); Color Urine Yellow (Yellow); Glucose Urine UA Negative (Negative); Ketones Urine Trace mg/dL (Negative); Protein Urine Negative (Negative); Specific Grav Ur 1.025 (1.001-1.035)
[2022-03-12 22:51] LABS: Bilirubin Urine Negative (Negative); Leukocyte Esterase Ur Negative LEU/UL (Negative); Nitrate Urine Negative (Negative); Urobilinogen Urine 0.2 mg/dL (<2.0)
[2022-03-12 22:52] LABS: SARS-CoV-2 RNA PCR Negative
[2022-03-12 22:59] LABS: Troponin I 0.019 ng/mL (0.000-0.034)
[2022-03-12 23:00] LABS: Mucus Urine Rare /lpf; RBC Urine 0-2 /hpf (0-2); Squamous Epithelial Cell Urine Rare /hpf (Few); WBC Urine 0-3 /hpf
--- NOTE | 2022-03-12 23:03 | PC.NURSE ---
Patient report given to NÉSTOR Palencia. All questions answered and care of patient transferred.
[2022-03-12 23:06] LABS: Add Urine Microscopic? YES
--- NOTE | 2022-03-12 23:09 | PC.NURSE ---
pt. requested that temperature be taken due to feeling chills and skin is warm. Oral temperature is 99.7 and is charted as such.
--- NOTE | 2022-03-12 23:36 | PM.IMHP ---
H&P: HPI History of Present Illness Date/Time: 03/12/22 23:36 Chief Complaint: Fever Narrative: This is a 76-year-old male with past medical history significant for T-cell lymphoma of the skin, recent skin cancer excision from the scalp area, bacteremia with PICC line in place patient discharged home on Rocephin however had a fever spike when his home health nurse came to check on him patient states that he had not been feeling well in the last day or so having chills, shivering, feeling very tired, fatigued, decreased energy, decreased appetite. In emergency [place] [id number] [place] in there had a low-grade temperature. Patient is been admitted for further evaluation management and treatment. Review of Systems Review of Systems: Fever, shivers. Constitutional: Comments: Fevers, poor appetite, low energy, fatigue, rigors, shivering. Eyes: Eyes: Denies change in vision ENT: Denies dysphagia, Denies vertigo, Denies dizziness and Denies odynophagia Cardiovascular: Cardiovascular: Denies chest pain, Denies syncope, Denies irregular heart rhythm, Denies lightheadedness, Denies palpitations and Denies dyspnea on exertion Respiratory: Respiratory: Denies chest congestion, Denies cough and Denies excessive phlegm production Gastrointestinal: Gastrointestinal: Denies abdominal pain, Denies dyspepsia, Denies heartburn, Denies diarrhea, Denies nausea and Denies vomiting Genitourinary: Genitourinary: Denies dysuria Musculoskeletal: Musculoskeletal: Reports muscle weakness Integumentary/Breasts: Skin/Breast: Reports rash Psychiatric: Psychiatric: Reports no additional psychiatric complaints and Reports as per HPI Endocrine: Endocrine: Denies cold intolerance, Denies fatigue, Denies flushing, Denies heat intolerance, Denies polyphagia, Denies polydipsia, Denies polyuria and Denies palpitations Hematologic/Lymphatic: Hematologic/Lymphatic: Reports no additional hematologic/lymphatic complaints and Reports as per HPI Allergic/Immunologic: Allergic/Immunologic: Reports no additional allergic/immunologic complaints and Reports as per HPI PMFSH Past Medical History Medical History (Updated 03/13/22 @ 05:06 by Segundo Mcnamara MD) ÁNGEL (acute kidney injury) Asbestosis CAD (coronary artery disease) Chronic anticoagulation Chronic back pain Chronic obstructive pulmonary disease COPD (chronic obstructive pulmonary disease) Coronary artery disease With history of [place] and stent. Patient of Dr. Abisai Patton. 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 Type 2 diabetes mellitus with hyperglycemia, with long-term current use of insulin Surgical History Surgical History History of bilateral inguinal hernia repair History of bilateral knee arthroplasty History of cystoscopy With stone extraction. History of facial surgery Repair of left orbital fracture. History of left knee replacement History of liver biopsy 07/19/2020 History of shoulder surgery Left shoulder ORIF. History of tonsillectomy History of umbilical hernia repair Hx laparoscopic cholecystectomy 07/19/2020 Stented coronary artery (~1998) Family History Family History Father Family history of arthritis Family history of congestive heart failure Family history of heart disease in male family member before age 55 Family histor
[2022-03-13] VITALS (7 sets, daily range): BP systolic 101–132; BP diastolic 54–96; PULSE 71–90; RESP 16–17; TEMP 36.1–36.9; O2SAT 94–100; BMI 33.5
[2022-03-13] MEDS: SODIUM CHLORIDE 0.9% IV 1,000 ML 150 ML IV CONT (00:17)
--- NOTE | 2022-03-13 02:17 | ADMGEN ---
This patient, Bo Barragan, was admitted to 3 Med Surg Room 310-01. Patient/family oriented to hospital policies and general routines including ID bracelet, bed and alarms, visiting hours, pain management, procedures, bathroom and other care routines, personal items, smoking policy, room service/diet, and visiting hours. Information on how to activate the Rapid Response Team has been discussed. Patient/Family are encouraged to report perceived risks to care and to ask questions if they do not understand what they are told or what they should do.
[2022-03-13] MEDS: SODIUM CHLORIDE 0.9% IV 1,000 ML 125 ML IV CONT ×3 (04:07→20:29)
[2022-03-13] MEDS: LEVOTHYROXINE SODIUM 100 MCG TABLET PO (06:35)
[2022-03-13] MEDS: FERROUS SULFATE 324 MG TABLET PO ×2 (08:36→16:56)
[2022-03-13] MEDS: metOLazone 5 MG TABLET PO (08:36)
[2022-03-13] MEDS: OMEGA 3 POLYUNSAT FATTY ACIDS 1 GM CAP PO ×2 (08:36→16:56)
[2022-03-13] MEDS: allopurinoL 300 MG TABLET PO (08:36)
[2022-03-13] MEDS: CHOLECALCIFEROL 1,000 UNITS TABLET 1000 UNITS PO (08:36)
[2022-03-13] MEDS: FINASTERIDE 5 MG TABLET PO (08:36)
[2022-03-13] MEDS: APIXABAN 5 MG TABLET PO ×2 (08:36→16:56)
[2022-03-13] MEDS: FENOFIBRATE NANOCRYSTALLIZED 145 MG TABLET PO (08:36)
[2022-03-13] MEDS: lisinopriL 20 MG TABLET PO (08:36)
[2022-03-13] MEDS: ASPIRIN 81 MG ENTERIC TABLET PO (08:36)
[2022-03-13] MEDS: MULTIVITAMINS THERAPEUTIC TAB (*BKC) 1 TABLET PO (08:37)
[2022-03-13] MEDS: FUROSEMIDE 40 MG TABLET PO (08:37)
[2022-03-13] MEDS: OXYBUTYNIN CHLORIDE 5 MG TABLET PO ×2 (08:37→16:56)
[2022-03-13] MEDS: PANTOPRAZOLE 40 MG TABLET PO ×2 (08:37→16:56)
[2022-03-13] MEDS: LORATADINE 10 MG TABLET PO (08:38)
[2022-03-13] MEDS: METOPROLOL SUCCINATE EXT REL 100 MG TABCR PO (08:38)
[2022-03-13] MEDS: amLODIPine BESYLATE 5 MG TABLET PO (08:38)
--- NOTE | 2022-03-13 10:14 | PCCCNOTE ---
On 03/13/22, the student, [Gracie Cordon], provided care and completed [facility] documentation on this patient. I have reviewed the student's documentation and agree with the findings.
[2022-03-13 12:08] LABS: Glucose Point of Care 95 mg/dl (65-105)
--- NOTE | 2022-03-13 16:44 | PM.IMPN ---
Progress Note: A&P Assessment and Plan (1) Acute febrile illness: Code(s): R50.9 - Fever, unspecified Status: Acute Assessment and Plan: Could be secondary to malignancy as opposed to acute infection, follow-up blood cultures (2) Chronic obstructive pulmonary disease: Code(s): J44.9 - Chronic obstructive pulmonary disease, unspecified Status: Acute (3) Chronic back pain: Code(s): M54.9 - Dorsalgia, unspecified; G89.29 - Other chronic pain Status: Acute (4) Insulin dependent type 2 diabetes mellitus: Code(s): E11.9 - Type 2 diabetes mellitus without complications; Z79.4 - alf (current) use of insulin Status: Acute (5) CAD (coronary artery disease): Qualifiers: Coronary Disease-Associated Artery/Lesion type: [place] artery [place] vs. transplanted heart: [place] heart Associated angina: without angina Qualified Code(s): I25.10 - Atherosclerotic heart disease of [place] coronary artery without angina pectoris Code(s): I25.10 - Atherosclerotic heart disease of [place] coronary artery without angina pectoris Status: Acute (6) Hepatocellular carcinoma determined by biopsy of liver: Code(s): C22.0 - Liver cell carcinoma Status: Chronic (7) Gastroesophageal reflux disease: Code(s): K21.9 - Gastro-esophageal reflux disease without esophagitis Status: Acute Subjective Date/time seen: 03/13/22 16:44 Interval history: Patient sitting up in chair, feels completely normal. No overnight events noted. No chest pain or shortness of breath. No nausea, vomiting or diarrhea. No fevers or chills. Review of Systems Review of Systems: 12 point review of systems was assessed and was negative except as noted in the HPI Exam Narrative: General: No acute distress, alert and oriented per baseline HEENT: Atraumatic, normocephalic, mucous membranes moist CV: Regular rate and rhythm, S1, S2 Lungs: Clear to auscultation bilaterally, no rales or crackles noted, no wheezes, good air entry Abdomen: Soft, nontender, nondistended Extremities: Normal to inspection Skin: No rashes noted, no lesions or wounds seen Psych: Euthymic, normal affect Objective Data Vital Signs Vital Signs: Vital Signs - 24 hr 03/12/22 21:21 03/12/22 21:43 03/12/22 21:29 Temperature 100.8 F H Pulse Rate 96 97 Respiratory Rate 23 H 18 Blood Pressure 133/69 Pulse Oximetry 97 99 Oxygen Delivery Room Air 03/12/22 21:30 03/12/22 21:31 03/12/22 21:32 Temperature Pulse Rate 97 95 96 Respiratory Rate 20 23 H 30 H Blood Pressure 154/73 H 133/69 Pulse Oximetry 97 97 97 Oxygen Delivery 03/12/22 21:33 03/12/22 21:45 03/12/22 21:47 Temperature Pulse Rate 96 96 97 Respiratory Rate 23 H 23 H 27 H Blood Pressure 139/73 Pulse Oximetry 98 100 100 Oxygen Delivery 03/12/22 21:48 03/12/22 22:00 03/12/22 22:02 Temperature Pulse Rate 97 97 96 Respiratory Rate 26 H 21 H 22 H Blood Pressure 159/86 H Pulse Oximetry 99 100 100 Oxygen Delivery 03/12/22 22:15 03/12/22 22:48 03/12/22 22:35 Temperature Pulse Rate 99 100 101 H Respiratory Rate 23 H 26 H Blood Pressure Pulse Oximetry 100 99 Oxygen Delivery 03/12/22 22:45 03/12/22 22:47 03/12/22 23:00 Temperature Pulse Rate 101 H 100 102 H Respiratory Rate 22 H 25 H 30 H Blood Pressure 150/72 H Pulse Oximetry 98 97 Oxygen Delivery 03/12/22 23:02 03/12/22 23:09 03/13/22 00:24 Temperature 99.7 F H 98.3 F Pulse Rate 101 H 90 Respiratory Rate 30 H 17 Blood Pressure 135/71 117/63 Pulse Oximetry 99 Oxygen Delivery 03/13/22 01:50 03/13/22 06:00 03/13/22 08:38 Temperature 98.3 F 97.0 F L Pulse Rate 80 80 80 Respiratory Rate 16 16 Blood Pressure 125/66 132/54 L Pulse Oximetry 94 97 Oxygen Delivery 03/13/22 08:00 03/13/22 14:49 Temperature 97.9 F Pulse Rate 80 73 Respiratory Rate 16 16 Blood Pressure 1
[2022-03-13] MEDS: SIMVASTATIN 20 MG TABLET 40 MG PO (16:56)
[2022-03-13 16:59] LABS: Glucose Point of Care 164 mg/dl (65-105)
--- NOTE | 2022-03-13 17:54 | PC.NURSE ---
draw labs from picc line, aspirated good blood returned caps changed and labs sent to lab for analysis, collected lactic and procalcitonin.
[2022-03-13 18:08] LABS: Lactic Acid Reflex 1.5 mmol/L (0.7-2.0)
[2022-03-13 18:39] LABS: Procalcitonin 1.3 ng/mL
[2022-03-13] MEDS: ACETAMINOPHEN 325 MG TABLET 650 MG PO (20:29)
[2022-03-13 20:40] LABS: Glucose Point of Care 171 mg/dl (65-105)
[2022-03-14] MEDS: SODIUM CHLORIDE 0.9% IV 1,000 ML 125 ML IV CONT ×3 (01:35→16:30)
[2022-03-14 05:52] VITALS: BP 119/59; PULSE 68; RESP 18; TEMP 36.7; O2SAT 99
[2022-03-14 06:23] LABS: Basophils Percent Auto 0.4 % (0.2-1.2); Eosinophils Absolute Auto 0.2 K/mm3 (0-0.3); Eosinophils Percent Auto 2.2 % (0-4.4); Hematocrit 29.4 % (42.0-52.0); Hemoglobin 9.3 g/dL (14.0-18.0); Immature Granulocyte Absolute 0.04 K/mm3 (0.00-0.031); Immature Granulocyte Percent A 0.6 % (0-0.5); Lymphocytes Absolute Auto 0.98 K/mm3 (0.9-3.2); Lymphocytes Percent Auto 13.6 % (18.3-44.2); Mean Corpuscular HGB Conc 31.6 g/dl (32-36); Mean Corpuscular Hemoglobin 23.7 pg (26-34); Mean Platelet Volume 10.6 fl (7.4-10.4); Monocytes Absolute Auto 0.6 K/mm3 (0.1-0.6); Monocytes Percent Auto 7.8 % (2.6-8.5); Neutrophils Absolute Auto 5.4 K/mm3 (1.3-6.7); Neutrophils Percent Auto 75.4 % (45.5-73.1); Platelet Count Result 248 k/mm3 (150-375); Red Blood Count 3.92 M/mm3 (4.6-6.20); Red Cell Distribution Width 16.9 % (11.5-14.5); White Blood Count 7.2 K/mm3 (4.5-10.0)
[2022-03-14] MEDS: LEVOTHYROXINE SODIUM 100 MCG TABLET PO (06:40)
[2022-03-14 06:47] LABS: Alanine Aminotransferase 9 U/L (6-50); Albumin Level 3.3 g/dL (3.5-5.1); Alkaline Phosphatase 71 U/L (38-126); Anion Gap 6 mmol/L (8-16); Aspartate Amino Transferase 20 U/L (17-59); Bilirubin,Total 0.3 mg/dL (0.2-1.3); Blood Urea Nitrogen 19 mg/dL (9-20); Calcium 8.7 mg/dL (8.4-10.2); Carbon Dioxide 25 mmol/L (22-30); Chloride 106 mmol/L (98-107); Estimated CRCL calculation 50 ml/min; Estimated Glomerular Filt Rate 54; Glucose 143 mg/dL (65-110); Sodium 137 mmol/L (137-145)
[2022-03-14 08:00] VITALS: PULSE 70; RESP 18; O2SAT 99
[2022-03-14] MEDS: MULTIVITAMINS THERAPEUTIC TAB (*BKC) 1 TABLET PO (08:18)
[2022-03-14] MEDS: FERROUS SULFATE 324 MG TABLET PO ×2 (08:18→17:11)
[2022-03-14] MEDS: metOLazone 5 MG TABLET PO (08:18)
[2022-03-14] MEDS: lisinopriL 20 MG TABLET PO (08:19)
[2022-03-14] MEDS: CHOLECALCIFEROL 1,000 UNITS TABLET 1000 UNITS PO (08:19)
[2022-03-14] MEDS: FENOFIBRATE NANOCRYSTALLIZED 145 MG TABLET PO (08:19)
[2022-03-14] MEDS: FINASTERIDE 5 MG TABLET PO (08:19)
[2022-03-14] MEDS: OXYBUTYNIN CHLORIDE 5 MG TABLET PO ×2 (08:19→17:11)
[2022-03-14] MEDS: FUROSEMIDE 40 MG TABLET PO (08:19)
[2022-03-14] MEDS: allopurinoL 300 MG TABLET PO (08:19)
[2022-03-14] MEDS: OMEGA 3 POLYUNSAT FATTY ACIDS 1 GM CAP PO ×2 (08:19→17:11)
[2022-03-14] MEDS: amLODIPine BESYLATE 5 MG TABLET PO (08:19)
[2022-03-14] MEDS: ASPIRIN 81 MG ENTERIC TABLET PO (08:19)
[2022-03-14] MEDS: PANTOPRAZOLE 40 MG TABLET PO ×2 (08:19→17:11)
[2022-03-14] MEDS: LORATADINE 10 MG TABLET PO (08:19)
[2022-03-14] MEDS: APIXABAN 5 MG TABLET PO ×2 (08:19→17:11)
[2022-03-14 08:20] VITALS: PULSE 70
[2022-03-14] MEDS: METOPROLOL SUCCINATE EXT REL 100 MG TABCR PO (08:20)
[2022-03-14 08:53] LABS: Glucose Point of Care 131 mg/dl (65-105)
[2022-03-14] MEDS: cefTRIAXone 2 GM in SODIUM CHLORIDE 0.9% IV 100 ML 200 ML IVPB (09:12)
[2022-03-14 12:16] LABS: Glucose Point of Care 152 mg/dl (65-105)
[2022-03-14 14:00] VITALS: BP 120/57; PULSE 75; RESP 18; TEMP 36.9; O2SAT 97
--- NOTE | 2022-03-14 15:23 | PC.NURSE ---
called pt brother to bring in home medication for pt.
[2022-03-14 17:04] LABS: Glucose Point of Care 156 mg/dl (65-105)
[2022-03-14] MEDS: SIMVASTATIN 20 MG TABLET 40 MG PO (17:11)
[2022-03-14 17:36] LABS: Basophils Absolute Auto 0.1 K/mm3 (0.0-0.1); Basophils Percent Auto 0.6 % (0.2-1.2); Eosinophils Absolute Auto 0.1 K/mm3 (0-0.3); Hematocrit 33.2 % (42.0-52.0); Hemoglobin 10.2 g/dL (14.0-18.0); Immature Granulocyte Absolute 0.03 K/mm3 (0.00-0.031); Immature Granulocyte Percent A 0.4 % (0-0.5); Lymphocytes Absolute Auto 0.67 K/mm3 (0.9-3.2); Lymphocytes Percent Auto 8.3 % (18.3-44.2); Mean Corpuscular HGB Conc 30.7 g/dl (32-36); Mean Corpuscular Hemoglobin 23.4 pg (26-34); Mean Corpuscular Volume 76.1 fl (80-100); Mean Platelet Volume 10.4 fl (7.4-10.4); Monocytes Absolute Auto 0.5 K/mm3 (0.1-0.6); Monocytes Percent Auto 6.6 % (2.6-8.5); Neutrophils Absolute Auto 6.7 K/mm3 (1.3-6.7); Neutrophils Percent Auto 83.1 % (45.5-73.1); Platelet Count Result 275 k/mm3 (150-375); Red Blood Count 4.36 M/mm3 (4.6-6.20); Red Cell Distribution Width 17.1 % (11.5-14.5)
--- NOTE | 2022-03-14 17:50 | PM.IMPN ---
Progress Note: A&P Assessment and Plan (1) Acute febrile illness: Code(s): R50.9 - Fever, unspecified Status: Acute Assessment and Plan: Deescalated antibiotics back to Rocephin, cultures remain negative, patient asymptomatic Unsure of source of patient's symptoms, suspect intra-abdominal source as patient's primary symptoms prior to bacteremia were nausea and vomiting, urine cultures were negative, therefore will switch patient to Cipro and Flagyl for an additional 7 days (2) Chronic obstructive pulmonary disease: Code(s): J44.9 - Chronic obstructive pulmonary disease, unspecified Status: Acute Assessment and Plan: Not actively wheezing Continue home meds (3) Chronic back pain: Code(s): M54.9 - Dorsalgia, unspecified; G89.29 - Other chronic pain Status: Acute Assessment and Plan: Tylenol as needed (4) Insulin dependent type 2 diabetes mellitus: Code(s): E11.9 - Type 2 diabetes mellitus without complications; Z79.4 - rn long term care (current) use of insulin Status: Acute Assessment and Plan: Carb consistent diet Accu-Cheks AC and HS Continue home meds (5) CAD (coronary artery disease): Qualifiers: Coronary Disease-Associated Artery/Lesion type: [place] artery [place] vs. transplanted heart: [place] heart Associated angina: without angina Qualified Code(s): I25.10 - Atherosclerotic heart disease of [place] coronary artery without angina pectoris Code(s): I25.10 - Atherosclerotic heart disease of [place] coronary artery without angina pectoris Status: Acute Assessment and Plan: Chest pain-free Continue home meds (6) Hepatocellular carcinoma determined by biopsy of liver: Code(s): C22.0 - Liver cell carcinoma Status: Chronic Assessment and Plan: Unchanged Follow-up in outpatient setting (7) Gastroesophageal reflux disease: Code(s): K21.9 - Gastro-esophageal reflux disease without esophagitis Status: Acute Assessment and Plan: PPI as needed Subjective Date/time seen: 03/14/22 17:50 Interval history: Patient sitting up to chair. No overnight events noted. No chest pain or shortness of breath. No nausea, vomiting or diarrhea. No fevers or chills. Review of Systems Review of Systems: 12 point review of systems was assessed and was negative except as noted in the HPI Exam Narrative: General: No acute distress, alert and oriented per baseline HEENT: Atraumatic, normocephalic, mucous membranes moist CV: Regular rate and rhythm, S1, S2 Lungs: Clear to auscultation bilaterally, no rales or crackles noted, no wheezes, good air entry Abdomen: Soft, nontender, nondistended Extremities: Normal to inspection Skin: No rashes noted, no lesions or wounds seen Psych: Euthymic, normal affect Objective Data Vital Signs Vital Signs: Vital Signs - 24 hr 03/13/22 21:56 03/13/22 20:00 03/14/22 05:52 Temperature 98.5 F 98.1 F Pulse Rate 71 68 Respiratory Rate 17 18 Blood Pressure 101/62 119/59 L Pulse Oximetry 100 99 Oxygen Delivery Room Air 03/14/22 08:20 03/14/22 08:00 03/14/22 14:00 Temperature 98.5 F Pulse Rate 70 70 75 Respiratory Rate 18 18 Blood Pressure 120/57 L Pulse Oximetry 99 97 Oxygen Delivery Room Air Intake/Output Intake/Output: Intake & Output 03/11/22 03/12/22 03/13/22 03/14/22 23:59 23:59 23:59 23:59 Intake Total 5410 4460 Output Total 1050 1425 Balance 4360 3035 Meds/Results Medications: Active Medications Generic Name Dose Route Start Last Admin Trade Name Moisesq PRN Reason Stop Dose Admin Acetaminophen 650 mg 03/13/22 00:08 03/13/22 20:29 Acetaminophen 325 Mg Tablet PO 650 mg Q4H PRN Administration Mild Pain (1-3) or Fever Allopurinol 300 mg 03/13/22 08:00 03/14/22 08:19 Allopurinol 300 Mg Tablet PO 300 mg DAILY@0800 DANIKA Administration Amlodipine Besylate 5 mg
--- NOTE | 2022-03-14 19:25 | PC.NURSE ---
brother brought in home medication, need verified by pharmacy given to Aníbal PALM.
[2022-03-14] MEDS: CIPROFLOXACIN 500 MG TAB PO (21:23)
[2022-03-14] MEDS: metroNIDAZOLE 250 MG TABLET 500 MG PO (21:24)
[2022-03-14 21:51] VITALS: BP 135/77; PULSE 77; RESP 17; TEMP 36.9; O2SAT 100
--- NOTE | 2022-03-14 22:20 | PHAR ---
HOME BEXAROTENE (TARGRETIN) 75 MG CAPSULE, AND HOME ANORO ELLIPTA VERIFIED IN PHARMACY AND SENT BACK TO [facility] FOR AM DOSE BEFORE DISCHARGE TOMORROW.
[2022-03-15 02:22] VITALS: O2SAT 98
[2022-03-15 05:56] VITALS: BP 119/61; PULSE 70; RESP 18; TEMP 37.1; O2SAT 98
[2022-03-15] MEDS: SODIUM CHLORIDE 0.9% IV 1,000 ML 125 ML IV CONT (06:33)
[2022-03-15] MEDS: LEVOTHYROXINE SODIUM 100 MCG TABLET PO (06:34)
[2022-03-15] MEDS: metroNIDAZOLE 250 MG TABLET 500 MG PO (06:34)
[2022-03-15 07:52] LABS: Glucose Point of Care 129 mg/dl (65-105)
[2022-03-15 08:23] LABS: Alanine Aminotransferase 9 U/L (6-50); Albumin Level 3.4 g/dL (3.5-5.1); Alkaline Phosphatase 70 U/L (38-126); Anion Gap 8 mmol/L (8-16); Aspartate Amino Transferase 21 U/L (17-59); Bilirubin,Total 0.4 mg/dL (0.2-1.3); Blood Urea Nitrogen 16 mg/dL (9-20); Carbon Dioxide 26 mmol/L (22-30); Chloride 102 mmol/L (98-107); Estimated CRCL calculation 54 ml/min; Estimated Glomerular Filt Rate 59; Glucose 129 mg/dL (65-110); Potassium 3.8 mmol/L (3.4-5.0); Sodium 136 mmol/L (137-145)
[2022-03-15 08:52] VITALS: PULSE 82
[2022-03-15] MEDS: allopurinoL 300 MG TABLET PO (08:52)
[2022-03-15] MEDS: METOPROLOL SUCCINATE EXT REL 100 MG TABCR PO (08:52)
[2022-03-15] MEDS: OXYBUTYNIN CHLORIDE 5 MG TABLET PO (08:53)
[2022-03-15] MEDS: CIPROFLOXACIN 500 MG TAB PO (08:53)
[2022-03-15] MEDS: OMEGA 3 POLYUNSAT FATTY ACIDS 1 GM CAP PO (08:53)
[2022-03-15] MEDS: FUROSEMIDE 40 MG TABLET PO (08:53)
[2022-03-15] MEDS: MULTIVITAMINS THERAPEUTIC TAB (*BKC) 1 TABLET PO (08:53)
[2022-03-15] MEDS: amLODIPine BESYLATE 5 MG TABLET PO (08:53)
[2022-03-15] MEDS: FINASTERIDE 5 MG TABLET PO (08:53)
[2022-03-15] MEDS: FERROUS SULFATE 324 MG TABLET PO (08:53)
[2022-03-15] MEDS: APIXABAN 5 MG TABLET PO (08:53)
[2022-03-15] MEDS: metOLazone 5 MG TABLET PO (08:53)
[2022-03-15] MEDS: PANTOPRAZOLE 40 MG TABLET PO (08:53)
[2022-03-15] MEDS: LORATADINE 10 MG TABLET PO (08:54)
[2022-03-15] MEDS: ASPIRIN 81 MG ENTERIC TABLET PO (08:54)
[2022-03-15] MEDS: CHOLECALCIFEROL 1,000 UNITS TABLET 1000 UNITS PO (08:54)
[2022-03-15] MEDS: lisinopriL 20 MG TABLET PO (08:54)
[2022-03-15] MEDS: FENOFIBRATE NANOCRYSTALLIZED 145 MG TABLET PO (08:54)
[2022-03-15 11:26] LABS: Glucose Point of Care 228 mg/dl (65-105)
--- NOTE | 2022-03-16 09:52 | PM.DS ---
DS: Admitting Diagnosis Discharge Date 03/15/22 Admitting Diagnosis Fevers and chills DS: Discharge Diagnosis Discharge Diagnosis (1) Acute febrile illness: Code(s): R50.9 - Fever, unspecified Status: Acute Assessment and Plan: Deescalated antibiotics back to Rocephin, cultures remain negative, patient asymptomatic Unsure of source of patient's symptoms, suspect intra-abdominal source as patient's primary symptoms prior to bacteremia were nausea and vomiting, urine cultures were negative, therefore will switch patient to Cipro and Flagyl for an additional 7 days (2) Chronic obstructive pulmonary disease: Code(s): J44.9 - Chronic obstructive pulmonary disease, unspecified Status: Acute Assessment and Plan: Not actively wheezing Continue home meds (3) Chronic back pain: Code(s): M54.9 - Dorsalgia, unspecified; G89.29 - Other chronic pain Status: Acute Assessment and Plan: Tylenol as needed (4) Insulin dependent type 2 diabetes mellitus: Code(s): E11.9 - Type 2 diabetes mellitus without complications; Z79.4 - [facility] (current) use of insulin Status: Acute Assessment and Plan: Carb consistent diet Accu-Cheks AC and HS Continue home meds (5) CAD (coronary artery disease): Qualifiers: Coronary Disease-Associated Artery/Lesion type: [place] artery [place] vs. transplanted heart: [place] heart Associated angina: without angina Qualified Code(s): I25.10 - Atherosclerotic heart disease of [place] coronary artery without angina pectoris Code(s): I25.10 - Atherosclerotic heart disease of [place] coronary artery without angina pectoris Status: Acute Assessment and Plan: Chest pain-free Continue home meds (6) Hepatocellular carcinoma determined by biopsy of liver: Code(s): C22.0 - Liver cell carcinoma Status: Chronic Assessment and Plan: Unchanged Follow-up in outpatient setting (7) Gastroesophageal reflux disease: Code(s): K21.9 - Gastro-esophageal reflux disease without esophagitis Status: Acute Assessment and Plan: PPI as needed DS: Summary Hospital Course Hospital Course: 76-year-old male with past medical history significant for 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 He states the home health nurse came to check on him and was concerned about progression of his bacteremia or possible PICC line infection. In the ER, patient was found to have a elevated white count with a low-grade temperature and he was admitted for further evaluation and treatment. Blood cultures were taken. Urinalysis was negative. Blood cultures were negative for 48 hours. Patient had no recurrence of infectious symptoms. Original source of bacteremia was suspected to be abdominal. Blood cultures from March 03 were positive for Klebsiella oxytoca which was sensitive to fluoroquinolones and beta lactams. Due to outpatient failure on Rocephin, patient was switched to Cipro Flagyl and discharged in good condition with close outpatient follow-up by his oncologist as well as PCP. Strict return precautions were discussed extensively. PICC line was removed prior to discharge and patient was sent home on oral antibiotics. Time Spent with Patient Time attestation: Total time spent providing and/or coordinating discharge services: Exam Narrative: General: No acute distress, alert and oriented per baseline HEENT: Atraumatic, normocephalic, mucous membranes moist CV: Regular rate and rhythm, S1, S2 Lungs: Clear to auscultation bilaterally, no rales or crackles noted, no wheezes, good air entry Abdomen: Soft, nontender, nondistended Extremities: Normal to inspection Skin: No rashes noted, no lesion
== END 2022-03-15 11:40 | disposition home or self-care (01) | DRG 864 ==
LOC: ANHED 03-13 00:07 → ANH3MEDSUR 03-13 00:49
PROVIDERS: Admitting Provider Internal Medicine; Emergency Provider Emergency Medicine; PCP Family Medicine Adolescent Medicine; Visit Provider Student in an Organized Health Care Education/Training Program
DX: R50.9 Fever, unspecified (principal); C22.0 Liver cell carcinoma; Z20.822 Contact with and (suspected) exposure to COVID-19; J44.9 Chronic obstructive pulmonary disease, unspecified; M54.9 Dorsalgia, unspecified; E11.9 Type 2 diabetes mellitus without complications; I25.10 Atherosclerotic heart disease of native coronary artery without angina pectoris; K21.9 Gastro-esophageal reflux disease without esophagitis; Z79.4 Long term (current) use of insulin; G89.29 Other chronic pain; Z86.718 Personal history of other venous thrombosis and embolism; E03.9 Hypothyroidism, unspecified; I10 Essential (primary) hypertension; E66.01 Morbid (severe) obesity due to excess calories; Z86.711 Personal history of pulmonary embolism; I25.2 Old myocardial infarction; E78.00 Pure hypercholesterolemia, unspecified; Z68.33 Body mass index [BMI] 33.0-33.9, adult; L30.9 Dermatitis, unspecified; Z79.01 Long term (current) use of anticoagulants; Z79.899 Other long term (current) drug therapy; Z95.5 Presence of coronary angioplasty implant and graft; Z85.72 Personal history of non-Hodgkin lymphomas; Z82.49 Family history of ischemic heart disease and other diseases of the circulatory system; Z79.82 Long term (current) use of aspirin; R11.2 Nausea with vomiting, unspecified
CPT/HCPCS: 36415; 71045; 80053; 81001; 82948; 83605; 83880; 84145; 84484; 85025; 87040; 93005; 99285; A9270; C9803; J0696; J1815; J2543; J3370; J7030; U0003; U0005

== ENCOUNTER 2022-03-31 09:20 | Outpatient (CLI) | payer MEDICARE, SELFPAY ==
--- NOTE | ~2022-03-31 | CT_ITS ---
EXAMINATION: CTA chest PE protocol DATE: 03/31/2022 10:20 INDICATION: Left upper chest pain, cough. Prior deep venous thrombosis. TECHNIQUE: Computed tomography angiography (CTA) of the chest was performed with 100 mL Omnipaque-350 intravenous contrast timed to evaluate the pulmonary arteries. Coronal maximum intensity projection 3D-reconstructions were created by the technologist. Automated exposure control and iterative reconst ruction technique were employed. Exam dose: 929.52 mGy-cm total exam DLP. COMPARISON: 03/12/2022 portable AP chest 03/03/2022 CT pulmonary scan FINDINGS: Chronic thin linear web the right lower lobe pulmonary artery due to prior pulmonary emboli sm. No interval pulmonary embolism. No thoracic aortic aneurysm or dissection. No hilar or mediastinal mass lesion or lymphadenopathy. Normal heart size. Coronary artery calcifications. No pericardial or pleural effusion. No pulmonary infiltrate or consolidation or pulmonary mass lesion. There is mild nodular pleural thickening in the posterior lower right chest. Large right hepatic mass lesion is again noted, substantially increased in size since 03/03/2022. Status post cholecystectomy. Pneumobilia. There is diffuse thickening of the gastric wall suggesting gastritis. Multiple calcified splenic gran ulomas. Diffuse idiopathic skeletal hyperostosis of the thoracic spine. Prominent degenerative disc disease i n the lower cervical spine IMPRESSION: No interval pulmonary embolism; chronic right lower lobe web from prior pulmonary emboli sm Substantially increased size of right hepatic malignancy since 03/03/2022 Reviewed, dictated and finalized at [facility]. Reviewed, dictated and finalized at location [facility]. IMPRESSION: No interval pulmonary embolism; chronic right lower lobe web from prior pulmonary embolism Substantially increased size of right hepatic malignancy since 03/03/2022
== END 2022-03-31 09:21 | disposition home or self-care (01) ==
LOC: ANHIMG 09:21
PROVIDERS: PCP Family Medicine Adolescent Medicine; Visit Provider Family Medicine Adolescent Medicine
DX: R07.1 Chest pain on breathing (principal); R16.0 Hepatomegaly, not elsewhere classified; M48.14 Ankylosing hyperostosis [Forestier], thoracic region; Z90.49 Acquired absence of other specified parts of digestive tract; I25.10 Atherosclerotic heart disease of native coronary artery without angina pectoris
CPT/HCPCS: 71275; Q9967

== ENCOUNTER → 2022-04-28 09:06 | Outpatient (CLI) | payer MEDICARE, SELFPAY ==
--- NOTE | ~2022-04-28 | XR_ITS ---
[id number] DATE: 04/28/2022 09:25 INDICATION: Left lower lateral rib pain. Shortness of breath. No injury. TECHNIQUE: PA chest. 3 views of the left ribs. COMPARISON: 10/18/2008 portable AP chest FINDINGS: No left rib fracture or bone destruction is detected. Diffuse idiopathic skeletal hyperostosis of the thoracic spine. 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 Borderline heart size. Aortic arch calcification. No pulmonary infiltrate or consolidation, pleural e ffusion or pulmonary vascular congestion. IMPRESSION: No left rib fracture is detected Reviewed, dictated and finalized at [facility]. Reviewed, dictated and finalized at location B.
== END ==
PROVIDERS: PCP Family Medicine Adolescent Medicine; Visit Provider Family Medicine Adolescent Medicine
DX: R06.02 Shortness of breath (principal); R07.81 Pleurodynia
CPT/HCPCS: 71101

== ENCOUNTER 2022-05-10 12:43 | Outpatient (CLI) | payer MEDICARE, SELFPAY ==
--- NOTE | ~2022-05-10 | US_ITS ---
EXAMINATION: US venous doppler [facility] DATE: 05/10/2022 13:23 INDICATION: Shortness of breath TECHNIQUE: [place] scale images without and with compression and Doppler images of the left lower extrem ity veins were obtained. COMPARISON: 03/06/2022 FINDINGS: The left common femoral vein, profunda femoral vein, femoral vein, popliteal vein, peroneal trunk, posterior tibial veins, and greater saphenous vein are patent. IMPRESSION: 1. Patent left lower extremity veins. No evidence of deep venous thrombosis. Reviewed, dictated and finalized at location B.
== END 2022-05-10 12:44 | disposition home or self-care (01) ==
LOC: ANHIMG 12:45
PROVIDERS: PCP Family Medicine Adolescent Medicine; Visit Provider Family Medicine Adolescent Medicine
DX: R60.0 Localized edema (principal); Z86.718 Personal history of other venous thrombosis and embolism
CPT/HCPCS: 93971

== ENCOUNTER → 2023-02-16 12:42 | Outpatient (CLI) | payer MEDICARE, SELFPAY ==
--- NOTE | ~2023-02-16 | XR_ITS ---
Clinical Indication: Melanoma PA and lateral views of the chest: Comparison: 03/12/2022 Findings: The lungs are clear, without evidence of focal consolidation or pleural effusion. Cardiome diastinal silhouette is within normal limits. Bones and soft tissues are unremarkable. Impression: Normal chest. Reviewed, dictated and finalized at location . Impression: Normal chest.
== END ==
PROVIDERS: PCP Family Medicine Adolescent Medicine; Visit Provider Surgery
DX: C43.4 Malignant melanoma of scalp and neck (principal)
CPT/HCPCS: 71046

== ENCOUNTER 2023-03-06 12:13 | Outpatient (CLI) | payer MEDICARE, SELFPAY ==
--- NOTE | ~2023-03-06 | US_ITS ---
Duplex Sonography of the right extremity: Indication: Swelling Findings: Sagittal and transverse B-mode images as well as color-flow imaging were performed on the r ight femoral and popliteal veins. B-mode examination was done without and with compression in the tr ansverse plane. There is good visualization of the common femoral, proximal profunda femoral, superf icial femoral, greater saphenous, and popliteal veins. Normal flow was seen on color-flow imaging. N ormal compressibility was demonstrated. Visualized right calf veins are also patent. Impression: No evidence of deep vein thrombosis involving the right lower extremity. Reviewed, dictated and finalized at location M. Impression: No evidence of deep vein thrombosis involving the right lower extremity.
== END 2023-03-06 12:14 | disposition home or self-care (01) ==
LOC: ANHIMG 12:15
PROVIDERS: PCP Family Medicine Adolescent Medicine; Visit Provider Nurse Practitioner Family
DX: R60.9 Edema, unspecified (principal)
CPT/HCPCS: 93971

== ENCOUNTER 2023-06-08 07:45 | Outpatient (RCR) | payer MEDICARE, SELFPAY ==
[2023-03-23 08:27] VITALS: BMI 36.6
--- NOTE | 2023-04-06 11:55 | PCWOUND ---
Patient called to cancel appointment today 04/06/23 at 12:00pm due to the weather. Patient rescheduled for tomorrow 04/07/23 at 1200.
--- NOTE | 2023-04-13 08:21 | PCWOUND ---
Patient called to cancel appointment for today due to illness. Rescheduled for next 04/20/23 at 1200
--- NOTE | 2023-06-15 09:22 | PCWOUND ---
WOCN NOTE Patient called to cancel appointment for today. will call next week to schedule follow up.
== END 2023-06-21 23:59 | disposition home or self-care (01) ==
LOC: ANHWOC 07:45
PROVIDERS: PCP Family Medicine Adolescent Medicine; Visit Provider Nurse Practitioner Family
DX: L97.519 Non-pressure chronic ulcer of other part of right foot with unspecified severity (principal)
CPT/HCPCS: 99213; A9270; G0463

== ENCOUNTER 2023-09-14 12:00 | Outpatient (RCR) | payer MEDICARE, SELFPAY ==
[2023-06-22 00:03] VITALS: BMI 36.6
--- NOTE | 2023-06-23 09:55 | PCWOUND ---
Patient called to cancel appointment for today due to having a procedure yesterday that took over 4 hours and he is very tired today. Patient will contact the wound center on Monday06/26/23 to reschedule new appointment.
--- NOTE | 2023-08-28 08:00 | PCWOUND ---
WOCN NOTE Patient called to cancel his appointment for 1300 today. States he has an area on his right flank that seems infected and he has to see a specialist with his oncology team today at 1pm. Patient will contact wound center with update.
== END 2023-12-13 23:59 | disposition home or self-care (01) ==
LOC: ANHWOC 12:00
PROVIDERS: PCP Family Medicine Adolescent Medicine; Visit Provider Nurse Practitioner Family
DX: L97.519 Non-pressure chronic ulcer of other part of right foot with unspecified severity (principal)
CPT/HCPCS: 99213; G0463

== ENCOUNTER 2023-12-29 10:55 | Outpatient (CLI) | payer MEDICARE, SELFPAY ==
--- NOTE | ~2023-12-29 | US_ITS ---
EXAMINATION:US venous doppler LE LT INDICATION:Acute edema of the left leg TECHNIQUE: Multiple grayscale, color flow and Doppler images of the left lower extremity deep venous systems were obtained and reviewed. COMPARISON:No prior studies for comparison. FINDINGS: The common femoral, superficial femoral and popliteal veins demonstrate normal respiratory variation, augmentation and compressibility. Color flow is also seen within the posterior tibial, pe roneal, greater saphenous and profunda veins. There is subcutaneous edema in the left lower extremity . IMPRESSION: 1: No lower extremity deep venous thrombosis. Reviewed, dictated and finalized at location A.
== END 2023-12-29 10:56 | disposition home or self-care (01) ==
LOC: ANHIMG 10:56
PROVIDERS: PCP Family Medicine Adolescent Medicine; Visit Provider Family Medicine Adolescent Medicine
DX: R60.0 Localized edema (principal); Z86.718 Personal history of other venous thrombosis and embolism
CPT/HCPCS: 93971

== ENCOUNTER 2024-02-01 07:06 | Inpatient (IN) | payer MEDICARE, SELFPAY ==
[2024-02-01] VITALS (18 sets, daily range): BP systolic 71–142; BP diastolic 45–86; PULSE 80–106; RESP 16–20; TEMP 36.1–37.2; O2SAT 93–100; BMI 35.4
--- NOTE | ~2024-02-01 | CT_ITS ---
EXAMINATION: CTA chest PE protocol DATE: 02/01/2024 08:15 INDICATION: Dyspnea TECHNIQUE: Computed tomography (CT) pulmonary angiogram of the chest was performed with 100 mL Omnipa que-350 intravenous contrast. Additional 3D reconstructions utilizing coronal maximum intensity proje ction (MIP) were performed. Automated exposure control and iterative reconstruction technique were em ployed. The dose-length product was 1065.81 mGy-cm. COMPARISON: None FINDINGS: No interval change in thin linear filling defects within the right lower lobar pulmonary artery exten ding into the posterior basilar segmental pulmonary artery consistent with chronic web related to amari or pulmonary embolism. No new acute pulmonary embolism identified. A couple calcified right lower lob e nodules and calcified mediastinal lymph nodes consistent with old granulomatous disease. No pneumon ia, pulmonary edema, pleural effusion or pneumothorax. Heart size is normal. Atherosclerotic coronary artery calcific a ojeda. No pericardial effusion. Thoracic aorta is normal in caliber with no dissect ion. No pathologically enlarged thoracic lymphadenopathy. Postoperative change of prior cholecystecto my. Irregular appearance and decrease in size of the right hepatic lobe with air as previously large mass consistent with either interval partial hepatectomy or other response to treatment for the suspe cted hepatic malignancy. Numerous splenic calcific lesions consistent with old granulomatous disease. Severe lower cervical and upper thoracic spondylosis with bridging osteophytes at multiple levels co nsistent with diffuse idiopathic skeletal hyperostosis (DISH). IMPRESSION: 1. No change in small a few chronic pulmonary arterial webs in the right lower lobe related to prior pulmonary embolism. No acute pulmonary embolism or other acute cardiopulmonary disease. 2. Irregular appearance to the right hepatic lobe which is significantly decrease in size which could represent either interval partial hepatectomy or response to treatment for a prior hepatic mass whic h was concerning for malignancy. Correlate with clinical history. Reviewed, dictated and finalized at location A. IMPRESSION: 1. No change in small a few chronic pulmonary arterial webs in the right lower lobe related to prior pulmonary embolism. No acute pulmonary embolism or other acute cardiopulmonary disease. 2. Irregular appearance to the right hepatic lobe which is significantly decrea se in size which could represent either interval partial hepatectomy or respons e to treatment for a prior hepatic mass which was concerning for malignancy. Co rrelate with clinical history.
--- NOTE | ~2024-02-01 | XR_ITS ---
EXAMINATION: XR chest 1V portable DATE: 02/01/2024 08:21 INDICATION: Dyspnea TECHNIQUE: frontal view of the chest was obtained. COMPARISON: Chest radiograph dated 02/16/2023. FINDINGS: The lungs remain clear with no focal airspace opacities, pulmonary edema, pleural effusion or pneumot horax. The cardiomediastinal silhouette is normal. Visualized bones and soft tissues are unremarkable . IMPRESSION: 1. No acute cardiopulmonary disease. Reviewed, dictated and finalized at location A.
--- NOTE | 2024-02-01 07:27 | ECG_ITS ---
SEE SCANNED COPY FOR CONFIRMED REPORT MTDD
--- NOTE | 2024-02-01 07:42 | ED.SOB ---
HPI - SOB/Dyspnea General Chief Complaint: Shortness of Breath/Dyspnea Stated Complaint: SOB Time Seen by Provider: 02/01/24 07:07 History of Present Illness HPI Narrative: This is a 78-year-old male, with history of left lower extremity DVT melanoma, T-cell lymphoma and liver cancer, followed at the [facility] and [facility] dermatology, who presents to emergency department complaining of shortness of breath beginning this morning. Patient states he noticed the shortness of breath waking. He states this feels similar to a previous PE. Patient also notes of the past several days he is had episodes of nonbloody vomiting. He denies fevers, chills, chest pain, cough or focal weakness/numbness. He complains of chronic pain related to multiple sores on the skin. Related Data Home Medications Medication Instructions Recorded Confirmed aspirin 81 mg tablet,delayed 81 mg PO BID 08/27/19 02/01/24 release (Adult Low Dose Aspirin) fenofibrate nanocrystallized 145 145 mg PO DAILY 02/27/20 02/01/24 mg tablet (Tricor) fexofenadine 180 mg tablet 180 mg PO DAILY 02/27/20 02/01/24 ([place] Allergy) umeclidinium 62.5 mcg-vilanterol 1 inh inhalation DAILY PRN 02/24/21 02/01/24 25 mcg/actuation powdr for Adequate Ventilation inhalation (Anoro Ellipta) polyethylene glycol 3350 17 gram 17 g PO DAILY 03/06/22 02/01/24 oral powder packet bexarotene 75 mg capsule 375 mg PO DAILY 05/12/22 02/01/24 (Targretin) cyanocobalamin (vitamin B-12) 1,000 mcg PO DAILY 05/12/22 02/01/24 1,000 mcg capsule multivitamin 1 tablet PO DAILY 05/12/22 02/01/24 triamcinolone acetonide 0.1 % 1 applic topical BID 05/12/22 02/01/24 topical cream erythromycin 5 mg/gram (0.5 %) eye 1 applic EACH EYE DAILY 11/01/22 02/01/24 ointment ondansetron 4 mg disintegrating 4 mg PO Q6H PRN Nausea And Vomiting 11/01/22 02/01/24 tablet hydrocodone 5 mg-acetaminophen 325 1 tablet PO Q6H PRN Cough 02/16/23 02/01/24 mg tablet clobetasol 0.05 % topical ointment 1 applic topical QHS 03/06/23 02/01/24 glucagon 3 mg/actuation nasal spray 3 mg intranasal ONCE 03/23/23 02/01/24 gentamicin 0.1 % topical cream 1 applic topical BID 08/04/23 02/01/24 [place] Tears Plus 1 drp EACH EYE DIRECTED PRN dry 08/25/23 02/01/24 eye(s) epinephrine 0.3 mg/0.3 mL 0.3 mg IM ONCE PRN Allergic 02/01/24 02/01/24 injection, auto-injector Reaction ferrous sulfate 325 mg (65 mg 325 mg PO BIDWM 02/01/24 02/01/24 iron) tablet mupirocin 2 % topical ointment 1 applic topical TID 02/01/24 02/01/24 niacinamide 500 mg tablet 500 mg PO BID 02/01/24 02/01/24 Allergies Allergy/AdvReac Type Severity Reaction Status Date / Time No Known Allergies Allergy Verified 12/29/23 09:28 Review of Systems Review of Systems: All systems reviewed & are unremarkable except as noted in HPI and below PMFSH Past Medical History Medical History ÁNGEL (acute kidney injury) Asbestosis CAD (coronary artery disease) Cell phone elbow Chronic anticoagulation Chronic back pain COPD (chronic obstructive pulmonary disease) Coronary artery disease With history of [place] and stent. Patient of Dr. Abisai Patton. Deep venous thrombosis Eczema Essential hypertension Gastroesophageal reflux disease Hepatocellular carcinoma determined by biopsy of liver History of peptic ulcer Hx of myocardial infarction Hyperlipidemia Hypothyroidism Insulin dependent type 2 diabetes mellitus Kidney stones Morbid obesity Pneumonia Pulmonary embolism Pure hypercholesterolemia, unspecified Severe sepsis Severe sepsis with acute organ dysfunction Skin cancer of scalp T-cell lymphoma Receiving oral chemotherapy as well as phototherapy. Type 2 diabetes mellitus with hyperglycemia, with long-term current use of insulin Surgical History Surgical History History of bilateral inguinal hernia repai
[2024-02-01 08:09] LABS: Estimated CRCL calculation 32 ml/min; Estimated Glomerular Filt Rate 34
[2024-02-01 08:21] LABS: Hematocrit 35.8 % (42.0-52.0); Hemoglobin 11.3 g/dL (14.0-18.0); Mean Corpuscular HGB Conc 31.6 g/dl (32-36); Mean Corpuscular Hemoglobin 25.4 pg (26-34); Mean Corpuscular Volume 80.4 fl (80-100); Mean Platelet Volume 11.3 fl (7.4-10.4); Platelet Count Result 240 k/mm3 (150-375); Red Blood Count 4.45 M/mm3 (4.6-6.20); Red Cell Distribution Width 17.2 % (11.5-14.5)
[2024-02-01] MEDS: SODIUM CHLORIDE 0.9% IV 1,000 ML 999 ML IV CONT ×2 (08:25)
[2024-02-01 08:31] LABS: INR 2.3; Prothrombin Time 26.7 Seconds (11.1-14.7)
[2024-02-01 08:32] LABS: Partial Thromboplastin Time 47.4 Seconds (22.3-36.8)
[2024-02-01 08:34] LABS: Alanine Aminotransferase 65 U/L (6-50); Albumin Level 3.7 g/dL (3.5-5.1); Alkaline Phosphatase 71 U/L (38-126); Anion Gap 9 mmol/L (4-12); Aspartate Amino Transferase 124 U/L (17-59); Bilirubin,Total 0.9 mg/dL (0.2-1.3); Blood Urea Nitrogen 18 mg/dL (9-20); Calcium 9.3 mg/dL (8.4-10.2); Carbon Dioxide 23 mmol/L (22-30); Chloride 105 mmol/L (98-107); Estimated CRCL calculation 34 ml/min; Estimated Glomerular Filt Rate 37; Glucose 191 mg/dL (65-110); Magnesium 0.7 mg/dL (1.6-2.3); Potassium 3.8 mmol/L (3.4-5.0); Sodium 137 mmol/L (137-145)
[2024-02-01 08:42] LABS: NT Pro B Type Natriuretic Pept 759 pg/mL (19.9-100)
[2024-02-01] MEDS: MORPHINE SULFATE (*CRX) 4 MG/ML INJ (08:49)
[2024-02-01] MEDS: MAGNESIUM SULF 1 GM/D5W 100 ML 1 GM/100 ML BAG IVPB (08:49)
[2024-02-01 08:50] LABS: Troponin I 0.101 ng/mL (0.000-0.034)
[2024-02-01 08:56] LABS: Band Neutrophils Percent 2 % (0-6); Hypochromasia 1+; Lymphocytes Absolute Manual 1.14 K/mm3 (1.1-4.5); Monocytes Absolute Manual 0.48 K/mm3 (0.1-0.90); Monocytes Percent Manual 24 % (3-9); Neutrophils Absolute Manual 0.38 K/mm3 (1.3-6.7); Neutrophils Percent Manual 17 % (46-73); Platelet Estimate Adequate (Adequate); Schistocytes None Seen; Total Cells Counted 100
[2024-02-01 08:57] LABS: Anisocytosis 1+; Microcytosis 1+ (NORMAL)
[2024-02-01] MEDS: ASPIRIN 81 MG CHEWABLE TABLET 324 MG PO (09:46)
--- NOTE | 2024-02-01 10:17 | PM.CNCAR ---
Assessment and Plan Assessment and plan (1) Shortness of breath: Code(s): R06.02 - Shortness of breath Status: Acute Assessment and Plan: Cause unclear - CXR was clear, chest CTA negative for PE. Resolved -no shortness of breath, breathing comfortably on room air. (2) Elevated troponin: Code(s): R79.89 - Other specified abnormal findings of blood chemistry Status: Acute Assessment and Plan: First troponin mildly elevated at 0.101. He denies any chest pain. EKG showing sinus rhythm, old inferior infarct, no acute STTW abnormalities. Second troponin is pending. For now, do not recommend any additional cardiac workup. (3) CAD (coronary artery disease): Qualifiers: Coronary Disease-Associated Artery/Lesion type: [place] artery [place] vs. transplanted heart: [place] heart Associated angina: without angina Qualified Code(s): I25.10 - Atherosclerotic heart disease of [place] coronary artery without angina pectoris Code(s): I25.10 - Atherosclerotic heart disease of [place] coronary artery without angina pectoris Status: Acute Assessment and Plan: As detailed in the HPI. Stable, not complaining of any anginal symptoms. History of Present Illness History of Present Illness Consult date/time: 02/01/24 10:17 Requesting physician: Toni Dove MD Consult reason: Other (elevated troponin) Reason For Visit: nstemi Narrative: Bo Barragan is a 78-year-old male with coronary artery disease a status post PCI to the RCA in 1998. This is a patient who follows with Dr. Patton. He presents to the hospital with a chief complaint of shortness of breath. Cardiology is consulted because of elevated troponin levels. Patient states he experienced some shortness of breath after climbing some stairs in his house. He came to the hospital for evaluation because he felt his shortness of breath to be similar to when he was diagnosed with a pulmonary embolism in the past. He is feeling better now from a respiratory perspective and denies any shortness of breath. He denies chest pain. He's resting comfortably in bed at the time of my evaluation. Review of Systems Review of Systems: All systems reviewed & are unremarkable except as noted in HPI and below PMFSH Past Medical History Medical History ÁNGEL (acute kidney injury) Asbestosis CAD (coronary artery disease) Cell phone elbow Chronic anticoagulation Chronic back pain COPD (chronic obstructive pulmonary disease) Coronary artery disease With history of [place] and stent. Patient of Dr. Abisai Patton. Deep venous thrombosis Eczema Essential hypertension Gastroesophageal reflux disease Hepatocellular carcinoma determined by biopsy of liver History of peptic ulcer Hx of myocardial infarction Hyperlipidemia Hypothyroidism Insulin dependent type 2 diabetes mellitus Kidney stones Morbid obesity Pneumonia Pulmonary embolism Pure hypercholesterolemia, unspecified Severe sepsis Severe sepsis with acute organ dysfunction Skin cancer of scalp T-cell lymphoma Receiving oral chemotherapy as well as phototherapy. Type 2 diabetes mellitus with hyperglycemia, with long-term current use of insulin Surgical History Surgical History History of bilateral inguinal hernia repair History of bilateral knee arthroplasty History of cystoscopy With stone extraction. History of facial surgery Repair of left orbital fracture. History of left knee replacement History of liver biopsy 07/19/2020 History of shoulder surgery Left shoulder ORIF. History of tonsillectomy History of umbilical hernia repair Hx laparoscopic cholecystectomy 07/19/2020 Stented coronary artery (~1998) Family History Family History Father Family history of arthritis Family history of rodolfo
[2024-02-01 11:00] LABS: Glucose Point of Care 168 mg/dl (65-105)
--- NOTE | 2024-02-01 11:01 | PC.NURSE ---
[address] Admission Note: The patient,Bo Barragan,78 y/o, was given written information regarding hospital policies, unit procedures and contact persons. Patient's smoking status: Never smoker.
[2024-02-01 13:08] LABS: Troponin I 0.087 ng/mL (0.000-0.034)
[2024-02-01 15:31] LABS: Troponin I 0.081 ng/mL (0.000-0.034)
--- NOTE | 2024-02-01 15:33 | PM.IMHP ---
H&P: HPI History of Present Illness Date/Time: 02/01/24 23:40 Chief Complaint: Shortness of Breath Narrative: 78 y/o M presents here with shortness of breath with PMH of asbestosis/emphysema, CAD, [place], DVT (LLE), PE, HTN, GERD, hepatocellular carcinoma (s/p partial hepatectomy), HLD, hypothyroidism, DM2, and cutaneous t-cell lymphoma (currently undergoing radiation, chemo treatment x1). Patient presents here with shortness of breath that began approximately 1 hour [employer] (arrived at ED around 7:20 am). Shortness of breath started at 0600 while patient was going up the steps (lives in a split level home). Reports symptoms feel similar to when he has had a PE x2, most recent on 2020. currently on anticoagulation. Also reporting chest congestion, nausea, and vomiting that started on 12/24. Emesis has been nonbloody and nonbilious. Saw his PCP on 01/25 and wax given Levofloxacin 500 mg once daily x 20 days (last dose on 02/04) for a URI/possible PNA. Denying any current shortness of breath and has since resolved, patient unsure what helped with his symptoms. 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 Initial VS at presentation: 98? F, HR 84, RR 18, 91/64, 98% on RA. ED workup showed: WBC 2.0, Hgb 11.3, platelet count 240, INR 2.3, creatinine 1.8 and GFR 37, Mag 0.7, AST 124, ALT 65, total bilirubin 0.9, initial troponin 0.101, and BNP 759. CXR shows no acute cardiopulmonary disease. Chest CTA shows no change in chronic pulmonary are tailor rubs in the right lower lobe related to prior PE, no acute PE, and an irregular appearance of the right hepatic lobe (treatment v interval partial hepatectomy). Review of Systems Review of Systems: All systems reviewed & are unremarkable except as noted in HPI and below PMFSH Past Medical History Medical History ÁNGEL (acute kidney injury) Asbestosis CAD (coronary artery disease) Cell phone elbow Chronic anticoagulation Chronic back pain COPD (chronic obstructive pulmonary disease) Coronary artery disease With history of [place] and stent. Patient of Dr. Abisai Patton. Cutaneous T-cell lymphoma Deep venous thrombosis Eczema Essential hypertension Gastroesophageal reflux disease Hepatocellular carcinoma determined by biopsy of liver History of peptic ulcer Hx of myocardial infarction Hyperlipidemia Hypothyroidism Insulin dependent type 2 diabetes mellitus Kidney stones Morbid obesity Pneumonia Pulmonary embolism Pure hypercholesterolemia, unspecified Severe sepsis Severe sepsis with acute organ dysfunction Skin cancer of scalp Type 2 diabetes mellitus with hyperglycemia, with long-term current use of insulin Surgical History Surgical History History of bilateral inguinal hernia repair History of bilateral knee arthroplasty History of cystoscopy With stone extraction. History of facial surgery Repair of left orbital fracture. History of left knee replacement History of liver biopsy 07/19/2020 History of shoulder surgery Left shoulder ORIF. History of tonsillectomy History of umbilical hernia repair Hx laparoscopic cholecystectomy 07/19/2020 Stented coronary artery (~1998) Family History Family History Father Family history of arthritis Family history of congestive heart failure Family history of heart disease in male family member before age 55 Family history of hearing loss Mother , age 46 Blood clot in vein Other Family history of glaucoma Social History Social History Social History: Surrogate decision maker: Ankush Dennis, friend. Code status: Full code. Smoking status: Never smoker Second hand tobacco smoke exposure: No Alcohol intake: never Drinks per week: 2 A
[2024-02-01 16:26] LABS: Glucose Point of Care 162 mg/dl (65-105)
[2024-02-01 20:40] LABS: Magnesium 1.1 mg/dL (1.6-2.3)
[2024-02-01 21:00] LABS: Glucose Point of Care 199 mg/dl (65-105)
[2024-02-01] MEDS: ASPIRIN 81 MG ENTERIC TABLET PO (23:00)
[2024-02-01] MEDS: oxyBUTYnin CHLORIDE 5 MG TABLET PO (23:01)
[2024-02-01] MEDS: OMEGA 3 POLYUNSAT FATTY ACIDS 1 GM CAP PO (23:01)
[2024-02-01] MEDS: PANTOPRAZOLE 40 MG TABLET PO (23:01)
[2024-02-01] MEDS: MAGNESIUM SULF 2 GM/WATER 50ML 2 GM/50 ML BAG IVPB (23:48)
[2024-02-01] MEDS: APIXABAN 5 MG TABLET PO (23:57)
[2024-02-02] VITALS (14 sets, daily range): BP systolic 99–136; BP diastolic 43–113; PULSE 85–103; RESP 12–20; TEMP 36.4–36.9; O2SAT 90–100; BMI 34.9
[2024-02-02] MEDS: GENTAMICIN SULFATE 0.1% CR 15 GM TUBE 1 APPLIC TOPICAL ×3 (00:45→17:35)
[2024-02-02] MEDS: TRIAMCINOLONE ACET 0.1% CREAM 80 GM TUBE 1 APPLIC TOPICAL ×3 (00:46→17:34)
[2024-02-02] MEDS: CLOBETASOL PROPIONATE 0.05% OINT 30 GM 1 APPLIC TOPICAL ×2 (00:46→21:15)
[2024-02-02] MEDS: INSULIN GLARGINE (*BKC) 100 UNITS/ML 15 UNITS SUB-Q ×2 (00:47→21:17)
[2024-02-02 05:13] LABS: Anion Gap 9 mmol/L (4-12); Blood Urea Nitrogen 17 mg/dL (9-20); Calcium 8.8 mg/dL (8.4-10.2); Carbon Dioxide 19 mmol/L (22-30); Chloride 110 mmol/L (98-107); Estimated CRCL calculation 43 ml/min; Estimated Glomerular Filt Rate 45; Glucose 160 mg/dL (65-110); Magnesium 1.6 mg/dL (1.6-2.3); Potassium 4.1 mmol/L (3.4-5.0); Sodium 138 mmol/L (137-145)
[2024-02-02 05:33] LABS: Basophils Percent Auto 1.7 % (0.2-1.2); Eosinophils Percent Auto 1.7 % (0-4.4); Hematocrit 31.5 % (42.0-52.0); Hemoglobin 9.7 g/dL (14.0-18.0); Immature Granulocyte Absolute 0.02 K/mm3 (0.00-0.031); Immature Granulocyte Percent A 1.1 % (0-0.5); Lymphocytes Absolute Auto 0.51 K/mm3 (0.9-3.2); Lymphocytes Percent Auto 28.8 % (18.3-44.2); Mean Corpuscular HGB Conc 30.8 g/dl (32-36); Mean Corpuscular Volume 81.2 fl (80-100); Mean Platelet Volume 11.5 fl (7.4-10.4); Monocytes Absolute Auto 0.6 K/mm3 (0.1-0.6); Monocytes Percent Auto 36.2 % (2.6-8.5); Neutrophils Absolute Auto 0.5 K/mm3 (1.3-6.7); Neutrophils Percent Auto 30.5 % (45.5-73.1); Nucleated Red Blood Cells Perc 1.1 % (0.0-0.2); Platelet Count Result 187 k/mm3 (150-375); Red Blood Count 3.88 M/mm3 (4.6-6.20); Red Cell Distribution Width 17.3 % (11.5-14.5)
[2024-02-02] MEDS: LEVOTHYROXINE SODIUM 100 MCG TABLET PO (06:41)
[2024-02-02 07:02] LABS: White Blood Count 1.8 K/mm3 (4.5-10.0)
[2024-02-02] MEDS: FUROSEMIDE 40 MG TABLET 80 MG PO (08:59)
[2024-02-02] MEDS: ROSUVASTATIN 20 MG TABLET 40 MG PO (08:59)
[2024-02-02] MEDS: levoFLOXacin 500 MG TABLET PO (08:59)
[2024-02-02] MEDS: EMPAGLIFLOZIN 25 MG TABLET BY MOUTH (08:59)
[2024-02-02] MEDS: MULTIVITAMINS THERAPEUTIC TAB (*BKC) 1 TABLET PO (08:59)
[2024-02-02] MEDS: CYANOCOBALAMIN 1,000 MCG TABLET 1000 MCG PO (09:00)
[2024-02-02] MEDS: APIXABAN 5 MG TABLET PO (09:00)
[2024-02-02] MEDS: PANTOPRAZOLE 40 MG TABLET PO ×2 (09:00→17:34)
[2024-02-02] MEDS: OMEGA 3 POLYUNSAT FATTY ACIDS 1 GM CAP PO ×2 (09:00→17:34)
[2024-02-02] MEDS: METOPROLOL SUCCINATE EXT REL 50 MG TABCR 100 MG PO (09:00)
[2024-02-02] MEDS: FINASTERIDE 5 MG TABLET PO (09:00)
[2024-02-02] MEDS: FOLIC ACID 1 MG TABLET PO (09:00)
[2024-02-02] MEDS: ASPIRIN 81 MG ENTERIC TABLET PO ×2 (09:00→17:34)
[2024-02-02] MEDS: LORATADINE 10 MG TABLET PO (09:00)
[2024-02-02] MEDS: allopurinoL 300 MG TABLET PO (09:00)
[2024-02-02] MEDS: FENOFIBRATE NANOCRYSTALLIZED 145 MG TABLET PO (09:00)
[2024-02-02] MEDS: oxyBUTYnin CHLORIDE 5 MG TABLET PO ×2 (09:00→17:34)
[2024-02-02] MEDS: lisinopriL 10 MG TABLET PO (09:01)
[2024-02-02] MEDS: FERROUS SULFATE 325 MG TABLET DR BY MOUTH ×2 (09:04→17:34)
--- NOTE | 2024-02-02 09:07 | PM.IMPN ---
Progress Note: A&P Assessment and Plan (1) Shortness of breath: Code(s): R06.02 - Shortness of breath Status: Acute (2) Elevated troponin: Code(s): R79.89 - Other specified abnormal findings of blood chemistry Status: Acute (3) Acute kidney injury superimposed on CKD: Code(s): N17.9 - Acute kidney failure, unspecified; N18.9 - Chronic kidney disease, unspecified Status: Acute (4) Hypomagnesemia: Code(s): E83.42 - Hypomagnesemia Status: Acute (5) Open wounds involving multiple regions of lower extremity: Code(s): S81.809A - Unspecified open wound, unspecified lower leg, initial encounter Status: Acute (6) Insulin dependent type 2 diabetes mellitus: Code(s): E11.9 - Type 2 diabetes mellitus without complications; Z79.4 - [facility]PC (current) use of insulin Status: Acute (7) Essential hypertension: Code(s): I10 - Essential (primary) hypertension Status: Chronic Plan This is a 78-year-old male who presents to the ED complaining of shortness of breath started early in the morning. Shortness of breath felt like previous PE.. Patient also reported episodes of non bloody vomiting for the past several days. No fever chills chest pain cough. He has chronic pain related to multiple sores on the scan. Also had chest congestion nausea vomiting. Saw PCP on 01/25 and was given levofloxacin for 10 days for possible pneumonia. He also reports to me that he had shaking episode and slumped over. ED workup reveal hypotension on presentation. Chest x-ray was clear. CTA showed no change in small a few chronic pulmonary al arterial webs in the right lower lobe related to prior pulmonary embolism. No acute pump PE or other acute cardiopulmonary disease. Irregular appearance of the right hepatic lobe which is significantly decreased in size which could represent either interval partial hepatectomy are per sponsor treatment for prior hepatic mass was concerning for malignancy. Presentation suspicious for acute on chronic super added infection of skin lesions. Place on antibiotics IV with IV vancomycin and cefepime Troponin was elevated 0.101 serial troponin down trending to 0.087-0.081. BNP at 759. EKG with sinus rhythm nonspecific ST-T changes. Cardiology consulted. Creatinine at 1.9 showing ÁNGEL on CKD. 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 History of left lower extremity DVT Melanoma Hepatocellular carcinoma cancer followed at [facility] Coronary artery disease status post stents with PCI to RCA in 1998. Chronic anticoagulation COPD Hypertension History of DVT PE Hypothyroidism Hyperlipidemia Insulin-dependent type 2 diabetes Morbid obesity T-cell lymphoma DVT prophylaxis already on anticoagulation Subjective Date/time seen: 02/02/24 09:07 Interval history: Feels much better. Had multiple source in his body related to his underlying T-cell lymphoma and melanoma. Reports was shaking and passed out at home and hence came to the ER. Line Review of Systems Review of Systems: All systems reviewed & are unremarkable except as noted in HPI and below Exam Narrative: GENERAL: Well-developed, well-nourished, and in no acute distress. HEAD: Normocephalic, atraumatic. There is a mildly erythematous lesion on the left parietal scalp with a small amount of purulent drainage EYES: PERRLA and EOMI. ENT: Nares clear, no rhinorrhea or epistaxis.? Mucous membranes moist.? CHEST: Clear to auscultation.? No respiratory distress.? No wheezes rales or rhonchi HEART: Regular rate and rhythm.? No murmur heard.? Normal peripheral pulses. ABDOMEN: Soft, nontender, nondistended, normal active bowel sounds. EXTREMITIES: Normal range of motion.? No edema. SKIN: Multiple bullous lesions of varying
[2024-02-02] MEDS: INSULIN ASPART (*BKC) 100 UNITS/ML SUB-Q ×4 (09:09→17:38)
[2024-02-02 09:56] LABS: Glucose Point of Care 147 mg/dl (65-105)
[2024-02-02 11:58] LABS: Glucose Point of Care 194 mg/dl (65-105)
[2024-02-02] MEDS: VANCOMYCIN 1,500 MG/NS 500 ML 1,500 MG/500 ML BAG 250 MG IVPB (16:26)
[2024-02-02] MEDS: CEFEPIME 2 GM/NS 50 ML 2 GM/50 ML BAG IVPB (16:26)
[2024-02-02 17:34] LABS: Glucose Point of Care 242 mg/dl (65-105)
--- NOTE | 2024-02-02 17:37 | ECG_ITS ---
SEE SCANNED COPY FOR CONFIRMED REPORT MTDD
[2024-02-02] MEDS: HEPARIN SOD/D5W 100 UNITS/ML 25,000 UNITS/250 ML BAG 10 UNITS IV CONT (19:13)
[2024-02-02] MEDS: NITROGLYCERIN SL 0.4 MG TABLET SUBLINGUAL (19:14)
[2024-02-02 19:59] LABS: Hematocrit 32.1 % (42.0-52.0); Hemoglobin 9.9 g/dL (14.0-18.0); Mean Corpuscular HGB Conc 30.8 g/dl (32-36); Mean Corpuscular Hemoglobin 25.3 pg (26-34); Mean Corpuscular Volume 81.9 fl (80-100); Mean Platelet Volume 10.8 fl (7.4-10.4); Platelet Count Result 191 k/mm3 (150-375); Red Blood Count 3.92 M/mm3 (4.6-6.20)
[2024-02-02 20:10] LABS: Prothrombin Time 23.8 Seconds (11.1-14.7)
[2024-02-02 20:12] LABS: Partial Thromboplastin Time 55.2 Seconds (22.3-36.8)
[2024-02-02 20:28] LABS: Anisocytosis 1+; Platelet Estimate Adequate (Adequate)
[2024-02-02 20:29] LABS: Hypochromasia 1+; Schistocytes Rare
[2024-02-02 20:56] LABS: Glucose Point of Care 203 mg/dl (65-105)
[2024-02-02] MEDS: traMADol HCL (*CRX) 50 MG TABLET 100 MG PO (22:24)
[2024-02-03] VITALS (18 sets, daily range): BP systolic 108–139; BP diastolic 41–113; PULSE 80–103; RESP 12–20; TEMP 36.3–36.9; O2SAT 94–100
--- NOTE | 2024-02-03 | ECHO_ITS ---
Patient Info Name: Bo Barragan Age: 78 years : 1945 Gender: Male Ht: 68 in Wt: 231 lbs BSA: 2.28 m2 HR: 90 bpm BP: 108 / 69 mmHg Technical Quality: Poor Exam Date: 02/03/2024 2:41 PM Exam Location: Echo Lab Patient Status: Inpatient Admit Date: 02/03/2024 Staff Ordering Physician: Mauri Herzog MD Insole Presser: Olayinka Mayberry RDCS Attending Provider: Breonna Tejeda MD Exam Type: CA echo doppler color flow Study Info Indications I21.4 - Non-ST elevation (NSTEMI) myocardial infarction Complete two-dimensional, color flow and Doppler transthoracic echocardiogram is performed with contrast to opacify the left ventricle and to improve the deliniation of the left ventricle endocardial borders. Contrast/Agitated Saline Contrast/Ag. Saline: Definity Amount: 6.00 ml Reason for Poor Study: patient body habitus Summary 1. Left ventricular chamber dimension is normal. 2. Left ventricular systolic function is normal, estimated at 65-70%. 3. Right ventricular chamber dimension is normal. 4. Right ventricular systolic function is normal. 5. Technically difficult study with limited views. Left Ventricle Left ventricular chamber dimension is normal. Left ventricular systolic function is normal, estimated at 65-70%. There is no increased left ventricular wall thickness. The left ventricular diastolic function is grade I diastolic dysfunction. Right Ventricle Right ventricular chamber dimension is normal. Right ventricular systolic function is normal. Left Atria Left atrial chamber dimension is normal. Right Atria Right atrial chamber dimension is normal. Aortic Valve The aortic valve is not well visualized. There is no aortic valve stenosis. There is no aortic valve regurgitation. Pulmonic Valve The pulmonic valve is not well visualized. Mitral Valve The mitral valve has normal leaflets. There is no mitral valve stenosis. There is no mitral valve regurgitation. Tricuspid Valve The tricuspid valve leaflets are not well visualized. There is no significant tricuspid valve stenosis. There is no tricuspid valve regurgitation. Pericardium/Pleural The pericardium appears normal. There is no pericardial effusion. Inferior Vena Cava Normal inferior vena cava with >50% collapse upon inspiration consistent with normal right atrial pressure, Empty. Aorta The aortic root size at the sinus of Valsalva is normal. The prox ascending aorta size is normal. Left Ventricular Outflow Tract Name Value Normal LVOT 2D LVOT Diameter 2.2 cm LVOT Doppler LVOT Peak Gradient 7 mmHg LVOT Mean Gradient 4 mmHg LVOT VTI 23 cm LVOT VTI/AV VTI Ratio 0.7 LVOT Stroke Volume 85 ml LVOT CO 7.4 l/min LVOT CI 3.3 l/min/m2 Pulmonic Valve Name Value Normal PV Doppler ---
[2024-02-03] MEDS: CEFEPIME 2 GM/NS 50 ML 2 GM/50 ML BAG IVPB ×2 (01:27→14:38)
[2024-02-03 02:00] LABS: Basophils Percent Auto 1.3 % (0.2-1.2); Eosinophils Percent Auto 0.9 % (0-4.4); Hematocrit 30.6 % (42.0-52.0); Hemoglobin 9.7 g/dL (14.0-18.0); Immature Granulocyte Absolute 0.02 K/mm3 (0.00-0.031); Immature Granulocyte Percent A 0.9 % (0-0.5); Lymphocytes Absolute Auto 0.69 K/mm3 (0.9-3.2); Lymphocytes Percent Auto 30.5 % (18.3-44.2); Mean Corpuscular HGB Conc 31.7 g/dl (32-36); Mean Corpuscular Hemoglobin 25.4 pg (26-34); Mean Corpuscular Volume 80.1 fl (80-100); Mean Platelet Volume 10.8 fl (7.4-10.4); Monocytes Absolute Auto 0.8 K/mm3 (0.1-0.6); Monocytes Percent Auto 36.3 % (2.6-8.5); Neutrophils Absolute Auto 0.7 K/mm3 (1.3-6.7); Neutrophils Percent Auto 30.1 % (45.5-73.1); Nucleated Red Blood Cells Perc 0.9 % (0.0-0.2); Platelet Count Result 176 k/mm3 (150-375); Red Blood Count 3.82 M/mm3 (4.6-6.20); Red Cell Distribution Width 17.3 % (11.5-14.5); White Blood Count 2.3 K/mm3 (4.5-10.0)
[2024-02-03 02:12] LABS: Alanine Aminotransferase 56 U/L (6-50); Albumin Level 3.2 g/dL (3.5-5.1); Alkaline Phosphatase 68 U/L (38-126); Anion Gap 5 mmol/L (4-12); Aspartate Amino Transferase 73 U/L (17-59); Bilirubin,Total 0.7 mg/dL (0.2-1.3); Blood Urea Nitrogen 21 mg/dL (9-20); Calcium 8.5 mg/dL (8.4-10.2); Carbon Dioxide 23 mmol/L (22-30); Chloride 107 mmol/L (98-107); Estimated CRCL calculation 38 ml/min; Estimated Glomerular Filt Rate 39; Glucose 191 mg/dL (65-110); Magnesium 1.3 mg/dL (1.6-2.3); Sodium 135 mmol/L (137-145)
[2024-02-03 02:43] LABS: Anisocytosis 1+; Platelet Estimate Adequate (Adequate); Schistocytes Rare
[2024-02-03 02:44] LABS: Poikilocytosis 1+
[2024-02-03 03:08] LABS: Partial Thromboplastin Time 164.6 Seconds (22.3-36.8)
[2024-02-03] MEDS: LEVOTHYROXINE SODIUM 100 MCG TABLET PO (05:12)
[2024-02-03 08:24] LABS: Glucose Point of Care 155 mg/dl (65-105)
[2024-02-03] MEDS: ROSUVASTATIN 20 MG TABLET 40 MG PO (09:39)
[2024-02-03] MEDS: LORATADINE 10 MG TABLET PO (09:39)
[2024-02-03] MEDS: levoFLOXacin 500 MG TABLET PO (09:39)
[2024-02-03] MEDS: FENOFIBRATE NANOCRYSTALLIZED 145 MG TABLET PO (09:39)
[2024-02-03] MEDS: FOLIC ACID 1 MG TABLET PO (09:39)
[2024-02-03] MEDS: METOPROLOL SUCCINATE EXT REL 50 MG TABCR 100 MG PO (09:39)
[2024-02-03] MEDS: FUROSEMIDE 40 MG TABLET 80 MG PO (09:39)
[2024-02-03] MEDS: CYANOCOBALAMIN 1,000 MCG TABLET 1000 MCG PO (09:40)
[2024-02-03] MEDS: EMPAGLIFLOZIN 25 MG TABLET BY MOUTH (09:40)
[2024-02-03] MEDS: PANTOPRAZOLE 40 MG TABLET PO ×2 (09:40→18:18)
[2024-02-03] MEDS: allopurinoL 300 MG TABLET PO (09:40)
[2024-02-03] MEDS: MULTIVITAMINS THERAPEUTIC TAB (*BKC) 1 TABLET PO (09:40)
[2024-02-03] MEDS: OMEGA 3 POLYUNSAT FATTY ACIDS 1 GM CAP PO ×2 (09:40→18:17)
[2024-02-03] MEDS: lisinopriL 10 MG TABLET PO (09:40)
[2024-02-03] MEDS: FERROUS SULFATE 325 MG TABLET DR BY MOUTH ×2 (09:40→18:18)
[2024-02-03] MEDS: ASPIRIN 81 MG ENTERIC TABLET PO ×2 (09:40→18:17)
[2024-02-03] MEDS: FINASTERIDE 5 MG TABLET PO (09:40)
[2024-02-03] MEDS: oxyBUTYnin CHLORIDE 5 MG TABLET PO ×2 (09:40→18:17)
[2024-02-03] MEDS: polyethylene glycoL 3350 17 GM POWD.PACK PO (09:42)
[2024-02-03] MEDS: MAGNESIUM SULF 1 GM/D5W 100 ML 1 GM/100 ML BAG IVPB (09:55)
[2024-02-03 10:22] LABS: Partial Thromboplastin Time 91.6 Seconds (22.3-36.8)
[2024-02-03 10:51] LABS: Glucose Point of Care 182 mg/dl (65-105)
--- NOTE | 2024-02-03 11:38 | PM.IMPN ---
Progress Note: A&P Assessment and Plan (1) Shortness of breath: Code(s): R06.02 - Shortness of breath Status: Acute (2) Elevated troponin: Code(s): R79.89 - Other specified abnormal findings of blood chemistry Status: Acute (3) Acute kidney injury superimposed on CKD: Code(s): N17.9 - Acute kidney failure, unspecified; N18.9 - Chronic kidney disease, unspecified Status: Acute (4) Hypomagnesemia: Code(s): E83.42 - Hypomagnesemia Status: Acute (5) Open wounds involving multiple regions of lower extremity: Code(s): S81.809A - Unspecified open wound, unspecified lower leg, initial encounter Status: Acute (6) Insulin dependent type 2 diabetes mellitus: Code(s): E11.9 - Type 2 diabetes mellitus without complications; Z79.4 - FCI (current) use of insulin Status: Acute (7) Essential hypertension: Code(s): I10 - Essential (primary) hypertension Status: Chronic Plan This is a 78-year-old male who presents to the ED complaining of shortness of breath started early in the morning. Shortness of breath felt like previous PE.. Patient also reported episodes of non bloody vomiting for the past several days. No fever chills chest pain cough. He has chronic pain related to multiple sores on the scan. Also had chest congestion nausea vomiting. Saw PCP on 01/25 and was given levofloxacin for 10 days for possible pneumonia. He also reports to me that he had shaking episode and slumped over. ED workup reveal hypotension on presentation. Chest x-ray was clear. CTA showed no change in small a few chronic pulmonary al arterial webs in the right lower lobe related to prior pulmonary embolism. No acute pump PE or other acute cardiopulmonary disease. Irregular appearance of the right hepatic lobe which is significantly decreased in size which could represent either interval partial hepatectomy are per sponsor treatment for prior hepatic mass was concerning for malignancy. Presentation suspicious for acute on chronic super added infection of skin lesions. Place on antibiotics IV with IV vancomycin and cefepime. Blood pressure and hemodynamics stable. Troponin was elevated 0.101 serial troponin down trending to 0.087-0.081. BNP at 759. EKG with sinus rhythm nonspecific ST-T changes. Cardiology consulted. Creatinine at 1.9 showing ÁNGEL on CKD. Baseline creatinine of 1.2 Another episode of chest pain 02/02/2024 with no new EKG changes however troponin bumped up to 1.[address] elevation PA. apixaban switched to heparin drip. Cardiology reconsulted. On aspirin already. On beta-sincere already and statin. Nitroglycerin p.r.n.. Morphine p.r.n. for chest pain. Further workup per Cardiology. 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 History of left lower extremity DVT Melanoma Hepatocellular carcinoma cancer followed at [facility] Coronary artery disease status post stents with PCI to RCA in 1998. Chronic anticoagulation COPD Hypertension History of DVT PE Hypothyroidism Hyperlipidemia Insulin-dependent type 2 diabetes Morbid obesity T-cell lymphoma DVT prophylaxis already on anticoagulation on switched to heparin drip now. Subjective Date/time seen: 02/03/24 11:38 Interval history: Had some chest pain yesterday evening when he was trying to pull himself up the bed. It was retrosternal. EKG with no ST-T changes compared to previous EKGs however troponin bumped up to 1.4 apixaban switched to heparin drip. No further recurrence of chest pain. Also received nitroglycerin sublingual. He thinks it was exertional and muscle related. Review of Systems Review of Systems: All systems reviewed & are unremarkable except as noted in HPI and below Exam Narrative: GENERAL: Well-develop
[2024-02-03 11:44] LABS: Glucose Point of Care 199 mg/dl (65-105)
--- NOTE | 2024-02-03 12:07 | PM.PNCARD ---
Progress Note: A&P Assessment and Plan (1) NSTEMI (non-ST elevated myocardial infarction): Code(s): I21.4 - Non-ST elevation (NSTEMI) myocardial infarction Status: Acute Plan NSTEMI Hypertension controlled History of liver tumor and lymphoma Plan Heparin Aspirin Statin Left heart catheterization on Monday Subjective Date/time seen: 02/03/24 12:07 Interval history: one episode of chest pain yesterday lasted for few minutes and improved with nitroglycerin Review of Systems Review of Systems: All systems reviewed & are unremarkable except as noted in HPI and below Exam Const: General: comfortable and no acute distress Other: Able to lie flat Resp: Auscultation: clear to auscultation bilaterally and lung sounds not diminished Other: No chest wall tenderness Cardio: Rate: regular rate Rhythm: regular rhythm Heart sounds: no gallops, no murmurs and no rubs GI: GI Palp: Yes Soft to palpation and No Tenderness to palpation present (GI) Auscultation: normal bowel sounds Skin: General skin exam: normal color, rashes and/or lesions noted and no erythema Other: Warm Objective Data Vital Signs Vital Signs: Vital Signs - 24 hr 02/02/24 14:00 02/02/24 15:00 02/02/24 16:00 Temperature 36.9 C Pulse Rate 96 85 Respiratory Rate 17 Blood Pressure 136/99 H Pulse Oximetry 96 Oxygen Delivery Room Air Fraction of Inspired Oxygen 02/02/24 16:00 02/02/24 16:00 02/02/24 18:00 Temperature Pulse Rate 92 87 Respiratory Rate Blood Pressure Pulse Oximetry Oxygen Delivery Room Air Fraction of Inspired Oxygen 02/02/24 20:00 02/02/24 20:00 02/03/24 00:00 Temperature 36.4 C 36.3 C L Pulse Rate 90 90 89 Respiratory Rate 12 12 16 Blood Pressure 129/113 H 108/48 L Pulse Oximetry 90 90 99 Oxygen Delivery Room Air Fraction of Inspired Oxygen 02/03/24 00:00 02/02/24 20:00 02/02/24 22:00 Temperature Pulse Rate 89 101 H 88 Respiratory Rate 16 Blood Pressure Pulse Oximetry 99 Oxygen Delivery Room Air Fraction of Inspired Oxygen 02/03/24 00:00 02/03/24 02:00 02/03/24 04:00 Temperature Pulse Rate 87 88 Respiratory Rate Blood Pressure Pulse Oximetry Oxygen Delivery Room Air Fraction of Inspired Oxygen 02/03/24 04:00 02/03/24 04:00 02/03/24 05:36 Temperature 36.3 C L Pulse Rate 86 83 85 Respiratory Rate 12 Blood Pressure 115/41 L Pulse Oximetry 97 Oxygen Delivery Fraction of Inspired Oxygen 02/03/24 08:00 02/03/24 08:46 02/03/24 09:39 Temperature 36.7 C Pulse Rate 86 86 Respiratory Rate 16 Blood Pressure 117/51 L Pulse Oximetry 100 100 Oxygen Delivery Room Air Fraction of Inspired Oxygen 02/03/24 10:44 Temperature 36.5 C Pulse Rate 88 Respiratory Rate 18 Blood Pressure 123/66 Pulse Oximetry 99 Oxygen Delivery Fraction of Inspired Oxygen Intake/Output Intake/Output: Intake & Output 01/31/24 02/01/24 02/02/24 02/03/24 23:59 23:59 23:59 23:59 Intake Total 3280.0 1480 485.0 Output Total 200 250 250 Balance 3080.0 1230 235.0 Meds/Results Medications: Active Medications Generic Name Dose Route Start Last Admin Trade Name Freq PRN Reason Stop Dose Admin Allopurinol 300 mg 02/02/24 09:00 02/03/24 09:40 Allopurinol 300 Mg Tablet PO 300 mg DAILY DANIKA Administration Apixaban 5 mg 02/01/24 21:00 02/02/24 09:00 Apixaban 5 Mg Tablet PO 5 mg Q12HR DANIKA Administration Artificial Tears 1 drop 02/01/24 16:07 Artificial Tears Ophth Soln 15 Ml Bottle EACH EYE QID PRN Dry Eye(s) Aspirin 81 mg 02/01/24 17:00 02/03/24 09:40 Aspirin 81 Mg Enteric Tablet PO 81 mg BID DANIKA Administration Benzonatate 200 mg 02/01/24 16:18 Benzonatate 100 Mg Capsule PO TID PRN cough Clobetasol Propionate 1 applic 02/01/24 21:00 02/02/24 21:15 Clobetasol Propionate 0.05% Oint 30 G
[2024-02-03] MEDS: INSULIN ASPART (*BKC) 100 UNITS/ML SUB-Q ×2 (14:06→18:18)
[2024-02-03] MEDS: PERFLUTREN LIPID MICROSPHERES 1.5 ML VIAL DILUTED TO 10 ML TOTAL VOLUME IV PUSH (15:18)
--- NOTE | 2024-02-03 15:18 | IVDEFINITY ---
Prior to administration of IV Definity the patient was educated on the risks and benefits of the imaging enhancing agent including potential adverse side effects. The patient verbalized understanding. Allergies were verified. No exclusion criteria were identified and at least one of the following inclusion criteria were met: 1) physician request, 2) patient technically difficult to image (per the [place] [employer] guidelines of two or more segments not discernable within the apical view), or 3) questionable left ventricular function. ?
[2024-02-03] MEDS: TRIAMCINOLONE ACET 0.1% CREAM 80 GM TUBE 1 APPLIC TOPICAL ×2 (17:30→18:18)
[2024-02-03] MEDS: GENTAMICIN SULFATE 0.1% CR 15 GM TUBE 1 APPLIC TOPICAL ×2 (17:30→18:18)
[2024-02-03 18:06] LABS: Partial Thromboplastin Time 71.6 Seconds (22.3-36.8)
[2024-02-03 20:46] LABS: Glucose Point of Care 230 mg/dl (65-105)
[2024-02-03] MEDS: INSULIN GLARGINE (*BKC) 100 UNITS/ML 15 UNITS SUB-Q (21:05)
[2024-02-04] VITALS (17 sets, daily range): BP systolic 97–135; BP diastolic 45–86; PULSE 74–99; RESP 12–20; TEMP 36.1–36.7; O2SAT 96–100
[2024-02-04] MEDS: HEPARIN SOD/D5W 100 UNITS/ML 25,000 UNITS/250 ML BAG 8 UNITS IV CONT (00:16)
[2024-02-04] MEDS: CEFEPIME 2 GM/NS 50 ML 2 GM/50 ML BAG IVPB ×2 (01:47→17:40)
[2024-02-04] MEDS: traMADol HCL (*CRX) 50 MG TABLET 100 MG PO ×3 (01:53→22:38)
[2024-02-04] MEDS: VANCOMYCIN 1,500 MG/NS 500 ML 1,500 MG/500 ML BAG 250 MG IVPB (03:18)
[2024-02-04 04:48] LABS: Estimated CRCL calculation 46 ml/min; Estimated Glomerular Filt Rate 49
[2024-02-04 04:49] LABS: Partial Thromboplastin Time 79.7 Seconds (22.3-36.8)
[2024-02-04] MEDS: LEVOTHYROXINE SODIUM 100 MCG TABLET PO (05:36)
[2024-02-04 07:53] LABS: Glucose Point of Care 148 mg/dl (65-105)
[2024-02-04 08:19] LABS: Hematocrit 32.3 % (42.0-52.0); Hemoglobin 9.9 g/dL (14.0-18.0); Mean Corpuscular HGB Conc 30.7 g/dl (32-36); Mean Corpuscular Hemoglobin 25.2 pg (26-34); Mean Corpuscular Volume 82.2 fl (80-100); Mean Platelet Volume 11.5 fl (7.4-10.4); Platelet Count Result 176 k/mm3 (150-375); Red Blood Count 3.93 M/mm3 (4.6-6.20); Red Cell Distribution Width 17.6 % (11.5-14.5); White Blood Count 2.2 K/mm3 (4.5-10.0)
[2024-02-04 08:33] LABS: Alanine Aminotransferase 56 U/L (6-50); Albumin Level 2.9 g/dL (3.5-5.1); Alkaline Phosphatase 58 U/L (38-126); Anion Gap 6 mmol/L (4-12); Aspartate Amino Transferase 66 U/L (17-59); Bilirubin,Total 0.7 mg/dL (0.2-1.3); Blood Urea Nitrogen 20 mg/dL (9-20); Calcium 8.6 mg/dL (8.4-10.2); Carbon Dioxide 22 mmol/L (22-30); Chloride 108 mmol/L (98-107); Estimated CRCL calculation 46 ml/min; Estimated Glomerular Filt Rate 49; Glucose 164 mg/dL (65-110); Magnesium 1.5 mg/dL (1.6-2.3); Potassium 4.1 mmol/L (3.4-5.0); Sodium 136 mmol/L (137-145)
[2024-02-04] MEDS: EMPAGLIFLOZIN 25 MG TABLET BY MOUTH (08:52)
[2024-02-04] MEDS: ROSUVASTATIN 20 MG TABLET 40 MG PO (08:52)
[2024-02-04] MEDS: FENOFIBRATE NANOCRYSTALLIZED 145 MG TABLET PO (08:52)
[2024-02-04] MEDS: OMEGA 3 POLYUNSAT FATTY ACIDS 1 GM CAP PO ×2 (08:52→17:43)
[2024-02-04] MEDS: oxyBUTYnin CHLORIDE 5 MG TABLET PO ×2 (08:52→17:42)
[2024-02-04] MEDS: FINASTERIDE 5 MG TABLET PO (08:52)
[2024-02-04] MEDS: FOLIC ACID 1 MG TABLET PO (08:52)
[2024-02-04] MEDS: ASPIRIN 81 MG ENTERIC TABLET PO ×2 (08:52→17:43)
[2024-02-04] MEDS: METOPROLOL SUCCINATE EXT REL 50 MG TABCR 100 MG PO (08:52)
[2024-02-04] MEDS: levoFLOXacin 500 MG TABLET PO (08:52)
[2024-02-04] MEDS: MULTIVITAMINS THERAPEUTIC TAB (*BKC) 1 TABLET PO (08:53)
[2024-02-04] MEDS: lisinopriL 10 MG TABLET PO (08:53)
[2024-02-04] MEDS: allopurinoL 300 MG TABLET PO (08:53)
[2024-02-04] MEDS: LORATADINE 10 MG TABLET PO (08:53)
[2024-02-04] MEDS: INSULIN ASPART (*BKC) 100 UNITS/ML SUB-Q ×4 (08:53→17:41)
[2024-02-04] MEDS: FUROSEMIDE 40 MG TABLET 80 MG PO (08:53)
[2024-02-04] MEDS: CYANOCOBALAMIN 1,000 MCG TABLET 1000 MCG PO (08:53)
[2024-02-04] MEDS: PANTOPRAZOLE 40 MG TABLET PO ×2 (08:53→17:43)
[2024-02-04] MEDS: FERROUS SULFATE 325 MG TABLET DR BY MOUTH ×2 (08:53→17:43)
[2024-02-04] MEDS: polyethylene glycoL 3350 17 GM POWD.PACK PO (08:53)
[2024-02-04] MEDS: TRIAMCINOLONE ACET 0.1% CREAM 80 GM TUBE 1 APPLIC TOPICAL ×2 (08:54→17:44)
[2024-02-04] MEDS: GENTAMICIN SULFATE 0.1% CR 15 GM TUBE 1 APPLIC TOPICAL ×3 (08:54→22:27)
--- NOTE | 2024-02-04 11:36 | PCPTNOTE ---
Physical therapy asks if patient would like to get up stretch his legs and then get set up for lunch and he states he just finished lunch and has been doing the exercises the other physical therapist gave him and that we should give him a few days off until after his Cat Scan.
[2024-02-04 12:12] LABS: Glucose Point of Care 211 mg/dl (65-105)
--- NOTE | 2024-02-04 12:56 | PM.PNCARD ---
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 Continue metoprolol Subjective Date/time seen: 02/04/24 12:56 Interval history: No acute events overnight Review of Systems Review of Systems: All systems reviewed & are unremarkable except as noted in HPI and below Exam Const: General: comfortable and no acute distress Other: Able to lie flat Resp: Auscultation: clear to auscultation bilaterally and lung sounds not diminished Other: No chest wall tenderness Cardio: Rate: regular rate Rhythm: regular rhythm Heart sounds: no gallops, no murmurs and no rubs GI: GI Palp: Yes Soft to palpation and No Tenderness to palpation present (GI) Auscultation: normal bowel sounds Skin: General skin exam: normal color, rashes and/or lesions noted and no erythema Other: Warm Objective Data Vital Signs Vital Signs: Vital Signs - 24 hr 02/03/24 14:00 02/03/24 16:00 02/03/24 16:00 Temperature 36.9 C Pulse Rate 94 93 88 Respiratory Rate 16 Blood Pressure 139/113 H Pulse Oximetry 98 Oxygen Delivery 02/03/24 18:00 02/03/24 20:00 02/03/24 20:00 Temperature 36.5 C Pulse Rate 88 82 82 Respiratory Rate 12 12 Blood Pressure 112/58 L Pulse Oximetry 97 97 Oxygen Delivery Room Air 02/03/24 20:00 02/03/24 22:00 02/03/24 23:48 Temperature 36.4 C L Pulse Rate 82 103 H 85 Respiratory Rate 20 Blood Pressure 124/78 Pulse Oximetry 94 Oxygen Delivery 02/03/24 23:54 02/04/24 00:00 02/04/24 01:13 Temperature Pulse Rate 85 93 87 Respiratory Rate 20 Blood Pressure Pulse Oximetry 94 Oxygen Delivery Room Air 02/03/24 21:55 02/04/24 04:00 02/04/24 04:00 Temperature 36.6 C Pulse Rate 81 81 Respiratory Rate 12 12 Blood Pressure 97/45 L Pulse Oximetry 94 96 96 Oxygen Delivery Room Air Room Air 02/04/24 04:00 02/04/24 06:00 02/04/24 08:00 Temperature 36.7 C Pulse Rate 80 94 86 Respiratory Rate 20 Blood Pressure 135/86 Pulse Oximetry 99 Oxygen Delivery 02/04/24 08:52 02/04/24 08:00 02/04/24 12:00 Temperature 36.7 C Pulse Rate 97 91 87 Respiratory Rate 16 Blood Pressure 101/60 Pulse Oximetry 98 Oxygen Delivery Intake/Output Intake/Output: Intake & Output 02/01/24 02/02/24 02/03/24 02/04/24 23:59 23:59 23:59 23:59 Intake Total 3280.0 1480 1546.2 1294.0 Output Total 200 250 250 Balance 3080.0 1230 1296.2 1294.0 Meds/Results Medications: Active Medications Generic Name Dose Route Start Last Admin Trade Name Freq PRN Reason Stop Dose Admin Allopurinol 300 mg 02/02/24 09:00 02/04/24 08:53 Allopurinol 300 Mg Tablet PO 300 mg DAILY DANIKA Administration Apixaban 5 mg 02/01/24 21:00 02/02/24 09:00 Apixaban 5 Mg Tablet PO 5 mg Q12HR DANIKA Administration Artificial Tears 1 drop 02/01/24 16:07 Artificial Tears Ophth Soln 15 Ml Bottle EACH EYE QID PRN Dry Eye(s) Aspirin 81 mg 02/01/24 17:00 02/04/24 08:52 Aspirin 81 Mg Enteric Tablet PO 81 mg BID DANIKA Administration Benzonatate 200 mg 02/01/24 16:18 Benzonatate 100 Mg Capsule PO TID PRN cough Clobetasol Propionate 1 applic 02/01/24 21:00 02/03/24 20:58 Clobetasol Propionate 0.05% Oint 30 Gm TOPICAL Not Given QHS DANIKA Cyanocobalamin 1,000 mcg 02/02/24 09:00 02/04/24 08:53 Cyanocobalamin 1,000 Mcg Tablet PO 1,000 mcg DAILY DANIKA Administration Dextrose 12.5 gm 02/01/24 09:11 Dextrose 50% 25 Gm/50 Ml Syringe IV
--- NOTE | 2024-02-04 13:39 | PM.IMPN ---
Progress Note: A&P Assessment and Plan (1) Shortness of breath: Code(s): R06.02 - Shortness of breath Status: Acute (2) Elevated troponin: Code(s): R79.89 - Other specified abnormal findings of blood chemistry Status: Acute (3) Acute kidney injury superimposed on CKD: Code(s): N17.9 - Acute kidney failure, unspecified; N18.9 - Chronic kidney disease, unspecified Status: Acute (4) Hypomagnesemia: Code(s): E83.42 - Hypomagnesemia Status: Acute (5) Open wounds involving multiple regions of lower extremity: Code(s): S81.809A - Unspecified open wound, unspecified lower leg, initial encounter Status: Acute (6) Insulin dependent type 2 diabetes mellitus: Code(s): E11.9 - Type 2 diabetes mellitus without complications; Z79.4 - [facility] (current) use of insulin Status: Acute (7) Essential hypertension: Code(s): I10 - Essential (primary) hypertension Status: Chronic Plan This is a 78-year-old male who presents to the ED complaining of shortness of breath started early in the morning. Shortness of breath felt like previous PE.. Patient also reported episodes of non bloody vomiting for the past several days. No fever chills chest pain cough. He has chronic pain related to multiple sores on the scan. Also had chest congestion nausea vomiting. Saw PCP on 01/25 and was given levofloxacin for 10 days for possible pneumonia. He also reports to me that he had shaking episode and slumped over. ED workup reveal hypotension on presentation. Chest x-ray was clear. CTA showed no change in small a few chronic pulmonary al arterial webs in the right lower lobe related to prior pulmonary embolism. No acute pump PE or other acute cardiopulmonary disease. Irregular appearance of the right hepatic lobe which is significantly decreased in size which could represent either interval partial hepatectomy are per sponsor treatment for prior hepatic mass was concerning for malignancy. Presentation suspicious for acute on chronic super added infection of skin lesions. Place on antibiotics IV with IV vancomycin and cefepime. Blood pressure and hemodynamics stable. Troponin was elevated 0.101 serial troponin down trending to 0.087-0.081. BNP at 759. EKG with sinus rhythm nonspecific ST-T changes. Cardiology consulted. Creatinine at 1.9 showing ÁNGEL on CKD. Baseline creatinine of 1.2 Another episode of chest pain 02/02/2024 with no new EKG changes however troponin bumped up to 1.[address] elevation [place]. apixaban switched to heparin drip. Cardiology reconsulted. On aspirin already. On beta-sincere already and statin. Nitroglycerin p.r.n.. Morphine p.r.n. for chest pain. Further workup per Cardiology. Plan for heart catheterization in a.m. 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 History of left lower extremity DVT Melanoma Hepatocellular carcinoma cancer followed at [facility] Coronary artery disease status post stents with PCI to RCA in 1998. Chronic anticoagulation COPD Hypertension History of DVT PE Hypothyroidism Hyperlipidemia Insulin-dependent type 2 diabetes Morbid obesity T-cell lymphoma DVT prophylaxis already on anticoagulation on switched to heparin drip now. Subjective Date/time seen: 02/04/24 13:39 Interval history: No new complaints. Remains afebrile. Blood pressure stable. Labs reviewed. Review of Systems Review of Systems: All systems reviewed & are unremarkable except as noted in HPI and below Exam Narrative: GENERAL: Well-developed, well-nourished, and in no acute distress. HEAD: Normocephalic, atraumatic. There is a mildly erythematous lesion on the left parietal scalp with a small amount of purulent drainage EYES: PERRLA and EOMI. ENT: Nares clear, no rhinorrh
[2024-02-04 16:06] LABS: Glucose Point of Care 165 mg/dl (65-105)
[2024-02-04] MEDS: MAGNESIUM SULF 2 GM/WATER 50ML 2 GM/50 ML BAG IVPB (16:37)
[2024-02-04 20:35] LABS: Glucose Point of Care 181 mg/dl (65-105)
[2024-02-04] MEDS: INSULIN GLARGINE (*BKC) 100 UNITS/ML 15 UNITS SUB-Q (22:15)
[2024-02-04] MEDS: CLOBETASOL PROPIONATE 0.05% OINT 30 GM 1 APPLIC TOPICAL (22:18)
[2024-02-05] VITALS (12 sets, daily range): BP systolic 99–128; BP diastolic 53–69; PULSE 73–95; RESP 18–20; TEMP 36–36.7; O2SAT 96–100
[2024-02-05] MEDS: CEFEPIME 2 GM/NS 50 ML 2 GM/50 ML BAG IVPB (01:25)
[2024-02-05 02:13] LABS: Basophils Absolute Auto 0.1 K/mm3 (0.0-0.1); Basophils Percent Auto 2.6 % (0.2-1.2); Eosinophils Percent Auto 0.4 % (0-4.4); Hematocrit 32.4 % (42.0-52.0); Hemoglobin 10.2 g/dL (14.0-18.0); Immature Granulocyte Absolute 0.11 K/mm3 (0.00-0.031); Immature Granulocyte Percent A 4.1 % (0-0.5); Lymphocytes Absolute Auto 0.79 K/mm3 (0.9-3.2); Lymphocytes Percent Auto 29.4 % (18.3-44.2); Mean Corpuscular HGB Conc 31.5 g/dl (32-36); Mean Corpuscular Hemoglobin 25.3 pg (26-34); Mean Corpuscular Volume 80.4 fl (80-100); Mean Platelet Volume 10.9 fl (7.4-10.4); Monocytes Absolute Auto 0.8 K/mm3 (0.1-0.6); Neutrophils Absolute Auto 0.9 K/mm3 (1.3-6.7); Neutrophils Percent Auto 34.5 % (45.5-73.1); Nucleated Red Blood Cells Perc 0.7 % (0.0-0.2); Platelet Count Result 176 k/mm3 (150-375); Red Blood Count 4.03 M/mm3 (4.6-6.20); White Blood Count 2.7 K/mm3 (4.5-10.0)
[2024-02-05 02:24] LABS: Alanine Aminotransferase 61 U/L (6-50); Albumin Level 3.4 g/dL (3.5-5.1); Alkaline Phosphatase 75 U/L (38-126); Anion Gap 5 mmol/L (4-12); Aspartate Amino Transferase 89 U/L (17-59); Bilirubin,Total 0.6 mg/dL (0.2-1.3); Blood Urea Nitrogen 18 mg/dL (9-20); Carbon Dioxide 26 mmol/L (22-30); Chloride 106 mmol/L (98-107); Estimated CRCL calculation 46 ml/min; Estimated Glomerular Filt Rate 49; Glucose 159 mg/dL (65-110); Magnesium 1.9 mg/dL (1.6-2.3); Potassium 3.8 mmol/L (3.4-5.0); Sodium 137 mmol/L (137-145)
[2024-02-05 02:27] LABS: Partial Thromboplastin Time 69.5 Seconds (22.3-36.8)
[2024-02-05] MEDS: HEPARIN SODIUM 5,000 UNITS/ML VIAL 3500 UNITS IV PUSH (02:41)
[2024-02-05 02:47] LABS: Anisocytosis 1+; Hypochromasia 1+; Platelet Clumps Present; Platelet Estimate Adequate (Adequate)
[2024-02-05 02:52] LABS: Schistocytes None Seen
[2024-02-05] MEDS: ARTIFICIAL TEARS OPHTH SOLN 15 ML BOTTLE 1 DROP EACH EYE (04:08)
[2024-02-05] MEDS: VANCOMYCIN 1,500 MG/NS 500 ML 1,500 MG/500 ML BAG 250 MG IVPB (04:13)
[2024-02-05] MEDS: LEVOTHYROXINE SODIUM 100 MCG TABLET PO (06:35)
[2024-02-05 08:13] LABS: Glucose Point of Care 152 mg/dl (65-105)
--- NOTE | 2024-02-05 08:40 | PM.PNCARD ---
Progress Note: A&P Assessment and Plan (1) Shortness of breath: Code(s): R06.02 - Shortness of breath Status: Acute (2) Elevated troponin: Code(s): R79.89 - Other specified abnormal findings of blood chemistry Status: Acute Plan 78-year-old man with: Small troponin rise following episode of dyspnea on Monday. He is not really having any evidence of significant chest pain, ischemic symptomatology. It would be my impression to continue to treat this gentleman with medical therapy rather than returning him to the computer lab assistant particularly given his fairly complex history of several different malignancies as well as his DNR status. I am going to stop his IV heparin resume his apixaban today and he done no longer has to be kept NPO since I do not intend to return this gentleman to the cardiac catheterization lab Abisai Patton MD [facility] Subjective Date/time seen: Date of service: 02/05/24 08:40 Interval history: 02/05/2024: Patient is asymptomatic in relatively good spirits this morning he has IV heparin running anticipation of follow-up left heart catheterization for today. Long discussion with the patient regarding the complexity of his medical case which of course includes is previous history of coronary disease and inferior OR but also includes several active/ongoing malignancies which are being treated by organizational research consultant in [place] and his DNR status. Exam Const: General: comfortable, no acute distress, alert and awake Orientation/consciousness: patient oriented x3 Other: Able to lie flat HENMT: Head: abnormal to inspection Other: Scalp lesion Eyes: General: appearance normal, both eyes and all related structures Pupils: Equal, round and reactive pupils present Neck: Neck: normal visual inspection, supple and no JVD Carotids: normal carotid upstroke Resp: Effort & Inspection: normal respiratory effort Auscultation: clear to auscultation bilaterally and lung sounds not diminished Other: No chest wall tenderness Cardio: Rate: regular rate Rhythm: regular rhythm Heart sounds: S1 normal heart sound present, S2 normal heart sound present, no gallops, no murmurs and no rubs GI: Auscultation: normal bowel sounds Skin: General skin exam: normal color, rashes and/or lesions noted, no erythema, lesion and wounds noted Lesions: lesion noted Wounds: wounds noted Other: Warm Neuro: General: patient oriented x3 Cranial nerves: Yes Equal, round and reactive pupils present Extrem: General: normal to inspection Other: No edema Psych: Appearance: grossly normal Mental Status: mental status grossly normal Objective Data Vital Signs Vital Signs: Vital Signs - 24 hr 02/04/24 08:52 02/04/24 12:00 02/04/24 10:00 Temperature 36.7 C Pulse Rate 97 87 99 Respiratory Rate 16 Blood Pressure 101/60 Pulse Oximetry 98 Oxygen Delivery 02/04/24 16:00 02/04/24 12:00 02/04/24 14:00 Temperature 36.7 C Pulse Rate 85 90 78 Respiratory Rate 20 Blood Pressure 111/66 Pulse Oximetry 98 Oxygen Delivery 02/04/24 16:00 02/04/24 18:00 02/04/24 19:51 Temperature 36.1 C L Pulse Rate 86 76 74 Respiratory Rate 20 Blood Pressure 111/85 Pulse Oximetry 100 Oxygen Delivery 02/04/24 20:40 02/04/24 23:28 02/04/24 20:00 Temperature 36.1 C L Pulse Rate 74 82 75 Respiratory Rate 20 20 Blood Pressure 102/58 L Pulse Oximetry 100 99 Oxygen Delivery Room Air 02/04/24 22:00 02/04/24 23:27 02/05/24 00:00 Temperature Pulse Rate 87 82 76 Respiratory Rate 20 Blood Pressure Pulse Oximetry 99 Oxygen Delivery Room Air 02/05/24 02:00 02/05/24 04:00 02/05/24 04:00 Temperature 36.6 C Pulse Rate 85 82 82 Respiratory Rate 20 20 Blood Pressure 99/69 L Pulse Oximetry 96 96 Oxygen Delivery Room Air 02/05/24 04:00 02/05/24 05:31 02/05/24 07:32 Temperature 36.3 C L Pulse Rate 85 73 77
[2024-02-05] MEDS: INSULIN ASPART (*BKC) 100 UNITS/ML SUB-Q ×5 (10:29→17:43)
[2024-02-05] MEDS: APIXABAN 5 MG TABLET PO ×2 (10:30→20:25)
[2024-02-05] MEDS: PANTOPRAZOLE 40 MG TABLET PO ×2 (10:30→17:39)
[2024-02-05] MEDS: oxyBUTYnin CHLORIDE 5 MG TABLET PO ×2 (10:31→17:39)
[2024-02-05] MEDS: lisinopriL 10 MG TABLET PO (10:31)
[2024-02-05] MEDS: MULTIVITAMINS THERAPEUTIC TAB (*BKC) 1 TABLET PO (10:31)
[2024-02-05] MEDS: FOLIC ACID 1 MG TABLET PO (10:31)
[2024-02-05] MEDS: allopurinoL 300 MG TABLET PO (10:31)
[2024-02-05] MEDS: ROSUVASTATIN 20 MG TABLET 40 MG PO (10:31)
[2024-02-05] MEDS: ASPIRIN 81 MG ENTERIC TABLET PO ×2 (10:31→17:39)
[2024-02-05] MEDS: LORATADINE 10 MG TABLET PO (10:31)
[2024-02-05] MEDS: EMPAGLIFLOZIN 25 MG TABLET BY MOUTH (10:31)
[2024-02-05] MEDS: OMEGA 3 POLYUNSAT FATTY ACIDS 1 GM CAP PO ×2 (10:31→17:39)
[2024-02-05] MEDS: METOPROLOL SUCCINATE EXT REL 50 MG TABCR 100 MG PO (10:31)
[2024-02-05] MEDS: FINASTERIDE 5 MG TABLET PO (10:32)
[2024-02-05] MEDS: FERROUS SULFATE 325 MG TABLET DR BY MOUTH ×2 (10:32→17:39)
[2024-02-05] MEDS: FUROSEMIDE 40 MG TABLET 80 MG PO (10:32)
[2024-02-05] MEDS: FENOFIBRATE NANOCRYSTALLIZED 145 MG TABLET PO (10:32)
[2024-02-05] MEDS: CYANOCOBALAMIN 1,000 MCG TABLET 1000 MCG PO (10:32)
[2024-02-05] MEDS: polyethylene glycoL 3350 17 GM POWD.PACK PO (10:33)
[2024-02-05] MEDS: TRIAMCINOLONE ACET 0.1% CREAM 80 GM TUBE 1 APPLIC TOPICAL ×2 (10:33→17:40)
[2024-02-05 11:34] LABS: Glucose Point of Care 259 mg/dl (65-105)
--- NOTE | 2024-02-05 12:07 | PM.IMPN ---
Progress Note: A&P Assessment and Plan (1) Shortness of breath: Code(s): R06.02 - Shortness of breath Status: Acute (2) Elevated troponin: Code(s): R79.89 - Other specified abnormal findings of blood chemistry Status: Acute (3) Acute kidney injury superimposed on CKD: Code(s): N17.9 - Acute kidney failure, unspecified; N18.9 - Chronic kidney disease, unspecified Status: Acute (4) Hypomagnesemia: Code(s): E83.42 - Hypomagnesemia Status: Acute (5) Open wounds involving multiple regions of lower extremity: Code(s): S81.809A - Unspecified open wound, unspecified lower leg, initial encounter Status: Acute (6) Insulin dependent type 2 diabetes mellitus: Code(s): E11.9 - Type 2 diabetes mellitus without complications; Z79.4 - correction (current) use of insulin Status: Acute (7) Essential hypertension: Code(s): I10 - Essential (primary) hypertension Status: Chronic Plan This is a 78-year-old male who presents to the ED complaining of shortness of breath started early in the morning. Shortness of breath felt like previous PE.. Patient also reported episodes of non bloody vomiting for the past several days. No fever chills chest pain cough. He has chronic pain related to multiple sores on the scan. Also had chest congestion nausea vomiting. Saw PCP on 01/25 and was given levofloxacin for 10 days for possible pneumonia. He also reports to me that he had shaking episode and slumped over. ED workup reveal hypotension on presentation. Chest x-ray was clear. CTA showed no change in small a few chronic pulmonary al arterial webs in the right lower lobe related to prior pulmonary embolism. No acute pump PE or other acute cardiopulmonary disease. Irregular appearance of the right hepatic lobe which is significantly decreased in size which could represent either interval partial hepatectomy are per sponsor treatment for prior hepatic mass was concerning for malignancy. Presentation suspicious for acute on chronic super added infection of skin lesions. Place on antibiotics IV with IV vancomycin and cefepime. Blood pressure and hemodynamics stable. Will switch antibiotics to oral today. Include pseudomonal and MRSA coverage. Troponin was elevated 0.101 serial troponin down trending to 0.087-0.081. BNP at 759. EKG with sinus rhythm nonspecific ST-T changes. Cardiology consulted. Creatinine at 1.9 showing ÁNGEL on CKD. Baseline creatinine of 1.2 Another episode of chest pain 02/02/2024 with no new EKG changes however troponin bumped up to 1.[address] elevation [place]. apixaban switched to heparin drip. Cardiology reconsulted. On aspirin already. On beta-sincere already and statin. Nitroglycerin p.r.n.. Morphine p.r.n. for chest pain. Further workup per Cardiology. Plan for heart catheterization however is canceled per Cardiology recommendations. 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 History of left lower extremity DVT Melanoma Hepatocellular carcinoma cancer followed at [facility] Coronary artery disease status post stents with PCI to RCA in 1998. Chronic anticoagulation COPD Hypertension History of DVT PE Hypothyroidism Hyperlipidemia Insulin-dependent type 2 diabetes Morbid obesity T-cell lymphoma DVT prophylaxis already on anticoagulation on switched to heparin drip now. Resume apixaban okay Subjective Date/time seen: 02/05/24 12:07 Interval history: New complaints. Overall feels well. No further chest pain. Drainage is from his skin lesions are improving Review of Systems Review of Systems: All systems reviewed & are unremarkable except as noted in HPI and below Exam Narrative: GENERAL: Well-developed, well-nourished, and in no acute distress. HEAD: Normoce
[2024-02-05] MEDS: SULFAMETHOXAZOLE/TRIMETHOPRIM 800/160 MG DS TABLET 1 TAB PO ×2 (12:24→20:26)
--- NOTE | 2024-02-05 13:19 | PC.NURSE ---
This patient, Bo Barragan, was transferred to [[address] [place] [address] ] on 02/05/24 at 1320. Personal belongings sent with patient. Report given to [NÉSTOR Haines ]. Appropriate documentation sent with patient. Belongings and medication sent.
--- NOTE | 2024-02-05 13:30 | PC.NURSE ---
This patient, Bo Barragan, was received from IMU on 02/05/24 at 1352. Patient/family oriented to unit policies and routines
[2024-02-05 17:44] LABS: Glucose Point of Care 217 mg/dl (65-105)
[2024-02-05 19:56] LABS: Glucose Point of Care 216 mg/dl (65-105)
[2024-02-05] MEDS: levoFLOXacin 750 MG TABLET PO (20:25)
[2024-02-05] MEDS: CLOBETASOL PROPIONATE 0.05% OINT 30 GM 1 APPLIC TOPICAL (20:26)
[2024-02-05] MEDS: INSULIN GLARGINE (*BKC) 100 UNITS/ML 15 UNITS SUB-Q (20:27)
[2024-02-06 04:38] VITALS: BP 143/76; PULSE 85; RESP 18; TEMP 36.3; O2SAT 100
[2024-02-06] MEDS: LEVOTHYROXINE SODIUM 100 MCG TABLET PO (05:40)
[2024-02-06 05:49] LABS: Basophils Absolute Auto 0.1 K/mm3 (0.0-0.1); Basophils Percent Auto 2.2 % (0.2-1.2); Eosinophils Percent Auto 0.2 % (0-4.4); Hematocrit 34.8 % (42.0-52.0); Hemoglobin 10.8 g/dL (14.0-18.0); Immature Granulocyte Percent A 7.4 % (0-0.5); Lymphocytes Absolute Auto 0.87 K/mm3 (0.9-3.2); Lymphocytes Percent Auto 21.3 % (18.3-44.2); Mean Corpuscular Hemoglobin 25.4 pg (26-34); Mean Corpuscular Volume 81.9 fl (80-100); Mean Platelet Volume 11.5 fl (7.4-10.4); Monocytes Absolute Auto 0.9 K/mm3 (0.1-0.6); Monocytes Percent Auto 21.6 % (2.6-8.5); Neutrophils Absolute Auto 1.9 K/mm3 (1.3-6.7); Neutrophils Percent Auto 47.3 % (45.5-73.1); Nucleated Red Blood Cells Perc 0.7 % (0.0-0.2); Platelet Count Result 212 k/mm3 (150-375); Red Blood Count 4.25 M/mm3 (4.6-6.20); Red Cell Distribution Width 17.9 % (11.5-14.5); White Blood Count 4.1 K/mm3 (4.5-10.0)
[2024-02-06 05:51] LABS: Alanine Aminotransferase 71 U/L (6-50); Albumin Level 3.6 g/dL (3.5-5.1); Alkaline Phosphatase 79 U/L (38-126); Anion Gap 5 mmol/L (4-12); Aspartate Amino Transferase 110 U/L (17-59); Bilirubin,Total 0.6 mg/dL (0.2-1.3); Blood Urea Nitrogen 18 mg/dL (9-20); Calcium 9.5 mg/dL (8.4-10.2); Carbon Dioxide 29 mmol/L (22-30); Chloride 106 mmol/L (98-107); Estimated CRCL calculation 43 ml/min; Estimated Glomerular Filt Rate 45; Glucose 127 mg/dL (65-110); Magnesium 1.7 mg/dL (1.6-2.3); Potassium 4.1 mmol/L (3.4-5.0); Sodium 140 mmol/L (137-145)
[2024-02-06] MEDS: traMADol HCL (*CRX) 50 MG TABLET 100 MG PO (05:51)
[2024-02-06 07:15] LABS: Anisocytosis 1+; Platelet Clumps Present; Platelet Estimate Adequate (Adequate)
[2024-02-06 07:51] LABS: Glucose Point of Care 154 mg/dl (65-105)
[2024-02-06 08:09] LABS: Schistocytes None Seen
[2024-02-06 08:40] VITALS: PULSE 88
[2024-02-06] MEDS: METOPROLOL SUCCINATE EXT REL 50 MG TABCR 100 MG PO (08:40)
[2024-02-06] MEDS: ROSUVASTATIN 20 MG TABLET 40 MG PO (08:40)
[2024-02-06] MEDS: ASPIRIN 81 MG ENTERIC TABLET PO (08:40)
[2024-02-06] MEDS: OMEGA 3 POLYUNSAT FATTY ACIDS 1 GM CAP PO (08:40)
[2024-02-06] MEDS: PANTOPRAZOLE 40 MG TABLET PO (08:40)
[2024-02-06] MEDS: APIXABAN 5 MG TABLET PO (08:40)
[2024-02-06] MEDS: lisinopriL 10 MG TABLET PO (08:40)
[2024-02-06] MEDS: FENOFIBRATE NANOCRYSTALLIZED 145 MG TABLET PO (08:40)
[2024-02-06] MEDS: MULTIVITAMINS THERAPEUTIC TAB (*BKC) 1 TABLET PO (08:41)
[2024-02-06] MEDS: CYANOCOBALAMIN 1,000 MCG TABLET 1000 MCG PO (08:41)
[2024-02-06] MEDS: allopurinoL 300 MG TABLET PO (08:42)
[2024-02-06] MEDS: LORATADINE 10 MG TABLET PO (08:42)
[2024-02-06] MEDS: FINASTERIDE 5 MG TABLET PO (08:42)
[2024-02-06] MEDS: SULFAMETHOXAZOLE/TRIMETHOPRIM 800/160 MG DS TABLET 1 TAB PO (08:42)
[2024-02-06] MEDS: EMPAGLIFLOZIN 25 MG TABLET BY MOUTH (08:42)
[2024-02-06] MEDS: FERROUS SULFATE 325 MG TABLET DR BY MOUTH (08:42)
[2024-02-06] MEDS: FUROSEMIDE 40 MG TABLET 80 MG PO (08:42)
[2024-02-06] MEDS: oxyBUTYnin CHLORIDE 5 MG TABLET PO (08:42)
[2024-02-06] MEDS: FOLIC ACID 1 MG TABLET PO (08:42)
[2024-02-06] MEDS: INSULIN ASPART (*BKC) 100 UNITS/ML SUB-Q ×2 (08:43→12:15)
[2024-02-06] MEDS: polyethylene glycoL 3350 17 GM POWD.PACK PO (08:44)
[2024-02-06] MEDS: TRIAMCINOLONE ACET 0.1% CREAM 80 GM TUBE 1 APPLIC TOPICAL (08:54)
[2024-02-06] MEDS: GENTAMICIN SULFATE 0.1% CR 15 GM TUBE 1 APPLIC TOPICAL (08:54)
--- NOTE | 2024-02-06 10:01 | PCPTNOTE ---
Attempted to see patient for PT, however patient refused due to anticipated discharge. Per patient he is discharging home today.
--- NOTE | 2024-02-06 10:33 | PCOTNOTE ---
Attempted to see Patient this A.M. Patient is in bed and states he is discharging and not participating in therapy today.
[2024-02-06 11:49] LABS: Glucose Point of Care 163 mg/dl (65-105)
--- NOTE | 2024-02-06 12:38 | PM.DS ---
DS: Admitting Diagnosis Discharge Date 02/06/2024 Admitting Diagnosis Shortness of breath DS: Discharge Diagnosis Discharge Diagnosis (1) Shortness of breath: Code(s): R06.02 - Shortness of breath Status: Acute (2) Elevated troponin: Code(s): R79.89 - Other specified abnormal findings of blood chemistry Status: Acute (3) Acute kidney injury superimposed on CKD: Code(s): N17.9 - Acute kidney failure, unspecified; N18.9 - Chronic kidney disease, unspecified Status: Acute (4) Hypomagnesemia: Code(s): E83.42 - Hypomagnesemia Status: Acute (5) Open wounds involving multiple regions of lower extremity: Code(s): S81.809A - Unspecified open wound, unspecified lower leg, initial encounter Status: Acute (6) Insulin dependent type 2 diabetes mellitus: Code(s): E11.9 - Type 2 diabetes mellitus without complications; Z79.4 - nursing home (current) use of insulin Status: Acute (7) Essential hypertension: Code(s): I10 - Essential (primary) hypertension Status: Chronic DS: Summary Hospital Course Hospital Course: This is a 78-year-old male who presents to the ED complaining of shortness of breath that started early in the morning.? Shortness of breath felt like previous PE..? Patient also reported episodes of non bloody vomiting for the past several days.? No fever chills chest pain cough.? He has chronic pain related to multiple sores on the scan.? Also had chest congestion nausea vomiting.? Saw PCP on 01/25 and was given levofloxacin for 10 days for possible pneumonia.? He also reported to me that he had shaking episode and slumped over. ED workup reveal hypotension on presentation.? Chest x-ray was clear.? CTA showed no change in small a few chronic pulmonary al arterial webs in the right lower lobe related to prior pulmonary embolism.? No acute pump PE or other acute cardiopulmonary disease.? Irregular appearance of the right hepatic lobe which is significantly decreased in size which could represent either interval partial hepatectomy are per sponsor treatment for prior hepatic mass was concerning for malignancy. Presentation suspicious for acute on chronic super added infection of skin lesions.? Place on antibiotics IV with IV vancomycin and cefepime.? Blood pressure and hemodynamics stabilized after initial resuscitation. Antibiotics switched to oral and treat the course in 2 more days. The erythema around these skin lesions improved with antibiotic treatment. On admission his workup for his shortness of breath was done with Troponin came back elevated at 0.101. Serial troponin down trending to 0.087-0.081.? BNP at 759.? EKG with sinus rhythm nonspecific ST-T changes.? Cardiology consulted.? Creatinine at 1.9 showing ÁNGEL on CKD.? Baseline creatinine of 1.2 He did have another Another episode of chest pain 02/02/2024 with no new EKG changes however troponin bumped up to 1.[address] elevation [place]. apixaban switched to heparin drip.? Cardiology reconsulted.? On aspirin already.? On beta-sincere already and statin.? Nitroglycerin p.r.n..? Morphine p.r.n. for chest pain.? Further workup per Cardiology.? Plan for heart catheterization however is canceled per Cardiology recommendations. 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 History of left lower extremity DVT Melanoma Hepatocellular carcinoma cancer followed at [facility] Coronary artery disease status post stents with PCI to RCA in 1998. Chronic anticoagulation COPD Hypertension History of DVT PE Hypothyroidism Hyperlipidemia Insulin-dependent type 2 diabetes Morbid obesity T-cell lymphoma DVT prophylaxis already on anticoagulation on switched to heparin drip now.? Resumed apixaban at discharg
== END 2024-02-06 13:20 | disposition home or self-care (01) | DRG 281 ==
LOC: ANHED 09:05 → ANHIMU 09:30 → ANH2MED 02-05 13:01
PROVIDERS: Internal Medicine; Internal Medicine Interventional Cardiology; Student in an Organized Health Care Education/Training Program; Admitting Provider Family Medicine; Emergency Provider Preventive Medicine Aerospace Medicine; PCP Family Medicine Adolescent Medicine; Visit Provider Internal Medicine
DX: I21.4 Non-ST elevation (NSTEMI) myocardial infarction (principal); C22.0 Liver cell carcinoma; C84.A0 Cutaneous T-cell lymphoma, unspecified, unspecified site; C91.50 Adult T-cell lymphoma/leukemia (HTLV-1-associated) not having achieved remission; N17.9 Acute kidney failure, unspecified; N18.30 Chronic kidney disease, stage 3 unspecified; I12.9 Hypertensive chronic kidney disease with stage 1 through stage 4 chronic kidney disease, or unspecified chronic kidney disease; I25.10 Atherosclerotic heart disease of native coronary artery without angina pectoris; J44.9 Chronic obstructive pulmonary disease, unspecified; J61 Pneumoconiosis due to asbestos and other mineral fibers; D70.1 Agranulocytosis secondary to cancer chemotherapy; T45.1X5A Adverse effect of antineoplastic and immunosuppressive drugs, initial encounter; E11.22 Type 2 diabetes mellitus with diabetic chronic kidney disease; E78.5 Hyperlipidemia, unspecified; E03.9 Hypothyroidism, unspecified; E66.01 Morbid (severe) obesity due to excess calories; E78.00 Pure hypercholesterolemia, unspecified; E83.42 Hypomagnesemia; K21.9 Gastro-esophageal reflux disease without esophagitis; M54.9 Dorsalgia, unspecified; G89.29 Other chronic pain; Z96.652 Presence of left artificial knee joint; I25.2 Old myocardial infarction; Z95.5 Presence of coronary angioplasty implant and graft; Z79.4 Long term (current) use of insulin; Z79.82 Long term (current) use of aspirin; Z86.711 Personal history of pulmonary embolism; Z85.820 Personal history of malignant melanoma of skin; Z86.718 Personal history of other venous thrombosis and embolism; Z87.442 Personal history of urinary calculi
CPT/HCPCS: 36415; 71045; 71275; 80048; 80053; 80202; 82565; 82948; 83735; 83880; 84484; 85025; 85027; 85610; 85730; 93005; 93306; 96365; 96375; 97110; 97162; 97165; 97530; 97535; 99285; A9270; G0378; J0692; J1644; J1815; J2270; J3370; J3475; J7030; Q9957; Q9967

== ENCOUNTER 2024-02-07 15:01 | Emergency (ER) | payer MEDICARE, SELFPAY ==
[2024-02-07] VITALS (20 sets, daily range): BP systolic 65–114; BP diastolic 42–89; PULSE 79–97; RESP 7–29; TEMP 36.4; O2SAT 86–100
--- NOTE | ~2024-02-07 | XR_ITS ---
EXAMINATION: XR chest 1V portable DATE: 02/07/2024 15:39 INDICATION: Chest pain. TECHNIQUE: A single frontal view of the chest was obtained. COMPARISON: Chest view 02/01/2024, chest CT 02/01/2024 FINDINGS: There is no pneumonia, pleural effusion, or pneumothorax. The heart size is normal. IMPRESSION: 1. No acute cardiopulmonary disease. Reviewed, dictated and finalized at location A.
--- NOTE | ~2024-02-07 | CT_ITS ---
EXAMINATION: CTA chest PE protocol DATE: 02/07/2024 18:28 INDICATION: Chest tightness and elevated troponin TECHNIQUE: Computed tomography (CT) pulmonary angiogram of the chest was performed with 100 mL Omnipa que-350 intravenous contrast. Additional 3D reconstructions utilizing coronal maximum intensity proje ction (MIP) were performed. Automated exposure control and iterative reconstruction technique were em ployed. The dose-length product was 668.34 mGy-cm. COMPARISON: 02/01/2024 FINDINGS: A few unchanged thin pulmonary is laryngeal webs in the right lower lobe consistent with sequela of c hronic pulmonary embolism. No acute pulmonary emboli. Sensitivity is however decreased in some of the smaller subsegmental pulmonary arteries due to some scattered mild to moderate respiratory motion ac quired in greatest at the lung bases. No pneumonia, pulmonary edema or pleural effusion. A few small calcified right lower lobe nodule along with the calcified subcarinal lymph node and numerous small s plenic calcifications, all consistent with old granulomatous disease. Mild cardiomegaly. Atherosclero tic coronary artery calcifications. No pericardial effusion. Thoracic aorta is normal in caliber with no dissection. No pathologically enlarged thoracic lymphadenopathy. 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 Again seen is right hepatic lobe volume loss at the site of a prior large hepatic mass seen on CT dated 03/31/2022 consistent with either prior pa rtial hepatectomy or other response to treatment for the suspected hepatic malignancy. Severe lower c ervical and upper thoracic spondylosis. There are bridging osteophytes at multiple levels consistent with diffuse idiopathic skeletal hyperostosis (DISH). IMPRESSION: 1. 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 No acute pulmonary embolism or other acute cardiopulmonary disease. 2. Mild cardiomegaly. Reviewed, dictated and finalized at location A. IMPRESSION: 1. No interval change in a few chronic pulmonary arterial webs in the right low er lobe related to prior pulmonary embolism. No acute pulmonary embolism or oth er acute cardiopulmonary disease. 2. Mild cardiomegaly.
--- NOTE | 2024-02-07 15:04 | ECG_ITS ---
SEE SCANNED COPY FOR CONFIRMED REPORT MTDD
[2024-02-07 15:58] LABS: Hematocrit 36.4 % (42.0-52.0); Hemoglobin 11.3 g/dL (14.0-18.0); Mean Corpuscular Hemoglobin 25.3 pg (26-34); Mean Corpuscular Volume 81.6 fl (80-100); Mean Platelet Volume 11.6 fl (7.4-10.4); Platelet Count Result 250 k/mm3 (150-375); Red Blood Count 4.46 M/mm3 (4.6-6.20); Red Cell Distribution Width 18.7 % (11.5-14.5); White Blood Count 5.4 K/mm3 (4.5-10.0)
[2024-02-07 16:13] LABS: Alanine Aminotransferase 58 U/L (6-50); Albumin Level 3.8 g/dL (3.5-5.1); Alkaline Phosphatase 82 U/L (38-126); Anion Gap 12 mmol/L (4-12); Aspartate Amino Transferase 66 U/L (17-59); Bilirubin,Total 0.7 mg/dL (0.2-1.3); Blood Urea Nitrogen 20 mg/dL (9-20); Calcium 9.4 mg/dL (8.4-10.2); Carbon Dioxide 21 mmol/L (22-30); Chloride 102 mmol/L (98-107); Estimated CRCL calculation 31 ml/min; Estimated Glomerular Filt Rate 31; Glucose 241 mg/dL (65-110); Lipase 184 U/L (23-300); Potassium 3.7 mmol/L (3.4-5.0); Sodium 135 mmol/L (137-145)
[2024-02-07 16:25] LABS: INR 1.7; Prothrombin Time 20.7 Seconds (11.1-14.7)
[2024-02-07 16:26] LABS: Partial Thromboplastin Time 40.2 Seconds (22.3-36.8)
[2024-02-07 16:32] LABS: Troponin I 0.161 ng/mL (0.000-0.034)
[2024-02-07 16:36] LABS: Band Neutrophils Percent 2 % (0-6); Lymphocytes Absolute Manual 1.29 K/mm3 (1.1-4.5); Monocytes Percent Manual 13 % (3-9); Neutrophils Percent Manual 61 % (46-73); Nucleated Red Blood Cells 1 %; Total Cells Counted 100
[2024-02-07 16:37] LABS: Hypochromasia 1+; Platelet Estimate Adequate (Adequate); Schistocytes None Seen
[2024-02-07 16:38] LABS: Anisocytosis 2+; Polychromasia 1+
--- NOTE | 2024-02-07 17:45 | ED.CHESTPAIN ---
HPI - Chest Pain General Chief Complaint: Chest Pain Stated Complaint: headache and stomach is messed up Time Seen by Provider: 02/07/24 17:11 Source: patient Mode of arrival: ambulatory Limitations: no limitations History of Present Illness HPI narrative: This is a 78-year-old male with PMH of T2 dm, CAD, cutaneous T-cell lymphoma, liver cancer who presents to the ED with chief complaint of lightheadedness onset today. Patient reports he was just discharged from the hospital yesterday because he was doing much better. States that today when he went to stand up stairs felt very lightheaded. He states this caused a bit of a headache and some sustained dizziness. He states that his whole body felt tight which include some chest tightness but likens it more to soreness. Denies shortness of breath, cough, leg swelling, nausea, vomiting, syncope with fall. Denies numbness, weakness, back pain. Denies any current chest pain. States he is currently asymptomatic. Reports he has stent placed in 1998 in his heart. Started chemotherapy treatment for his cancer last week via [facility] Related Data Home Medications Medication Instructions Recorded Confirmed aspirin 81 mg tablet,delayed 81 mg PO BID 08/27/19 02/01/24 release (Adult Low Dose Aspirin) fenofibrate nanocrystallized 145 145 mg PO DAILY 02/27/20 02/01/24 mg tablet (Tricor) fexofenadine 180 mg tablet 180 mg PO DAILY 02/27/20 02/01/24 ([place] Allergy) umeclidinium 62.5 mcg-vilanterol 1 inh inhalation DAILY PRN 02/24/21 02/01/24 25 mcg/actuation powdr for Adequate Ventilation inhalation (Anoro Ellipta) polyethylene glycol 3350 17 gram 17 g PO DAILY 03/06/22 02/01/24 oral powder packet bexarotene 75 mg capsule 375 mg PO DAILY 05/12/22 02/01/24 (Targretin) cyanocobalamin (vitamin B-12) 1,000 mcg PO DAILY 05/12/22 02/01/24 1,000 mcg capsule multivitamin 1 tablet PO DAILY 05/12/22 02/01/24 triamcinolone acetonide 0.1 % 1 applic topical BID 05/12/22 02/01/24 topical cream erythromycin 5 mg/gram (0.5 %) eye 1 applic EACH EYE DAILY 11/01/22 02/01/24 ointment ondansetron 4 mg disintegrating 4 mg PO Q6H PRN Nausea And Vomiting 11/01/22 02/01/24 tablet hydrocodone 5 mg-acetaminophen 325 1 tablet PO Q6H PRN Cough 02/16/23 02/01/24 mg tablet clobetasol 0.05 % topical ointment 1 applic topical QHS 03/06/23 02/01/24 glucagon 3 mg/actuation nasal spray 3 mg intranasal ONCE 03/23/23 02/01/24 gentamicin 0.1 % topical cream 1 applic topical BID 08/04/23 02/01/24 [place] Tears Plus 1 drp EACH EYE DAILY PRN dry eye(s) 08/25/23 02/02/24 epinephrine 0.3 mg/0.3 mL 0.3 mg IM ONCE PRN Allergic 02/01/24 02/01/24 injection, auto-injector Reaction ferrous sulfate 325 mg (65 mg 325 mg PO BIDWM 02/01/24 02/01/24 iron) tablet mupirocin 2 % topical ointment 1 applic topical TID 02/01/24 02/01/24 niacinamide 500 mg tablet 500 mg PO BID 02/01/24 02/01/24 oxybutynin chloride 5 mg tablet 5 mg PO BID 02/02/24 02/02/24 Allergies Allergy/AdvReac Type Severity Reaction Status Date / Time No Known Allergies Allergy Verified 02/07/24 15:02 Review of Systems Review of Systems: All systems as dictated in [facility] Past Medical History Medical History ÁNGEL (acute kidney injury) Asbestosis CAD (coronary artery disease) Cell phone elbow Chronic anticoagulation Chronic back pain COPD (chronic obstructive pulmonary disease) Coronary artery disease With history of [place] and stent. Patient of Dr. Abisai Patton. Cutaneous T-cell lymphoma Deep venous thrombosis Eczema Essential hypertension Gastroesophageal reflux disease Hepatocellular carcinoma determined by biopsy of liver History of peptic ulcer Hx of myocardial infarction Hyperlipidemia Hypothyroidism Insulin dependent type 2 diabetes mellitus Kidney stones Morbid obesity Pneumonia Pulmonary embolism Pure hypercholesterolemia, unspecified Severe sepsis
[2024-02-07] MEDS: SODIUM CHLORIDE 0.9% IV 1,000 ML 999 ML IV CONT (17:50)
--- NOTE | 2024-02-07 18:05 | ECG_ITS ---
SEE SCANNED COPY FOR CONFIRMED REPORT MTDD
[2024-02-07 18:56] LABS: Magnesium 1.5 mg/dL (1.6-2.3)
[2024-02-07 19:15] LABS: Troponin I 0.144 ng/mL (0.000-0.034)
--- NOTE | 2024-02-07 19:15 | PC.NURSE ---
assumed care of pt from indra mcneil at this time.
[2024-02-07] MEDS: MAGNESIUM SULF 1 GM/D5W 100 ML 1 GM/100 ML BAG IVPB (19:19)
== END 2024-02-07 21:00 | disposition home or self-care (01) ==
PROVIDERS: Emergency Medicine; Emergency Provider Physician Assistant; PCP Family Medicine Adolescent Medicine
DX: I95.1 Orthostatic hypotension (principal); C84.A0 Cutaneous T-cell lymphoma, unspecified, unspecified site; C22.0 Liver cell carcinoma; I25.10 Atherosclerotic heart disease of native coronary artery without angina pectoris; I10 Essential (primary) hypertension; I25.2 Old myocardial infarction; J61 Pneumoconiosis due to asbestos and other mineral fibers; J44.9 Chronic obstructive pulmonary disease, unspecified; E03.9 Hypothyroidism, unspecified; E11.9 Type 2 diabetes mellitus without complications; E66.01 Morbid (severe) obesity due to excess calories; Z86.718 Personal history of other venous thrombosis and embolism; E78.00 Pure hypercholesterolemia, unspecified; K21.9 Gastro-esophageal reflux disease without esophagitis; Z95.5 Presence of coronary angioplasty implant and graft; Z68.34 Body mass index [BMI] 34.0-34.9, adult; Z86.711 Personal history of pulmonary embolism; Z85.828 Personal history of other malignant neoplasm of skin; Z87.442 Personal history of urinary calculi; Z87.11 Personal history of peptic ulcer disease; Z96.653 Presence of artificial knee joint, bilateral; Z90.49 Acquired absence of other specified parts of digestive tract; I51.7 Cardiomegaly; R94.31 Abnormal electrocardiogram [ECG] [EKG]; Z79.4 Long term (current) use of insulin; Z79.82 Long term (current) use of aspirin; Z79.84 Long term (current) use of oral hypoglycemic drugs; Z79.899 Other long term (current) drug therapy; Z79.01 Long term (current) use of anticoagulants
CPT/HCPCS: 36415; 71045; 71275; 80053; 83690; 83735; 84484; 85025; 85610; 85730; 93005; 96361; 96365; 99284; J3475; J7030; Q9967

== ENCOUNTER 2024-02-29 14:56 | Outpatient (CLI) | payer MEDICARE, SELFPAY ==
--- NOTE | ~2024-02-29 | XR_ITS ---
Left Shoulder Technique: AP and scapular Y views were obtained. Clinical History: Pain Findings: No fracture or dislocation is seen. Osseous alignment is anatomic. There is moderate degene rative change of the glenohumeral and acromioclavicular joints.. Soft tissues are unremarkable. Impression: Moderate degenerative changes, as above. Reviewed, dictated and finalized at location . Impression: Moderate degenerative changes, as above.
== END 2024-02-29 14:57 ==
PROVIDERS: PCP Family Medicine Adolescent Medicine; Visit Provider Family Medicine Adolescent Medicine
DX: M25.512 Pain in left shoulder (principal)
CPT/HCPCS: 73030

== ENCOUNTER 2024-03-07 12:03 | Outpatient (RCR) | payer MEDICARE, SELFPAY ==
[2024-03-07 12:40] VITALS: BMI 33.0
== END 2024-05-27 12:43 | disposition home or self-care (01) ==
LOC: ANHWOC 12:03
PROVIDERS: PCP Family Medicine Adolescent Medicine; Visit Provider Nurse Practitioner Family
DX: S81.809D Unspecified open wound, unspecified lower leg, subsequent encounter (principal)
CPT/HCPCS: 99214; G0463